=== PATIENT | female | born 1965 | race Caucasian/White ===

== ENCOUNTER 2022-09-07 15:33 | Outpatient (CLI) | payer OTHER, SELFPAY ==
--- NOTE | ~2022-09-07 | US_ITS ---
EXAMINATION: US venous doppler [facility] DATE: 09/07/2022 16:25 INDICATION: Lower limb swelling TECHNIQUE: Grayscale ultrasound images without and with compression and Doppler ultrasound images of the bilateral lower extremity veins were obtained. COMPARISON: None. FINDINGS: The visualized portions of right common femoral vein, profunda (deep) femoral vein, femoral vein, pop liteal vein, posterior tibial veins, peroneal veins, gastrocnemius vein and greater saphenous vein ou tflow are patent. The visualized portions of left common femoral vein, profunda femoral vein, femoral vein, popliteal v ein, posterior tibial veins, peroneal veins, gastrocnemius vein and greater saphenous vein outflow ar e patent. IMPRESSION: 1. No deep venous thrombosis in either lower limb. Reviewed, dictated and finalized at location A.
== END 2022-09-07 15:34 | disposition home or self-care (01) ==
PROVIDERS: PCP Family Medicine; Visit Provider Family Medicine
DX: M79.89 Other specified soft tissue disorders (principal)
CPT/HCPCS: 93970

== ENCOUNTER 2024-01-01 10:20 | Inpatient (IN) | payer OTHER, SELFPAY ==
[2024-01-01] VITALS (30 sets, daily range): BP systolic 119–158; BP diastolic 64–139; PULSE 89–111; RESP 12–29; TEMP 36.7–36.8; O2SAT 88–100; BMI 19.3
--- NOTE | ~2024-01-01 | MR_ITS ---
EXAMINATION: MR hip RT wo con DATE: 01/02/2024 12:15 INDICATION: Right greater trochanter fracture. TECHNIQUE: Magnetic resonance imaging (MRI) of the right hip was performed without intravenous contra st. COMPARISON: Pelvis and right hip radiographs 01/01/2024 FINDINGS: There is an old healed fracture of proximal left femur with internal fixation with plate an d screws. There is an avulsion fracture of greater trochanter of proximal right femur with 17 mm dist raction and edema-like marrow signal intensity. There are nondisplaced trabecular fractures in the in tertrochanteric region of proximal right femur. There is adjacent hematoma. There is edema in the rig ht gluteus medius muscle belly. There is subcutaneous edema in right pelvis. The hip joints demonstra te partial-thickness cartilage loss and osteophytes. There are bilateral hip joint effusions, right w orse than left. There is mild tendinopathy of the hamstring origins bilaterally. Right iliopsoas tend on is normal. IMPRESSION: 1. Intertrochanteric fracture of proximal right femur with displacement of the greater trochanter fra cture fragment. 2. Mild osteoarthritis of the hips. Reviewed, dictated and finalized at location A. IMPRESSION: 1. Intertrochanteric fracture of proximal right femur with displacement of the greater trochanter fracture fragment. 2. Mild osteoarthritis of the hips.
--- NOTE | ~2024-01-01 | US_ITS ---
EXAMINATION: US carotid duplex BI DATE: 01/01/2024 15:13 INDICATION: Syncope. TECHNIQUE: Grayscale, color Doppler, and pulsed Doppler images of the cervical carotid arteries were obtained. The degree of vessel stenosis is placed in one of the following categories: normal, <50%, 5 0-69%, >=70% but less than near-occlusion, near-occlusion, or total occlusion. Note that percent sten osis relative to normal distal artery lumen diameter is indirectly measured from velocity measurement s as described by Les, et al. Radiology 2003; 229:340-346. COMPARISON: None. FINDINGS: RIGHT: The right common carotid artery (CCA) peak systolic velocity (PSV) is 71 cm/s. The right internal car otid artery (ICA) PSV is 94 cm/s. The right ICA end-diastolic velocity (EDV) is 48 cm/s. The right IC A/CCA PSV ratio is 1.7. Grayscale and color Doppler images yield an estimate of <50% diameter reducti on from plaque in the ICA. There is antegrade flow in the right vertebral artery. LEFT: The left CCA PSV is 74 cm/s. The left ICA PSV is 78 cm/s. The left ICA EDV is 36 cm/s. The left ICA/C CA PSV ratio is 1.2. Grayscale and color Doppler images yield an estimate of <50% diameter reduction from plaque in the ICA. There is antegrade flow in the left vertebral artery. IMPRESSION: 1. <50% stenosis in the right internal carotid artery. 2. <50% stenosis in the left internal carotid artery. Reviewed, dictated and finalized at location A.
--- NOTE | ~2024-01-01 | XR_ITS ---
EXAMINATION: XR hip RT 2V w AP pelvis DATE: 01/01/2024 11:37 INDICATION: Fall. TECHNIQUE: An anteroposterior view of the pelvis and 2 views of right hip were obtained. COMPARISON: None. FINDINGS: There is an avulsion fracture of greater trochanter of proximal right femur with 1.9 cm dis traction. There is an old healed fracture of proximal left femur with internal fixation. There is mil d osteoarthritis of the hips. IMPRESSION: 1. Avulsion fracture of greater trochanter of proximal right femur. 2. Mild osteoarthritis of the hips. Reviewed, dictated and finalized at location A.
--- NOTE | ~2024-01-01 | XR_ITS ---
EXAMINATION: XR toe 5th RT min 2V DATE: 01/02/2024 09:00 INDICATION: Right fifth toe wound after being stepped on 7 months prior TECHNIQUE: Dorsal plantar, lateral and oblique views of the right fifth toe were obtained. COMPARISON: None FINDINGS: Alignment is normal. Suggestion of an old healed fracture deformity at the head of the fifth proximal phalanx. Periarticular soft tissue swelling about the fifth metatarsophalangeal joint with normal xin int space. Mild osteoarthritis at the visualized interphalangeal joints in the fourth and fifth toes. IMPRESSION: 1. Possible old healed fracture deformity at the head of the fifth proximal phalanx. No acute osseous abnormality. 2. Mild polyarticular osteoarthritis in the interphalangeal joints of the fourth and fifth toes. Reviewed, dictated and finalized at location B. IMPRESSION: 1. Possible old healed fracture deformity at the head of the fifth proximal pha lanx. No acute osseous abnormality. 2. Mild polyarticular osteoarthritis in the interphalangeal joints of the fourt h and fifth toes.
--- NOTE | ~2024-01-01 | MR_ITS ---
EXAMINATION: MR foot RT wo/w con DATE: 01/03/2024 09:00 INDICATION: Chronic ulcer at the metatarsophalangeal joints at the right foot. TECHNIQUE: Magnetic resonance imaging (MRI) of the affected fore/mid foot was performed without intra venous contrast. Sequences included sagittal T1-weighted FSE, sagittal fluid sensitive FSE STIR, linda nal PD-weighted FS FSE, coronal T1-weighted FSE, axial PD-weighted FS FSE, and axial PD-weighted FSE. COMPARISON: None FINDINGS: There is increased fluid and decreased fat signal in the subcutaneous tissues surrounding likely ulce ration at the lateral plantar aspect of the fifth metatarsophalangeal joint and at the medial plantar aspect of the first interphalangeal joint. The underlying bone marrow signal appears normal with no evident reactive edema or loss of T1 fat signal to suggest osteomyelitis. No abscess. There is mild marrow edema and enhancement associated with small linear low signal intensity nondispl aced fracture line underlying the distal articular surface of the medial cuneiform. There is linear l ow signal at the juxtaposed base of the first metatarsal but without surrounding edema or enhancement which could represent additional nondisplaced fracture either more chronic or in more advanced stage of healing. There is mild polyarticular osteoarthritis involving multiple joints in the mid and forefoot. Small f ocus of subarticular edema-like signal change at the central head of the first metatarsal. Additional subarticular cystlike and edema-like signal change at the mid cuneiform along its articulation with the lateral cuneiform. The visualized portions of the flexor and extensor tendons as well as intrinsi c musculature of the foot are unremarkable. The Lisfranc ligament complex as well as the collateral l igament complexes at the metatarsophalangeal and interphalangeal joints are unremarkable. No other ab normally enhancing lesions identified. IMPRESSION: 1. Plantar skin ulcerations at the fifth metatarsophalangeal and first interphalangeal joints without evident associated osteomyelitis or abscess. 2. Nondisplaced fractures at the base of the first metatarsal and juxtaposed medial cuneiform, the la tter without associated marrow edema or enhancement or more chronic or and more advanced stage of hea ling. 3. Mild polyarticular osteoarthritis in the mid and forefoot. Reviewed, dictated and finalized at location B. IMPRESSION: 1. Plantar skin ulcerations at the fifth metatarsophalangeal and first interpha langeal joints without evident associated osteomyelitis or abscess. 2. Nondisplaced fractures at the base of the first metatarsal and juxtaposed me dial cuneiform, the latter without associated marrow edema or enhancement or mo re chronic or and more advanced stage of healing. 3. Mild polyarticular osteoarthritis in the mid and forefoot.
--- NOTE | 2024-01-01 10:46 | ED.LOWEXIN ---
HPI - Extremity Injury (Lower) General Chief Complaint: Extremity Injury, Lower <Fran Jean PA-C - Last Filed: 01/01/24 17:58> Stated Complaint: R hip fx <Fran Jean PA-C - Last Filed: 01/01/24 17:58> Time Seen by Provider: 01/01/24 10:43 <Fran Jean PA-C - Last Filed: 01/01/24 17:58> Source: patient <RAJAN Nolan Last Filed: 01/01/24 17:58> Mode of arrival: ambulatory <Fran Jean PA-C - Last Filed: 01/01/24 17:58> Limitations: no limitations <Fran Jean PA-C - Last Filed: 01/01/24 17:58> History of Present Illness HPI Narrative: This is a 58-year-old female with history of HTN, HLD, cigarette smoking who presents to the ED for chief complaint of right hip injury occurring 12/23/2023. Reports that she was seen by primary doctor yesterday and had outpatient x-rays that showed right hip fracture. I did receive a call from primary care office who reports a right greater trochanter fracture. Patient reports that she was walking [place] have an episode where she became dizzy and had a syncopal episode and fell onto the right hip. Patient states that she has had left hip fracture in the past with left hip replacement as well as fractures to the right leg. States that it became increasingly difficult to bear weight at home even with the use of walker so she to her doctor. Pain is located throughout the right hip and right femur. Denies numbness, weakness or any further site of injury. Her son tells that she may have osteoporosis but she has not a official bone scan done just his comments from previous doctors about her x-rays. <RAJAN Nolan Last Filed: 01/01/24 17:58> Related Data Home Medications: Home Medications Medication Instructions Recorded Confirmed buspirone PO 05/09/19 fenofibrate PO 05/09/19 furosemide PO 05/09/19 lovastatin PO 05/09/19 simvastatin PO 05/09/19 tramadol 50 mg tablet 50 mg PO Q8H PRN pain 05/09/19 <Fran Jean PA-C - Last Filed: 01/01/24 17:58> Allergies/Adverse Reactions: Allergies Allergy/AdvReac Type Severity Reaction Status Date / Time Penicillins Allergy Unknown Hives Verified 01/01/24 11:12 Sulfa (Sulfonamide Allergy Hives Verified 01/01/24 11:12 Antibiotics) <Fran Jean PA-C - Last Filed: 01/01/24 17:58> Review of Systems Review of Systems: All systems as dictated in HPI <Fran Jean PA-C - Last Filed: 01/01/24 17:58> [facility] Past Medical History Medical History: Medical History (Updated 01/01/24 @ 14:22 by Sonia Baltazar PA-C) Anxiety Depression Dyslipidemia Hypertension Post-menopause Tobacco dependence <Fran Jean PA-C - Last Filed: 01/01/24 17:58> Surgical History Surgical History: Surgical History (Updated 01/01/24 @ 14:16 by Sonia Baltazar PA-C) History of hysterectomy History of open reduction and internal fixation (ORIF) procedure Repair left hip fracture. <Fran Jean PA-C - Last Filed: 01/01/24 17:58> Family History Family History: Family History Father Hypertension Cerebrovascular accident Family history of coronary artery disease Mother Hypertension Other Arthritis Heart disease <Fran Jean PA-C - Last Filed: 01/01/24 17:58> Social History Social History: Social History (Updated 01/01/24 @ 14:16 by Sonia Baltazar PA-C) Social History: Surrogate medical decision maker: Code status: Full code. Smoking packs per day: 0.5 Smoking cigarettes per day: 10.0 Years smoked: 20 Smoking pack-years: 10.00 Smoking status: Current every day smoker Alcohol intake: current Drinks per week: 2 Alcohol use details: Occasional Substance use: never Do You Feel Safe in your Home?: Yes Lack of Transportation: No Lack of Food: Never True Current Housing: I Have Housing Concerned About Future Housing
--- NOTE | 2024-01-01 10:58 | ECG_ITS ---
Test Date: 2024-01-01 11:09:04 Measurements Intervals [place] Rate: 97 P: 61 W[place]: 169 QRS: 23 QRSD: 86 T: 42 QT: 322 QTc: 410 Interpretive Statements SINUS RHYTHM BASELINE ARTIFACT- I, II, III, AVR, AVL, AVF NORMAL ECG No previous ECG available for comparison Electronically Signed On 01-01-2024 11:10:58 CDT by Donovan Thakkar D.O.
[2024-01-01 11:19] LABS: Basophils Absolute Auto 0.1 K/mm3 (0.0-0.1); Basophils Percent Auto 0.6 % (0.2-1.2); Eosinophils Absolute Auto 0.1 K/mm3 (0-0.3); Eosinophils Percent Auto 0.9 % (0-4.4); Hematocrit 25.8 % (37.0-47.0); Hemoglobin 9.1 g/dL (12.0-15.0); Immature Granulocyte Absolute 0.09 K/mm3 (0.00-0.031); Immature Granulocyte Percent A 0.9 % (0-0.5); Lymphocytes Absolute Auto 1.64 K/mm3 (0.9-3.2); Lymphocytes Percent Auto 15.8 % (18.3-44.2); Mean Corpuscular HGB Conc 35.3 g/dl (32-36); Mean Corpuscular Hemoglobin 37.8 pg (26-34); Mean Corpuscular Volume 107.1 fl (80-100); Mean Platelet Volume 8.3 fl (7.4-10.4); Monocytes Absolute Auto 0.8 K/mm3 (0.1-0.6); Monocytes Percent Auto 7.7 % (2.6-8.5); Neutrophils Absolute Auto 7.7 K/mm3 (1.3-6.7); Neutrophils Percent Auto 74.1 % (45.5-73.1); Platelet Count Result 535 k/mm3 (150-375); Red Blood Count 2.41 M/mm3 (4.2-5.4); White Blood Count 10.4 K/mm3 (4.5-10.0)
[2024-01-01 11:29] LABS: Prothrombin Time 13.6 Seconds (11.1-14.7)
[2024-01-01 11:30] LABS: Blood Urea Nitrogen 18 mg/dL (7-17); Calcium 10.6 mg/dL (8.4-10.2); Chloride 106 mmol/L (98-107); Estimated CRCL calculation 61 ml/min; Estimated Glomerular Filt Rate > 60; Glucose 104 mg/dL (65-110); Potassium 3.8 mmol/L (3.4-5.0)
[2024-01-01 11:39] LABS: Anisocytosis 2+; Platelet Estimate Increased (Adequate)
[2024-01-01 11:40] LABS: Target Cells 1+
[2024-01-01 11:41] LABS: Macrocytosis 2+ (NORMAL); Schistocytes None Seen
[2024-01-01 11:49] LABS: Anion Gap 12 mmol/L (4-12); Carbon Dioxide 17 mmol/L (22-30); Sodium 135 mmol/L (137-145)
[2024-01-01] MEDS: MORPHINE SULFATE (*CRX) 4 MG/ML INJ IV PUSH (11:56)
[2024-01-01] MEDS: ONDANSETRON INJ 4 MG/2 ML VIAL IV PUSH (11:57)
[2024-01-01 12:11] LABS: Alanine Aminotransferase 19 U/L (6-35); Albumin Level 3.9 g/dL (3.5-5.1); Alkaline Phosphatase 154 U/L (38-126); Aspartate Amino Transferase 54 U/L (14-36); Bilirubin,Total 0.7 mg/dL (0.2-1.3)
--- NOTE | 2024-01-01 12:35 | PM.IMHP ---
H&P: HPI History of Present Illness Date/Time: 01/01/24 13:35 Chief Complaint: Right hip fracture. Narrative: This is a very pleasant 58-year-old female smoker with hypertension, dyslipidemia, anemia, and anxiety presented to the emergency department after an outpatient x-ray reportedly showed a right hip fracture. The patient provides the following history. While at work on 12/23/2023 she began feeling weak, lightheaded, dizzy, and sweaty. She felt as though she was going to pass out and tried to sit down however did not make it to a chair in time. She ended up falling on the concrete floor, landing on her right side with immediate pain and swelling in her right hip. Coworkers called 911 and EMS encouraged her to go to the hospital as her blood pressures were in the 70s systolic however she declined. She has had increasing pain in that right hip since that time and in fact has been using a walker as she cannot really bear weight without severe pain. Her doctor ordered an outpatient x-ray today and was told to come to the ER as it showed a right greater trochanteric fracture. Regarding the syncopal episode, she reports that the day before she spent a lot of time working in her garden the day before and wonders if she was possibly dehydrated. She takes furosemide daily for lower extremity edema and she thinks that may have caused a drop in blood pressure. She has felt okay since that time aside from the hip pain. She denies chest pain, pleuritic pain, palpitations, sensations of racing heart, shortness of breath, and calf pain. Of note she is currently on doxycycline for a right 5th toe wound. In the ED: She was afebrile on arrival with stable blood pressures. Labs are significant for WBC count of 10.4, hemoglobin 9.1, hematocrit 25.8%, MCV 107.1, platelet 535, sodium 135, BUN 18, creatinine 0.90, calcium 10.6, AST 54, alkaline phosphatase 154. X-ray showed an avulsion fracture of the greater trochanter of the proximal right femur and mild osteoarthritis of the hips. She is being admitted in this setting for further workup. Review of Systems Review of Systems: 12 systems were reviewed and are negative except for as per HPI. [facility] Past Medical History Medical History Anxiety Depression Dyslipidemia Hypertension Post-menopause Tobacco dependence Surgical History Surgical History History of hysterectomy History of open reduction and internal fixation (ORIF) procedure Repair left hip fracture. Family History Family History Father Hypertension Cerebrovascular accident Family history of coronary artery disease Mother Hypertension Other Arthritis Heart disease Social History Social History (Updated 01/01/24 @ 20:25 by Sonia Baltazar PA-C) Social History: Surrogate medical decision maker: Cyril Nguyen, son. Code status: Full code. Smoking packs per day: 0.5 Smoking cigarettes per day: 10.0 Years smoked: 20 Smoking pack-years: 10.00 Smoking status: Current every day smoker Additional smoking assessment comments: Patient smokes 3 to 6 cigarettes a day. Alcohol intake: current Drinks per week: 2 Alcohol use details: Occasional Substance use: never Do You Feel Safe in your Home?: Yes Lack of Transportation: No Lack of Food: Never True Current Housing: I Have Housing Concerned About Future Housing: No Difficulty Paying Gas/Electric Bills: No Difficulty Paying for Meds: No Currently Unemployed: No Education: High School Diploma/GED Difficulty w/ Childcare or Family Care: No Spiritual care concerns: No Meds Home Medications and Allergies Home Medications Medication Instructions Recorded Confirmed Type naproxen 500 mg tablet,delayed 500 mg PO BID PRN pain #14 tabs 05/05/19 01/01/24 Rx release ([facility]
--- NOTE | 2024-01-01 14:21 | ECHO_ITS ---
Patient Info Name: Vero Nguyen Age: 58 years : 1965 Gender: Female Ht: 68 in Wt: 150 lbs BSA: 1.81 m2 HR: 98 bpm BP: 130 / 91 mmHg Heart Rhythm: Tachycardia, Sinus Rhythm Technical Quality: Poor Exam Date: 01/01/2024 4:07 PM Exam Location: Echo Lab Patient Status: Outpatient Admit Date: 01/01/2024 Staff Ordering Physician: Sonia Baltazar PA-C Delivery Of Shopping News: Bea Quintero RDCS Attending Provider: Erick Max MD Referring Physician: Giovanny ALAN; Exam Type: CA echo doppler color flow Study Info Indications - syncope, hypertension Complete two-dimensional, color flow and Doppler transthoracic echocardiogram is performed. Reason for Poor Study: poor patient cooperation Summary 1. Left ventricular chamber dimension is normal. 2. Left ventricular systolic function is normal, estimated at 65-70%. 3. The left ventricular diastolic function is grade I diastolic dysfunction. 4. Right ventricular systolic function is normal. 5. There is mild tricuspid valve regurgitation. Left Ventricle Left ventricular chamber dimension is normal. Left ventricular systolic function is normal, estimated at 65-70%. There is no increased left ventricular wall thickness. The left ventricular diastolic function is grade I diastolic dysfunction. Right Ventricle Right ventricular chamber dimension is normal. Right ventricular systolic function is normal. Left Atria Left atrial chamber dimension is normal. Right Atria Right atrial chamber dimension is normal. Atrial Septum Intact interatrial septum visualized by color flow imaging. Aortic Valve The aortic valve is probable trileaflet. There is no aortic valve stenosis. There is no aortic valve regurgitation. Pulmonic Valve The pulmonic valve is not well visualized. Mitral Valve There is trace mitral valve regurgitation. Tricuspid Valve There is mild tricuspid valve regurgitation. Pericardium/Pleural There is no pericardial effusion. Inferior Vena Cava Normal inferior vena cava with >50% collapse upon inspiration consistent with normal right atrial pressure, 3 mmHg. Aorta The aortic root size at the sinus of Valsalva is normal. Left Ventricular Outflow Tract Name Value Normal LVOT 2D LVOT Diameter 1.9 cm LVOT Doppler LVOT Peak Gradient 4 mmHg LVOT Mean Gradient 2 mmHg LVOT VTI 21 cm LVOT VTI/AV VTI Ratio 0.8 LVOT Stroke Volume 59 ml LVOT CO 5.6 l/min LVOT CI 3.1 l/min/m2 Pulmonic Valve Name Value Normal PV Doppler PV Peak Gradient 4 mmHg Mitral Valve Name Value Normal
[2024-01-01] MEDS: HYDROmorphone HCL INJ (*CRX) 1 MG/ML SYR 0.5 MG IV PUSH (15:13)
--- NOTE | 2024-01-01 16:57 | ADMGEN ---
This patient, Vero Nguyen, was admitted to [facility] Surg Room 322-01. Patient/family oriented to hospital policies and general routines including ID bracelet, bed and alarms, visiting hours, pain management, procedures, bathroom and other care routines, personal items, smoking policy, room service/diet, and visiting hours. Information on how to activate the Rapid Response Team has been discussed. Patient/Family are encouraged to report perceived risks to care and to ask questions if they do not understand what they are told or what they should do.
[2024-01-01 18:09] LABS: Iron 104 ug/dL (37-170)
[2024-01-01 18:10] LABS: Magnesium 1.5 mg/dL (1.6-2.3)
[2024-01-01 18:18] LABS: Percent Iron Saturation 35 % (20-50)
[2024-01-01 19:15] LABS: Folic Acid 3.9 ng/mL (2.76->20)
[2024-01-01] MEDS: HYDROcodone/acetaminophen (*CRX) 5-325 MG TABLET 1 TAB PO (21:11)
[2024-01-01] MEDS: MAGNESIUM SULF 2 GM/WATER 50ML 2 GM/50 ML BAG IVPB (21:11)
[2024-01-02] VITALS (9 sets, daily range): BP systolic 110–114; BP diastolic 70–82; PULSE 87–107; RESP 16–18; TEMP 36.7–36.9; O2SAT 100
[2024-01-02] MEDS: HYDROcodone/acetaminophen (*CRX) 5-325 MG TABLET 1 TAB PO ×3 (06:39→18:50)
--- NOTE | 2024-01-02 07:44 | PM.IMPN ---
Progress Note: A&P Assessment and Plan (1) Closed fracture of greater trochanter of right femur: Code(s): S72.111A - Displaced fracture of greater trochanter of right femur, initial encounter for closed fracture Status: Acute Assessment and Plan: Patient presented to the emergency room after a fall on 12/22. she had persistent right-sided hip pain and her primary care provider ordered an outpatient x-ray which reportedly showed avulsion fracture of the greater trochanter of the proximal right femur. patient was instructed to come to the emergency room. Orthopedics consulted MRI right hip ordered pain control with [place] versus Dilaudid for breakthrough bowel regimen with MiraLax and senna SCDs for DVT prophylaxis (2) Macrocytic anemia: Code(s): D53.9 - Nutritional anemia, unspecified Status: Acute Assessment and Plan: history of iron deficiency anemia. iron, B12, folate pending monitor H&H (3) Syncope: Code(s): R55 - Syncope and collapse Status: Acute Assessment and Plan: initial fall on 12/22 was from a syncopal episode. the patient reports she had been working outside in her garden and she feels she became dehydrated. She is also on diuretics. Echocardiogram ordered carotid Dopplers were negative telemetry ordered EKG showed normal sinus rhythm with a rate of 97 blood pressures were stable on arrival in fact hypertensive 130s over 90s check orthostatic vitals TSH normal at 1.2 (4) Toe pain, right: Code(s): M79.674 - Pain in right toe(s) Status: Acute Assessment and Plan: chronic right 5th toe wound. recently finished antibiotics. MRI pending (5) Hypertension: Code(s): I10 - Essential (primary) hypertension Status: Acute Assessment and Plan: history of hypertension for which she takes Lasix 20 mg daily, losartan 50 mg daily blood pressures on arrival were 130s over 90s antihypertensives resumed Plan DVT prophylaxis: SCDs Glycemic control: not applicable Code Status: full code Disposition: 58-year-old female who presents with right hip pain found have a avulsion fracture of the greater trochanter of the proximal right femur after a syncopal fall on 12/22. orthopedics has been consulted and are requesting MRI imaging which is pending. Syncopal workup has been ordered. she also has a chronic toe wound on her right foot which is being imaged. Medication reconciliation obtained via the following: Nurse completed on admission The file time of this note does not necessarily represent the time the patient was seen. Subjective Date/time seen: 01/02/24 07:44 Interval history: This is a very pleasant 58-year-old female smoker with hypertension, dyslipidemia, anemia, and anxiety presented to the emergency department after an outpatient x-ray reportedly showed a right hip fracture. 01/01: Patient reports pain to her right hip and right 5th toe. She reports swelling to her right hip. She is awaiting MRI. Review of Systems Review of Systems: All systems reviewed & are unremarkable except as noted in HPI and below Exam Narrative: General: well appearing, appears stated age. HEENT: normocephalic, atraumatic. Mucous membranes moist. EOMI, PERRLA, bilateral sclera anicteric, no conjunctival injection. Neck supple without JVD, lymphadenopathy, or bruit. Respiratory: clear to auscultation bilaterally. No rales/rhonic/wheezes. Cardiovascular: Regular rate and rhythm, normal S1-S2 upon auscultation. No murmurs, rubs, or clicks. PMI is nondisplaced, capillary refill less than 3 second. Abdomen: Soft, round, no pulsatile masses, nondistended and nontender. No rebound, no guarding. No CVA tenderness, no hepatosplenomegaly. Bowel sounds present to all four quadrants. No high pitch or ti
[2024-01-02 07:54] LABS: Hematocrit 22.7 % (37.0-47.0); Hemoglobin 7.9 g/dL (12.0-15.0); Mean Corpuscular HGB Conc 34.8 g/dl (32-36); Mean Corpuscular Hemoglobin 37.3 pg (26-34); Mean Corpuscular Volume 107.1 fl (80-100); Mean Platelet Volume 8.3 fl (7.4-10.4); Platelet Count Result 502 k/mm3 (150-375); Red Blood Count 2.12 M/mm3 (4.2-5.4); Red Cell Distribution Width 16.7 % (11.5-14.5); White Blood Count 7.9 K/mm3 (4.5-10.0)
[2024-01-02 08:04] LABS: Anion Gap 6 mmol/L (4-12); Blood Urea Nitrogen 12 mg/dL (7-17); Calcium 8.9 mg/dL (8.4-10.2); Carbon Dioxide 22 mmol/L (22-30); Chloride 102 mmol/L (98-107); Estimated CRCL calculation 79 ml/min; Estimated Glomerular Filt Rate > 60; Glucose 96 mg/dL (65-110); Sodium 130 mmol/L (137-145)
[2024-01-02] MEDS: CYCLOBENZAPRINE HCL 10 MG TABLET BY MOUTH ×2 (08:25→17:07)
[2024-01-02] MEDS: busPIRone HCL 10 MG TABLET 30 MG BY MOUTH ×2 (08:25→17:07)
[2024-01-02] MEDS: FENOFIBRATE 160 MG TABLET PO (08:26)
[2024-01-02] MEDS: FUROSEMIDE 20 MG TABLET PO (08:26)
[2024-01-02] MEDS: FAMOTIDINE 20 MG TABLET BY MOUTH ×2 (08:26→20:42)
[2024-01-02] MEDS: LOSARTAN POTASSIUM 50 MG TABLET PO (08:27)
[2024-01-02] MEDS: SIMVASTATIN 20 MG TABLET 40 MG PO (08:27)
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
[2024-01-02] MEDS: SENNA/DOCUSATE SODIUM TABLET 1 TAB PO (20:42)
[2024-01-03] VITALS: PULSE 79
[2024-01-03] MEDS: HYDROcodone/acetaminophen (*CRX) 5-325 MG TABLET 1 TAB PO ×4 (01:07→20:37)
[2024-01-03] MEDS: ACETAMINOPHEN 325 MG TABLET 650 MG PO (03:19)
[2024-01-03 04:00] VITALS: PULSE 77
[2024-01-03 05:34] VITALS: BP 120/89; PULSE 91; RESP 18; TEMP 36.7; O2SAT 100
[2024-01-03 08:00] VITALS: PULSE 80
[2024-01-03] MEDS: busPIRone HCL 10 MG TABLET 30 MG BY MOUTH ×2 (09:31→16:37)
[2024-01-03] MEDS: SIMVASTATIN 20 MG TABLET 40 MG PO (09:31)
[2024-01-03] MEDS: FUROSEMIDE 20 MG TABLET PO (09:31)
[2024-01-03] MEDS: LOSARTAN POTASSIUM 50 MG TABLET PO (09:31)
[2024-01-03] MEDS: CYCLOBENZAPRINE HCL 10 MG TABLET BY MOUTH ×2 (09:32→16:37)
[2024-01-03] MEDS: buPROPion HCL XL (24 HR) 150 MG TABCR PO (09:32)
[2024-01-03] MEDS: FAMOTIDINE 20 MG TABLET BY MOUTH ×2 (09:32→20:42)
[2024-01-03] MEDS: FENOFIBRATE 160 MG TABLET PO (09:32)
--- NOTE | 2024-01-03 10:03 | PCPTNOTE ---
Pt noted to have new fracture in foot not yet addressed by ortho. Waiting for ortho recommendations for foot prior to PT evaluation. RN aware.
[2024-01-03 14:00] VITALS: BP 101/38; PULSE 86; RESP 18; TEMP 36.1; O2SAT 100
--- NOTE | 2024-01-03 14:38 | PM.IMPN ---
Progress Note: A&P Assessment and Plan (1) Closed fracture of greater trochanter of right femur: Qualifiers: Encounter type: initial encounter Fracture alignment: displaced Qualified Code(s): S72.111A - Displaced fracture of greater trochanter of right femur, initial encounter for closed fracture Code(s): S72.111A - Displaced fracture of greater trochanter of right femur, initial encounter for closed fracture Status: Acute Assessment and Plan: Patient presented to the emergency room after a fall on 12/22. she had persistent right-sided hip pain and her primary care provider ordered an outpatient x-ray which reportedly showed avulsion fracture of the greater trochanter of the proximal right femur. patient was instructed to come to the emergency room. Orthopedics consulted MRI right hip ordered pain control with [place] versus Dilaudid for breakthrough bowel regimen with MiraLax and senna SCDs for DVT prophylaxis (2) Macrocytic anemia: Code(s): D53.9 - Nutritional anemia, unspecified Status: Acute Assessment and Plan: history of iron deficiency anemia. iron, B12, folate pending monitor H&H (3) Syncope: Code(s): R55 - Syncope and collapse Status: Acute Assessment and Plan: initial fall on 12/22 was from a syncopal episode. the patient reports she had been working outside in her garden and she feels she became dehydrated. She is also on diuretics. Echocardiogram ordered carotid Dopplers were negative telemetry ordered EKG showed normal sinus rhythm with a rate of 97 blood pressures were stable on arrival in fact hypertensive 130s over 90s check orthostatic vitals TSH normal at 1.2 (4) Toe pain, right: Code(s): M79.674 - Pain in right toe(s) Status: Acute Assessment and Plan: chronic right 5th toe wound. recently finished antibiotics. MRI pending (5) Hypertension: Code(s): I10 - Essential (primary) hypertension Status: Acute Assessment and Plan: history of hypertension for which she takes Lasix 20 mg daily, losartan 50 mg daily blood pressures on arrival were 130s over 90s antihypertensives resumed Plan DVT prophylaxis: SCDs Glycemic control: not applicable Code Status: full code Disposition: 58-year-old female who presents with right hip pain found have a avulsion fracture of the greater trochanter of the proximal right femur after a syncopal fall on 12/22. orthopedics has been consulted and are requesting MRI imaging which is pending. Syncopal workup has been ordered. she also has a chronic toe wound on her right foot which is being imaged. Medication reconciliation obtained via the following: Nurse completed on admission The file time of this note does not necessarily represent the time the patient was seen. Subjective Date/time seen: 01/03/24 14:38 Interval history: This is a very pleasant 58-year-old female smoker with hypertension, dyslipidemia, anemia, and anxiety presented to the emergency department after an outpatient x-ray reportedly showed a right hip fracture. 01/01: Patient reports pain to her right hip and right 5th toe. She reports swelling to her right hip. She is awaiting MRI. 01/02: No acute events overnight. She was able to get her MRI of her right foot today. She does have a non-displaced fracture at the base of the first metatarsal and juxtaposed medial cuneiform but it is Review of Systems Review of Systems: All systems reviewed & are unremarkable except as noted in HPI and below Objective Data Vital Signs Vital Signs: Vital Signs - 24 hr 01/02/24 16:00 01/02/24 21:00 01/02/24 20:00 Temperature 98.2 F Pulse Rate 106 H 98 Respiratory Rate 18 Blood Pressure 111/81 Pulse Oximetry 100 Oxygen Delivery Room Air
--- NOTE | 2024-01-03 15:10 | PM.IMPN ---
Progress Note: A&P Assessment and Plan (1) Closed fracture of greater trochanter of right femur: Qualifiers: Encounter type: initial encounter Fracture alignment: displaced Qualified Code(s): S72.111A - Displaced fracture of greater trochanter of right femur, initial encounter for closed fracture Code(s): S72.111A - Displaced fracture of greater trochanter of right femur, initial encounter for closed fracture Status: Acute Assessment and Plan: Patient presented to the emergency room after a fall on 12/22. she had persistent right-sided hip pain and her primary care provider ordered an outpatient x-ray which reportedly showed avulsion fracture of the greater trochanter of the proximal right femur. patient was instructed to come to the emergency room. Orthopedics consulted MRI right hip ordered and shows intertrochanteric fracture of proximal right femur with displacement of the greater trochanter fracture fragment. Per orthopedics this will be managed without surgery. She will be toe touch weight bearing for 6 weeks and follow up in clinic in 2 weeks. pain control with [place] versus Dilaudid for breakthrough Awaiting therapy recommendations for placement versus home health bowel regimen with MiraLAX and senna SCDs for DVT prophylaxis (2) Macrocytic anemia: Code(s): D53.9 - Nutritional anemia, unspecified Status: Acute Assessment and Plan: history of iron deficiency anemia. iron, B12, folate pending monitor H&H (3) Syncope: Code(s): R55 - Syncope and collapse Status: Acute Assessment and Plan: initial fall on 12/22 was from a syncopal episode. the patient reports she had been working outside in her garden and she feels she became dehydrated. She is also on diuretics. Echocardiogram ordered and shows grade 1 diastolic dysfunction carotid Doplers were negative telemetry ordered EKG showed normal sinus rhythm with a rate of 97 blood pressures were stable on arrival in fact hypertensive 130s over 90s check orthostatic vitals TSH normal at 1.2 (4) Toe pain, right: Code(s): M79.674 - Pain in right toe(s) Status: Acute Assessment and Plan: chronic right 5th toe wound. recently finished antibiotics. MRI does not show osteomyelitis (5) Hypertension: Code(s): I10 - Essential (primary) hypertension Status: Acute Assessment and Plan: history of hypertension for which she takes Lasix 20 mg daily, losartan 50 mg daily blood pressures on arrival were 130s over 90s antihypertensives resumed blood pressure normal Plan DVT prophylaxis: SCD's Glycemic control: not applicable Code Status: full code DVT prophylaxis: SCDs Glycemic control: not applicable Code Status: full code Disposition: 58-year-old female who presents with right hip pain found have a avulsion fracture of the greater trochanter of the proximal right femur after a syncopal fall on 12/22. Orthopedics is recommending non-surgical management with toe touch weight bearing for 6 weeks. She will need to follow up in clinic in 2 weeks. Awaiting therapy recommendations for placement versus home health. Medication reconciliation obtained via the following: Nurse completed on admission The file time of this note does not necessarily represent the time the patient was seen. Subjective Date/time seen: 01/03/24 15:10 Interval history: This is a very pleasant 58-year-old female smoker with hypertension, dyslipidemia, anemia, and anxiety presented to the emergency department after an outpatient x-ray reportedly showed a right hip fracture. 01/01: Patient reports pain to her right hip and right 5th toe. She reports swelling to her right hip. She is awaiting MRI. 01/02: No acute events overnight. Therapy has not yet worked with
--- NOTE | 2024-01-03 15:53 | PM.PNORT ---
Progress Note: A&P Assessment and Plan (1) Closed fracture of greater trochanter of right femur: Qualifiers: Encounter type: initial encounter Fracture alignment: displaced Qualified Code(s): S72.111A - Displaced fracture of greater trochanter of right femur, initial encounter for closed fracture Code(s): S72.111A - Displaced fracture of greater trochanter of right femur, initial encounter for closed fracture Status: Acute Assessment and Plan: MRI scan yesterday demonstrated comminuted fracture of primarily the proximal tip of the posterior aspect of the greater trochanter. There is no neoplasm noted. There is some streaks of edema going across the cancellous bone along the inner but no evidence of fracture extending through the medial cortex her anterior cortex so this is a greater trochanteric fracture. There is also fracture fragment involving insertion of boiler operator helper externus facet which is minimally displaced. I have discussed with her that standard treatment for these greater trochanteric fractures is nonsurgical. With her osteoporosis surgically is likely to lead to nonunion particularly with her smoking history. Recommend that she stop smoking completely at this time. I have explained that we will keep her toe-touch weight-bearing as there is risk that the fracture could complete to an intertrochanteric fracture with displacement which if that occurred she would require open reduction internal fixation peritoneal device somewhat similar to what she has had done on the left femur. If she maintains toe-touch weight-bearing for 6 weeks I of fracture in the proximal femur will of healed. The displacement of the greater trochanteric fragments will persist. The MRI scan shows that the gluteus minimus tendon is intact and attached anterior aspect of greater trochanter and gluteus medius attachments to that portion still attached so I think she will have satisfactory function of the hip but may have some slight decrease in strength chronically. I did order physical therapy for put on hold pending the MRI of her foot. Have her have physical therapy today and tomorrow morning and if she she can be discharged. She has had a little bit higher risk of her smoking history and I am going to start her on Lovenox implant use that for about a month until she is more active and her acute blood-loss anemia has corrected. (2) Foot ulcer, right: Qualifiers: Non-pressure ulcer stage: limited to breakdown of skin Qualified Code(s): L97.511 - Non-pressure chronic ulcer of other part of right foot limited to breakdown of skin Code(s): L97.519 - Non-pressure chronic ulcer of other part of right foot with unspecified severity Status: Acute Assessment and Plan: MRI scan of the right foot is reviewed that shows evidence of prior fracture of medial cuneiform /base of 1st metatarsal which would be chronic and healed. She had no tenderness in these areas clinically. The recurring ulceration in the skin over the plantar and lateral aspects of the right foot 5th MTP joint is not associated with bone or joint changes underneath. I would recommend the patient consider differential toe box and hopefully reduce callus over this area and keratosis problem. 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 Subjective Subjective Date/Time Seen: 01/03/24 15:53 Objective Data Vital Signs Vital Signs: Vital Signs - 24 hr 01/02/24 16:00 01/02/24 21:00 01/02/24 20:00 Temperature 36.8 C Pulse Rate 106 H 98 Respiratory Rate 18 Blood Pressure 111/81 Pulse Oximetry 100 Oxygen Delivery Room Air 01/02/24 20:00 01/03/24 00:00 01/03/24 05:34 Temperature 36.7 C Pulse Rate 94 79 91 Respiratory Rate 18 Blood Pressure 120/89 Pulse Oximetry 100 Oxygen Delivery 01/03/24 04:00 01/03/24 08:00 01/03/24 08:00 Temperature Pulse Rate 77 80 Respiratory Rate
[2024-01-03] MEDS: ENOXAPARIN 40 MG/0.4 ML SYRINGE SUB-Q (16:37)
[2024-01-03 20:15] VITALS: BP 118/88; PULSE 93; RESP 20; TEMP 36.7; O2SAT 100
[2024-01-03] MEDS: HYDROcodone/acetaminophen (*CRX) 10-325 MG TABLET 1 TAB PO (23:37)
[2024-01-04 04:55] VITALS: BP 112/77; PULSE 85; RESP 16; TEMP 36.6; O2SAT 97
[2024-01-04] MEDS: HYDROcodone/acetaminophen (*CRX) 5-325 MG TABLET 1 TAB PO (05:30)
[2024-01-04] MEDS: diphenhydrAMINE HCl INJ 50 MG/ML VIAL IV PUSH (05:30)
[2024-01-04 06:35] LABS: Mean Corpuscular HGB Conc 34.8 g/dl (32-36); Mean Corpuscular Hemoglobin 38.1 pg (26-34); Mean Corpuscular Volume 109.5 fl (80-100); Mean Platelet Volume 8.2 fl (7.4-10.4); Platelet Count Result 559 k/mm3 (150-375); Red Cell Distribution Width 16.7 % (11.5-14.5); White Blood Count 7.6 K/mm3 (4.5-10.0)
[2024-01-04 06:47] LABS: Alanine Aminotransferase 15 U/L (6-35); Albumin Level 3.1 g/dL (3.5-5.1); Alkaline Phosphatase 150 U/L (38-126); Anion Gap 4 mmol/L (4-12); Aspartate Amino Transferase 45 U/L (14-36); Bilirubin,Total 0.3 mg/dL (0.2-1.3); Blood Urea Nitrogen 8 mg/dL (7-17); Calcium 9.1 mg/dL (8.4-10.2); Carbon Dioxide 27 mmol/L (22-30); Chloride 99 mmol/L (98-107); Estimated CRCL calculation 68 ml/min; Estimated Glomerular Filt Rate > 60; Glucose 92 mg/dL (65-110); Potassium 3.7 mmol/L (3.4-5.0); Sodium 130 mmol/L (137-145)
--- NOTE | 2024-01-04 07:36 | PM.PNORT ---
Progress Note: A&P Assessment and Plan (1) Closed fracture of greater trochanter of right femur: Qualifiers: Encounter type: initial encounter Fracture alignment: displaced Qualified Code(s): S72.111A - Displaced fracture of greater trochanter of right femur, initial encounter for closed fracture Code(s): S72.111A - Displaced fracture of greater trochanter of right femur, initial encounter for closed fracture Status: Acute Assessment and Plan: Physical therapy has not worked with her yet but she did get herself out of bed to use the bedside commode last night without much difficulty. She is in good spirits her pain is well controlled she would like to go home today. Will ask therapy again to see her today and hopefully she will do well and if so she can be discharged today. Hemoglobin is stable at 8.0. Platelets 305181 which is likely hematopoietic response to the acute blood loss anemia. Plan Lovenox for 4 weeks. Subjective Subjective Date/Time Seen: 01/04/24 07:36 Objective Data Vital Signs Vital Signs: Vital Signs - 24 hr 01/03/24 08:00 01/03/24 08:00 01/03/24 14:00 Temperature 36.1 C L Pulse Rate 80 86 Respiratory Rate 18 Blood Pressure 101/38 L Pulse Oximetry 100 Oxygen Delivery Room Air 01/03/24 20:15 01/03/24 20:00 01/04/24 04:55 Temperature 36.7 C 36.6 C Pulse Rate 93 85 Respiratory Rate 20 16 Blood Pressure 118/88 112/77 Pulse Oximetry 100 97 Oxygen Delivery Room Air Intake/Output Intake/Output: Intake & Output 01/01/24 01/02/24 01/03/24 01/04/24 23:59 23:59 23:59 23:59 Intake Total 1080 1300 1630 876 Output Total 0 200 Balance 1080 1300 1630 676 Meds/Results Medications: Active Medications Generic Name Dose Route Start Last Admin Trade Name Freq PRN Reason Stop Dose Admin Acetaminophen 650 mg 01/01/24 14:24 01/03/24 03:19 Acetaminophen 325 Mg Tablet PO 650 mg Q6H PRN Administration Mild Pain (1-3) or Fever Hydrocodone Bitart/Acetaminophen 1 tab 01/01/24 14:24 01/04/24 05:30 Hydrocodone/Acetaminophen (*Crx) 5-325 Mg Tablet PO 1 tab Q6H PRN Administration Pain Rated 4-6 Hydrocodone Bitart/Acetaminophen 1 tab 01/02/24 14:26 01/03/24 23:37 Hydrocodone/Acetaminophen (*Crx) 10-325 Mg Tablet PO 1 tab Q6H PRN Administration Pain Rated 7-10 Bupropion HCl 150 mg 01/03/24 09:00 01/03/24 09:32 Bupropion Hcl Xl (24 Hr) 150 Mg Tabcr PO 150 mg DAILY NATHEN Administration Buspirone HCl 30 mg 01/02/24 09:00 01/03/24 16:37 Buspirone Hcl 10 Mg Tablet BY MOUTH 30 mg BID NATHEN Administration Cyclobenzaprine HCl 10 mg 01/02/24 09:00 01/03/24 16:37 Cyclobenzaprine Hcl 10 Mg Tablet BY MOUTH 10 mg BID NATHEN Administration Enoxaparin Sodium 40 mg 01/04/24 09:00 Enoxaparin 40 Mg/0.4 Ml Syringe SUB-Q DAILY NATHEN Famotidine 20 mg 01/02/24 09:00 01/03/24 20:42 Famotidine 20 Mg Tablet BY MOUTH 20 mg Q12HR NATHEN Administration Fenofibrate 160 mg 01/02/24 09:00 01/03/24 09:32 Fenofibrate 160 Mg Tablet PO 160 mg DAILY NATHEN Administration Ferrous Sulfate 325 mg 01/02/24 09:00 01/03/24 16:36 Ferrous Sulfate [address] BY MOUTH Not Given BID NATHEN Furosemide 20 mg 01/02/24 09:00 01/03/24 09:31 Furosemide 20 Mg Tablet PO 20 mg QAM NATHEN Administration Hydromorphone HCl 0.5 mg 01/01/24 12:15 01/01/24 15:13 Hydromorphone Hcl Inj (*Crx) 1 Mg/Ml Syr IV PUSH 0.5 mg Q4H PRN Administration Pain Rated 7-10 Losartan Potassium 50 mg 01/02/24 09:00 01/03/24 09:31 Losartan Potassium 50 Mg Tablet PO 50 mg DAILY NATHEN Administration Ondansetron HCl 4 mg 01/01/24 12:15 Ondansetron Inj 4 Mg/2 Ml Vial IV PUSH Q4H PRN Nausea Perflutren Lipid Microsphere 0 ml 01/01/24 14:21 Perflutren Lipid Microspheres 1.5 Ml Vial Diluted To 10 Ml Total Volume IV PUSH 01/04/24 14:21 ONCE PRN adequate v
[2024-01-04] MEDS: busPIRone HCL 10 MG TABLET 30 MG BY MOUTH (08:43)
[2024-01-04] MEDS: FAMOTIDINE 20 MG TABLET BY MOUTH (08:43)
[2024-01-04] MEDS: SIMVASTATIN 20 MG TABLET 40 MG PO (08:43)
[2024-01-04] MEDS: FERROUS SULFATE 325 MG TABLET DR BY MOUTH (08:43)
[2024-01-04] MEDS: LOSARTAN POTASSIUM 50 MG TABLET PO (08:43)
[2024-01-04] MEDS: CYCLOBENZAPRINE HCL 10 MG TABLET BY MOUTH (08:43)
[2024-01-04] MEDS: buPROPion HCL XL (24 HR) 150 MG TABCR PO (08:43)
[2024-01-04] MEDS: FENOFIBRATE 160 MG TABLET PO (08:43)
[2024-01-04] MEDS: ENOXAPARIN 40 MG/0.4 ML SYRINGE SUB-Q (08:47)
--- NOTE | 2024-01-04 11:22 | PM.DS ---
DS: Admitting Diagnosis Discharge Date 01/03 Admitting Diagnosis Right hip pain DS: Discharge Diagnosis Discharge Diagnosis (1) Closed fracture of greater trochanter of right femur: Qualifiers: Encounter type: initial encounter Fracture alignment: displaced Qualified Code(s): S72.111A - Displaced fracture of greater trochanter of right femur, initial encounter for closed fracture Code(s): S72.111A - Displaced fracture of greater trochanter of right femur, initial encounter for closed fracture Status: Acute Assessment and Plan: Patient presented to the emergency room after a fall on 12/22. she had persistent right-sided hip pain and her primary care provider ordered an outpatient x-ray which reportedly showed avulsion fracture of the greater trochanter of the proximal right femur. patient was instructed to come to the emergency room. Orthopedics consulted MRI right hip ordered and shows intertrochanteric fracture of proximal right femur with displacement of the greater trochanter fracture fragment. Per orthopedics this will be managed without surgery. She will be toe touch weight bearing for 6 weeks and follow up in clinic in 2 weeks. pain control with [place] versus Dilaudid for breakthrough Awaiting therapy recommendations for placement versus home health bowel regimen with MiraLAX and senna SCDs for DVT prophylaxis (2) Macrocytic anemia: Code(s): D53.9 - Nutritional anemia, unspecified Status: Acute Assessment and Plan: history of iron deficiency anemia. iron, B12, folate pending monitor H&H (3) Syncope: Code(s): R55 - Syncope and collapse Status: Acute Assessment and Plan: initial fall on 12/22 was from a syncopal episode. the patient reports she had been working outside in her garden and she feels she became dehydrated. She is also on diuretics. Echocardiogram ordered and shows grade 1 diastolic dysfunction carotid Doplers were negative telemetry ordered EKG showed normal sinus rhythm with a rate of 97 blood pressures were stable on arrival in fact hypertensive 130s over 90s check orthostatic vitals TSH normal at 1.2 (4) Toe pain, right: Code(s): M79.674 - Pain in right toe(s) Status: Acute Assessment and Plan: chronic right 5th toe wound. recently finished antibiotics. MRI does not show osteomyelitis (5) Hypertension: Code(s): I10 - Essential (primary) hypertension Status: Acute Assessment and Plan: history of hypertension for which she takes Lasix 20 mg daily, losartan 50 mg daily blood pressures on arrival were 130s over 90s antihypertensives resumed blood pressure normal Plan DVT prophylaxis: SCD's Glycemic control: not applicable Code Status: full code DVT prophylaxis: SCDs Glycemic control: not applicable Code Status: full code Disposition: 58-year-old female who presents with right hip pain found have a avulsion fracture of the greater trochanter of the proximal right femur after a syncopal fall on 12/22. Orthopedics is recommending non-surgical management with toe touch weight bearing for 6 weeks. She will need to follow up in clinic in 2 weeks. Awaiting therapy recommendations for placement versus home health. Medication reconciliation obtained via the following: Nurse completed on admission The file time of this note does not necessarily represent the time the patient was seen. DS: Summary Hospital Course Reason for hospitalization: Right hip fracture Hospital Course: This is a 58-year-old female who presented to the emergency room after having outpatient imaging done for right hip pain. Her primary care provider contacted her and told her to come to the emergency room as there is concern for right hip fracture. Orthopedics was consulted an
[2024-01-04 14:00] VITALS: BP 124/95; PULSE 97; RESP 18; TEMP 36.9; O2SAT 100
== END 2024-01-04 14:40 | disposition home or self-care (01) | DRG 340 ==
LOC: ANHED 12:19 → ANH3MEDSUR 14:17
PROVIDERS: Physician Assistant; Admitting Provider Internal Medicine; Emergency Provider Physician Assistant; PCP Family Medicine; Visit Provider Nurse Practitioner Acute Care
DX: S72.111A Displaced fracture of greater trochanter of right femur, initial encounter for closed fracture (principal); I10 Essential (primary) hypertension; D53.9 Nutritional anemia, unspecified; D50.9 Iron deficiency anemia, unspecified; E78.5 Hyperlipidemia, unspecified; L97.519 Non-pressure chronic ulcer of other part of right foot with unspecified severity; R55 Syncope and collapse; F41.9 Anxiety disorder, unspecified; F32.A Depression, unspecified; F17.210 Nicotine dependence, cigarettes, uncomplicated; W19.XXXA Unspecified fall, initial encounter; Z96.642 Presence of left artificial hip joint; S92.314D Nondisplaced fracture of first metatarsal bone, right foot, subsequent encounter for fracture with routine healing
CPT/HCPCS: 36415; 73502; 73660; 73720; 73721; 80048; 80053; 80076; 82607; 82728; 82746; 83540; 83550; 83735; 84443; 85025; 85027; 85610; 93005; 93306; 93880; 96374; 96375; 97116; 97161; 99285; A9270; A9577; G0378; J1170; J1200; J1650; J2270; J2405; J3475

== ENCOUNTER 2024-01-08 10:29 | Observation (INO) | payer OTHER, SELFPAY ==
--- NOTE | ~2024-01-08 | US_ITS ---
EXAMINATION: US venous doppler [facility] DATE: 01/08/2024 22:25 INDICATION: Bilateral lower limb swelling TECHNIQUE: Grayscale ultrasound images without and with compression and Doppler ultrasound images of the bilateral lower extremity veins were obtained. COMPARISON: None. FINDINGS: The visualized portions of right common femoral vein, profunda (deep) femoral vein, femoral vein, pop liteal vein, posterior tibial veins, peroneal veins and greater saphenous vein outflow are patent. The visualized portions of left common femoral vein, profunda femoral vein, femoral vein, popliteal v ein, posterior tibial veins, peroneal veins and greater saphenous vein outflow are patent. IMPRESSION: 1. No deep venous thrombosis in either lower limb. Reviewed, dictated and finalized at location A.
--- NOTE | ~2024-01-08 | CT_ITS ---
EXAMINATION: CT pelvis wo con DATE: 01/08/2024 14:34 INDICATION: Right hip fracture and pain. TECHNIQUE: Computed tomography (CT) of the pelvis was performed without intravenous contrast. Automat ed exposure control and iterative reconstruction technique were employed. The dose-length product was 196.42 mGy-cm. COMPARISON: Right hip MRI 01/02/2024, radiographs 01/01/2024 FINDINGS: There is an old healed fracture of proximal left femur with internal fixation. There is a c omminuted intertrochanteric fracture of proximal right femur with displaced fracture fragments from t he greater trochanter with 2.3 cm proximal posterior displacement of the main greater tuberosity frac ture fragment. The medial cortex of the proximal femur is intact. There is mild osteoarthritis of the hips. There is hematoma in right buttock in the area of the fracture. IMPRESSION: 1. Comminuted intertrochanteric fracture of proximal right femur with displaced fracture fragments fr om the greater tuberosity. 2. Mild osteoarthritis of the hips. Reviewed, dictated and finalized at location A. IMPRESSION: 1. Comminuted intertrochanteric fracture of proximal right femur with displaced fracture fragments from the greater tuberosity. 2. Mild osteoarthritis of the hips.
[2024-01-08 10:33] VITALS: BP 108/77; PULSE 91; RESP 16; TEMP 36.6; O2SAT 100
[2024-01-08 12:44] VITALS: BP 113/92; PULSE 88; RESP 16; O2SAT 100
[2024-01-08] MEDS: MORPHINE SULFATE (*CRX) 4 MG/ML INJ IV PUSH (13:54)
[2024-01-08 14:17] LABS: Basophils Absolute Auto 0.1 K/mm3 (0.0-0.1); Basophils Percent Auto 0.5 % (0.2-1.2); Eosinophils Absolute Auto 0.2 K/mm3 (0-0.3); Eosinophils Percent Auto 1.3 % (0-4.4); Hematocrit 23.3 % (37.0-47.0); Hemoglobin 8.1 g/dL (12.0-15.0); Immature Granulocyte Percent A 0.7 % (0-0.5); Lymphocytes Absolute Auto 1.65 K/mm3 (0.9-3.2); Lymphocytes Percent Auto 11.7 % (18.3-44.2); Mean Corpuscular HGB Conc 34.8 g/dl (32-36); Mean Corpuscular Hemoglobin 37.7 pg (26-34); Mean Corpuscular Volume 108.4 fl (80-100); Mean Platelet Volume 8.1 fl (7.4-10.4); Monocytes Absolute Auto 1.1 K/mm3 (0.1-0.6); Monocytes Percent Auto 7.4 % (2.6-8.5); Neutrophils Absolute Auto 11.1 K/mm3 (1.3-6.7); Neutrophils Percent Auto 78.4 % (45.5-73.1); Platelet Count Result 480 k/mm3 (150-375); Red Blood Count 2.15 M/mm3 (4.2-5.4); Red Cell Distribution Width 16.3 % (11.5-14.5); White Blood Count 14.1 K/mm3 (4.5-10.0)
[2024-01-08 14:27] LABS: Anion Gap 6 mmol/L (4-12); Blood Urea Nitrogen 13 mg/dL (7-17); Calcium 9.6 mg/dL (8.4-10.2); Carbon Dioxide 28 mmol/L (22-30); Chloride 92 mmol/L (98-107); Estimated Glomerular Filt Rate > 60; Glucose 93 mg/dL (65-110); Potassium 3.4 mmol/L (3.4-5.0); Sodium 126 mmol/L (137-145)
[2024-01-08 14:28] LABS: Prothrombin Time 13.7 Seconds (11.1-14.7)
[2024-01-08 14:29] LABS: Partial Thromboplastin Time 27.6 Seconds (22.3-36.8)
[2024-01-08 14:36] LABS: Macrocytosis 1+ (NORMAL); Platelet Estimate Increased (Adequate); Schistocytes None Seen; Target Cells 1+
--- NOTE | 2024-01-08 15:04 | ED.LOWEXIN ---
HPI - Extremity Injury (Lower) General Chief Complaint: Extremity Injury, Lower Stated Complaint: right hip pain Time Seen by Provider: 01/08/24 12:48 History of Present Illness HPI Narrative: 58-year-old female with recently diagnosed right-sided intertrochanteric fracture who presents to the emergency depart with worsening right hip pain. She was admitted to the hospital and discharged 4 days prior with outpatient orthopedic surgery follow-up. Recommendations for toe-touch weight-bearing with non operative management of her initially nondisplaced intratrochanteric fracture. Patient states that the pain got unbearable this morning and she called the orthopedics office was not available but referred her to the ER for evaluation. No falls or recent injuries and she has been essentially bedbound with very limited mobility. Denies any headache, vision changes, chest pain, shortness a breath, abdominal pain, fever, chills. He has been taking her Lovenox injections twice daily without any complications. She states that the pain shoots somewhat into her right knee and radiates from her right hip. Worse with certain movements. Related Data Home Medications Medication Instructions Recorded Confirmed fenofibrate 160 mg PO DAILY 05/09/19 01/01/24 furosemide 20 mg PO DAILY 05/09/19 01/01/24 simvastatin 40 mg PO DAILY 05/09/19 01/01/24 buspirone 30 mg tablet 30 mg BID 01/01/24 01/01/24 cyclobenzaprine 10 mg tablet 10 mg BID 01/01/24 01/01/24 diclofenac sodium 75 mg 75 mg PO DAILY 01/01/24 01/01/24 tablet,delayed release famotidine 20 mg tablet 20 mg BID 01/01/24 01/01/24 ferrous sulfate 325 mg (65 mg 325 mg PO BID 01/01/24 01/01/24 iron) tablet losartan 50 mg tablet 50 mg PO DAILY 01/01/24 01/01/24 bupropion HCl 150 mg 24 hr tablet, 150 mg PO DAILY 01/02/24 01/02/24 extended release Allergies Allergy/AdvReac Type Severity Reaction Status Date / Time Penicillins Allergy Unknown Hives Verified 01/01/24 11:12 Sulfa (Sulfonamide Allergy Hives Verified 01/01/24 11:12 Antibiotics) Review of Systems Review of Systems: As reviewed above in HPI [facility] Past Medical History Medical History Anxiety Depression Dyslipidemia Hypertension Post-menopause Tobacco dependence Surgical History Surgical History History of hysterectomy History of open reduction and internal fixation (ORIF) procedure Repair left hip fracture. Family History Family History Father Hypertension Cerebrovascular accident Family history of coronary artery disease Mother Hypertension Other Arthritis Heart disease Social History Social History Social History: Surrogate medical decision maker: Cyril Nguyen, son. Code status: Full code. Smoking packs per day: 0.5 Smoking cigarettes per day: 10.0 Years smoked: 20 Smoking pack-years: 10.00 Smoking status: Current every day smoker Additional smoking assessment comments: Patient smokes 3 to 6 cigarettes a day. Alcohol intake: current Drinks per week: 2 Alcohol use details: Occasional Substance use: never Do You Feel Safe in your Home?: Yes Lack of Transportation: No Lack of Food: Never True Current Housing: I Have Housing Concerned About Future Housing: No Difficulty Paying Gas/Electric Bills: No Difficulty Paying for Meds: No Currently Unemployed: No Education: High School Diploma/GED Difficulty w/ Childcare or Family Care: No Spiritual care concerns: No Exam Narrative: GENERAL: [Well-appearing, well-nourished, and in no acute distress.] HEAD: [Normocephalic, atraumatic.] EYES: [PERRLA and EOMI.] ENT: Nares clear, no rhinorrhea or epistaxis. Mucous membranes moist. NECK: Supple. CHEST: [Cl
[2024-01-08 15:27] VITALS: BP 111/82; PULSE 82; RESP 18; O2SAT 100
--- NOTE | 2024-01-08 16:00 | PM.IMHP ---
H&P: HPI History of Present Illness Date/Time: 01/08/24 17:25 Chief Complaint: Right hip pain. Narrative: This is a very pleasant 58-year-old female smoker with hypertension, dyslipidemia, anemia, and anxiety presented to the emergency department via private vehicle for evaluation of right hip pain. The patient provides the following history. She is known to myself and hospitalist service as she was admitted to the hospital a little over a week ago with a closed fracture of the greater trochanter of the right femur sustained in a fall due to a syncopal episode felt to be due to orthostatic hypotension. She was seen by Dr. Oconnell who recommended conservative, nonsurgical management. She has been nonweightbearing since returning home. Sometime yesterday afternoon her was helping her up from the wheelchair to transfer when ?my hip started to hurt more and protrude out.? She denies paresthesias, skin color, temperature changes distal to the fracture. She has not been putting any weight on that leg and she denies recent falls. She also denies fever, chills, sweats, cold and flu symptoms, nausea, vomiting, chest pain, shortness of breath, diarrhea, and dysuria. In the ED: She was afebrile on arrival with stable vital signs. Labs are significant for a WBC count of 14.1, hemoglobin 8 point, MCV 108.4, platelet 480, sodium 126, chloride 92. Pelvis CT showed a comminuted intratrochanteric fracture of the proximal right femur with displaced fracture fragments from the greater tuberosity. She was given morphine and is being admitted in this setting for probable surgery tomorrow. Review of Systems Review of Systems: 12 systems were reviewed and are negative except for as per HPI. [facility] Past Medical History Medical History Anxiety Depression Dyslipidemia Hypertension Post-menopause Tobacco dependence Surgical History Surgical History History of hysterectomy History of open reduction and internal fixation (ORIF) procedure Repair left hip fracture. Family History Family History Father Hypertension Cerebrovascular accident Family history of coronary artery disease Mother Hypertension Other Arthritis Heart disease Social History Social History Social History: Surrogate medical decision maker: Cyril Nguyen, son. Code status: Full code. Smoking packs per day: 0.25 Smoking cigarettes per day: 5.0 Years smoked: 20 Smoking pack-years: 5.00 Smoking status: Current every day smoker Tobacco type: cigarettes Second hand tobacco smoke exposure: No Additional smoking assessment comments: Patient smokes 3 to 6 cigarettes a day. Alcohol intake: current Drinks per week: 1 Alcohol use details: Occasional Substance use: never Substance use type: does not use Do You Feel Safe in your Home?: Yes Lack of Transportation: No Lack of Food: Never True Current Housing: I Have Housing Concerned About Future Housing: No Difficulty Paying Gas/Electric Bills: No Difficulty Paying for Meds: No Currently Unemployed: No Education: Associate Degree Difficulty w/ Childcare or Family Care: No Spiritual care concerns: No Meds Home Medications and Allergies Home Medications Medication Instructions Recorded Confirmed Type naproxen 500 mg tablet,delayed 500 mg PO BID PRN pain #14 tabs 05/05/19 01/08/24 Rx release (EC-Naproxen) fenofibrate 160 mg PO DAILY 05/09/19 01/08/24 History furosemide 20 mg PO DAILY 05/09/19 01/08/24 History simvastatin 40 mg PO DAILY 05/09/19 01/08/24 History buspirone 30 mg tablet 30 mg BID 01/01/24 01/08/24 History cyclobenzaprine 10 mg tablet 10 mg BID 01/01/24 01/08/24 History diclofenac sodium 75 mg 75 mg PO DAILY 01/01/24 01/08/24
[2024-01-08 19:51] LABS: Thyroid Stimulating Hormone Reflex 0.874 uIU/mL (0.465-4.68)
[2024-01-08] MEDS: CYCLOBENZAPRINE HCL 10 MG TABLET BY MOUTH (20:17)
[2024-01-08] MEDS: HYDROcodone/acetaminophen (*CRX) 5-325 MG TABLET 1 TAB PO (20:18)
[2024-01-08] MEDS: MORPHINE SULFATE (*CRX) 2 MG/ML INJ IV PUSH (20:18)
[2024-01-08] MEDS: FAMOTIDINE 20 MG TABLET BY MOUTH (20:18)
[2024-01-08] MEDS: busPIRone HCL 10 MG TABLET 30 MG BY MOUTH (20:19)
[2024-01-08 21:26] LABS: Hematocrit 21.4 % (37.0-47.0); Hemoglobin 7.3 g/dL (12.0-15.0)
[2024-01-08 22:00] VITALS: BP 110/67; PULSE 92; RESP 20; TEMP 36.1; O2SAT 100
[2024-01-09] VITALS (7 sets, daily range): BP systolic 93–106; BP diastolic 54–68; PULSE 78–89; RESP 14–20; TEMP 36.1–36.8; O2SAT 92–100
[2024-01-09] MEDS: MORPHINE SULFATE (*CRX) 2 MG/ML INJ IV PUSH ×2 (00:32→05:30)
[2024-01-09 01:12] LABS: Add Urine Microscopic? NO; Appearance Urine Clear (Clear); Bilirubin Urine Negative (Negative); Blood Urine Negative (Negative); Color Urine Yellow (Yellow); Glucose Urine UA Negative (Negative); Ketones Urine Negative (Negative); Leukocyte Esterase Ur Negative LEU/UL (Negative); Nitrate Urine Negative (Negative); Protein Urine Negative (Negative); Specific Grav Ur 1.012 (1.001-1.035); Urobilinogen Urine 0.2 mg/dL (<2.0)
[2024-01-09 01:14] LABS: Sodium 129 mmol/L (137-145)
[2024-01-09 01:22] LABS: Creatinine Urine 69.9 mg/dL; Urea Random Urine 428 MG/DL
[2024-01-09 01:23] LABS: Sodium Urine Random 17 meq/L
[2024-01-09 05:36] LABS: Mean Corpuscular HGB Conc 33.7 g/dl (32-36); Mean Corpuscular Hemoglobin 36.7 pg (26-34); Mean Platelet Volume 8.3 fl (7.4-10.4); Platelet Count Result 418 k/mm3 (150-375); Red Blood Count 1.88 M/mm3 (4.2-5.4); Red Cell Distribution Width 16.7 % (11.5-14.5); White Blood Count 8.7 K/mm3 (4.5-10.0)
[2024-01-09 05:40] LABS: Hematocrit 20.5 % (37.0-47.0); Hemoglobin 6.9 g/dL (12.0-15.0)
[2024-01-09 05:47] LABS: Anion Gap 6 mmol/L (4-12); Blood Urea Nitrogen 12 mg/dL (7-17); Calcium 9.3 mg/dL (8.4-10.2); Carbon Dioxide 27 mmol/L (22-30); Chloride 98 mmol/L (98-107); Estimated Glomerular Filt Rate > 60; Glucose 101 mg/dL (65-110); Magnesium 1.5 mg/dL (1.6-2.3); Sodium 131 mmol/L (137-145)
--- NOTE | 2024-01-09 08:30 | PM.CNOR ---
Assessment and Plan Assessment and plan (1) Closed fracture of greater trochanter of right femur: Qualifiers: Encounter type: initial encounter Fracture alignment: displaced Qualified Code(s): S72.111A - Displaced fracture of greater trochanter of right femur, initial encounter for closed fracture Code(s): S72.111A - Displaced fracture of greater trochanter of right femur, initial encounter for closed fracture Status: Acute Plan Greater trochanter fracture with comminution into the posterior aspect. I reviewed the imaging studies. There is significant comminution without definite change compared to prior films. I discussed the case with Dr. Norwood, who will resume care tomorrow. I agree with non operative management. Continue toe-touch weight-bearing for now with a walker. May start physical and occupational therapy. Consider inpatient rehabilitation options. History of Present Illness HPI Consult date: 01/09/24 Chief complaint: Intertrochanteric Femur Fracture Narrative: Patient admitted through the emergency department with increasing pain at the right hip. Recent fall with greater trochanteric fracture. No numbness, tingling, or other associated symptoms. Great difficulty with transfers and ADLs. [facility] Past Medical History Medical History Anxiety Depression Dyslipidemia Hypertension Post-menopause Tobacco dependence Surgical History Surgical History History of hysterectomy History of open reduction and internal fixation (ORIF) procedure Repair left hip fracture. Family History Family History Father Hypertension Cerebrovascular accident Family history of coronary artery disease Mother Hypertension Other Arthritis Heart disease Social History Social History Social History: Surrogate medical decision maker: Cyril Nguyen, sukhi. Code status: Full code. Smoking packs per day: 0.25 Smoking cigarettes per day: 5.0 Years smoked: 20 Smoking pack-years: 5.00 Smoking status: Current every day smoker Tobacco type: cigarettes Second hand tobacco smoke exposure: No Additional smoking assessment comments: Patient smokes 3 to 6 cigarettes a day. Alcohol intake: current Drinks per week: 1 Alcohol use details: Occasional Substance use: never Substance use type: does not use Do You Feel Safe in your Home?: Yes Lack of Transportation: No Lack of Food: Never True Current Housing: I Have Housing Concerned About Future Housing: No Difficulty Paying Gas/Electric Bills: No Difficulty Paying for Meds: No Currently Unemployed: No Education: Associate Degree Difficulty w/ Childcare or Family Care: No Spiritual care concerns: No Meds Home Medications and Allergies Home Medications Medication Instructions Recorded Confirmed Type naproxen 500 mg tablet,delayed 500 mg PO BID PRN pain #14 tabs 05/05/19 01/08/24 Rx release (EC-Naproxen) fenofibrate 160 mg PO DAILY 05/09/19 01/08/24 History furosemide 20 mg PO DAILY 05/09/19 01/08/24 History simvastatin 40 mg PO DAILY 05/09/19 01/08/24 History buspirone 30 mg tablet 30 mg BID 01/01/24 01/08/24 History cyclobenzaprine 10 mg tablet 10 mg BID 01/01/24 01/08/24 History diclofenac sodium 75 mg 75 mg PO DAILY 01/01/24 01/08/24 History tablet,delayed release famotidine 20 mg tablet 20 mg BID 01/01/24 01/08/24 History ferrous sulfate 325 mg (65 mg 325 mg PO BID 01/01/24 01/08/24 History iron) tablet losartan 50 mg tablet 50 mg PO DAILY 01/01/24 01/08/24 History bupropion HCl 150 mg 24 hr tablet, 150 mg PO DAILY 01/02/24 01/08/24 History extended release enoxaparin 40 mg/0.4 mL 40 mg (0.4 mL) subcut Q24H #12 mL 01/03/24 01/08/24 Rx subcutaneous syringe ([employer])
[2024-01-09] MEDS: busPIRone HCL 10 MG TABLET 30 MG BY MOUTH ×2 (08:37→16:24)
[2024-01-09] MEDS: CYCLOBENZAPRINE HCL 10 MG TABLET BY MOUTH ×2 (08:37→16:24)
[2024-01-09] MEDS: FERROUS SULFATE 325 MG TABLET DR PO ×2 (08:39→16:24)
[2024-01-09] MEDS: FAMOTIDINE 20 MG TABLET BY MOUTH ×2 (08:39→16:24)
[2024-01-09] MEDS: SIMVASTATIN 20 MG TABLET 40 MG PO (08:39)
[2024-01-09] MEDS: LOSARTAN POTASSIUM 50 MG TABLET PO (08:39)
[2024-01-09] MEDS: buPROPion HCL XL (24 HR) 150 MG TABCR PO (08:40)
[2024-01-09] MEDS: MAGNESIUM SULF 2 GM/WATER 50ML 2 GM/50 ML BAG IVPB (10:04)
[2024-01-09] MEDS: FENOFIBRATE 160 MG TABLET PO (11:19)
[2024-01-09] MEDS: SODIUM CHLORIDE 0.9% IV 250 ML 30 ML IV CONT (11:20)
[2024-01-09] MEDS: HYDROcodone/acetaminophen (*CRX) 5-325 MG TABLET 1 TAB PO ×2 (15:17→21:14)
--- NOTE | 2024-01-09 15:40 | PCPTNOTE ---
Attempted PT evaluation at 1151, pt was getting blood. Pt checked on again at 1540 and pt refused. Pt wondering if there is a surgical option for hip fracture.
[2024-01-09] MEDS: ENOXAPARIN 40 MG/0.4 ML SYRINGE SUB-Q (16:24)
--- NOTE | 2024-01-09 18:10 | PM.IMPN ---
Progress Note: A&P Assessment and Plan (1) Closed intertrochanteric fracture of right femur: Code(s): S72.141A - Displaced intertrochanteric fracture of right femur, initial encounter for closed fracture Status: Acute (2) Hyponatremia: Code(s): E87.1 - Hypo-osmolality and hyponatremia Status: Acute (3) Swelling of lower extremity: Code(s): M79.89 - Other specified soft tissue disorders Status: Acute (4) Macrocytic anemia: Code(s): D53.9 - Nutritional anemia, unspecified Status: Acute (5) Hypertension: Code(s): I10 - Essential (primary) hypertension Status: Acute (6) Dyslipidemia: Code(s): E78.5 - Hyperlipidemia, unspecified Status: Acute (7) Anxiety: Code(s): F41.9 - Anxiety disorder, unspecified Status: Acute Plan The patient presented to the emergency department for evaluation of increasing right hip pain and swelling as detailed in HPI. CT scan shows a comminuted intertrochanteric fracture of the proximal right femur with displaced fracture fragments from the greater tuberosity. She will be NPO after midnight for probable surgical repair tomorrow per Dr. Simmons. Analgesics available as needed. Sodium is lower than what she typically runs, possible SIADH from pain and narcotics. Check urine and serum osmolalities, urine sodium, and TSH. Her chronic anemia is stable and recent iron studies, B12, and folate levels are noted. Continue to monitor and transfuse if indicated. Consider hematology referral on outpatient basis. Blood pressures were reviewed and they are stable. Lower extremity venous Doppler ultrasounds ordered to rule out DVT given mild swelling. Her medications will be reviewed and resumed as appropriate. Findings and treatment plan were discussed with the patient. Questions were solicited and answered to satisfaction. The patient's medical management will be taken over by the hospitalist team in a.m. Patient states she continue to have pain and has difficulty with ambulation she would like to have surgery for more improvement in her pain and mobility, patient will be seen by her orthopedic surgeon and further recommendation to follow, patient has history iron deficiency anemia complains lower extremity cramping will do the iron profile and further recommendation to follow. Subjective Date/time seen: 01/09/24 18:10 Interval history: Right hip pain. Narrative: This is a very pleasant 58-year-old female smoker with hypertension, dyslipidemia, anemia, and anxiety presented to the emergency department via private vehicle for evaluation of right hip pain. The patient provides the following history. She is known to myself and hospitalist service as she was admitted to the hospital a little over a week ago with a closed fracture of the greater trochanter of the right femur sustained in a fall due to a syncopal episode felt to be due to orthostatic hypotension. She was seen by Dr. Oconnell who recommended conservative, nonsurgical management. She has been nonweightbearing since returning home. Sometime yesterday afternoon her was helping her up from the wheelchair to transfer when ?my hip started to hurt more and protrude out.? She denies paresthesias, skin color, temperature changes distal to the fracture. She has not been putting any weight on that leg and she denies recent falls. She also denies fever, chills, sweats, cold and flu symptoms, nausea, vomiting, chest pain, shortness of breath, diarrhea, and dysuria. In the ED: She was afebrile on arrival with stable vital signs. Labs are significant for a WBC count of 14.1, hemoglobin 8 point, MCV 108.4, platelet 480, sodium 126, chloride 92. Pelvis CT showed a comminuted intratrochanteric fracture of the proximal right femur with displaced fracture fragments from the greater tuberosity. She was given morphine and is being admitted in this setting for probable surgery tomorrow. Patient
[2024-01-09] MEDS: SENNA/DOCUSATE SODIUM TABLET 1 TAB PO (21:15)
[2024-01-10 06:00] VITALS: BP 105/77; PULSE 86; RESP 20; TEMP 36.1; O2SAT 100
[2024-01-10] MEDS: HYDROcodone/acetaminophen (*CRX) 5-325 MG TABLET 1 TAB PO ×2 (06:07→12:21)
[2024-01-10 06:24] LABS: Hemoglobin 8.7 g/dL (12.0-15.0); Mean Corpuscular HGB Conc 34.8 g/dl (32-36); Mean Corpuscular Hemoglobin 35.7 pg (26-34); Mean Corpuscular Volume 102.5 fl (80-100); Platelet Count Result 398 k/mm3 (150-375); Red Blood Count 2.44 M/mm3 (4.2-5.4); Red Cell Distribution Width 20.2 % (11.5-14.5); White Blood Count 8.3 K/mm3 (4.5-10.0)
[2024-01-10 06:41] LABS: Anion Gap 3 mmol/L (4-12); Blood Urea Nitrogen 14 mg/dL (7-17); Calcium 8.9 mg/dL (8.4-10.2); Carbon Dioxide 25 mmol/L (22-30); Chloride 99 mmol/L (98-107); Estimated Glomerular Filt Rate 39; Glucose 95 mg/dL (65-110); Magnesium 1.8 mg/dL (1.6-2.3); Potassium 4.3 mmol/L (3.4-5.0); Sodium 127 mmol/L (137-145)
[2024-01-10 08:29] LABS: Iron 43 ug/dL (37-170)
--- NOTE | 2024-01-10 08:34 | PCPTNOTE ---
attempted Pt eval, pt states she wants to speak to Dr. Yi before attempting physical therapy, will follow
[2024-01-10 08:38] LABS: Percent Iron Saturation 15 % (20-50)
[2024-01-10] MEDS: ENOXAPARIN 40 MG/0.4 ML SYRINGE SUB-Q (09:11)
[2024-01-10] MEDS: CYCLOBENZAPRINE HCL 10 MG TABLET BY MOUTH (09:11)
[2024-01-10] MEDS: SIMVASTATIN 20 MG TABLET 40 MG PO (09:11)
[2024-01-10] MEDS: buPROPion HCL XL (24 HR) 150 MG TABCR PO (09:11)
[2024-01-10] MEDS: LOSARTAN POTASSIUM 50 MG TABLET PO (09:11)
[2024-01-10] MEDS: FAMOTIDINE 20 MG TABLET BY MOUTH (09:12)
[2024-01-10] MEDS: FENOFIBRATE 160 MG TABLET PO (09:12)
[2024-01-10] MEDS: busPIRone HCL 10 MG TABLET 30 MG BY MOUTH (09:12)
[2024-01-10] MEDS: FERROUS SULFATE 325 MG TABLET DR PO (09:12)
--- NOTE | 2024-01-10 09:41 | PCOTNOTE ---
Pt currently wanting to speak with ortho about sx before getting up with therapy. Will hold for now until pt ready to work with therapy.
[2024-01-10 13:34] LABS: Osmolality, Urine 274 mOsm/kg (50-1200)
[2024-01-10 14:52] VITALS: BP 117/87; PULSE 81; RESP 20; TEMP 36.3; O2SAT 96
--- NOTE | 2024-01-10 15:33 | PM.DS ---
DS: Admitting Diagnosis Discharge Date 01/10/24 Admitting Diagnosis Right hip pain. DS: Discharge Diagnosis Discharge Diagnosis (1) Closed intertrochanteric fracture of right femur: Code(s): S72.141A - Displaced intertrochanteric fracture of right femur, initial encounter for closed fracture Status: Acute (2) Hyponatremia: Code(s): E87.1 - Hypo-osmolality and hyponatremia Status: Acute (3) Swelling of lower extremity: Code(s): M79.89 - Other specified soft tissue disorders Status: Acute (4) Macrocytic anemia: Code(s): D53.9 - Nutritional anemia, unspecified Status: Acute (5) Hypertension: Code(s): I10 - Essential (primary) hypertension Status: Acute (6) Dyslipidemia: Code(s): E78.5 - Hyperlipidemia, unspecified Status: Acute (7) Anxiety: Code(s): F41.9 - Anxiety disorder, unspecified Status: Acute DS: Summary Hospital Course Hospital Course: The patient presented to the emergency department for evaluation of increasing right hip pain and swelling as detailed in HPI. CT scan shows a comminuted intertrochanteric fracture of the proximal right femur with displaced fracture fragments from the greater tuberosity. She will be NPO after midnight for probable surgical repair tomorrow per Dr. Simmons. Analgesics available as needed. Sodium is lower than what she typically runs, possible SIADH from pain and narcotics. Check urine and serum osmolalities, urine sodium, and TSH. Her chronic anemia is stable and recent iron studies, B12, and folate levels are noted. Continue to monitor and transfuse if indicated. Consider hematology referral on outpatient basis. Blood pressures were reviewed and they are stable. Lower extremity venous Doppler ultrasounds ordered to rule out DVT given mild swelling. Her medications will be reviewed and resumed as appropriate. Findings and treatment plan were discussed with the patient. Questions were solicited and answered to satisfaction. The patient's medical management will be taken over by the hospitalist team in a.m. Patient states she continue to have pain and has difficulty with ambulation she would like to have surgery for more improvement in her pain and mobility, patient will be seen by her orthopedic surgeon and further recommendation to follow, patient has history iron deficiency anemia complains lower extremity cramping will do the iron profile and further recommendation to follow. patient was seen by her surgeon and recommended conservative management, with PT, avoid, smoking, and NSAIDS, patient with anemia to follow up with information security systems instructor, patient will follow up with her surgeon in 2 weeks and further recommendation to follow. patient is clinically stable will discharge patient today. Time Spent with Patient Time attestation: Total time spent providing and/or coordinating discharge services: Exam Narrative: Patient is comfortable, NAD HEENT: eyes are clear and none icteric LUNGS:CTA HEART: RR S1S2 ABD: BS+, Soft and nontender Lower extremities: no edema SKIN: nonjaundiced Neuro: grossly intact. DS: Data Data Completed and Pending Labs on day of discharge: Labs from last 24 hours 01/10/24 01/10/24 01/09/24 06:14 06:13 00:36 WBC 8.3 RBC 2.44 L Hgb 8.7 L Hct 25.0 L MCV 102.5 H D MCH 35.7 H MCHC 34.8 RDW 20.2 H Plt Count 398 H MPV 8.0 Sodium 127 L Potassium 4.3 Chloride 99 Carbon Dioxide 25 Anion Gap 3 L BUN 14 Creatinine 1.40 H Estim Creat Clear Calc Not Reportable Estimated GFR 39 L Glucose 95 Serum Osmolality Calcium 8.9 Magnesium 1.8 Iron 43 TIBC 285 % Saturation 15 L Ferritin 230.00 Urine Osmolality 274 01/08/24 14:07 WBC RBC Hgb Hct MCV MCH MCHC RDW Plt Count MPV Sodium Potassium Chloride Carbon Dioxide Anion Gap BUN Creatinine Estim
--- NOTE | 2024-01-10 15:48 | PM.PNORT ---
Progress Note: A&P Assessment and Plan (1) Closed fracture of greater trochanter of right femur: Qualifiers: Encounter type: initial encounter Fracture alignment: displaced Qualified Code(s): S72.111A - Displaced fracture of greater trochanter of right femur, initial encounter for closed fracture Code(s): S72.111A - Displaced fracture of greater trochanter of right femur, initial encounter for closed fracture Status: Acute Assessment and Plan: Patient came into the hospital the before yesterday complaining of intractable pain. She did well for several days in her house and prior to coming in for the 24 hours prior she was more active and ?hopping around a lot?. She admitted that she was not putting her toes down but literally holding her foot off the ground 4 in and hopping around. I have explained to her that using her muscles that spanned the hip in such a way as to hold the right foot off the ground prevent it from touching the ground as she is hopping around actually causes quite a bit of stress at the fracture and may exacerbate displacement. We taught her how to be toe-touch weight-bearing and want her to be touch weight-bearing and I explained her that this is the best way of having neutral forces across the hip joint itself. Physical therapy did see her today and patient states that they told her she did well mass during the touch weight-bearing which they showed her last week. She asked about whether her fracture site be fixed. I have discussed with her that in general these fractures are treated nonsurgically as they tend to redisplace to despite suture fixation and with her osteoporosis that may be a problem and her healing potential is diminished because of her smoking and and I would recommend nonsurgical treatment as the safest approach however I have discussed with her that she will have some diminished function because of this fracture. And her hip will not be as strong as it used to be. I have discussed her that if she would like to have a 2nd opinion about treatment we could help make arrangements to have her seen by 1 of the [facility] as soon as possible for another opinion. If she decides to do this she will call our office and I have left our office number on the discharge instructions for. Her. I would recommend if she does this to do it quickly. Her fracture occurred originally on the so she is about 19 days out from her injury. I note that her creatinine is up to 1.4 we do not have an explanation for that. It might be related to her severe anemia with her hemoglobin in the 6 range yesterday and she did receive 1 unit of packed red blood cells. It is not clear to me what the cause of her severe anemia he is. It is assumed to be due to malnutrition and iron deficiency. I have recommended that she be evaluated by Dr. Cleary the goodwill ambassador. I have put in a consult but she has made a decision that she wants to go home today and does not underweight for the consult and will follow up on it with him on a as needed basis. I have recommended to her that she have another BMP to check her creatinine Sunday as well as another CBC to check her hemoglobin Sunday and follow up further her primary care physician on these issues. I also noted that she had diclofenac 75 mg twice daily under discharge medications. This may exacerbate her renal dysfunction particularly given her anemia and presumed associated hypovolemia. This may be causing GI bleeding. Also this medication can inhibit bone growth and I would recommend that she stop completely and avoid any nonsteroidal anti-inflammatory medications and I added that to the discharge instructions. I also reiterated that she needs to avoid smoking. I will see her back in 2 weeks to assess her progress. I would like to see her in the office in 2 weeks to assess her progress. Subjective Subjective Date/Time Seen: 01/10/24 15:48 Objectiv
--- NOTE | 2024-01-10 15:59 | PC.NURSE ---
I spoke with Dr. Mcdaniel. He reviewed patients labs and he states she can follow up in his office in 1 week and does not need in hospital intervention for her anemia at this time.
== END 2024-01-10 16:15 | disposition home health service (06) ==
LOC: ANHED 15:33 → ANH3MED 16:33
PROVIDERS: Physician Assistant; Admitting Provider Family Medicine; Emergency Provider Student in an Organized Health Care Education/Training Program; PCP Family Medicine; Visit Provider Family Medicine
DX: S72.111A Displaced fracture of greater trochanter of right femur, initial encounter for closed fracture (principal); Z91.81 History of falling; M81.0 Age-related osteoporosis without current pathological fracture; E87.1 Hypo-osmolality and hyponatremia; M79.89 Other specified soft tissue disorders; D53.9 Nutritional anemia, unspecified; I10 Essential (primary) hypertension; E78.5 Hyperlipidemia, unspecified; F41.9 Anxiety disorder, unspecified; F17.210 Nicotine dependence, cigarettes, uncomplicated; Z79.899 Other long term (current) drug therapy
CPT/HCPCS: 36415; 36430; 72192; 80048; 81003; 82570; 82728; 83540; 83550; 83735; 83930; 83935; 84295; 84300; 84443; 84540; 85014; 85018; 85025; 85027; 85610; 85730; 86850; 86900; 86901; 86923; 93970; 96361; 96365; 96372; 96374; 96375; 96376; 97161; 97165; 99285; A9270; G0378; G0379; J1650; J2270; J3475; J7050; P9016

== ENCOUNTER 2024-01-16 12:56 | Outpatient (CLI) | payer OTHER, SELFPAY ==
[2024-01-16 13:24] LABS: Hematocrit 28.3 % (37.0-47.0); Hemoglobin 9.8 g/dL (12.0-15.0); Mean Corpuscular HGB Conc 34.6 g/dl (32-36); Mean Corpuscular Hemoglobin 36.4 pg (26-34); Mean Corpuscular Volume 105.2 fl (80-100); Mean Platelet Volume 7.9 fl (7.4-10.4); Platelet Count Result 515 k/mm3 (150-375); Red Blood Count 2.69 M/mm3 (4.2-5.4); Red Cell Distribution Width 17.6 % (11.5-14.5); White Blood Count 6.5 K/mm3 (4.5-10.0)
[2024-01-16 13:36] LABS: Anion Gap 7 mmol/L (4-12); Blood Urea Nitrogen 11 mg/dL (7-17); Calcium 9.2 mg/dL (8.4-10.2); Carbon Dioxide 21 mmol/L (22-30); Chloride 102 mmol/L (98-107); Estimated Glomerular Filt Rate > 60; Glucose 91 mg/dL (65-110); Potassium 3.6 mmol/L (3.4-5.0); Sodium 130 mmol/L (137-145)
== END 2024-01-16 12:57 | disposition home or self-care (01) ==
LOC: ANHLAB 12:58
PROVIDERS: PCP Family Medicine; Visit Provider Orthopaedic Surgery
DX: D64.9 Anemia, unspecified (principal); E87.1 Hypo-osmolality and hyponatremia
CPT/HCPCS: 36415; 80048; 85027

== ENCOUNTER 2024-04-14 09:31 | Outpatient (CLI) | payer OTHER, SELFPAY ==
--- NOTE | ~2024-04-14 | XR_ITS ---
EXAMINATION: XR knee RT 3V DATE: 04/14/2024 10:03 INDICATION: Right knee pain. TECHNIQUE: 3 views of right knee including weight-bearing views were obtained. COMPARISON: Right knee radiographs 06/19/2019 FINDINGS: Alignment is normal. No fracture. There is moderate osteoarthritis of lateral compartment a nd mild osteoarthritis of medial compartment. There is chondrocalcinosis of the menisci. No knee join t effusion. IMPRESSION: 1. Moderate right knee osteoarthritis. Reviewed, dictated and finalized at location A. TY DIRECTOR
== END 2024-04-14 09:32 | disposition home or self-care (01) ==
PROVIDERS: PCP Family Medicine; Visit Provider Physician Assistant Surgical
DX: M17.11 Unilateral primary osteoarthritis, right knee (principal)
CPT/HCPCS: 73562

== ENCOUNTER 2024-07-22 08:54 | Outpatient (CLI) | payer OTHER, SELFPAY ==
--- NOTE | ~2024-07-22 | MR_ITS ---
EXAMINATION: MR knee RT wo con DATE: 07/22/2024 09:49 INDICATION: Primary osteoarthritis of the right knee with chronic right knee instability TECHNIQUE: Magnetic resonance imaging (MRI) of the right knee was performed without intravenous contr ast. Sequences included coronal PD-weighted FSE, coronal PD-weighted FS FSE, sagittal T2-weighted FS E, sagittal PD-weighted FS FSE and axial PD weighted fat saturated FSE. COMPARISON: Radiograph dated 04/14/2024 FINDINGS: Medial compartment: Mild medial extrusion of the body the otherwise normal-appearing medial meniscus with no meniscal tea r. Mild partial-thickness cartilage loss with smooth chondral surface along the anterior weightbearin g medial femoral condyle and medial tibial plateau. Lateral compartment: There is increased signal in the body of the lateral meniscus which appears to contact the inferior a rticular surface near the free edge consistent with a longitudinal horizontal tear. Specificities how ever increased by the presence of prominent chondrocalcinosis in this region on prior radiographs whi ch could also account for increased signal and artifactual appearance of tear. There is small region of full-thickness chondral ulceration with underlying subarticular edema-like signal change along the lateral margin of the junction of the anterior to central weightbearing lateral femoral condyle. Add itional partial-thickness chondral ulceration with deeper fissuring and subarticular edema-like signa l change along the posterior weightbearing lateral femoral condyle. Partial-thickness cartilage loss along the lateral tibial plateau with more severe deep ulceration and small focus of subarticular kiara ma-like signal change at the central aspect of the lateral tibial plateau. Patellofemoral compartment: Partial-thickness chondral fissuring without degenerative subchondral changes at the inferior aspect of the lateral patellar facet and apical ridge. Trochlear cartilage is relatively preserved. Ligaments and tendons: Anterior and posterior cruciate ligaments are normal. The medial collateral ligament and fibular usama ateral ligament complex are normal. The extensor mechanism is normal. The visualized medial and later al hamstring tendons as well as the iliotibial band are normal. Fluid: Small right knee joint effusion. No loose osteochondral bodies identified. Osseous/other: Bone alignment is normal. No fracture or pathologic marrow replacing process. IMPRESSION: 1. Possible longitudinal horizontal tear at the body the lateral meniscus although specificity is dec reased by the prominent chondrocalcinosis seen at this location on earlier right knee radiographs whi ch could also account for the increased signal. 2. Tricompartmental osteoarthritis, moderate severity with high-grade chondromalacia in the lateral c ompartment and mild with moderate grade chondromalacia in the medial and patellofemoral compartments. Reviewed, dictated and finalized at location A. IMPRESSION: 1. Possible longitudinal horizontal tear at the body the lateral meniscus [facility] specificity is decreased by the prominent chondrocalcinosis seen at this lo cation on earlier right knee radiographs which could also account for the incre ased signal. 2. Tricompartmental osteoarthritis, moderate severity with high-grade chondroma lacia in the lateral compartment and mild with moderate grade chondromalacia in the medial and patellofemoral compartments.
--- OUTSIDE RECORDS SUMMARY | 2024-07-22 09:27 | XMS_ITS | Clinical Summary ---
Author Organization [facility] Facility Address [address] [address] Care Team Providers Care Transcript Clerk Name Role Phone Sarkis Hernandez MD Primary Care Provider [phone] Medications losartan (COZAAR) 50 MG tablet Take 1 tablet (50 mg total) by mouth every night 90 tablet 1 02/14/2022 Active Social History Tobacco Use Types Packs/Day Years Used Date Smoking Tobacco: Never Assessed Comments Unknown Sex and Gender Information Value Date Recorded Sex Assigned at Not on file Legal Sex Female 10:14 AM EDT Gender Identity Not on file Sexual Orientation Not on file Last Filed Vital Signs Vital Sign Reading Time Taken Comments Blood Pressure 120/68 02/14/2022 1:30 PM CDT Pulse 91 02/14/2022 1:30 PM CDT Temperature 36.1 C (97 F) 02/14/2022 1:30 PM CDT Respiratory Rate 18 02/14/2022 1:30 PM CDT Oxygen Saturation 98% 02/14/2022 1:30 PM CDT Inhaled Oxygen Concentration - - Weight 62.6 kg (138 lb) 02/14/2022 1:30 PM CDT Height 172.7 cm (5' 8 ) 02/14/2022 1:30 PM CDT Body Mass Index 20.98 02/14/2022 1:30 PM CDT Plan of Treatment Health Maintenance Due Date Last Done Comments Breast Cancer Screening 1966 Pneumococcal Vaccine: Pediat rics (0 to 5 Years) and At-Risk Patients (6 to 64 Years) (1 of 2 - PCV) 1972 Hepatitis B Vaccine (1 of 3 - 19+ 3-dose series) 06/12 Colorectal Cancer Screening: Annual FOBT 2015 Colorectal Cancer Screening: Colonoscopy 2015 Colorectal Cancer Screening: Sigmoidoscopy 2015 Influenza Vaccine (Season Ended) 2024 Insurance [facility] Care Teams Transcript Clerk Relationship Specialty Start Date End Date Sarkis Hernandez MD PCP - General Family Medicine 12/13/21
--- OUTSIDE RECORDS SUMMARY | 2024-07-22 09:27 | XMS_ITS | CONTINUITY OF CARE DOCUMENT ---
Author Name chapis roshninicki Address Unknown Organization [facility] Address [address] [address] [place] [address] Phone [phone] Care Team Providers Care Freight Delivery Driver Name Role Phone Bhupendra WHITING, Leann Agarwal Unavailable ROSA NAGY MD Unavailable [phone] PROBLEMS Condition Status Date Provider Notes Swelling of bilateral legs active Leann Huizar MD Syncope and collapse active Leann burk MD AAA active Leann Huizar MD Hyponatremia active Leann Huizar MD Cardiovascular Condition Screening active S mark Huizar MD CAD active Leann Huizar MD Tobacco abuse active Leann Huizar MD Hypertension active Leann Huizar MD Hyperlipidemia active Leann Huizar MD ENCOUNTERS Date Type Provider Location Encounter Diag nosis 4 - 9 In-person encounter Office Visit Leann Huizar MD [place] [facility] Swelling of bilateral legs 9 - 9 In-person encounter Office Visit Leann Huizar MD [place] 0 - 0 In-person encounter Office Visit Leann Huizar MD [facility] HyperlipidemiaHypertensionTobacco abuseCADCardiovascular Condition ScreeningHyponatremiaAAASyncope and collapse VITAL SIGNS Date Observation Value Provider blood pressure, diastolic 74 mm[Hg] Wanda j[facility]Log blood pressure, systolic 97 mm[Hg] Jackie og blood pressure, diastolic 74 mm[Hg] Wanda jamesLog blood pressure, systolic 97 mm[Hg] Jackie [facility] blood pressure, cuff size regular [facility] blood pressure, diastolic 74 mm[Hg] [facility] blood pressure, systolic 97 mm[Hg] [facility] oxygen saturation, oximetry 100 % [facility] respiratory rate E&M 16 /min [facility] pulse rate 114 /min [facility] height E&M 68 [in_i] [facility] blood pressure, diastolic 72 mm[Hg] [facility] blood pressure, systolic 98 mm[Hg] [facility] blood pressure, cuff size small [facility] blood pressure, diastolic 72 mm[Hg] [facility], systolic 98 mm[Hg] Vignesh gonzalez pulse rate 124 /min [facility] oxygen saturation, oximetry 99 % [facility] respiratory rate E&M 12 /min [facility] height E&M 68 [in_i] [facility]oman da y weight E&M 148 [lb_av] Noreen Lopez height E&M 68 [in_i] [facility] blood pressure, diastolic 98 mm[Hg] [facility] blood pressure, systolic 136 mm[Hg] Eugene Gr[facility] oxygen saturation, oximetry 96 % Jo Ann Griggs pulse rate 98 /min Jo Ann Grig[facility] respiratory rate E&M 16 /min Jo Ann [facility] sandra ALLERGIES Allergy Name Onset Date Reaction Criticality Status PENICILLIN High Criticality active RESULTS Date Observation Value Provider Reference Range Interpretation Location alanine aminotransferase (SGPT), serum 21 1/L [facility] 6-29 Normal aspartate aminotransferase (SGOT), serum 46 1/L [facility] 10-35 High alkaline phosphatase, serum 60 1/L [facility] 37-153 Normal bilirubin, serum, total 0.6 mg/dL [facility] 0.2-1.2 Normal albumin/globulin ratio, serum 1.6 (calc) [facility] 1.0-2.5 Normal globulins, serum, total 2.7 G/DL (CALC) [facility] 1.9-3.7 Normal albumin, serum 4.3 g/dL [facility] 3.6-5.1 Normal protein, total, serum 7.0 g/dL [facility] 6.1-8.1 Normal 5 calcium, serum 10.2 mg/dL [facility] 8.6-10.4 Normal carbon dioxide, venous blood 25 mmol/L [facility] 20-32 Normal 5 chloride, serum 96 mmol/L [facility] 98-110 Low 5 potassium, serum 3.9 mmol/L [facility] 3.5-5.3 Normal 5 sodium, serum 130 mmol/L [facility] 135-146 Low 5 urea nitrogen/creatinine ratio, serum 18 (calc) [facility] 6-22 Normal 5 creatinine, serum 2.29 mg/dL [facility] 0.50-1.03 High 5 urea nitrogen, blood 42 mg/dL [facility] 7-25 High 5 blood glucose, random 82 mg/dL [facility] 65-99 Normal 5 cholesterol, non-HDL, total 61 MG/DL (CALC) [facility] <130 Normal cholesterol/HDL ratio, serum, percent 1.8 (calc) [facility] <5.0 Normal 5 LDL cholesterol, serum 48 MG/DL (CALC) [facility] Normal 5 triglyceride, serum, fasting 58 mg/dL [facility] <150 Normal 5 HDL cholesterol, serum 76 mg/dL [facility] > OR = 50 Normal 5 cholesterol, serum 137 mg/dL [facility] <200 Normal HISTORY OF MEDICATION USE Medication Status Instructions Dates Provider Indications Com ments Nicoderm CQ 7 mg/24 hr patch 24 hour active Apply 1 patch patch once a day 6 Leann Huizar MD fenofibrate 160 mg tablet active Jo Ann Griggs furosemide 20 mg tablet active Jo Ann Griggs bupropion HCl 150 mg tablet extended release 24 hr active Jo Ann Griggs diclofenac sodium 75 mg tablet,delayed release (DR/EC) active Jo Ann Griggs ferrous sulfate 325 mg (65 mg iron) tablet active Jo Ann Griggs cyclobenzaprine 10 mg tablet active Jo Ann Griggs losartan-hydrochloro thiazide 50-12.5 mg tablet active Jo Ann Griggs buspirone 30 mg tablet active Jo Ann Griggs famotidine 20 mg tablet active Jo Ann Griggs simvastatin 40 mg tablet active Jo Annmirian Griggs SOCIAL HISTORY Date Observation Value Provider smoking/tobacco cess ation, patient education and counseling yes Jailene Owens smoking history, tot al pack/day 5cigs ray Owens cigarette use yes Jailene Owens smoking status Current every day smoker F iqra Owens smoking/tobacco cess ation, patient education and counseling yes Leann Huizar MD smoking history, tot al pack/day 5cigs ray Huizar MD cigarette use yes Leann crooks MD smoking status Current every day smoker S mark Huizar MD social history E&M Father - Fami ly history of stroke - Hypertensive disorder - Heart disease M other - Arthritis - Hypertensive disorder - Osteoporosis P atient currently smokes every day. S moking History: P atient currently smokes every day. P atient has been counseled to quit. Leann Huizar MD social history reviewed E&M revi ewed - no changes required Leann Huizar MD number of grandchildren Leann Huizar MD smoking/tobacco cess ation, patient education and counseling yes Leann Huizar MD social history E&M Father - Fami ly history of stroke - Hypertensive disorder - Heart disease M other - Arthritis - Hypertensive disorder - Osteoporosis P atient currently smokes every day. & #13;Smoking History: P atient currently smokes every day. P atient has been counseled to quit. Leann Huizar MD smoking history, tot al pack/day 5cigs ray Griggs cigarette use yes Jo Ann Griggs smoking status Current every day smoker S kurt Griggs FUNCTIONAL STATUS Date Observation Value Provider HRA, CV Assess/Plan, Angina (inactive) Management Plan continue current therapy Leann Huizar MD HRA, CV Assess/Plan, Angina (inactive) Management Plan continue current therapy Leann Huizar MD HRA, CV Assess/Plan, Angina (inactive) Management Plan continue current therapy Leann Huizar MD INSURANCE PROVIDERS Payer name Policy type / Coverage type [facility] ID [place] (2) Medicaid [id number] ADVANCE DIRECTIVES Name Date DISCUSSED - NO DECISION MADE TREATMENT PLAN Date Name Performer [id number],C,N oted to be 4.[address] scan on 09/05/22. repeat in 6 months to see any significant change Leann Huizar MD [id number],C,T ests: (1) LIPID PANEL, STANDARD (7600) CHOLESTEROL, TOTAL 137 mg/dL <200 *1 Tests: (2) HDL CHOLESTEROL (608) HDL CHOLESTEROL 76 mg/dL > OR = 50 *2 & #13;Tests: (3) TRIGLYCERIDES (896) TRIGLYCERIDES 58 mg/dL <150 *3 Tests: (4) LDL-CHOLESTEROL (%8841SXSL) LDL-CHOLESTEROL 48 mg/dL (calc) Leann Huizar MD [id number],C,C ONCLUSIONS: 1 . There is septal hypertrophy without outflow tract obstruction (sigmoid septum). Normal left ventricular systolic function. N ormal left ventricular size. Normal left ventricular wall thickness. There is E to A wave reversal consistent with impaired LV r elaxation. E/E': 7.0 Left ventricular ejection fraction is measured at 60 %. 2 . Normal right ventricular size. Normal right ventricular systolic function. 3 . There is non-specific thickening of the mitral valve leaflets. There is trace physiologic mitral valve regurgitation. 4 . The tricuspid valve is normal in appearance and function. There is trace physiologic tricuspid valve regurgitation. IVC is n ormal in size with normal respiratory response. The RA pressure is estimated at 5.0 mmHg Estimated peak pulmonary artery s ystolic pressure is 23.0 mmHg. Leann Huizar MD [id number],C,C onclusions: Although there is airway obstruction and a diffusion defect suggesting emphysema, the absence of overinflation is inconsistent w ith that diagnosis. P ulmonary Function Diagnosis: M inimal Obstructive Airways Disease M inimal Diffusion Defect T he Patient was reencouraged to stop smoking. A bnormal LDCT. Will need to get repeat LDCT done for PCP. Leann Huizar MD [id number],C, C arotids: CONCLUSIONS: 1 . Mild plaque with less than 50% stenosis of the internal carotid arteries bilaterally. 2 . Vertebral flow is antegrade bilaterally E lectronically signed by Leann Huizar MD on 12/26/2022 at 5:14 PM Leann Huizar MD [id number],C,C ouple episodes of LOC. Most likely VASOVAGAL. C kyriek ECHO. Check telemonitor. T SH was normal. Leann Huizar MD [id number],C,T he Patient was reencouraged to stop smoking. A bnormal LDCT. Will need to get repeat LDCT done for PCP. Leann Huizar MD [id number],C,S he is hyponeutremic. We need to libralize sodium in diet. Expect there to be rise in BP. H er updated medication list for this problem includes: Furosemide 20 Mg Tablet (Furosemide) Losartan-hydrochlorothiazide 50-12.5 Mg Tablet (Losartan-hydrochlorothiazide) BP today: 136/98 Leann Huizar MD [id number],S,S odium down to w121. Will need to liberalize sodium in diet. 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 C heck exercisde stress test. Evaluate with ECHO. She has family history of heart disease. Active smoker Leann Huizar MD Cardiology:Leg edema present. Encouraged a reduced salt diet. Leann Huizar MD Cardiology: T ests: (1) LIPID PANEL, STANDARD (7600) CHOLESTEROL, TOTAL 137 mg/dL <200 *1 Tests: (2) HDL CHOLESTEROL (608) HDL CHOLESTEROL 76 mg/dL > OR = 50 *2 Tests: (3) TRIGLYCERIDES (896) TRIGLYCERIDES 58 mg/dL <150 *3 Tests: (4) LDL-CHOLESTEROL (%8841SXSL) LDL-CHOLESTEROL 48 mg/dL (calc) Her updated medication list for this problem includes: Fenofibrate 160 Mg Tablet (Fenofibrate) Simvastatin 40 Mg Tablet (Simvastatin) Leann Huizar MD Cardiology: N oted to be 4.[address] scan on 09/05/22. repeat in 6 months to see any significant change Leann Huizar MD Cardiology: A bnormal LCAT with findings of emphysema and calcifications on coronary arteries. C heck exercisde stress test. Evaluate with ECHO. She has family history of heart disease. Active smoker March 29, 2023 R jose calcium score. Was 51 LAD was the only vessel noted demonstrating calcium. Leann Huizar MD Cardiology: B P today: 97/74 P rior BP: 98/72 (01/12/2023) Labs Reviewed: C reat: 2.29 (11/07/2022) C hol: 137 (11/07/2022) HDL: 76 (11/07/2022) LDL: 48 MG/DL (CALC) (11/07/2022) T (11/07/2022) Her updated medication list for this problem includes: Furosemide 20 Mg Tablet (Furosemide) Losartan-hydrochlorothiazide 50-12.5 Mg Tablet (Losartan-hydrochlorothiazide) Leann Huizar MD Cardiology:Noted to be 4.[address] scan on 09/05/22. repeat in 6 months to see any significant change Leann Huizar MD Cardiology:Tests: (1 ) LIPID PANEL, STANDARD (7600) CHOLESTEROL, TOTAL 137 mg/dL <200 *1 Tests: (2) HDL CHOLESTEROL (608) HDL CHOLESTEROL 76 mg/dL > OR = 50 *2 Tests: (3) TRIGLYCERIDES (896) TRIGLYCERIDES 58 mg/dL <150 *3 Tests: (4) LDL-CHOLESTEROL (%8841SXSL) LDL-CHOLESTEROL 48 mg/dL (calc) Leann Huizar MD Cardiology:CONCLUSIO NS: 1 . There is septal hypertrophy without outflow tract obstruction (sigmoid septum). Normal left ventricular systolic function. N ormal left ventricular size. Normal left ventricular wall thickness. There is E to A wave reversal consistent with impaired LV r elaxation. E/E': 7.0 Left ventricular ejection fraction is measured at 60 %. 2 . Normal right ventricular size. Normal right ventricular systolic function. 3 . There is non-specific thickening of the mitral valve leaflets. There is trace physiologic mitral valve regurgitation. 4 . The tricuspid valve is normal in appearance and function. There is trace physiologic tricuspid valve regurgitation. IVC is n ormal in size with normal respiratory response. The RA pressure is estimated at 5.0 mmHg Estimated peak pulmonary artery s ystolic pressure is 23.0 mmHg. eLann Huizar MD Cardiology:Conclusio ns: Although there is airway obstruction and a diffusion defect suggesting emphysema, the absence of overinflation is inconsistent w ith that diagnosis. P ulmonary Function Diagnosis: M inimal Obstructive Airways Disease M inimal Diffusion Defect T he Patient was reencouraged to stop smoking. A bnormal LDCT. Will need to get repeat LDCT done for PCP. Leann Huizar MD Cardiology: Noam morales: CONCLUSIONS: 1 . Mild plaque with less than 50% stenosis of the internal carotid arteries bilaterally. 2 . Vertebral flow is antegrade bilaterally E lectronically signed by Leann Huizar MD on 12/26/2022 at 5:14 PM Leann Huizar MD Cardiology:Couple ep isodes of LOC. Most likely VASOVAGAL. C ralph ECHO. Check telemonitor. T SH was normal. Leann Huizar MD Cardiology:The Patie nt was reencouraged to stop smoking. A bnormal LDCT. Will need to get repeat LDCT done for PCP. Leann Huizar MD Cardiology:She is hy poneutremic. We need to libralize sodium in diet. Expect there to be rise in BP. H er updated medication list for this problem includes: Furosemide 20 Mg Tablet (Furosemide) Losartan-hydrochlorothiazide 50-12.5 Mg Tablet (Losartan-hydrochlorothiazide) BP today: 136/98 Leann Huizar MD Cardiology:Sodium do wn to w121. Will need to liberalize sodium in diet. 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 Noam rosas exercisde stress test. Evaluate with ECHO. She has family history of heart disease. Active smoker Leann Huizar MD Date Name EKG Low Dose Lung CT CT, Coronary Calcium Score Stress Regadenoson LIPID PANEL COMPREHENSIVE METABO LIC PANEL, W/EGFR Carotid Duplex Bilat eral Holter Monitor 48 hr Stress Routine Complete Echo DLCO - 57352 FRC - 18939 FVC - 12638 HISTORY OF PROCEDURES Procedure Date Procedure Name Provider Procedure Notes S tatus CT- Coronary CA score Leann Huizar MD completed Counseling LDCT Leann Huizar MD do at [facility] completed EKG Leann Huizar MD compl eted Spirometry Leann Huizar MD compl eted FVC / MVV with bronchodilator - 36450 Leann Huizar MD completed BLOOD COUNT HEMOGLOBIN Leann Huizar MD completed FRC - 46556 Leann Huizar MD comp leted SpO2 w/o 6min walk/titration Leann Huizar MD completed SVC - 17979 Leann Huizar MD comp leted DLCO - 24545 Leann Huizar MD com pleted
--- OUTSIDE RECORDS SUMMARY | 2024-07-22 09:27 | XMS_ITS | Data Portability ---
Author Organization [facility] [email or web address], Main Office Address [address] [place] [address] Care Team Providers Care Associate Product Manager Name Role Phone SARKIS HERNANDEZ Primary Care Provider SARKIS HERNANDEZ Referring Provider SARKIS HERNANDEZ Primary Care Provider Assessment Encounter Date Assessment Date Assessment LastModified by Organization Details LastModified Time 01/14/2024 01/14/2024 D/w pt and her son about her findings and further plan of care. Recent hospital records reviewed. I have reconciled the patient's medications post their discharge from inpatient facility. Advised pt to f/u with Ortho for any pain med & blood thinner refill. RICE and Rafael hose stocking use explained in detail. Educated about alarming symptoms to monitor at home. F/u with PT and Ortho as per schedule. F/u as directed. [email or web address] Not available 01/14/2024 15:22:28 01/22/2024 01/22/2024 The patient gave verbal consent using TelePhonic services and the consent is documented in the medical record prior to using the service. The patient has been informed of what a TeleMedicine visit is. Patient is located at home. Provider is located at office. Names and roles of persons in addition to the patient and provider participating in telemedicine services include staff. The patient had a 11 minute TeleMedicine consultation via phone call to discuss the following: [email or web address] Not available 01/22/2024 14:02:08 02/05/2024 02/05/2024 58 yo F with - WELL ADULT VISIT - S/P RT FEMUR FRACTURE (01/07) - B/L FEET PAIN, chronic - ANEMIA - THROMBOCYTOSIS - CKD III, persistent - HYPERCALCEMIA, chronic - GERD - CHRONIC NECK PAIN - DDD C-SPINE - HTN - HLD - HTG - PERIPHERAL EDEMA - ANXIETY DISORDER - HYPOMAGNESEMIA, resolved - VIT D DEFICIENCY - OSTEOPENIA - LT THIGH PAIN, Chronic - PERIPHERAL NEUROPATHY - SMOKER - H/O LT FEMUR/HIP SURGERY (2006) - H/O HYPONATREMIA - H/O HYPOKALEMIA LDCT chest: 02/09/23. Myocardial perfusion scan: 12/25/22. US LE venous doppler: 09/07/22. LDCT chest: 09/05/22. Annual labs: 08/21/22. Annual labs: 06/28/20. CXR: 06/25/20. X-ray C-spine: 01/28/20. CXR: 03/20/19. Annual labs: 03/17/19. Annual labs: 06/07/17. X-ray Lt hip & thigh: 05/16/17. EK05/08/17. US B/L LE ARTERIAL: 05/10/17. US Lt LE VENOUS: 05/03/17. CXR: 11/15/15. D/w pt about her findings, recent labs & imagines and further plan of care. Will do routine labs. LDCT chest. Advised pt to contact her Media [employer] for this too. Advised pt to f/u with her Gyne/SALES SUPERINTENDENT soon. Advised pt to f/u with her Nephro for her low Na & K. All meds verified with pt. Meds as directed. Cont OTC shoe inserts as directed. Advised pt to talk with her close friend/family member on a regular basis. Diet and exercise explained in detail. BP diary education given and advised to call us if any concerns. Currently smoking about 3-4 cigs per day. Encouraged pt to quit smoking. Discussed in detail about different options to quit smoking including Zyban, Nicotine patch, Nicotine gum/lozenges etc. Pt will let us know when she is ready for it. Cont f/u with Cardio at [facility] as per schedule. Cont f/u with Endo as per schedule. Cont f/u with Nephro as per schedule. Cont f/u with Media [employer] as per schedule. Cont f/u with ENT as per schedule. Cont f/u with Dr. Dyer (Gyne) as per schedule. Pt was referred to GI in the past, but pt declined to go. Advised to refer to Counsellor/Psych; but pt declined. Advised to refer to Hemat; but pt declined. Educated pt about alarming symptoms to monitor at home and call us back or get checked in ED. Pt verbalized understanding it. HM: WWE - 11/30, normal as per pt. Cont f/u with Gyne/SALES SUPERINTENDENT as per schedule. Mammo - 09/05/22, normal. Ordered. DEXA - 11/09/21, osteopenia ++. Pt wants to do next year. Colonoscopy - Never. Pt declined for colonoscopy. Risks explained. Cologuard 08/02/20, neg. Ordered. Flu - 02/05/24. Tdap, Pneumo, Shingrix - F/u at HD/pharmacy. F/u in 2-3 weeks. Annual labs, LDCT chest in 02/07. [email or web address] Not available 02/05/2024 09:57:29 02/12/2024 02/12/2024 58 yo F with - HYPOMAGNESEMIA - ANEMIA, chronic - THROMBOCYTOSIS, chronic - LT LUNG NODULE (3 mm) - EMPHYSEMA, mild - S/P RT FEMUR FRACTURE (01/07) - B/L FEET PAIN, chronic - CKD III, persistent - HYPERCALCEMIA, chronic - GERD - CHRONIC NECK PAIN - DDD C-SPINE - HTN - HLD - HTG - PERIPHERAL EDEMA - ANXIETY DISORDER - VIT D DEFICIENCY - OSTEOPENIA - LT THIGH PAIN, Chronic - PERIPHERAL NEUROPATHY - SMOKER - H/O LT FEMUR/HIP SURGERY (2006) - H/O HYPONATREMIA - H/O HYPOKALEMIA LDCT chest: 02/06/24. Annual labs: 02/05/24. LDCT chest: 02/09/23. Myocardial perfusion scan: 12/25/22. US LE venous doppler: 09/07/22. LDCT chest: 09/05/22. Annual labs: 08/21/22. Annual labs: 06/28/20. CXR: 06/25/20. X-ray C-spine: 01/28/20. CXR: 03/20/19. Annual labs: 03/17/19. Annual labs: 06/07/17. X-ray Lt hip & thigh: 05/16/17. EK05/08/17. US B/L LE ARTERIAL: 05/10/17. US Lt LE VENOUS: 05/03/17. CXR: 11/15/15. D/w pt about her findings, recent labs & imagines and further plan of care. Advised pt to f/u with her Gyne/SALES SUPERINTENDENT soon. Advised pt to f/u with her Nephro for her low Na & K. All meds verified with pt. Meds as directed. Cont OTC shoe inserts as directed. Advised pt to talk with her close friend/family member on a regular basis. Diet and exercise explained in detail. BP diary education given and advised to call us if any concerns. Currently smoking about 3-4 cigs per day. Encouraged pt to quit smoking. Discussed in detail about different options to quit smoking including Zyban, Nicotine patch, Nicotine gum/lozenges etc. Pt will let us know when she is ready for it. Cont f/u with Cardio at [facility] as per schedule. Cont f/u with Endo as per schedule. Cont f/u with Nephro as per schedule. Cont f/u with [employer] as per schedule. Cont f/u with ENT as per schedule. Cont f/u with Dr. Dyer (Gyne) as per schedule. Pt was referred to GI in the past, but pt declined to go. Advised to refer to Counsellor/Psych; but pt declined. Advised to refer to Hemat; but pt declined. Offered to do PFT/refer to Pulmo; but pt declined. Educated pt about alarming symptoms to monitor at home and call us back or get checked in ED. Pt verbalized understanding it. HM: WWE - 11/30, normal as per pt. Cont f/u with Gyne/SALES SUPERINTENDENT as per schedule. Mammo - 09/05/22, normal. Ordered. DEXA - 11/09/21, osteopenia ++. Ordered. Colonoscopy - Never. Pt declined for colonoscopy. Risks explained. Cologuard 08/02/20, neg. Ordered. Flu - 02/05/24. Tdap, Pneumo, Shingrix - F/u at HD/pharmacy. F/u in 3 months. CBC, Mg in 05/10. Annual labs, LDCT chest in 02/07. [email or web address] Not available 02/12/2024 10:02:04 06/02/2024 06/02/2024 The patient gave verbal consent using TeleHealth services and the consent is documented in the medical record prior to using the service. The patient has been informed of what a TeleMedicine visit is. Patient is located at home. Provider is located at office. Names and roles of persons in addition to the patient and provider participating in telemedicine services include staff. The patient had a 6 minute TeleMedicine consultation via [facility] [employer] to discuss the following: [email or web address] Not available 06/02/2024 11:30:37 Plan of Treatment Reminders Order Date Submit Date Provider Last Modified By Organization Details Last Modified Time Details Appointments None recorded. Lab magnesium, serum or plasma 2023 025 [email or web address] 4 [facility] (Lab), [address] [place], [address], 5 13:54:14 CBC w/ auto diff 2023 025 [email or web address] 4 [facility] (Lab), [address] [place], [address], 5 13:54:13 HbA1c (hemoglobin A1c), blood 2023 024 [email or web address] [facility] (Lab), [address] [place], [address], 4 11:23:44 magnesium, serum or plasma 2023 024 [facility] (Lab), [address] [place], [address], 4 15:00:38 CBC w/ auto diff 2023 024 [facility] (Lab), [address] [place], [address], 4 15:03:30 CMP, serum or plasma 2023 024 [facility] (Lab), [address] [place], [address], 15:00:30 lipid panel, serum 2023 [facility] (Lab), [address] [place], [address], 15:00:36 TSH, serum, reflex free T4 2023 [facility] (Lab), [address] [place], [address], 11:22:38 urinalysis complete, reflex culture 2023 [email or web address] 4 [facility] (Lab), [address] [place], [address], 5 14:03:14 iron + total iron-bindin g capacity (TIBC), serum 2023 [facility] (Lab), [address] [place], [address], 14:56:10 ferritin, serum or plasma 2023 [facility] (Lab), [address] [place], [address], 16:00:31 vitamin B12 + folate, serum or blood [address] (Lab), [address] [place], [address], 4 11:23:30 vitamin D, 25-hydroxy, total, serum [address] (Lab), [address] [place], [address], 11:23:17 noninvasive colorectal cancer DNA + occult blood screening, QL, stool 2023 [facility] (Cologuard Orders Only), [address], [place], [address], 4 11:50:54 Referral None recorded. Procedures None recorded. Surgeries None recorded. Imaging DEXA - Please call pt to schedule [address] [facility] [address] [facility] [address] [facility] [address], [address], 5 09:23:59 MAMMO, screening, bilateral - Please call pt to schedule 2023 [facility] (One Call Scheduling), [address] [place], [address], 5 08:19:51 LDCT, chest, for lung cancer screening - Annual f/u Please call pt to schedule 2023 [email or web address] Not available 4 11:32:42 Medication Orders doxycycline hyclate 100 mg capsule 2024 025 [facility] [address] [place] [address] [facility], [place], [address], 5 11:23:18 fenofibrate 160 mg tablet 2023 024 [facility] [address] [place] [address] [facility], [place], [address], 4 09:52:11 losartan 50 mg tablet 2023 [facility] [address] [place], [address], 4 09:52:11 magnesium oxide 400 mg (241.3 mg magnesium) tablet 2023 024 [facility] [address] [place] [address] [place], [address], 4 09:52:11 ferrous sulfate 325 mg (65 mg iron) tablet 2023 [facility] [address] [facility], [address] [place], [address], 4 09:52:13 bupropion HCl XL 150 mg 24 hr tablet, extended release 2023 [facility] [address] [facility], [address] [place], [address], 4 09:52:10 buspirone 30 mg tablet 2023 [facility] [address] [facility], [address] [place], [address], 4 09:52:12 simvastatin 40 mg tablet 2023 [facility] [address] [facility], [address] [place], [address], 4 09:52:11 ergocalcife rol (vitamin D2) 1,250 mcg (50,000 unit) capsule 2023 [facility] [address] [facility], [address] [place], [address], 4 09:52:12 famotidine 20 mg tablet 2023 [facility] [address] [facility], [address] [place], [address], 4 09:52:10 prednisone 10 mg tablet 2023 [email or web address] [address] [facility], [address] [place], [address], 4 09:28:13 hydroxyzine HCl 25 mg tablet 2023 024 [facility] [address] [facility], [address] [place], [address], 4 14:07:56 losartan 50 mg tablet 2023 024 [facility] [address] [facility], [address] [facility], [place], [address], 4 16:04:39 famotidine 20 mg tablet 2023 024 [facility] [address] [facility], [address] [place], [address], 4 16:04:40 simvastatin 40 mg tablet 2023 024 [facility] [address] [facility], [address] [place], [address], 4 16:04:41 bupropion HCl XL 150 mg 24 hr tablet, extended release 2023 024 [facility] [address] [facility], [address] [facility], [place], [address], 4 16:04:40 buspirone 30 mg tablet 2023 024 [facility] [address] [facility], [address] [facility], [place], [address], 4 16:04:39 Patient TargetsNo targets recorded. Patient Instructions Encounter Date Encounter Id Patient Instructions Last Modified By Organization Details Last Modified Time 01/14/2024 [id number] Thank you for yo ur visit to our office today. We would like to request that you reach out to your referring or previous provider and request that they send us a Summary of Care in electronic form, so that we may have it on file in your medical record. At your visit, we had the medical records we needed to provide you with the best possible care; however, for insurance purposes, an electronic Summary of Care is beneficial. Thank you for your assistance in obtaining this information and we look forward to providing continued care to you. Please review your medication list from the Summary of Care for this visit. If there are any differences from what you are currently taking at home, please call us to discuss. [email or web address] Not available 01/14/2024 14:54:17 01/22/2024 [id number] Due to the COVID-19 (Novel Coronavirus) pandemic, it is within this context (and with the understanding that this method of patient encounter is in the patient s best interest as well as the health and safety of other patients and the public) that t elehealth is being provided for this patient encounter rather than a mfrx-iw-gvqa visit. This patient encounter is appropriate at this time. This patient has been advised of the potential risks and limitations of this mode of treatment (including, but not limited to, the absence of in-person examination) and has agreed to be treated in a remote fashion despite these risks. Any and all of the patient s /patient s family s questions on this issue have been answered, and I have made no promises or guarantees to the patient. The patient has also been advised to contact this office for worsening conditions or problems, and seek emergency medical treatment and/or call 911 if the patient deems either necessary. HPI and/or vitals, if listed, were provided by the patient. Not available 01/22/2024 14:01:35 06/02/2024 [id number] Due to the COVID-19 (Novel Coronavirus) pandemic, it is within this context (and with the understanding that this method of patient encounter is in the patient s best interest as well as the health and safety of other patients and the public) that t elehealth is being provided for this patient encounter rather than a cixa-je-eexa visit. This patient encounter is appropriate at this time. This patient has been advised of the potential risks and limitations of this mode of treatment (including, but not limited to, the absence of in-person examination) and has agreed to be treated in a remote fashion despite these risks. Any and all of the patient s /patient s family s questions on this issue have been answered, and I have made no promises or guarantees to the patient. The patient has also been advised to contact this office for worsening conditions or problems, and seek emergency medical treatment and/or call 911 if the patient deems either necessary. HPI and/or vitals, if listed, were provided by the patient. [email or web address] Not available 06/02/2024 11:18:50 Reason for Referral None Reported. Results Created Date Observation Date Name Description Value Unit Range Abnormal Flag Note LastModifiedBy Organization Detail LastModifiedTime 02/05/2002/05/2024 IRON/ TIBC PANEL total iron binding capacity 247 mcg/d L 265-47 5 low Not Available [facility] (Lab) [address] [place], [address], 02/05/2024 15:06:11 02/05/2002/05/2024 IRON/ TIBC PANEL % transferrin saturation 32 % 20-55 Not Available [facility] (Lab) [address] [place], [address], 02/05/2024 15:06:11 02/05/2002/05/2024 IRON/ TIBC PANEL unsaturated iron bind capacity 167 mcg/d L 126-38 2 Not Available [facility] (Lab) [address] [place], [address], 02/05/2024 15:06:11 02/05/2002/05/2024 IRON/ TIBC PANEL iron 80 mcg/d L 42-175 Not Available [facility] (Lab) [address] [place], [address], 02/05/2024 15:06:11 02/05/20 24 02/05/2024 COMPR EHENS CORDELL METAB OLIC PANEL sodium 135 mmol/ L 137-14 5 low Not Available [facility] (Lab) [address] [place], [address], 02/05/2024 15:00:30 02/05/20 24 02/05/2024 COMPR EHENS CORDELL METAB OLIC PANEL potassium 3.8 mmol/ L 3.5-5. 1 Not Available [facility] (Lab) [address] [place], [address], 02/05/2024 15:00:30 02/05/20 24 02/05/2024 COMPR EHENS CORDELL METAB OLIC PANEL chloride 108 mmol/ L 98-107 high Not Available [facility] (Lab) [address] [place], [address], 02/05/2024 15:00:30 02/05/20 24 02/05/2024 COMPR EHENS CORDELL METAB OLIC PANEL carbon dioxide 20 mmol/ L 22-30 low Not Available [facility] (Lab) [address] [place], [address], 02/05/2024 15:00:30 02/05/20 24 02/05/2024 COMPR EHENS CORDELL METAB OLIC PANEL anion gap 10.8 mmol/ L 14-22 low Not Available [facility] (Lab) [address] [place], [address], 02/05/2024 15:00:30 02/05/20 24 02/05/2024 COMPR EHENS CORDELL METAB OLIC PANEL glucose 94 mg/dL 70-99 Not Available [facility] (Lab) [address] [place], [address], 02/05/2024 15:00:30 02/05/20 24 02/05/2024 COMPR EHENS CORDELL METAB OLIC PANEL BUN 7 mg/dL 8-19 low Not Available [facility] (Lab) [address] [place], [address], 02/05/2024 15:00:30 02/05/20 24 02/05/2024 COMPR EHENS CORDLEL METAB OLIC PANEL creatinine 0.68 mg/dL 0.66-1 .25 Not Available [facility] (Lab) [address] [place], [address], 02/05/2024 15:00:30 02/05/20 24 02/05/2024 COMPR EHENS CORDELL METAB OLIC PANEL GFR >60 Refer ence Range : [place] ge GFR Healt hy Adult : >60 mL/mi n/1.7 3 m2 Chron ic Kidne y Disea se: 15-60 mL/mi n/1.7 3 m2 Kidne y Failu re: <15/m L/min /1.73 m2 www.n iddk. nih.g ov The MDRD study equat ion has not been valid ated in child ayaka <18 years of age; pregn ant women ; the elder ly >85 years of age; or in some racia l or ethni c subgr oups, such as Hispa nics. Outsi de the valid ated yuriy eters , estim ated GFR is less accur ate, requi ring clini debbie judgm ent on a case- by-ca se basis . Clini debbie inter preta tion for other races and ages must be made by the clini freda. The MDRD study equat ion has not been valid ated for the evalu ation of serum creat inine relat ed to nutri elvin l statu s or medic ation usage . For perso ns <18 years of age, a pedia tric GFR calcu lator is avail able on the [facility] websi te: https :[email or web address] christina.berna mcqueen/anup ivy s/edmondo qi/gf r_cal culat or Not Available [facility] (Lab) [address] [place], [address], 02/05/2024 15:00:30 02/05/20 24 02/05/2024 COMPR EHENS CORDELL METAB OLIC PANEL alkaline phosphatase 121 U/L 38-[address] [facility] (Lab) [address] [place], [address], 02/05/2024 15:00:30 02/05/20 24 02/05/2024 COMPR EHENS CORDELL METAB OLIC PANEL alanine aminotransfe rase 13 U/L 0-35 Not Available [facility] (Lab) [address] [place], [address], 02/05/2024 15:00:30 02/05/20 24 02/05/2024 COMPR EHENS CORDELL METAB OLIC PANEL aspartate aminotransfe rase 33 U/L 15-37 Not Available [facility] (Lab) [address] [place], [address], 02/05/2024 15:00:30 02/05/20 24 02/05/2024 COMPR EHENS CORDELL METAB OLIC PANEL bilirubin, total 0.50 mg/dL 0.20-1 .30 Not Available [facility] (Lab) [address] [place], [address], 02/05/2024 15:00:30 02/05/20 24 02/05/2024 COMPR EHENS CORDELL METAB OLIC PANEL calcium 10.4 mg/dL 8.4-10 .2 high Not Available [facility] (Lab) [address] [place], [address], 02/05/2024 15:00:30 02/05/20 24 02/05/2024 COMPR EHENS CORDELL METAB OLIC PANEL total protein 6.3 g/dL 6.3-8. 2 Not Available [facility] (Lab) [address] [place], [address], 02/05/2024 15:00:30 02/05/20 24 02/05/2024 COMPR EHENS CORDELL METAB OLIC PANEL albumin 3.6 g/dL 3.4-5. 0 Not Available [facility] (Lab) [address] [place], [address], 02/05/2024 15:00:30 02/05/20 24 02/05/2024 COMPR EHENS CORDELL METAB OLIC PANEL globulin 2.7 g/dL 2.6-4. 2 Not Available [facility] (Lab) [address] [place], [address], 02/05/2024 15:00:30 10/22/20 24 02/05/2024 COMPR EHENS CORDELL METAB OLIC PANEL A/G ratio 1.3 ratio 1.0-2. 0 Not Available [facility] (Lab) [address] [place], [address], 02/05/2024 15:00:30 02/05/20 24 02/05/2024 LIPID PANEL cholesterol 163 mg/dL 140-19 9 [facility] MARTINEZ NSUS RECOM MENDA TION FOR BONIFACIO STERO L: ADULT CHILD LOW RISK: <200 <170 BORDE RLINE : <200- 239 ----- HIGH RISK: >240 >200 Not Available [facility] (Lab) [address] [place], [address], 02/05/2024 15:00:35 02/05/20 24 02/05/2024 LIPID PANEL triglyceride s 99 mg/dL 0-150 NIH MARTINEZ NSUS REPOR T RECOM MENDA TION FOR TRIGL YCERI BARBARA: ADULT CHILD LOW RISK: <150 ----- BODER LINE: 150-1 99 ----- HIGH RISK: >200 ----- Not Available [facility] (Lab) [address] [place], [address], 02/05/2024 15:00:35 02/05/20 24 02/05/2024 LIPID PANEL HDL cholesterol 66 mg/dL 40- Not Available [facility] (Lab) [address] [place], [address], 02/05/2024 15:00:35 02/05/20 24 02/05/2024 LIPID PANEL LDL cholesterol, calculated 77 mg/dL 0-130 [facility] MARTINEZ NSUS REPOR T RECOM MENDA TIONS FOR LDL: ADULT CHILD LOW RISK <130 <110 (OPTI MAL LDL) <100 ----- BORDE RLINE : 130-1 59 ----- HIGH RISK: >160 >130 A TRIGL YCERI DE RESUL T >400 INVAL IDATE S THE CALCU LATIO N FOR LDL FRACT IONAT ION - THE LDL RESUL T WILL NOT BE REPOR RAFAEL. Not Available [facility] (Lab) [address] [place], [address], 02/05/2024 15:00:35 02/05/2002/05/2024 MAGNE SIUM magnesium 1.2 mg/dL 1.6-2. 3 low Not Available [facility] (Lab) [address] [place], [address], 02/05/2024 15:00:38 02/05/2002/05/2024 CBC/C OMPLE TE BLD COUNT W/DIF F white blood cells 6.2 x10'3 /uL 4.2-10 .8 Not Available [facility] (Lab) [address] [place], [address], 02/05/2024 15:54:55 02/05/2002/05/2024 CBC/C OMPLE TE BLD COUNT W/DIF F red blood cells 2.84 x10'6 /uL 3.80-5 .20 low Not Available [facility] (Lab) [address] [place], [address], 02/05/2024 15:54:55 02/05/2002/05/2024 CBC/C OMPLE TE BLD COUNT W/DIF F hemoglobin 10.2 g/dL 12.0-1 5.6 low Not Available [facility] (Lab) [address] [place], [address], 02/05/2024 15:54:55 02/05/20 24 02/05/2024 CBC/C OMPLE TE BLD COUNT W/DIF F hematocrit 31.2 % 35.7-4 5.7 low Not Available [facility] (Lab) [address] [place], [address], 02/05/2024 15:54:55 02/05/20 24 02/05/2024 CBC/C OMPLE TE BLD COUNT W/DIF F mean red cell volume 109.9 fL 82.0-9 9.0 high Not Available [facility] (Lab) [address] [place], [address], 02/05/2024 15:54:55 02/05/2002/05/2024 CBC/C OMPLE TE BLD COUNT W/DIF F mean red cell hemoglobin 35.9 pg 27.0-3 3.0 high Not Available [facility] (Lab) [address] [place], [address], 02/05/2024 15:54:55 02/05/2002/05/2024 CBC/C OMPLE TE BLD COUNT W/DIF F mean RBC HGB concentratio n 32.7 g/dL 31.0-3 6.0 Not Available [facility] (Lab) [address] [place], [address], 02/05/2024 15:54:55 02/05/2002/05/2024 CBC/C OMPLE TE BLD COUNT W/DIF F red cell distribution width 15.6 % 11.8-1 5.5 high Not Available [facility] (Lab) [address] [place], [address], 02/05/2024 15:54:55 02/05/2002/05/2024 CBC/C OMPLE TE BLD COUNT W/DIF F platelets 498 x10'3 /uL 150-40 0 high Not Available [facility] (Lab) [address] [place], [address], 02/05/2024 15:54:55 02/05/2002/05/2024 CBC/C OMPLE TE BLD COUNT W/DIF F mean platelet volume 8.8 fL 9.0-12 .4 low Not Available [facility] (Lab) [address] [place], [address], 02/05/2024 15:54:55 02/05/2002/05/2024 CBC/C OMPLE TE BLD COUNT W/DIF F neutrophils 62.4 % 39.0-7 2.0 Not Available [facility] (Lab) [address] [place], [address], 02/05/2024 15:54:55 02/05/2002/05/2024 CBC/C OMPLE TE BLD COUNT W/DIF F lymphocytes 22.2 % 16.0-4 7.0 Not Available [facility] (Lab) [address] [place], [address], 02/05/2024 15:54:55 02/05/2002/05/2024 CBC/C OMPLE TE BLD COUNT W/DIF F monocytes 9.3 % 5.0-12 .0 Not Available [facility] (Lab) [address] [place], [address], 02/05/2024 15:54:55 02/05/2002/05/2024 CBC/C OMPLE TE BLD COUNT W/DIF F eosinophils 4.8 % 1.0-7. 0 Not Available [facility] (Lab) [address] [place], [address], 02/05/2024 15:54:55 02/05/2002/05/2024 CBC/C OMPLE TE BLD COUNT W/DIF F basophils 0.8 % 0.0-2. 0 Not Available [facility] (Lab) [address] [place], [address], 02/05/2024 15:54:55 02/05/2002/05/2024 CBC/C OMPLE TE BLD COUNT W/DIF F immature granulocytes 0.5 % 0.00-0 .50 Not Available [facility] (Lab) [address] [place], [address], 02/05/2024 15:54:55 02/05/2002/05/2024 CBC/C OMPLE TE BLD COUNT W/DIF F neutrophils, absolute count 3.87 x10'3 /uL 1.5-8. 0 Not Available [facility] (Lab) [address] [place], [address], 02/05/2024 15:54:55 02/05/2002/05/2024 CBC/C OMPLE TE BLD COUNT W/DIF F lymphocytes, absolute count 1.38 x10'3 /uL 1.07-3 .43 Not Available [facility] (Lab) [address] [place], [address], 02/05/2024 15:54:55 02/05/2002/05/2024 CBC/C OMPLE TE BLD COUNT W/DIF F monocytes, absolute count 0.58 x10'3 /uL 0.29-0 .99 Not Available [facility] (Lab) [address] [place], [address], 02/05/2024 15:54:55 02/05/2002/05/2024 CBC/C OMPLE TE BLD COUNT W/DIF F eosinophils, absolute count 0.30 x10'3 /uL 0.02-0 .53 Not Available [facility] (Lab) [address] [place], [address], 02/05/2024 15:54:55 02/05/2002/05/2024 CBC/C OMPLE TE BLD COUNT W/DIF F basophils, absolute count 0.05 x10'3 /uL 0.01-0 .08 Not Available [facility] (Lab) [address] [place], [address], 02/05/2024 15:54:55 02/05/2002/05/2024 CBC/C OMPLE TE BLD COUNT W/DIF F immature granulocytes ,absolute 0.03 x10'3 /uL 0.00-0 .05 Not Available [facility] (Lab) [address] [place], [address], 02/05/2024 15:54:55 02/05/2002/05/2024 CBC/C OMPLE TE BLD COUNT W/DIF F nucleated red blood cells 0.0 % -0 Not Available [facility] (Lab) [address] [place], [address], 02/05/2024 15:54:55 02/05/2002/05/2024 CBC/C OMPLE TE BLD COUNT W/DIF F NRBC# 0.00 x10'3 /uL Not Available [facility] (Lab) [address] [place], [address], 02/05/2024 15:54:55 02/05/20 24 02/05/2024 CBC/C OMPLE TE BLD COUNT W/DIF F anisocytosis OCCASI ONAL Not Available [facility] (Lab) [address] [place], [address], 02/05/2024 15:54:55 02/05/2002/05/2024 CBC/C OMPLE TE BLD COUNT W/DIF F macro 1+ Not Available [facility] (Lab) [address] [place], [address], 02/05/2024 15:54:55 02/05/2002/05/2024 VITAM IN D 25-HY DROXY vd25oh 28.8 NG/mL 30-100 low Vitam in D Statu s: Defic ient: <20 ng/mL Insuf ficie nt: 20-29 ng/mL Suffi cient : 30-10 0 ng/mL Not Available [facility] (Lab) [address] [place], [address], 02/05/2024 15:19:25 02/05/20 24 02/05/2024 TSH W/REF RADHA FT4 TSH with reflex free T4 1.140 uIU/m L 0.465- 4.680 Not Available [facility] (Lab) [address] [place], [address], 02/05/2024 15:59:13 02/05/20 24 02/05/2024 BOSTON TIN ferritin 145 NG/mL 11.1-2 64 Not Available [facility] (Lab) [address] [place], [address], 02/05/2024 16:00:31 02/05/20 24 02/05/2024 VITAM IN B12 (REGLA PEARL ) vb12 603 pg/mL 239-93 1 Not Available [facility] (Lab) [address] [place], [address], 02/05/2024 16:05:28 02/05/20 24 02/05/2024 FOLAT E, SERUM /PLAS MA folate 3.64 NG/mL 2.76-2 0.0 Not Available [facility] (Lab) [address] [place], [address], 02/05/2024 16:05:33 02/05/20 24 02/05/2024 HEMOG LOBIN A1C HA1C 4.3 % 4.0-6. 0 Diabe harpreet Scree louisa Crite soumya: <5.7% Consi stent with absen ce of diabe harpreet 5.7-6 .4% Consi stent with incre ased risk for diabe harpreet (pred iabet es) >OR=6 .5% Consi stent with diabe harpreet REFER ENCE: Diabe harpreet Care 2016, 39(Tilley ppl.1 ):s13 -s22 Not Available [facility] (Lab) [address] [place], [address], 02/05/2024 20:45:49 02/18/20 24 02/18/2024 COLOG UARD cologuard result reportable NEGATI VE negati ve normal NEGAT CORDELL TEST RESUL T. A negat cordell Colog uard resul t indic ates a low likel ihood that a color ectal cance r (CRC) or advan héctor adeno ma (handy omato us polyp s with more advan héctor pre-m align ant featu res) is prese nt. [facility] that a perso n with a negat cordell Colog uard test has a color ectal cance r is less than 1 in 1500 (nega tive predi ctive value >99.9 %) or has an advan héctor adeno ma is less than 5.3% (nega tive predi ctive value 94.7% ). These data are based on a prosp ectiv e cross -sect ional study of 10,00 0 indiv idual s at [place] ge risk for color ectal cance r who were scree yeimi with both Colog uard and colon oscop y. (Walter Langston et al, N Engl J Med 2014; 370(1 4):12 86-12 97) The avis l value (refe rence range ) for this assay is negat cordell. COLOG UARD RE-SC REEAUBREY NG RECOM MENDA TION: Perio dic color ectal cance r scree louisa is an impor tant part of preve ntive healt hcare for asymp tomat ic indiv idual s at [place] ge risk for color ectal cance r. Follo wing a negat cordell Colog uard resul t, the Ameri can Cance r Socie ty and U.S. Multi -Soci ety Task Force scree louisa guide lines recom mend a Colog uard re-sc reeaubrey ng inter olga of 3 years . Refer ences : Ameri can Cance r Socie ty Guide line for Color ectal Cance r Scree louisa: https ://ww w.can cer.o rg/ca ncer/ colon -rect al-ca ncer/ detec tion- diagn osis- stagi ng/ac s-rec ommen datio ns.ht ml.; Piotr CHEEMA, Pro BORJAS, Luh MORSE, Color ectal Cance r Scree louisa: Recom menda tions for Physi cians and Patie nts from the U.S. Multi -Soci ety Task Force on Color ectal Cance r Scree louisa , Am J Sidney looneynte rolog y 2017; 112:1 016-1 030. TEST DESCR IPTIO N: Wenden site algor ithmi c miguel sis of stool DNA-b pastora ramos with hemog lobin immun oassa y. Quant itati ve value s of indiv idual bioma rkers are not repor table and are not assoc iated with indiv idual bioma rker resul t refer ence range s. Colog uard is inten ded for color ectal cance r scree louisa of adult s of eithe r sex, 45 years or older , who are at [facility] for color ectal cance r (CRC) . Colog uard has been appro sonal for use by the U.S. FDA. The perfo rmanc e of Colog uard was estab lishe d in a cross secti onal study of [facility] adult s aged 50-84 . Colog uard perfo rmanc e in patie nts ages 45 to 49 years was estim ated by sub-g roup miguel sis of near- age group s. Colon oscop ies perfo rmed for a posit cordell resul t may find as the most clini miladis signi viry pate lesio n: color ectal cance r [4.0% ], advan héctor adeno ma (incl uding sessi le jeanette rafael polyp s great er than or equal to 1cm diame ter) [20%] or non- advan héctor adeno ma [31%] ; or no color ectal neopl shira [45%] . These estim ates are deriv ed from a prosp ectiv e cross -sect ional scree louisa study of 10,00 0 indiv idual s at [facility] risk for color ectal cance r who were scree yeimi with both Colog uard and colon oscop y. (Walter Joe al, N Engl J Med 2014; 370(1 4):12 86-12 97.) Colog uard may produ ce a false negat cordell or false posit cordell resul t (no color ectal cance r or preca ncero us polyp prese nt at colon oscop y follo w up). A negat cordell Colog uard test resul t does not guara ntee the absen ce of CRC or advan héctor adeno ma (pre- cance r). The curre nt Colog uard scree louisa inter olga is every 3 years . (Amer ican Cance r Socie ty and U.S. Multi -Soci ety Task Force ). Colog uard perfo rmanc e data in a 10,00 0 patie nt pivot al study using colon oscop y as the refer ence metho d can be acces sed at the follo wing locat ion: www.e xactl abs.c om/re sults . Addit ional descr iptio n of the Colog uard test proce ss, warni ngs and preca ution s can be found at www.c ologu diane.c om. Not Available [employer] (Cologuard Orders Only) [address] [facility] [address], [place], [address], 02/23/2024 11:50:54 01/01/20 24 XR, hip, unila teral , 2 or 3 view [facility] [address] [place] [address] Patien t Name: PHANI LONG [facility] ion #: [id number] Sex: F : 1965 5 Dictat ed By: Brent Timmons Attend ing Physic stef: JORGE HERNANDEZ Orderi Physic stef: JORGE HERNANDEZ Exam Date: 2023 08:37 AM Exam Name: XR HIP/PE LVIS RT 2-3V Admitt ing Diagno sis(es ): CLINIC AL INDICA TION: pain TECHNI QUE: XR HIP/PE LVIS RT 2-3V Compar olga: None FINDIN GS/IMP RESSIO N: Right greate r trocha nter fractu re which appear s displa héctor. Furthe r evalua tion with CT recomm ended. Intram edulla ry kathrin in the left femur transf ixing proxim al left femora l shaft fractu re. Electr onical ly Signed by: Brent Timmons at 2023 08:55: 33 AM Page [address] (Imaging) [address] [place], [address], 01/14/2024 15:00:32 01/01/20 24 femur 2 vws, right [facility] [address] [place] [address] [phone] Patien t Name: PHANI LONG Access ion #: [id number] Sex: F : 1965 5 Dictat ed By: Brent Timmons Attend ing Physic stef: JORGE HERNANDEZ Orderi ng Physic stef: JORGE HERNANDEZ Exam Date: 2023 08:32 AM Exam Name: XR FEMUR/ THIGH RT 2V Admitt ing Diagno sis(es ): CLINIC AL INDICA TION: pain TECHNI QUE: XR FEMUR/ THIGH RT 2V Compar olga: None FINDIN GS/IMP RESSIO N: Displa héctor right greate r trocha nteric fractu re. CT recomm ended for furthe r evalua tion. Electr onical ly Signed by: Brent Timmons at 2023 08:55: 50 AM Page [address] (Imaging) [address] [place], [address], 01/14/2024 15:00:31 01/01/20 24 01/01/2024 XR, abdom en + pelvi s No observ ation record ed. [address] [place], [address], 01/14/2024 15:00:32 01/01/20 24 01/01/2024 XR, hip + pelvi s, unila teral , 2 or 3 view No observ ation record ed. [address], [address], 01/14/2024 15:00:32 01/01/20 24 01/01/2024 US, carot id arter y No observ ation record ed. [address] [facility], [place], [address], 01/14/2024 15:00:32 01/02/20 24 01/02/2024 XR, toe(s ) No observ ation record ed. [address] [facility], [place], [address], 01/14/2024 15:00:31 01/02/20 24 01/01/2024 US, doppl er echoc ardio gram No observ ation record ed. [address] [address], [place], [address], 01/14/2024 15:00:32 01/02/20 24 01/02/2024 MRI, hip, w/o contr ast No observ ation record ed. [address] [facility], [place], [address], 01/14/2024 15:00:31 01/03/20 24 01/03/2024 MRI, foot, w/wo contr ast No observ ation record ed. [address] [facility], [place], [address], 01/14/2024 15:00:31 01/08/20 24 01/08/2024 CT, pelvi s, w/o contr ast No observ ation record ed. [address] [facility], [place], [address], 01/14/2024 15:00:31 01/09/20 24 01/08/2024 US, juliannele x, venou s, lower extre mity, compl ete No observ ation record ed. [address] [address], [place], [address], 01/14/2024 15:00:31 10/23/20 24 LDCT, chest , for lung cance r scree louisa [facility] [address] [place] [address] Patien t Name: PHANI LONG LE Access ion #: [id number] Sex: F : 1965 4 Dictat ed By: Brent Timmons Attend ing Physic stef: JORGE HERNANDEZ Orderi ng Physic stef: JORGE HERNANDEZ Exam Date: 2023 09:38 AM Exam Name: CT LOW DOSE CANCER SCREEN ING Admitt ing Diagno sis(es ): Proced ure: CT LOW DOSE CANCER SCREEN ING Reason for study/ Clinic al Histor y: screen ing Compar olga Study: None availa ble at time of dictat ion. Exam Date: 2023 09:38 AM TECHNI QUE: Using a 64 scanne r volume tric data acquis ition of chest from lung apices throug h the diaphr agm was obtain ed withou t intrav enous contra st admini strati on. Images were recons tructe d at 1 and 3 mm slice thickn ess. In additi on alonzo l and sagitt al reform atted images were provid ed and images were review ed on PACS. FINDIN GS: CTDI volume is 25 mGy. Dose-l ength produc t is 250 mGy*cm There is a stable 3.5 mm triang ular pleura l based noncal cified pulmon mark nodule ofthe left lower lobe along the obliqu e fissur e . The lungs are diffus kevin hypere xpande d and hyperl ucent. 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 No consol idativ e infilt rates, pneumo thorax , pleura l effusi ons, or pulmon mark edema. There is a calcif ied granul johana in the right lower lobe. There are calcif ied lymph nodes in the right hilum and subcar inal region . No suspic ious medias tinal or axilla ry adenop athy. The heart is not enlarg ed. There are alonzo ry artery calcif icatio ns. The ascend ing thorac ic aorta is ectati c up to 4.1 cmdiam eter. There is mild to modera te thorac ic degene rative disc diseas e. IMPRES TARA: 3 mm triang ular pleura l based noncal cified pulmon mark nodule in the left lower Page 1 [facility] [address] [place] [address] Patien t Name: PHANI LONG LE Access ion #: [id number] Sex: F : 1965 4 Dictat ed By: Brent Timmons Attend ing Physic stef: LILO MENJIVAR Physic stef: JORGE HERNANDEZ Exam Date: 2023 09:38 AM Exam Name: CT LOW DOSE CANCER SCREEN ING Admitt ing Diagno sis(es ): lobe. Pulmon mark hypere xpansi on sugges tive of panlob ular emphys moises. Old granul omatou s diseas e of the chest. Alonzo ry artery diseas e. Lung-R ADS 2. Benign appear ance. Contin ue annual screen ing with LDCT in 12mont hs. IMPRES TARA: No intrat horaci c neopla stic or infect ious proces s. Radiat ion optimi zation : All CT scans at this facili ty use at least one of these dose optimi zation techni ques: automa rafael exposu re contro l mA and/or kV adjust ment per patien t size (inclu barbara target ed exams where dose is matche d to clinic al indica tion) or iterat cordell recons tructi on. Electr onical ly Signed by: Brent Timmnos at 2023 10:30: 56 AM Page 2 [email or web address] [facility] (Imaging) [address] [place], [address], 02/12/2024 09:39:30 02/14/20 24 DEXA, axial skele ton [facility] [address] [place] [address] Patien t Name: PHANI LONG LE Access ion #: [id number] Sex: F : 1965 0 Dictat ed By: Chinmay Joaquin ms Attend ing Physic stef: JORGE HERNANDEZ Physic stef: JORGE HERNANDEZ Exam Date: 2023 08:32 AM Exam Name: XR DEXA AXIAL/ HIP/PE LVIS/S PINE Admitt ing Diagno sis(es ): PROCED URE: DEXA SCAN INDICA TION: 58 years old, Female ; screen ing. TECHNI QUE: Bone densit ometry of the lumbar spine and left forear m was perfor med on a [employer] unit using dual energy x-ray absorp tiomet ry (DEXA) . COMPAR OLGA: XR DEXA AXIAL/ HIP/PE LVIS/S PINE on DOS: 2 BONE DENSIT Y REPORT : The nuclear medicine pet ct technologist images are limite d for evalua tion of fine bony detail . BONE DENSIT Y REPORT : Bone minera l densit y (BMD) AP SPINE (L1-L4 ) BMD: 1.252 (Grams /cm2). T Score: 0.5 Z score: 1.4 LEFT FOREAR M BMD: 0.855 (Grams /cm2). T Score: -0.2 Z score: 0.5 There has been a 2.3% decrea se in bone minera l densit y in the lumbar spine since the prior study. 10 YEAR FRACTU RE RISK* Major osteop orotic fractu re not provid ed (less than 20% is consid ered low risk). IMPRES TARA: Page 1 [facility] [address] [place] [address] [phone] Patien t Name: PHANI LONG LE Access ion #: [id number] Sex: F : 1965 0 Dictat ed By: Chinmay Joaquin ms Attend ing Physic stef: LILO MENJIVAR Physic stef: JORGE HERNANDEZ Exam Date: 2023 08:32 AM Exam Name: XR DEXA AXIAL/ HIP/PE LVIS/S PINE Admitt ing Diagno sis(es ): 1. Using the World Health Organi zation (WHO) classi ficati on, bone minera l densit y is: Normal . ------ ------ ------ ------ ------ ------ ------ ------ ----- *FRAX versio n 3.08. Fractu re probab ility calcul ated for an untrea rafael patien t. Fractu re probab ility may be lower if the patien t has receiv ed treatm ent. T-scor e: compar olga by ismael boateng deviat ion (SD) to a young adult popula tion, matche d for sex and ethnic ity (used for postme nopaus al women and men >50 years) and classi fied by WHO criter ia. -1.0: normal <-1.0 to >-2.5: osteop enia -2.5: osteop orosis -2.5 plus fragil ity fractu re: severe osteop orosis Z-scor e: compar ed by SD to an age, sex, and ethnic ity popula tion (used for premen opausa l women, men <50 years, and childr en instea d of T-scor e WHO criter ia 4) <-2.0: below expect ed range/ low bone densit y for age, and a cause should be sought . All treatm ent decisi ons requir e clinic al judgme nt and consid eratio n of indivi dual patien t factor s, includ ing patien t prefer ences, comorb iditie s, previo us drug use and risk factor s not captur ed in the FRAX model (for exampl e vitami n D defici ency, falls, frailt y, increa sed bone turnov er, interv al signif icant declin e in BMD). Electr onical ly Signed by: Chinmay Joaquin ms at 2023 08:44: 54 AM Page 3 [email or web address] [facility] (Imaging) [address] [facility], [place], [address], 06/02/2024 11:19:32 02/14/20 24 02/14/2024 DEXA No observ ation record ed. [email or web address] [facility] [address] [facility], [place], [address], 06/02/2024 11:19:32 02/18/20 24 02/18/2024 MAMMO , scree louisa, bilat eral [facility] [address] [facility] [place] [address] [phone] Patien t Name: PHANI LONG Access ion #: [id number] Sex: F : 1965 7 Dictat ed By: Olamide Man Attend ing Physic stef: JORGE HERNANDEZ Orderi ng Physic stef: JORGE HERNANDEZ Exam Date: 2023 13:14 PM Exam Name: MG SCRN BREAST NGUYỄN BILAT Admitt ing Diagno sis(es ): PROCED URE: SCREEN ING MAMMOG PHILLIP WITH TOMOSY NTHESI S REASON FOR EXAM: screen ing mammog phillip COMPAR OLGA: MG DIGITA L JOSSELYN BILAT SCREEN 2D on DOS: 3 TECHNI QUE: Bilate ral CC and MLO views obtain ed. Images were obtain ed using a Digita l [employer] nthesi s Unit. Standa rd 2D and 3D Tomosy nthesi s images were review ed. FINDIN GS: BREAST COMPOS ITION: C - The breast s are hetero geneou sly dense, which may obscur e small masses . In the right breast , no asymme trical parenc hymal patter n, celestino ectura l distor tion, pleomo rphic microc alcifi cation s or masses . In the left breast , no asymme trical parenc hymal patter n, celestino ectura l distor tion, pleomo rphic microc alcifi cation s or masses . IMPRES TARA: No findin gs of malign rudi. RECOMM ENDATI ON: Recomm end annual mammog phillip. ASSESS MENT: BIRADS : 2 - Benign Electr onical ly Signed by: Olamide Man at 2023 14:01: 31 PM Page 1 [facility] [address] [place] [address] Patien t Name: PHANI LONG Access ion #: [id number] Sex: F : 1965 7 Dictat ed By: Olamide Man Attend ing Physic stef: LILO MENJIVAR Orderi Physic stef: JORGE HERNANDEZ Exam Date: 2023 13:14 PM Exam Name: SCRAny BREAST NGUYỄN BILAT Admitt ing Diagno sis(es ): Page [address] ([employer]) [address] [place], [address], 06/02/2024 11:19:32 04/14/20 24 04/14/2024 XR, knee No observ ation record ed. [address] [facility] [address], [place], [address], 06/02/2024 11:19:32 Result Notes None recorded. Problems Name Problem SNOMED Code Status Onset Date Resolution Date Notes Provider Name and Address Organization Details Recorded Time Chronic hypokalem ia 09641838 Active 2017 Not Available [employer] 4 15:12:45 Impacted cerumen of bilateral ears 91886381511 46226 Active 2018 Not Available [employer] 4 15:12:45 Chronic neck pain 97833989132 07 Active 2019 Not Available [employer] 4 15:12:45 Open wound of foot 415268361 Active 2021 Not Available [employer] 4 15:12:45 Celluliti s of foot 722051809 Active 2021 Not Available [employer] 4 15:12:45 Chronic pharyngit is 159408 Active 2020 Not Available [employer] 4 15:12:45 Hypomagne semia 989695649 Active 2017 Not Available [facility] 4 15:12:45 Idiopathi c hypercalc emia 236776418 Active 2020 Not Available [facility] 4 15:12:45 Abdominal pain 06302415 Completed Not Available [facility] 3 18:07:22 Idiopathi c periphera l neuropath y 10447948 Active 2017 Not Available [employer] 4 15:12:45 Screening mammograp hy Active 2021 Not Available [facility] 4 15:12:45 Uterine prolapse 27932880 Active Not Available [employer] 4 15:12:45 Gastroeso phageal reflux disease without esophagit is 340597267 Active 2019 Not Available [facility] 4 15:12:45 Anemia 808096087 Active 2020 Not Available [facility] 4 15:12:45 Periphera l edema 670222990 Active 2017 Not Available [facility] 4 15:12:45 Swelling of ankle joint 764704544 Active 2018 Not Available [facility] 4 15:12:45 Hypertrig lyceridem ia 275666044 Active 2017 Not Available [facility] 4 15:12:45 Pain in right foot 52516792969 9107 Active 2021 Not Available [facility] 4 15:12:45 Bronchiti s 29020675 Active 2021 Not Available [facility] 4 15:12:45 Vitamin D deficienc y 87909289 Active 2017 Not Available [facility] 4 15:12:45 Hypertens cordell disorder 67030624 Active 2021 Not Available [facility] 4 15:12:45 Onychomyc osis of toenails 399778991 Active 2021 Not Available [facility] 4 15:12:45 Chronic kidney disease stage 3 214175764 Active 2021 Not Available [facility] 4 15:12:45 Anxiety 42050201 Active 2017 Not Available [facility] 4 15:12:45 Cough 09133215 Active 2021 Not Available [facility] 4 15:12:46 Hyperlipi demia 71293371 Active 2017 Not Available [facility] 4 15:12:46 Tinea pedis 7759388 Active 2021 Not Available [facility] 4 15:12:46 Hypercalc emia 40488719 Active 2021 Not Available [facility] 4 15:12:46 Fatigue 93251362 Active 2021 Not Available [facility] 4 15:12:46 Ulcer of foot 70671014 Active 2021 Not Available [facility] 4 15:12:46 Impetigo 34445987 Active 2022 Not Available [facility] 4 15:12:45 Urticaria 208721594 Active 2022 Not Available [facility] 4 15:12:45 Swelling of bilateral lower limbs 472706060 Active 2022 Not Available [facility] 4 15:12:46 Coronary atheroscl erosis 525646952 Active 2022 Not Available [facility] 4 15:12:45 Hyponatre festus 40543580 Active 2022 Not Available [facility] 4 15:12:46 Hypokalem ia 82314781 Active 2022 Not Available [facility] 4 15:12:45 Thrombocy tosis 2370282 Active 2022 Not Available [facility] 4 15:12:46 Pain in right heel 61959759821 35044 Active 2022 Not Available [facility] 4 15:12:45 Pain of left heel 59785047485 59619 Active 2022 Not Available [facility] 4 15:12:45 Herpes labialis 2979280 Active 2023 Sarkis Hernandez MD [address], [place], [address] , [facility] [employer] [facility] [employer] 4 17:33:43 Ulcer of big toe 253759533 Active 2023 David Elmore DPM [address], [address], [place], [address] , [employer] [facility] [employer] 4 15:19:10 Ulcer of big toe 997541126 Active 2023 David Elmore DPM [address], [place], [address] , [facility] [employer] [facility] [employer] 4 15:19:39 Foot callus 954943485 Active 2023 David Elmore DPM [address], [address], [place], [address] , Student Designed [facility] [employer] [facility] 4 14:11:15 Ulcer of right foot 396382746 Active 2023 David Elmore DPM [address], [address], [place], [address] , Student Designed [facility] [employer] 4 15:21:52 Celluliti s of right foot [id number] 380576 Active 2023 David Elmore DPM [address], [address], [place], [address] , Student Designed [facility] [employer] 4 15:39:45 Open wound of right great toe [id number] 580971 Active 2023 David Elmore DPM [address], [place], [address] , [facility] [employer] [facility] [employer] 4 15:42:18 Noncompli ance with treatment 4258497 Active 2023 David Elmore DPM [address], [address], [place], [address] , [place] [facility] 4 10:50:31 Pain in right hip joint 75455982026 9102 Active 2023 Sarkis Hernandez MD [address], [address], [place], [address] , [place] [facility] 4 14:09:50 Pain of right thigh 22726255399 9107 Active 2023 Sarkis Hernandez MD [address], [place], [address] , [place] [facility] 4 14:10:47 Intertroc hanteric fracture 677607549 Active 2023 Sarkis Hernandez MD [address], [place], [address] , [place] [facility] 4 14:24:11 Itching of skin 068291252 Active 2023 Sarkis Hernandez MD [address], [place], [address] , [place] [facility] 4 14:03:40 Environme ntal allergy 707265704 Active 2023 Sarkis Hernandez MD [address], [place], [address] , [place] [facility] 4 14:07:30 Cigarette smoker 50578523 Active 2023 Sarkis Hernandez MD [address], [place], [address] , [place] [facility] 4 09:29:55 Pulmonary emphysema 51919791 Active 2023 Sarkis Hernandez MD [address], [place], [address] , [place] [facility] 4 09:52:18 Pain of right knee joint 10373854007 4100 Active 2024 Sarkis Hernandez MD [address], [place], [address] , [employer] 5 10:13:09 Celluliti s of external nose 23617652 Active 2024 Sarkis Hernandez MD [address], [place], [address] , [employer] 5 11:21:43 Acute folliculi tis 041191951 Active 2024 Sarkis Hernandez MD [address], [place], [address] , [employer] 5 11:30:52 Problem Notes None recorded. Procedures Surgical History Date Name Laterality Status Provider Name and Address Organization Details Recorded Time 4 Smoking Cessation completed Sarkis Hernandez MD [address], [address], [place], [address], [employer] 02/05/2024 09:28:50 4 Transitional_C are_Management completed Rasheed Box [employer] 01/14/2024 14:54:18 4 Wound Care-Podiatry completed David Elmore DPM [address], [place], [address], [employer] 11/14/2023 10:49:52 4 Wound Care-Podiatry completed David Elmore DPM [address], [place], [address], [employer] 10/31/2023 15:34:14 4 Wound Care-Podiatry completed Agapito Wallace RN Student Designed [facility] [email or web address] 10/24/2023 15:24:42 4 Callus Debridement, One completed David Elmore DPM [address], [place], [address], Student Designed [employer] 09/27/2023 16:07:58 3 Smoking Cessation completed Sarkis Hernandez MD [address] [facility] [address], [place], [address], [place] [employer] [facility] [employer] 03/14/2023 09:26:23 3 Smoking Cessation completed Sarkis Hernandez MD [address], [facility] [address], [place], [address], [place] [facility] [employer] [facility] 08/01/2022 11:02:35 Unlisted px femur/knee completed Not Available [facility] 06/14/2022 18:05:05 Hysterectomy, Partial completed Not Available [facility] 06/14/2022 18:05:05 Imaging Results Imaging Date Name Status LastModified by Organization Details LastModified Time 01/01/2024 XR, hip, unilateral, 2 or 3 view completed [facility] (Imaging) [address] [place], [address], 01/14/2024 15:00:32 01/01/2024 femur 2 vws, right completed [email or web address] [facility] (Imaging) [address] [place], [address], 01/14/2024 15:00:31 01/01/2024 XR, abdomen + pelvis completed [email or web address] [facility] [address] [place], [address], 01/14/2024 15:00:32 01/01/2024 XR, hip + pelvis, unilateral, 2 or 3 view completed [email or web address] [address], [address], 01/14/2024 15:00:32 01/01/2024 US, carotid artery completed [email or web address] [address], [address], 01/14/2024 15:00:32 01/02/2024 XR, toe(s) completed [address], [address], 01/14/2024 15:00:31 01/01/2024 US, doppler echocardiogram completed [address] [address], [place], [address], 01/14/2024 15:00:32 01/02/2024 MRI, hip, w/o contrast completed [address] [address], [place], [address], 01/14/2024 15:00:31 01/03/2024 MRI, foot, w/wo contrast completed [address] [address], [place], [address], 01/14/2024 15:00:31 01/08/2024 CT, pelvis, w/o contrast completed [address] [address], [place], [address], 01/14/2024 15:00:31 01/08/2024 US, duplex, venous, lower extremity, complete completed [address] [address], [place], [address], 01/14/2024 15:00:31 02/06/2024 LDCT, chest, for lung cancer screening completed [address] (Imaging) [address] [place], [address], 02/12/2024 09:39:30 02/14/2024 DEXA, axial skeleton completed [address] (Imaging) [address] [place], [address], 06/02/2024 11:19:32 02/14/2024 DEXA completed [address] [place], [address], 06/02/2024 11:19:32 02/18/2024 MAMMO, screening, bilateral completed [address] ([employer]) [address] [place], [address], 06/02/2024 11:19:32 04/14/2024 XR, knee completed [facility] [address], [place], [address], 06/02/2024 11:19:32 Procedure Notes None recorded. Medical Equipment None Reported. Allergies Allergen ID Allergen Name Allergen Category Reaction Reaction Severity Criticality Documentation Date Start Date Code Code System Note Provider Name and Address Organization Details Recorded Time 02262 Product containin g penicilli n (product) medicatio n hives Not available Not available 06/14/2022 88423 8001 SNOMED Not Available [facility] 3 18:10:50 16513 Substance with sulfonami de structure and antibacte rial mechanism of action (substanc e) medicatio n hives Not available Not available 08/03/2022 01218 8003 SNOMED Nika Sevilla RN [facility], [employer] 3 08:34:23 08281 clindamyc in Not available Not available Not available Not available 10/24/2023 2582 RxNorm David Elmore DPM [address] [facility], [facility] [address], [place], [address] , [employer] 4 16:34:11 Medications Name Sig Start Date Stop Date Status Note LastModified by Organization Details LastModified Time losartan 50 mg tablet TAKE 1 TABLET BY MOUTH EVERY DAY IN THE MORNING active Not Available Not Available No t Available cyclobenz aprine 10 mg tablet TAKE 1 TABLET BY MOUTH EVERY 12 HOURS NEEDED FOR CHRONIC NECK PAIN active Not Available Not Available No t Available furosemid e 40 mg tablet TK 1 T PO ONCE QAM. 02/12 completed Not Available Not Available Not Available prednison e 10 mg tablet PLEASE SEE ATTACHED FOR DETAILED DIRECTIO NS 02/04 completed Not Available Not Available Not Available doxycycli ne hyclate 100 mg capsule TAKE 1 CAPSULE BY MOUTH TWICE A DAY FOR 10 DAYS active Not Available Not Available No t Available clindamyc in HCl 300 mg capsule TAKE 1 CAPSULE BY MOUTH THREE TIMES A DAY DIRECTED FOR 10 DAYS 09/26 completed Not Available Not Available Not Available azithromy jud 250 mg tablet TAKE 2 TABLETS BY MOUTH TODAY, THEN TAKE 1 TABLET DAILY FOR 4 DAYS DIRECTED 10/23 completed Not Available Not Available Not Available benzonata te 200 mg capsule TAKE 1 CAPSULE BY MOUTH THREE TIMES A DAY NEEDED FOR 7 DAYS 03/14 completed Not Available Not Available Not Available valacyclo vir 1 gram tablet TAKE 1 TABLET BY MOUTH EVERY 12 HOURS DIRECTED FOR 5 DAYS 09/26 completed Not Available Not Available Not Available hydrocodo ne 5 mg-acetam inophen 325 mg tablet TAKE 1 TABLET BY MOUTH EVERY 4 HOURS NEEDED FOR PAIN active Not Available Not Available No t Available meloxicam 15 mg tablet TAKE 1 TABLET BY MOUTH EVERY DAY WITH FOOD active Not Available Not Available No t Available sertralin e 100 mg tablet TAKE 1 TABLET BY MOUTH EVERY DAY IN THE MORNING FOR 30 DAYS 08/30 completed Not Available Not Available Not Available quetiapin e 200 mg tablet 05/14 completed Not Available Not Available Not Available Debrox 6.5 % ear drops INSTILL 3-4 DROPS INTO AFFECTED EAR(S) BY OTIC ROUTE 2 TIMES PER DAY 07/07 completed Not Available Not Available Not Available meclizine 12.5 mg tablet Take 1 tablet every 6-8 hours by oral route as needed for 5 days. 12/30 completed Not Available Not Available Not Available potassium chloride ER 10 mEq tablet,ex tended release Take 1 tablet every day by oral route for 90 days. 08/05 completed Not Available Not Available Not Available ciproflox acin 500 mg tablet TAKE 1 TABLET BY MOUTH EVERY 12 HOURS FOR 5 DAYS 08/01 completed Not Available Not Available Not Available sulfameth oxazole 800 mg-trimet hoprim 160 mg tablet TAKE 1 TABLET BY MOUTH EVERY 12 HOURS DIRECTED FOR 7 DAYS 08/21 completed Not Available Not Available Not Available doxycycli ne monohydra te 100 mg tablet TAKE 1 TABLET ORALLY TWICE A DAY FOR 14 DAYS. 01/21 completed Not Available Not Available Not Available tramadol 50 mg tablet TAKE 1 TABLET BY MOUTH EVERY 8-12 HOURS active Not Available Not Available No t Available simvastat in 40 mg tablet TAKE 1 TABLET BY MOUTH EVERYDAY AT BEDTIME active Not Available Not Available No t Available meloxicam 7.5 mg tablet TK 1 T PO D 05/14 completed Not Available Not Available Not Available oxycodone -acetamin ophen 5 mg-325 mg tablet active Not Available Not Available Not Available alprazola m 0.5 mg tablet 06/07 completed Not Available Not Available Not Available famotidin e 20 mg tablet TAKE 1 TABLET BY MOUTH EVERY 12 HOURS DIRECTED FOR 30 DAYS active Not Available Not Available No t Available amitripty line 25 mg tablet TAKE 1 TABLET BY MOUTH DAILY BEFORE SLEEPING active Not Available Not Available No t Available magnesium oxide 400 mg (241.3 mg magnesium ) tablet TAKE 1 TABLET BY MOUTH EVERY DAY DIRECTED active Not Available Not Available No t Available doxycycli ne monohydra te 100 mg capsule 07/16 completed Not Available Not Available Not Available hydrocodo ne 7.5 mg-acetam inophen 325 mg tablet TK 1 T PO Q 6 H PRN P 05/14 completed Not Available Not Available Not Available trazodone 150 mg tablet 05/14 completed Not Available Not Available Not Available buspirone 30 mg tablet TAKE 1 TABLET BY MOUTH EVERY 12 HOURS NEEDED active Not Available Not Available No t Available ferrous sulfate 325 mg (65 mg iron) tablet TAKE 1 TABLET BY MOUTH TWICE A DAY WITH FOOD active Not Available Not Available No t Available clotrimaz ole-betam ethasone 1 %-0.05 % topical cream PLEASE SEE ATTACHED FOR DETAILED DIRECTIO NS 10/31 completed Not Available Not Available Not Available naproxen 500 mg tablet,de layed release 01/26 completed Not Available Not Available Not Available gabapenti n 300 mg capsule Take 1 capsule twice a day by oral route as directed for 30 days. 08/05 completed Not Available Not Available Not Available omeprazol e 20 mg capsule,d elayed release TAKE 1 CAPSULE BY MOUTH EVERY DAY IN THE MORNING 09/22 completed Not Available Not Available Not Available gentamici n 0.1 % topical cream APPLY A SMALL AMOUNT TO THE AFFECTED WOUND AREA BY TOPICAL ROUTE 3 TIMES PER DAY 08/01 completed Not Available Not Available Not Available diclofena c sodium 75 mg tablet,de layed release TAKE 1 TABLET BY MOUTH TWICE A DAY NEEDED WITH FOOD active Not Available Not Available No t Available hydroxyzi ne HCl 25 mg tablet TAKE 1 TABLET BY MOUTH EVERY 6 HOURS NEEDED FOR 7 DAYS active Not Available Not Available No t Available mupirocin 2 % topical ointment APPLY TO AFFECTED AREAS Three times daily with dressing s to the great toe ulcer 2023 active Not Available Not Available Not Avai lable furosemid e 20 mg tablet TAKE 1 TABLET BY MOUTH EVERY DAY IN THE MORNING NEEDED active Not Available Not Available No t Available Levaquin 500 mg tablet Take 1 tablet every 24 hours by oral route. 12/30 completed Not Available Not Available Not Available gabapenti n 100 mg capsule Take 2 capsules every 8 hours by oral route as directed for 30 days. active For first time: Take 1 tab bid for 3-4 days; Noah 2 tabs bid for another 3-4 days; Than 2 tabs tid thereaft er. Not Available Not Available Not Available ergocalci ferol (vitamin D2) 1,250 mcg (50,000 unit) capsule TAKE 1 CAPSULE BY MOUTH EVERY WEEK DIRECTED active Not Available Not Available No t Available Cheratuss in AC 10 mg-100 mg/5 mL oral liquid active Not Available Not Available Not Available ibuprofen 600 mg tablet TAKE 1 TABLET BY MOUTH EVERY 6 HOURS NEEDED FOR PAIN 09/26 completed Not Available Not Available Not Available methylpre dnisolone 4 mg tablets in a dose pack Take 1 dose pk every day by oral route as directed for 6 days. 08/21 completed Not Available Not Available Not Available losartan 50 mg-hydroc hlorothia zide 12.5 mg tablet TAKE 1 TABLET BY MOUTH EVERY MORNING 10/19 completed Not Available Not Available Not Available fluoxetin e 20 mg capsule active Not Available Not Available Not Available sertralin e 50 mg tablet Take 1 tablet every day by oral route in the morning for 30 days. 01/26 completed pt stated that she doesn't take this medicati on anymore Not Available Not Available Not Available doxycycli ne hyclate 100 mg tablet TAKE 1 TABLET BY MOUTH TWICE A DAY FOR 10 DAYS active Not Available Not Available No t Available naproxen 500 mg tablet active Not Available Not Available Not Available amoxicill in 875 mg-potass ium clavulana te 125 mg tablet active Not Available Not Available Not Available nicotine 7 mg/24 hr daily transderm al patch active Not Available Not Available Not Available buspirone 15 mg tablet TK 2 TS PO BID 05/14 completed Not Available Not Available Not Available enoxapari n 40 mg/0.4 mL subcutane ous syringe INJECT 1 SYRINGE SUBCUTAN EOUSLY EVERY 24 HOURS active Not Available Not Available No t Available ciproflox acin 0.3 %-dexamet hasone 0.1 % ear drops,johana pension INSTILL 4 DROPS INTO AFFECTED EAR(S) BY OTIC ROUTE 2 TIMES PER DAY FOR 7 DAYS 05/24 completed Not Available Not Available Not Available bupropion HCl XL 150 mg 24 hr tablet, extended release TAKE 1 TABLET BY MOUTH EVERY DAY IN THE MORNING. STOP SERTRALI NE. CONTACT OFFICE FOR APPTOINT MENT. 2024 active Not Available Not Available Not Avai lable fenofibra te 160 mg tablet TAKE 1 TABLET BY MOUTH ONCE DAILY EVERY MORNING (DO NOT TAKE WITH SIMVASTA TIN) active Not Available Not Available No t Available Lyrica 50 mg capsule Take 1 capsule twice a day by oral route as directed for 30 days. 06/07 completed Not Available Not Available Not Available losartan 100 mg-hydroc hlorothia zide 12.5 mg tablet 06/07 completed Not Available Not Available Not Available sertralin e 2015 active Not Available Not Available Not Avai lable simvastat in 2015 active Not Available Not Available Not Avai lable losartan 2015 active Not Available Not Available Not Avai lable trazodone 2015 active Not Available Not Available Not Avai lable buspirone 2015 active Not Available Not Available Not Avai lable fenofibra te 2015 active Not Available Not Available Not Avai lable hydrochlo rothiazid e 12.5 mg tablet TAKE 1 TABLET BY MOUTH EVERY MORNING 07/07 completed Not Available Not Available Not Available Senexon-S 8.6 mg-50 mg tablet TAKE 1 TAB ORALLY AT BEDTIME active Not Available Not Available No t Available Fluzone Quad (PF) 60 mcg (15 mcg x 4)/0.5 mL IM syringe active Not Available Not Available Not Available Vitals Date Recorded Body height Body temperature Respiratory rate Oxygen saturation Oxygen saturation in Arterial blood by Pulse oximetry Systolic blood pressure Diastolic blood pressure Provider Name and Address Organization Details Last Updated DateTime 4 172.72 cm 98.2 [degF] 16 /min 99 % 99 % 106 mm[Hg] 72 mm[Hg] Rasheed Box [facility] 4 14:57:16 Date Recorded Body mass index (BMI) Body weight Heart rate Provider Name and Address Organization Details Last Updated DateTime 01/14/2024 22.8 kg/m2 53406.21 g 90 /min Sarkis Hernandez MD [address], [facility] [address], [place], [address], [facility] 01/14/2024 15:03:39 Date Recorded Body height Body temperature Heart rate Respiratory rate Oxygen saturation Oxygen saturation in Arterial blood by Pulse oximetry Systolic blood pressure Diastolic blood pressure Provider Name and Address Organization Details Last Updated DateTime 172.72 cm 98.6 [degF] 78 /min 16 /min 99 % 99 % 104 mm[Hg] 70 mm[Hg] Rasheed [facility] 4 09:14:52 Date Recorded Body height Body mass index (BMI) Body weight Body temperature Heart rate Oxygen saturation Oxygen saturation in Arterial blood by Pulse oximetry Systolic blood pressure Diastolic blood pressure Provider Name and Address Organization Details Last Updated DateTime 172.72 cm 22.8 kg/m2 23412.8 6 g 98.2 [degF] 79 /min 97 % 97 % 130 mm[Hg] 84 mm[Hg] Tiear Avila RN [facility] [employer] [facility] 09:34:42 Social History Question Answer Notes LastModified by Organizat ion Details LastModified Time Tobacco Smoking Status Current Every Day Smoker Ángela verdugo, [facility] 03/14/2023 09:13:54 Do You Have An Advance Directive? No [id number] Information not available 06/14/2022 What Is Your Level Of Alcohol Consumption? Moderate [id number] Information not available 06/14/2022 Do You Wear A Helmet When Biking? Yes Information not available 03/14/2023 What Is Your Level Of Caffeine Consumption? Heavy [id number] Information not available 06/14/2022 In The 14 Days Before Symptom Onset, Have You Had Close Contact With A Laboratory-cynthia vickied COVID-19 While That Case Was Ill? No [email or web address] Information not available 03/14/2023 In The 14 Days Before Symptom Onset, Have You Had Close Contact With A Person Who Is Under Investigation For COVID-19 While That Person Was Ill? No Information not available 03/14/2023 What Type Of Diet Are You Following? REGULAR [id number] Information not available 06/14/2022 Have There Been Any Changes To Your Family Or Social Situation? No [email or web address] Information not available 03/14/2023 Are There Any Guns Present In Your Home? No [email or web address] Information not available 03/14/2023 Do You Use Insect Repellent Routinely? Yes [email or web address] Information not available 03/14/2023 Where Do You Live? SingleLevelHouse [email or web address] Information not available 03/14/2023 Do You Have A Medical Power Of Computer Assembler? No [email or web address] Information not available 03/14/2023 What Was The Date Of Your Most Recent Tobacco Screening? 09/19/2021 Information not available 03/14/2023 Have You Ever Been Counseled For Unhealthy Alcohol Use? No [email or web address] Information not available 03/14/2023 Do You Have Any Pets? No [email or web address] Information not available 03/14/2023 What Is Your Relationship Status? [id number] Information not available 06/14/2022 Do You Use Your Seat Belt Or Car Seat Routinely? Yes [email or web address] Information not available 03/14/2023 Do You Have Smoke And Carbon Monoxide Detectors In Your Home? Yes Information not available 03/14/2023 Are You Passively Exposed To Smoke? No [email or web address] Information not available 03/14/2023 Are There Any Smokers In Your House? No [email or web address] Information not available 03/14/2023 How Much Tobacco Do You Smoke? 0.5 PPD [id number] Information not available 06/14/2022 Do You Participate In Social Media? No [email or web address] Information not available 03/14/2023 Do You Feel Stressed (tense, Restless, Nervous, Or Anxious, Or Unable To Sleep At Night)? [id number] [email or web address] Information not available 03/14/2023 Do You Use Any Illicit Or Recreational Drugs? No [email or web address] Information not available 03/14/2023 Do You Use Sunscreen Routinely? Yes [email or web address] Information not available 03/14/2023 Has Tobacco Cessation Counseling Been Provided? No [email or web address] Information not available 03/14/2023 Have You Recently Traveled Abroad? No [email or web address] Information not available 03/14/2023 Are You Currently In School? No [email or web address] Information not available 03/14/2023 Do You Have Any Dietary Restrictions? No [email or web address] Information not available 03/14/2023 Do You Or Have You Ever Used Any Other Forms Of Tobacco Or Nicotine? No [email or web address] Information not available 03/14/2023 Sex: Female Functional Status Question Answer Note LastModified by Organizat ion Details LastModified Time What is your exercise level? Moderate [id number] Information not available 06/14/2022 Mental Status None recorded. Family History Relationship Description Onset Age of this Age Resolved Age Notes LastModified by Organization Details LastModified Time Father Family history of stroke [email or web address] Not available 03/14 09:13:51 Father Hypertensive disorder [id number] Not available 06/14/2022 18:05:06 Father Heart disease [id number] Not available 06/14/2022 18:05:06 Mother Arthritis [email or web address] Not availa ble 03/14/2023 09:13:51 Mother Osteoporosis [email or web address] Not ricarda ilable 03/14/2023 09:13:51 Mother Hypertensive disorder [id number] Not available 06/14/2022 18:05:06 Medical History Condition Response SLEEP APNEA N MRSA N ALLERGIES/HAYFEVER Y OTHER # 1 N LUNG DISEASE/DISORDER N INSOMNIA N RADIATION / CHEMOTHERAPY N COPD N HIGH CHOLESTEROL / HYPERLIPIDEMIA N HYPERTHYROIDISM N Other # 2 N NEUROLOGICAL PROBLEMS N BLOOD DISEASES N SURGERY N EAR OR HEARING PROBLEMS N HYPOTHYROIDISM N DEPRESSION (INCLUDING POST ) N HAVE YOU BEEN HOSPITALIZED OR SEEN IN [facility] IN THE PAST YEAR ? N STROKE/TIA N ULCERS N OBESITY N GERD/NAUSEA Y ANEURYSM N HISTORY WITH COMPLICATIONS WITH ANESTHES IA ? N USE OF BLOOD THINNERS N NO SIGNIFICANT PAST MEDICAL HISTORY N DIABETES, TYPE N PARATHYROID DISEASE N ENT N SEASONAL ALLERGIES N HEARTBURN / REFLUX Y HEPATITIS / LIVER DISEASE N SLEEP DISORDER N HEADACHES/MIGRAINES N SEIZURES/EPILEPSY N CHF N PACEMAKER N DIZZINESS N AIDS/HIV N FRACTURES N HYPERTENSION Y CANCER: SPECIFY N BLOOD TRANSFUSION N ANESTHESIA COMPLICATIONS N ANEMIA/BLOOD DISORDER Y CHRONIC EAR INFECTIONS N TUBERCULOSIS N Gynecological HistoryNo gynecological history recorded. Obstetrics History GPAL:G 0 P 0 0 0 0 Immunizations Vaccine Type Date Status Note Provider Nam e and Address Organization Details Recorded Time COVID-19, mRNA, LNP-S, PF, 100 mcg/0.5mL dose or 50 mcg/0.25mL dose 1 completed Not Available [facility] 05/09/2023 15:12:46 COVID-19, mRNA, LNP-S, PF, 100 mcg/0.5mL dose or 50 mcg/0.25mL dose 1 completed Not Available [facility] 05/09/2023 15:12:46 Pneumococcal conjugate PCV20, polysaccharide [id number] conjugate, adjuvant, PF 3 completed Not Available [facility] 05/09/2023 15:12:46 Influenza, MDCK, quadrivalent, PF 3 completed Not Available [facility] 05/09/2023 15:12:46 zoster recombinant 3 completed Not Available [facility] 05/09/2023 15:12:46 Influenza, split virus, trivalent, PF 4 completed ALEX Ortiz [facility] 02/05/2024 16:20:39 Past Encounters Encounter ID Performer Location Encounter Start Date Encounter Closed Date Diagnosis/Indication Diagnosis SNOMED-CT Code Diagnosis ICD10 Code Diagnosis Note [id number] [address] [address] 06/21/2020 00:00:00 06/21/2020 15:39:06 [id number] [address] [address] [address] 06/28/2020 00:00:00 06/28/2020 11:32:[id number] [address] 07/01/2020 00:00:00 07/01/2020 17:51:47 [id number] [facility] [place] [address] [place] [address] 07/07/2020 00:00:00 07/07/2020 10:40:26 [id number] [facility] [place] [address] [place] [address] 01/04/2021 00:00:00 01/04/2021 10:05:02 [id number] [facility] [place] [address] [place] [address] 01/14/2021 00:00:00 01/14/2021 11:55:18 [id number] [facility] [place] [address] [place] [address] 03/08/2021 00:00:00 03/08/2021 09:59:29 [id number] [facility] [place] [address] [place] [address] 06/01/2021 00:00:00 06/01/2021 09:43:37 [id number] [facility] [place] [address] [place] [address] 06/30/2021 00:00:00 06/30/2021 12:41:28 [id number] [facility] [place] [address] [place] [address] 1 07/18/2021 00:00:00 07/18/2021 16:42:25 [id number] [facility] [place] [address] [place] [address] 08/30/2021 00:00:00 08/30/2021 15:35:17 [id number] [facility] [place] [address] [place] [address] 1 09/19/2021 00:00:00 09/19/2021 09:19:29 [id number] _ATHENA_M IGRATION_ DEFAULT_1 _1 , 09/19/2021 00:00:00 09/26/2021 21:20:41 [id number] _ATHENA_M IGRATION_ DEFAULT_1 _1 , 09/26/2021 00:00:00 09/26/2021 21:08:12 [id number] _ATHENA_M IGRATION_ DEFAULT_1 _1 , 10/03/2021 00:00:00 10/04/2021 16:29:43 [id number] _ATHENA_M IGRATION_ DEFAULT_1 _1 , 10/10/2021 00:00:00 10/11/2021 09:41:33 [id number] [facility] [place] [address] [place] [address], [place] [address] 10/26/2021 00:00:00 10/26/2021 15:10:47 [id number] _ATHENA_M IGRATION_ DEFAULT_1 _1 , 10/31/2021 00:00:00 10/31/2021 14:42:17 [id number] [facility] [place] [address] [place] [address] 10/31/2021 00:00:00 10/31/2021 10:03:38 [id number] [facility] [place] [address] [place] [address], [place] [address] 11/10/2021 00:00:00 11/10/2021 09:32:32 [id number] _ATHENA_M IGRATION_ DEFAULT_1 _1 , 11/14/2021 00:00:00 11/15/2021 09:57:33 [id number] _ATHENA_M IGRATION_ DEFAULT_1 _1 , 11/28/2021 00:00:00 11/28/2021 14:36:46 [id number] [facility] [place] [address] [place] [address] 11/28/2021 00:00:00 11/28/2021 10:10:10 [id number] _ATHENA_M IGRATION_ DEFAULT_1 _1 , 12/12/2021 00:00:00 12/12/2021 14:45:17 [id number] [facility] [place] [address] [place] [address], [place] [address] 02/07/2022 00:00:00 02/07/2022 15:07:[id number] [address] 05/25/2022 00:00:00 05/25/2022 15:36:35 [id number] Sarkis Hernandez MD [address] [address] 08/01/2022 10:42:03 08/01/2022 11:05:34 Impetigo 33689286 L01.00 Chronic neck pain 804234 0848 107 M54.2 Hypertensive disorder 38 827785 I10 Hyperlipidemia 07409688 E78.5 Peripheral edema 1273256 00 R60.9 Smoker 89951723 F17.200 Anxiety 05433241 F41.9 Chronic ki dney disease stage 3 137773872 N18.30 Hypertriglyceridemia 302 005265 E78.2 [id number] Sarkis Hernandez MD [address] [address] 08/21/2022 11:25:52 08/21/2022 12:44:54 Chronic neck pain 5507408125 107 M54.2 Hypertensive disorder 38 112307 I10 Hyperlipidemia 25707418 E78.5 Peripheral edema 0868814 00 R60.9 Smoker 46296987 F17.200 Anxiety 04056085 F41.9 Chronic ki dney disease stage 3 338521872 N18.30 Adult [facility] th examination 801911706 Z00.00 Fatigue 65173375 R53.83 Vitamin D deficiency 347 97364 E55.9 Swelling o f bilateral lower limbs 995723184 M79.89 Screening mammography 24 485011 Z12.31 [id number] Sarkis Hernandez MD [address] [address] 09/13/2022 11:20:36 09/13/2022 12:12:11 Chronic neck pain 8365359861 107 M54.2 Hypertensive disorder 38 958506 I10 Hyperlipidemia 32915951 E78.5 Peripheral edema 0643282 00 R60.9 Smoker 55891682 F17.200 Anxiety 90662947 F41.9 Chronic ki dney disease stage 3 623692594 N18.30 Vitamin D deficiency 347 60074 E55.9 Improved Swelling o f bilateral lower limbs 207243297 M79.89 Improved Anemia 747500940 D64.9 Coronary atherosclerosis 095797219 I25.10 Hyponatremia 71353863 E8 7.1 Hypokalemia 02430442 E87 .6 Thrombocytosis 0085952 D 75.839 Hypertriglyceridemia 302 664336 E78.2 [id number] Antionette Pedroza NP [address] [address] 09/28/2022 08:31:27 09/28/2022 09:21:31 [id number] Sarkis Hernandez MD [address] [address] 10/19/2022 13:58:09 10/19/2022 14:20:08 Anemia 793189079 D64.9 Thrombocytosis 0219398 D 75.839 Hyponatremia 79743782 E8 7.1 Improved Hypokalemia 62314366 E87 .6 Resolved Chronic neck pain 674113 1268 107 M54.2 Hypertensive disorder 38 852474 I10 Hyperlipidemia 37239797 E78.5 Peripheral edema 5048394 00 R60.9 Smoker 80703846 F17.200 Coronary atherosclerosis 998771030 I25.10 Anxiety 93861740 F41.9 Chronic ki dney disease stage 3 347365515 N18.30 Vitamin D deficiency 347 56122 E55.9 Improved Swelling o f bilateral lower limbs 827663729 M79.89 Improved Hypertriglyceridemia 302 360170 E78.2 [id number] Sarkis Hernandez MD [address] [address] 03/14/2023 09:13:13 03/14/2023 09:53:35 Pain in right heel 7455826275 344290 M79.671 Pain of left heel 153187 9141 868244 M79.672 Smoker 63210072 F17.200 Anxiety 80310985 F41.9 Gastroesop hageal reflux disease without esophagitis 664383903 K21.9 Hypertriglyceridemia 302 262241 E78.2 Hypertensive disorder 38 513523 I10 Hyperlipidemia 09255042 E78.5 [id number] Sarkis Hernandez MD [facility] [address] [address] 06/25/2023 17:20:15 06/25/2023 17:48:48 Pain in right heel 4145911496 399611 M79.671 Pain of left heel 835721 0751 907669 M79.672 Smoker 19282553 F17.200 Anxiety 26925728 F41.9 Gastroesop hageal reflux disease without esophagitis 232061314 K21.9 Hypertriglyceridemia 302 205696 E78.2 Hypertensive disorder 38 055539 I10 Hyperlipidemia 56809381 E78.5 Impetigo 90295444 L01.00 Herpes labialis 2215097 B00.1 [id number] David Elmore DPM [facility] [place] [address] [place] [address] 09/27/2023 13:58:22 10/05/2023 08:05:39 Ulcer of big toe 223909271 L97.509 wound care reviewedx- rays reviewedRx mupirocin3 times a day dressing changes with bulky gauze dressingfo llow-up in wound care Foot callus 551622057 L8 4 debrided without incidentwe ar supportive shoe gearuse a pumice stone daily to keep from recurring [id number] David Elmore DPM [facility] [address] [place] [address] 10/24/2023 14:41:04 10/24/2023 18:05:03 Ulcer of right foot 689831011 L97.519 wound cultures today sub 5th metatarsal woundfull- thicknesso ffloadRx Darco forefoot offloading shoedaily wound carerefill mupirocinf ollow-up 1 week Cellulitis of right foot 1129114948 4412840 L03.115 right 5th metatarsop halangeal joint areax-rays right foot orderedcul tures ordered Open wound of right great toe 4970878297 5558351 S91.101D right great toe plantar full-thick nessmupiro jud wet-to-dry dressings daily new woundskeep area clean and dryRx Darco forefoot offloading shoeFollow -up 1 week [id number] David Elmore DPM [facility] [address] [place] [address] 10/31/2023 12:11:54 11/01/2023 10:33:31 Ulcer of right foot 945904192 L97.519 wound cultures today sub 5th metatarsal woundfull- thicknessl abs reviewed- follow-up with PCP due to chronic kidney disease\ and slight anemiaoffl oad forefoot all timesRx Darco forefoot offloading shoe- not wearing normal sandals todaydaily wound carefollow -up 1 week Cellulitis of right foot 8313113038 7676452 L03.115 resolved Open wound of right great toe 9461079258 7561915 S91.101D right great toe plantar full-thick nessmupiro jud wet-to-dry dressings daily new woundskeep area clean and dryRx Darco forefoot offloading shoe - does notFollow- up 1 week [id number] David Elmore DPM [facility] [address] [place] [address] 11/14/2023 10:17:10 11/14/2023 12:39:58 Ulcer of right foot 150745415 L97.519 healed Open wound of right great toe 0722812657 8884570 S91.101D right great toe plantar partial-th icknessmup irocin wet-to-dry dressings daily new woundskeep area clean and dryRx Darco forefoot offloading shoe - does notFollow- up 1 week Noncomplia nce with treatment 7649731 Z91.199 not utilizing protective shoe gear Swelling o f bilateral lower limbs 714948614 M79.89 follow-up with PCP [id number] Sarkis Hernandez MD [facility] [address] [address] 11/20/2023 09:43:40 11/20/2023 10:58:22 Peripheral edema 882566676 R60.9 Swelling o f bilateral lower limbs 026381648 M79.89 Anxiety 00842301 F41.9 Educated pt about alarming symptoms to monitor at home and call 911/get checked in ED. Chronic ki dney disease stage 3 605942881 N18.30 F/u with Cardio and Nephro soon. Pt will call them today. Hypertensive disorder 38 678817 I10 Hypokalemia 96699126 E87 .6 Resolved Idiopathic peripheral neuropathy 07533442 G60.9 [id number] Sarkis Hernandez MD [address] [address] 12/31/2023 13:57:21 12/31/2023 14:41:10 Fall 9919684 W19.XXXA Pain in ri ght hip joint 4414290414 79421 M25.551 Pain of right thigh 3169 164875 22490 M79.822 [id number] Sarkis Hernandez MD [address] [address] 01/14/2024 14:22:14 01/14/2024 16:05:28 Hospital inpatient stay within past 30 days 3878840934 106 Z76.89 Intertroch anteric fracture 701531957 S72.141A Rt Transition of care 34579 53211 105 Z75.8 Reduced mobility 4583261 Z74.09 Peripheral edema 9241094 00 R60.9 Swelling o f bilateral lower limbs 666484750 M79.89 Ulcer of foot 02331336 L 97.919 Chronic Idiopathic peripheral neuropathy 09939246 G60.9 Anxiety 35886536 F41.9 Educated pt about alarming symptoms to monitor at home and call 911/get checked in ED. Gastroesop hageal reflux disease without esophagitis 139681110 K21.9 Hypertensive disorder 38 030165 I10 Hyperlipidemia 16391657 E78.5 [id number] Sarkis Hernandez MD [address] [address] 01/22/2024 12:27:05 01/22/2024 14:36:36 Itching of skin 819909449 L29.9 Routine skin care explained in detail.Edu cated pt about alarming symptoms to monitor at home. Environmental allergy 42 5097882 T78.49XA [id number] Sarkis Hernandez MD [address] [address] 02/05/2024 09:04:32 02/05/2024 10:00:21 Adult health examination 160382069 Z00.00 Vitamin D deficiency 347 98793 E55.9 Anemia 861272585 D64.9 Fatigue 30541696 R53.83 Hypomagnesemia 311939542 E83.42 Idiopathic peripheral neuropathy 88571518 G60.9 Screening for malignant neoplasm of colon 426663956 Z12.11 Cigarette smoker 1078483 7 F17.210 Administra tion of influenza vaccine 12515327 Z23 Screening mammography 24 091169 Z12.31 [id number] Sarkis Hernandez MD [address] [address] 02/12/2024 09:26:44 02/12/2024 10:07:54 Vitamin D deficiency 53973425 E55.9 Anemia 039289621 D64.9 Fatigue 11173361 R53.83 Hypomagnesemia 583019256 E83.42 Idiopathic peripheral neuropathy 82767759 G60.9 Cigarette smoker 2963854 7 F17.210 Anxiety 21632213 F41.9 Hypertriglyceridemia 302 327746 E78.2 Gastroesop hageal reflux disease without esophagitis 721000314 K21.9 Hypertensive disorder 38 183039 I10 Hyperlipidemia 39320110 E78.5 Pulmonary emphysema 8743 3001 J43.9 Mild Screening for osteoporosis 405317060 Z13.627 [id number] Sarkis Hernandez MD [address] [address] 06/02/2024 11:06:36 06/02/2024 11:32:33 Cellulitis of external nose 46479599 J34.0 Acute folliculitis 90316 7007 L73.9 Lt nose Health Concerns Section Related Observation LastModified by Organization Detai ls LastModified Time None Recorded Concern Status LastModified by Organization Details LastModified Time None Recorded Advance Directives Directive N: Payers Encounter Date Sequence Insurance Name Policy Number Policy Lao Covered Member ID Lao Member ID Guarantor Name 01/14/2024 1 [facility] ON OR AFTER 10/14/20 (MEDICAID REPLACEMENT - HMO) Vero Long [id number] Vero Long 01/22/2024 1 [facility] ON OR AFTER 10/14/20 (MEDICAID REPLACEMENT - HMO) Vero Long [id number] Vero Long 02/05/2024 1 [facility] ON OR AFTER 10/14/20 (MEDICAID REPLACEMENT - HMO) Vero Long [id number] Vero Long 02/12/2024 1 [facility] ON OR AFTER 10/14/20 (MEDICAID REPLACEMENT - HMO) Vero Long [id number] Vero Long 06/02/2024 1 [facility] ON OR AFTER 10/14/20 (MEDICAID REPLACEMENT - HMO) Vero Long [id number] Vero Long Notes Date Note Type Note Provider Name and Address Organization Details Recorded Time 01/14/2024 text/html Hospital fuv:Her e with her son. Pt was sent to ED on 01/01/24 due to Rt hip fracture and was admitted at [facility] for 3 days and then d/c to home. Pt went back to ED on 01/08/24 due to increasing pain over her Rt hip fracture and was admitted for couple days again. Pt has been f/u with Dr. Oconnell (Ortho) for this and she is on Gautier for pain control and Lovenox for anticoagulation by him. Pt still has about 12 pills of Gautier left at home. Pt is about to be out of Tramadol and is asking for its refill. No other med refills needed. Pt will be starting PT in few days as per her Ortho. So far, pt is under conservative Mx and no surgery done yet. Pt will be seeing her Ortho in 2 days on next Sun. Sarkis Hernandez MD [address] [place] [address], [place] [address], [place], [address], [facility] [email or web address] 01/14/2024 16:04:48 01/22/2024 text/html Telephone visit. ACV. C/o itching all over her body for last 3 days. Pt denies any rash/insect bite/blisters. Denies any use of new medication/soap/lotio n/detergent. No other concern. Pt is f/u with Ortho for her Rt hip fracture and will be seeing them next week Ria. Sarkis Hernandez MD [address], [place], [address], [employer] [facility] [email or web address] 01/22/2024 14:10:35 02/05/2024 text/html Pt is here for h er partner annual exam. Doing overall much better now. Denies any problem with any meds. Denies any new concern. Pt is f/u with Ortho for her Rt femur fracture and she is on conservative management for it. Pt was sent to ED on 01/01/24 due to Rt hip fracture and was admitted at [facility] for 3 days and then d/c to home. Pt went back to ED on 01/08/24 due to increasing pain over her Rt hip fracture and was admitted for couple days again. Pt has been f/u with Dr. Oconnell (Ortho) for this and she is on Gautier for pain control and Lovenox for anticoagulation by him. Pt still has about 12 pills of Gautier left at home. Pt is about to be out of Tramadol and is asking for its refill. No other med refills needed. Pt will be starting PT in few days as per her Ortho. So far, pt is under conservative Mx and no surgery done yet. Doing better with her mood and anxiety. Denies any problem with meds. Denies any mood swings/SI/HI. Pt is f/u with [employer] for her chronic Rt foot ulcer.Pt is f/u with Endo for her hypercalcemia. Pt is f/u with Cardio and everything is good as per pt. Sarkis Hernandez MD [address], [place], [address], [employer] 02/05/2024 09:59:27 02/12/2024 text/html Pt is here for f /u on her annual labs and CT. Doing overall better now compared to last visit. Denies any problem with any meds. Denies any new concern. Pt is f/u with Ortho for her Rt femur fracture and she is on conservative management for it. Pt is getting home PT too. Pt was sent to ED on 01/01/24 due to Rt hip fracture and was admitted at [facility] for 3 days and then d/c to home. Pt went back to ED on 01/08/24 due to increasing pain over her Rt hip fracture and was admitted for couple days again. Pt has been f/u with Dr. Oconnell (Ortho) for this and she is on Gautier for pain control and Lovenox for anticoagulation by him. Pt still has about 12 pills of Gautier left at home. Pt is about to be out of Tramadol and is asking for its refill. No other med refills needed. Pt will be starting PT in few days as per her Ortho. So far, pt is under conservative Mx and no surgery done yet. Doing better with her mood and anxiety. Denies any problem with meds. Denies any mood swings/SI/HI. Pt is f/u with [employer] for her chronic Rt foot ulcer.Pt is f/u with Endo for her hypercalcemia. Pt is f/u with Cardio and everything is good as per pt. Sarkis Hernandez MD [address], [employer], [place], [address], [employer] 02/12/2024 10:02:54 06/02/2024 text/html Televisit:ACV. C/o small pimple inside of her Lt nostril for last week. Pt has tried otc DEVON, but still not getting better. She is going out of town today afternoon and is requesting PO course for this. No other area rash, no other concern for today. Sarkis Hernandez MD [address], [place], [address], [employer] 06/02/2024 11:32:03 OBGyn Episode No OBEpisode recorded.
--- OUTSIDE RECORDS SUMMARY | 2024-07-22 09:27 | XMS_ITS | Clinical Summary ---
Author Organization [facility] Address [address] [place] [address] Care Team Providers Care Supervisor Personnel Clerks Name Role Phone Unavailable Primary Care Provider Unavailabl e Social History Tobacco Use Types Packs/Day Years Used Date Smoking Tobacco: Never Assessed Comments Unknown Sex and Gender Information Value Date Recorded Sex Assigned at Not on file Legal Sex Female 8:38 PM CDT Gender Identity Not on file Sexual Orientation Not on file Plan of Treatment Health Maintenance Due Date Last Done Comments Cervical Cancer Screening Pa p Smear (Age 30 to 64) Every 3 Years 1966 Colorectal Cancer Screening Colonoscopy (10 Years) 1966 Annual Physical 1969 Hepatitis C 1984 DTaP, Tdap and Td Vaccines ( 1 - Tdap) 1985 Hepatitis B Vaccines (1 of 3 - 19+ 3-dose series) 1985 Cervical Cancer Screening Pa p with HPV Testing (Age 30 to 64) Every 5 Years 1996 Cervical Cancer Screening with HPV 1996 Mammogram Screening 2006 Zoster Vaccines (1 of 2) 2016 COVID-19 Vaccine (2023-2 5 season) 2023 Meningococcal B Vaccine Aged Out No l onger eligible based on patient's age to complete this topic Meningococcal Vaccine Aged Out No marielena trey eligible based on patient's age to complete this topic Pneumococcal Vaccine: Pediat rics (0 to 5 Years) and At-Risk Patients (6 to 64 Years) Aged Out No longer eligible b ased on patient's age to complete this topic RSV Immunizations Under 20 Months Aged Out No longer eligible based on patient's age to complete this topic
--- OUTSIDE RECORDS SUMMARY | 2024-07-22 09:28 | XMS_ITS | Clinical Summary ---
Author Organization [facility] Address [address] [place] [address] Care Team Providers Care Sandwich Maker Name Role Phone Unknown, Provider Primary Care Provider Unavaila ble Source Comments [facility],non-owned Affiliates and Associated Physician Practices is amultiple site organization consisting of ambulatory clinics and hospital sitesin [place], [place], [place] and [place]. This disclosure is being madepursuant to the Care Everywhere program and may not contain all information available regarding this patient. Last updated 18.[facility] [employer] Allergies Active Allergy Reactions Criticality Noted Date Comments Penicillin G Anaphylaxis High 11/02/2022 Sulfacetamide Urticaria Medium 01/25/2024 Medications * Be aware that medications may not be up to date on this document. Alwaysverify current medications with the patient. Medication Sig Dispensed Refills Start Date End Date Status amitriptyline (Elavil) 25 MG tablet TAKE 1 TABLET BY MOUTH DAILY BEFORE SLEEPING Active amoxicillin-clavul anate (Augmentin) 875-125 MG tablet Active azithromycin (Zithromax) 250 MG tablet TAKE 2 TABLETS BY MOUTH TODAY, THEN TAKE 1 TABLET DAILY FOR 4 DAYS DIRECTED 04/30/2023 Active buPROPion XL 24hr (Wellbutrin-XL) 150 MG tablet TAKE 1 TABLET BY MOUTH EVERY DAY IN THE MORNING (D/C SERTRALINE) 01/14/2024 Active busPIRone (Buspar) 30 MG tablet Take 1 tablet twice a day by oral route. Active cyclobenzaprine (Flexeril) 10 MG tablet TAKE 1 TABLET BY MOUTH EVERY 12 HOURS NEEDED FOR CHRONIC NECK PAIN Active diclofenac sodium EC (Voltaren) 75 MG tablet Take 1 (one) tablet by mouth 2 times daily as needed Active furosemide (Lasix) 40 MG tablet Take 1 tablet every day by oral route. Active ferrous sulfate 325 (65 FE) MG tablet 01/23/2024 Active enoxaparin (Lovenox) 40 MG/0.4ML injection INJECT 1 SYRINGE SUBCUTANEOUSLY EVERY 24 HOURS 01/04/2024 Active losartan (Cozaar) 50 MG tablet Take 1 (one) tablet by mouth every morning 01/14/2024 Active losartan-hydroCHLO ROthiazide (Hyzaar) 100-12.5 MG tablet Take 1 tablet every day by oral route. Active simvastatin (Zocor) 40 MG tablet Take 1 tablet every day by oral route. 01/14/2024 Active valACYclovir (Valtrex) 1 GM tablet TAKE 1 TABLET BY MOUTH EVERY 12 HOURS DIRECTED FOR 5 DAYS 06/25/2023 Active Social History Tobacco Use Types Packs/Day Years Used Date Smoking Tobacco: Every Day Cigarettes Smokeless Tobacco: Never Tobacco Cessation:Ready to Q uit: No; Counseling Given: No Sex and Gender Information Value Date Recorded Sex Assigned at Not on file Gender Identity Not on file Sexual Orientation Not on file Last Filed Vital Signs Vital Sign Reading Time Taken Comments Blood Pressure - - Pulse - - Temperature - - Respiratory Rate - - Oxygen Saturation - - Inhaled Oxygen Concentration - - Weight 68 kg (150 lb) 01/25/2024 10:10 AM CDT Height 172.7 cm (5' 8 ) 01/25/2024 10:10 AM CDT Body Mass Index 22.81 01/25/2024 10:10 AM CDT Plan of Treatment Health Maintenance Due Date Last Done Comments COLON MONITORING 1966 COLONOSCOPY - COLON CA SCREENING 1966 CT COLONOGRAPHY - COLON CA SCREENING 1966 FIT - COLON CA SCREENING 1966 FLEX SIG - COLON CA SCREENING 1966 MAMMOGRAM 1966 PAP SMEAR 1966 HIV SCREENING 1981 HEPATITIS C SCREENING 06/07/1984 DTAP/TDAP/TD VACCINES (1 - Tdap) 1985 HEPATITIS B VACCINE (1 of 3 - 19+ 3-dose series) 1985 PNEUMOCOCCAL VACCINE 50+ (1 of 2 - PCV) 1985 ZOSTER VACCINE (1 of 2) 2016 COLOGUARD (AGES 45-75) - COL ON CA SCREENING 08/03/2023 08/02/2020 Colorectal Cancer Screening 08/03/2023 COVID-19 VACCINE (3 - 2023-2 5 season) 2023 08/02/2020, 07/12/2020 DEPRESSION SCREENING 04/16/2024 INFLUENZA VACCINE (Season Ended) 2024 01/11/2023 HIB VACCINE Aged Out No longer eligi ble based on patient's age to complete this topic HPV VACCINE Aged Out No longer eligi ble based on patient's age to complete this topic MENINGOCOCCAL (Group B) VACCINE SHARED DECISION-MAKING Aged Out No longer eligible based on patient's age to complete this topic MENINGOCOCCAL GROUPS A/C/Y/W VACCINE Aged Out No longer eligible b ased on patient's age to complete this topic Care Teams Sandwich Maker Relationship Specialty Start Date End Date Unknown, Provider PCP - General 01/25/24
--- OUTSIDE RECORDS SUMMARY | 2024-07-22 09:28 | XMS_ITS | Data Portability ---
Author Organization [facility] [place] Address [address] [place] [address] Assessment No assessment recorded. Plan of Treatment Reminders Order Date Submit Date Provider Last Modified By Organization Details Last Modified Time Details Appointments None recorded. Lab urinalysis , dipstick 2016 017 [email or web address] In-Office Order, Internal Use Only DO Not Attach Compendium DO Not Attach Compendium, Do Not Delete/merge, [id number] 7 15:27:33 Referral None recorded. Procedures None recorded. Surgeries None recorded. Imaging None recorded. Medication Orders None recorded. Patient TargetsNo targets recorded. Patient InstructionsNo instructions recorded. Reason for Referral None Reported. Results Created Date Observation Date Name Description Value Unit Range Abnormal Flag Note LastModifiedBy Organization Detail LastModifiedTime 11/23/1911/22/2016 urina lysis , dipst ick Leukocytes Negati ve Not Available In-Office Order Internal Use Only DO Not Attach Compendium DO Not Attach Compendium, Do Not Delete/merge, [id number] 11/22/2016 15:16:24 11/23/1911/22/2016 urina lysis , dipst ick Nitrite negati ve Not Available In-Office Order Internal Use Only DO Not Attach Compendium DO Not Attach Compendium, Do Not Delete/merge, [id number] 11/22/2016 15:16:24 11/23/1911/22/2016 urina lysis , dipst ick Urobilinogen .2 Not Available In-Of fice Order Internal Use Only DO Not Attach Compendium DO Not Attach Compendium, Do Not Delete/merge, [id number] 11/22/2016 15:16:24 11/23/19 17 11/22/2016 urina lysis , dipst ick Protein Negati ve Not Available In-Office Order Internal Use Only DO Not Attach Compendium DO Not Attach Compendium, Do Not Delete/merge, 11/22/2016 15:16:24 11/23/19 17 11/22/2016 urina lysis , dipst ick pH 5.5 Not Available In-Office Order Internal Use Only DO Not Attach Compendium DO Not Attach Compendium, Do Not Delete/merge, 11/22/2016 15:16:24 11/23/19 17 11/22/2016 urina lysis , dipst ick Blood Negati ve Not Available In-Office Order Internal Use Only DO Not Attach Compendium DO Not Attach Compendium, Do Not Delete/merge, 11/22/2016 15:16:24 11/23/19 17 11/22/2016 urina lysis , dipst ick Specific [place] 1.020 Not Available In-Off ice Order Internal Use Only DO Not Attach Compendium DO Not Attach Compendium, Do Not Delete/merge, 11/22/2016 15:16:24 11/23/19 17 11/22/2016 urina lysis , dipst ick Ketone Negati ve Not Available In-Office Order Internal Use Only DO Not Attach Compendium DO Not Attach Compendium, Do Not Delete/merge, 11/22/2016 15:16:24 11/23/19 17 11/22/2016 urina lysis , dipst ick Bilirubin Negati ve Not Available In-Office Order Internal Use Only DO Not Attach Compendium DO Not Attach Compendium, Do Not Delete/merge, 11/22/2016 15:16:24 11/23/19 17 11/22/2016 urina lysis , dipst ick Glucose Negati ve Not Available In-Office Order Internal Use Only DO Not Attach Compendium DO Not Attach Compendium, Do Not Delete/merge, 11/22/2016 15:16:24 11/23/19 17 11/22/2016 urina lysis , dipst ick Appearance Clear Not Available In-Offi ce Order Internal Use Only DO Not Attach Compendium DO Not Attach Compendium, Do Not Delete/merge, 2017 15:16:24 11/23/19 17 11/22/2016 urina lysis , dipst ick Color Yellow Not Available In-Office Order Internal Use Only DO Not Attach Compendium DO Not Attach Compendium, Do Not Delete/merge, [id number] 11/22/2016 15:16:24 Result Notes None recorded. Medical Equipment None Reported. Medications Name Sig Start Date Stop Date Status Note LastModified by Organization Details LastModified Time furosemide 40 mg tablet Take 1 tablet every day by oral route. active Not Available Not Available No t Available simvastatin 40 mg tablet Take 1 tablet every day by oral route. active Not Available Not Available No t Available buspirone 30 mg tablet Take 1 tablet twice a day by oral route. active Not Available Not Available No t Available buspirone 15 mg tablet Take 2 tablets twice a day by oral route. active Not Available Not Available No t Available fenofibrate 160 mg tablet Take 1 tablet every day by oral route. active Not Available Not Available No t Available losartan 100 mg-hydrochlor othiazide 12.5 mg tablet Take 1 tablet every day by oral route. active Not Available Not Available No t Available Vitals Date Recorded Body height Provider Name an d Address Organization Details Last Updated DateTime 11/22/2016 172.72 cm Vero Gonsalez MA [facility] 2016 14:34:40 Social History Question Answer Notes LastModified by Organizat ion Details LastModified Time Tobacco Smoking Status Current Every Day Smoker Vero Gonsalez MA [facility], [facility] 11/22/2016 14:38:11 What Was The Date Of Your Most Recent Tobacco Screening? 11/22/2016 Information n ot available 11/07/2018 How Much Tobacco Do You Smoke? 0.25 PPD Information not available 11/22/2016 How Many Years Have You Smoked Tobacco? 25 Information not available 11/22/2016 Sex: Unknown Functional Status None recorded. Mental Status None recorded. Family History Relationship Description Onset Age of this Age Resolved Age Notes LastModified by Organization Details LastModified Time Father Heart disease [email or web address] Not available 2016 14:36:38 Father Hypertensive disorder mtitusma Not available 2016 14:36:57 Father Cerebrovascu lar accident [email or web address] Not available 12/2016 14:37:19 Father Hypercholest erolemia mtitusma Not available 2016 14:37:57 Mother Heart disease [email or web address] Not available 2016 14:36:38 Mother Hypertensive disorder mtitusma Not available 2016 14:36:57 Medical History Condition Response High Blood Pressure Y High Cholesterol Y Gynecological History Statement/Question Response STIs/STDs N Date of Last Pap Smear Sexual Problems? N Age at First Child 22 Sexually Active? Y Obstetrics History GPAL:G 1 P 1 0 0 1 Type Value Full Term 1 Living 1 Total 1 Past Encounters Encounter ID Performer Location Encounter Start Date Encounter Closed Date Diagnosis/Indication Diagnosis SNOMED-CT Code Diagnosis ICD10 Code Diagnosis Note [id number] Aime Arrieta MD [facility] ([place] [address]) [address] [place] [id number] 11/22/2016 14:03:23 11/23/2016 09:31:55 Pain in pelvis 12602428 R10.2 - Pelvic exam performed- WNL- Suggest pelvic sonogram- Will inform patient of cost and will possibly schedule imaging based on cost Health Concerns Section Related Observation LastModified by Organization Detai ls LastModified Time None Recorded Concern Status LastModified by Organization Details LastModified Time None Recorded Advance Directives Directive None Recorded Payers None recorded. Notes Date Note Type Note Provider Name and Address Organization Details Recorded Time 11/22/2016 text/html Patient presents today because she feels pelvic pressure. She is s/p TLH secondary to uterine prolapse in Dec 2016. She states recently since she has been sitting at work she feels pressure and pain that hurts so bad that she has to stand to finish the work day. She states stading and lying make the pain better and sitting worsens the pain. The patient states the pressure feels the same way it did prior to the hysterectomy. Aime Arrieta MD Attn: [address]ing,[address] [place], [address], [facility] 11/22/2016 15:28:06 OBGyn Episode No OBEpisode recorded.
== END 2024-07-22 08:55 | disposition home or self-care (01) ==
PROVIDERS: PCP Family Medicine; Visit Provider Physician Assistant
DX: M11.261 Other chondrocalcinosis, right knee (principal); M17.11 Unilateral primary osteoarthritis, right knee; M22.41 Chondromalacia patellae, right knee; M23.51 Chronic instability of knee, right knee
CPT/HCPCS: 73721

== ENCOUNTER 2024-08-26 11:17 | Outpatient (CLI) | payer OTHER, SELFPAY ==
--- NOTE | ~2024-08-26 | XR_ITS ---
XR cervical spine 4-5V Ordering provider: Sarkis Hernandez, History: . Cervicalgia, NO INJURY . Comparison: None. FINDINGS: VERTEBRAL BODIES: Normal height and alignment. No visible fracture or subluxation. The dens is intact . DISK SPACES: Severe narrowing of the disc C4-C5, C5-C6 and C6-C7. Multilevel facet joint disease. Mul tilevel uncovertebral joint osteoarthritic changes. PARASPINOUS SOFT TISSUES: No prevertebral soft tissue swelling. IMPRESSION: No acute osseous abnormality cervical spine. Multilevel degenerative disc disease. Multilevel facet joint disease. Multilevel uncovertebral joint osteoarthritic changes. Reviewed, dictated and finalized at location A. IMPRESSION: No acute osseous abnormality cervical spine. Multilevel degenerative disc disease. Multilevel facet joint disease. Multileve l uncovertebral joint osteoarthritic changes.
--- OUTSIDE RECORDS SUMMARY | 2024-08-26 11:40 | XMS_ITS | CONTINUITY OF CARE DOCUMENT ---
Author Name chapis roshninicki Address Unknown Organization [facility] Address [address] [place] [address] Phone [phone] Care Team Providers Care Pest Control Service Sales Agent Name Role Phone Bhupendra WHITING, Leann Agarwal Unavailable ROSA NAGY MD Unavailable PROBLEMS Condition Status Date Provider Notes Hyperlipidemia active Leann Huizar MD Hypertension active Leann Huizar MD Tobacco abuse active Leann Huizar MD CAD active Leann Huizar MD Cardiovascular Condition Screening active S mark Huizar MD Hyponatremia active Leann Huizar MD AAA active Leann Huizar MD Syncope and collapse active Leann burk MD Swelling of bilateral legs active Leann Huizar MD ENCOUNTERS Date Type Provider Location Encounter Diag nosis 4 - 9 In-person encounter Office Visit Leann Huizar MD [facility] Swelling of bilateral legs 9 - 9 In-person encounter Office Visit Leann Huizar MD [facility] 0 - 0 In-person encounter Office Visit Leann Huizar MD [facility] HyperlipidemiaHypertensionTobacco abuseCADCardiovascular Condition ScreeningHyponatremiaAAASyncope and collapse VITAL SIGNS Date Observation Value Provider blood pressure, diastolic 74 mm[Hg] Wanda jamesLog blood pressure, systolic 97 mm[Hg] Jackie og blood pressure, diastolic 74 mm[Hg] Wanda jamesLog blood pressure, systolic 97 mm[Hg] Jackie [facility] blood pressure, cuff size regular [facility] blood pressure, diastolic 74 mm[Hg] [facility] blood pressure, systolic 97 mm[Hg] [facility] oxygen saturation, oximetry 100 % [facility] respiratory rate E&M 16 /min [facility] pulse rate 114 /min [facility] height E&M 68 [in_i] [facility] blood pressure, diastolic 72 mm[Hg] [facility] blood pressure, systolic 98 mm[Hg] [facility] blood pressure, cuff size small [facility] blood pressure, diastolic 72 mm[Hg] [facility], systolic 98 mm[Hg] Vignesh [...] 325 mg (65 mg iron) tablet active J oAnn Griggs cyclobenzaprine 10 mg tablet active Jo [...] Payer name Policy type / Coverage type [facility] ID [place] MEDICAID (2) Medicaid [id number] ADVANCE DIRECTIVES Name Date DISCUSSED - NO DECISION MADE TREATMENT PLAN Date Name Performer [id number],C,N oted to be 4.[address] scan on 09/05/22. repeat in 6 months to see any significant change Leann Huizar MD [id number],C,T ests: (1) LIPID PANEL, STANDARD (7600) CHOLESTEROL, TOTAL 137 mg/dL <200 *1 Tests: (2) HDL CHOLESTEROL (608) HDL CHOLESTEROL 76 mg/dL > OR = 50 *2 & #13;Tests: (3) TRIGLYCERIDES (896) TRIGLYCERIDES 58 mg/dL <150 *3 Tests: (4) LDL-CHOLESTEROL (%[id number]) LDL-CHOLESTEROL 48 mg/dL (calc) Leann Huizar MD [id number],C,C ONCLUSIONS: 1 . There is septal hypertrophy [...] pressure is 23.0 mmHg. Leann Huizar MD [id number],C,C onclusions: Although there is airway obstruction and a diffusion defect suggesting emphysema, the absence of overinflation is inconsistent w ith that diagnosis. P ulmonary Function Diagnosis: M inimal Obstructive Airways Disease M inimal Diffusion Defect T he Patient was reencouraged to stop smoking. A bnormal LDCT. Will need to get repeat LDCT done for PCP. Leann Huizar MD [id number],C, C arotids: CONCLUSIONS: 1 . Mild plaque with less than 50% stenosis of the internal carotid arteries bilaterally. 2 . Vertebral flow is antegrade bilaterally E lectronically signed by Leann Huizar MD on 12/26/2022 at 5:14 PM Leann Huizar MD [id number],C,C ouple episodes of LOC. Most likely VASOVAGAL. C kyriek ECHO. Check telemonitor. T SH was normal. Leann Huizar MD [id number],C,T he Patient was reencouraged to stop smoking. A bnormal LDCT. Will need to get repeat LDCT done for PCP. Leann Huizar MD [id number],C,S he is hyponeutremic. We need to libralize sodium in diet. Expect there to be rise in BP. H er updated medication list for this problem includes: Furosemide 20 Mg Tablet (Furosemide) Losartan-hydrochlorothiazide 50-12.5 Mg Tablet (Losartan-hydrochlorothiazide) BP today: 136/98 Leann Huizar MD [id number],S,S odium down to w121. Will need to liberalize sodium in diet. 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 Leann Huizar MD Cardiology:Conclusio ns: Although there is [...] Cardiology:TSH WITH REFLEX FREE T4: 0.689 B TOOL DESIGNER APPRENTICE: 56 H A1C: 5.4 Leann Huizar MD [...] hr Stress Routine Complete Echo DLCO - 09830 FRC - 37726 FVC - 11753 HISTORY OF PROCEDURES Procedure Date Procedure Name Provider Procedure Notes S tatus CT- Coronary CA score Leann Huizar MD completed Counseling LDCT Leann Huizar MD do [facility] completed EKG Leann Huizar MD compl eted Spirometry Leann Huizar MD compl eted FVC / MVV with bronchodilator - 11904 Leann Huizar MD completed BLOOD COUNT HEMOGLOBIN Leann Huizar MD completed FRC - 73782 Leann Huizra MD comp leted SpO2 w/o 6min walk/titration Leann Huizar MD completed SVC - 82230 Leann Huizar MD comp leted DLCO - 54907 Leann Huizar MD com pleted
--- OUTSIDE RECORDS SUMMARY | 2024-08-26 11:40 | XMS_ITS | Clinical Summary ---
Author Organization [facility] Address [address] [place] [address] Care Team Providers Care Ferris Wheel Attendant Name Role Phone Unavailable Primary Care Provider [...] Screening with HPV 1996 Mammogram Screening 2006 Pneumococcal Vaccine: 50+ Ye ars (1 of 1 - PCV) 2016 Zoster Vaccines (1 of 2) 2016 COVID-19 [...]
--- OUTSIDE RECORDS SUMMARY | 2024-08-26 11:40 | XMS_ITS | Clinical Summary ---
Author Organization [facility] Address [address] [address] Care Team Providers Care Sand Cutting Machine Operator Name Role Phone Sarkis Hernandez MD Primary Care Provider [phone] Medications losartan (COZAAR) 50 MG tablet Take [...] Last Done Comments Breast Cancer Screening 1965 Hepatitis B Vaccine (1 of 3 - 19+ 3-dose series) 06/12 Pneumococcal Vaccine: 50+ Years (1 of 2 - PCV) 986 Colorectal Cancer Screening: Annual FOBT 2015 Colorectal Cancer Screening: Colonoscopy 2015 Colorectal Cancer Screening: Sigmoidoscopy 2015 Influenza Vaccine (Season Ended) 2024 Insurance [facility] Teams Sand Cutting Machine Operator Relationship Specialty Start Date End Date Sarkis Hernandez MD PCP - General Family Medicine 12/13/21
--- OUTSIDE RECORDS SUMMARY | 2024-08-26 11:41 | XMS_ITS | Data Portability ---
Author Organization [place] - [facility] [employer], Main Office Address [address] [place] [address] Care Team Providers Care Mold Clamper Name Role Phone ROSA NAGY Primary Care Provider [phone] ROSA NAGY Referring Provider ROSA NAGY Primary Care Provider Assessment Encounter Date Assessment Date Assessment LastModified by Organization Details LastModified Time 01/22/2024 01/22/2024 The patient gave verbal consent [...] via phone call to discuss the following: [email or web address] Not available 01/22/2024 14:02:08 02/05/2024 02/05/2024 58 [...] LDCT chest. Advised pt to contact her Battery Inspector for this too. Advised pt to f/u with her Gyne/MACHINE SILVER STRIPPER soon. Advised pt to f/u with her [...] for it. Cont f/u with Cardio at [facility] as per schedule. Cont f/u with Endo as per schedule. Cont f/u with Nephro as per schedule. Cont f/u with Battery Inspector as per schedule. Cont f/u with ENT [...] normal as per pt. Cont f/u with Gyne/MACHINE SILVER STRIPPER as per schedule. Mammo - 09/05/22, normal. Ordered. DEXA - 11/09/21, osteopenia ++. Pt wants to do next year. Colonoscopy - Never. Pt declined for colonoscopy. Risks explained. Cologuard 08/02/20, neg. Ordered. Flu - 02/05/24. Tdap, Pneumo, Shingrix - F/u at HD/pharmacy. F/u in 2-3 weeks. Annual labs, LDCT chest in 02/07. [email or web address] Not available 02/05/2024 09:57:29 02/12/2024 02/12/2024 58 [...] care. Advised pt to f/u with her Gyne/MACHINE SILVER STRIPPER soon. Advised pt to f/u with her [...] for it. Cont f/u with Cardio at [facility] as per schedule. Cont f/u with Endo as per schedule. Cont f/u with Nephro as per schedule. Cont f/u with Battery Inspector as per schedule. Cont f/u with ENT [...] normal as per pt. Cont f/u with Gyne/MACHINE SILVER STRIPPER as per schedule. Mammo - 09/05/22, normal. Ordered. DEXA - 11/09/21, osteopenia ++. Ordered. Colonoscopy - Never. Pt declined for colonoscopy. Risks explained. Cologuard 08/02/20, neg. Ordered. Flu - 02/05/24. Tdap, Pneumo, Shingrix - F/u at HD/pharmacy. F/u in 3 months. CBC, Mg in 05/10. Annual labs, LDCT chest in 02/07. [email or web address] Not available 02/12/2024 10:02:04 06/02/2024 06/02/2024 The [...] had a 6 minute TeleMedicine consultation via [employer]. to discuss the following: [email or web address] Not available 06/02/2024 11:30:37 08/21/2024 08/21/2024 59 yo F with - ACUTE ON CHRONIC NECK PAIN - B/L HIP PAIN, chronic - S/P RT FEMUR FRACTURE (01/07) - HYPOMAGNESEMIA - ANEMIA, chronic - THROMBOCYTOSIS, chronic - LT LUNG NODULE (3 mm) - EMPHYSEMA, mild - B/L FEET PAIN, chronic - CKD [...] and further plan of care. Will do x-ray. Advised pt to f/u with her Ortho for her hips/knees concern. Advised pt to f/u with her Gyne/MACHINE SILVER STRIPPER soon. All meds verified with pt. Meds as [...] is ready for it. Cont f/u with Ortho as per schedule. Cont f/u with Cardio at [facility] as per schedule. Cont f/u with Endo as per schedule. Cont f/u with Nephro as per schedule. Cont f/u with Battery Inspector as per schedule. Cont f/u with ENT [...] checked in ED. Pt verbalized understanding it. Pt got s/e from Gabapentin. HM: WWE - 11/30, normal as per pt. Cont f/u with Gyne/MACHINE SILVER STRIPPER as per schedule. Mammo - 02/18/24, normal. DEXA - 02/14/24, normal. Colonoscopy - Never. Pt declined for colonoscopy. Risks explained. Cologuard 02/18/24, neg. Flu - 02/05/24. Tdap, Pneumo, Shingrix - F/u at HD/pharmacy. F/u in 2-3 weeks. CBC, Mg, x-ray before next visit. Annual labs, LDCT chest in 02/07. [email or web address] Not available 08/21/2024 10:26:55 Plan of Treatment Reminders Order Date Submit Date Provider Last Modified By Organization Details Last Modified Time Details Appointments None recorded. Lab magnesium, serum or plasma [address] (Lab), [address] [place], [address], 5 11:35:49 CBC w/ auto diff [address] (Lab), [address] [place], [address], 5 11:35:20 magnesium, serum or plasma [address] (Lab), [address] [place], [address], 5 13:54:14 CBC w/ auto diff 2023 025 [email or web address] [facility] (Lab), [address] [place], [address], 5 17:18:12 HbA1c (hemoglobin A1c), blood [address] (Lab), [address] [place], [address], 4 11:23:44 magnesium, serum or plasma 2023 024 [facility] (Lab), [address] [place], [address], 4 15:00:38 CBC w/ auto diff 2023 024 [facility] (Lab), [address] [place], [address], 4 15:03:30 CMP, serum or plasma 2023 024 [facility] (Lab), [address] [place], [address], 4 15:00:30 lipid panel, serum 2023 024 [facility] (Lab), [address] [place], [address], 15:00:36 TSH, serum, reflex free T4 [address] (Lab), [address] [place], [address], 4 11:22:38 urinalysis complete, reflex culture 2023 024 [email or web address] [facility] (Lab), [address] [place], [address], 5 14:03:14 iron + total iron-bindin g capacity (TIBC), serum 2023 [facility] (Lab), [address] [place], [address], 4 14:56:10 ferritin, serum or plasma 2023 [facility] (Lab), [address] [place], [address], 4 16:00:31 vitamin B12 + folate, serum or blood 2023 [facility] (Lab), [address] [place], [address], 4 11:23:30 vitamin D, 25-hydroxy, total, serum [email or web address] [place] [address] (Lab), [address] [place], [address], 4 11:23:17 noninvasive colorectal cancer DNA + occult blood screening, QL, stool 2023 [place] [employer] (Cologuard Orders Only), [address], [address], [place], [address], 4 11:50:54 Referral None recorded. Procedures None recorded. Surgeries None recorded. Imaging XR, cervical spine, 4 or 5 view 2024 [email or web address] [facility] (Imaging), [address] [facility] [address], [address], 5 10:26:38 DEXA - Please call pt to schedule [email or web address] [place] [address] (Imaging), [address], [place], [address], 5 09:23:59 MAMMO, screening, bilateral - Please call pt to schedule 2023 024 [facility] (One [facility] Scheduling), [address], [place], [address], 5 08:19:51 LDCT, chest, for lung cancer screening - Annual f/u Please call pt to schedule 2023 [email or web address] Not available 4 11:32:42 Medication Orders duloxetine 20 mg capsule,del ayed release 2024 025 [facility] [address] [facility], [address] [facility], [place], [address], 5 10:02:20 fenofibrate 160 mg tablet 2024 025 [facility] [address] [facility], [address] [facility], [place], [address], 5 10:02:16 lidocaine 5 % topical patch 2024 025 [facility] [address] [facility], [address] [facility], [place], [address], 5 10:02:13 losartan 50 mg tablet 2024 025 [facility] [address] [facility], [address] , [place], [address], 5 10:02:21 magnesium oxide 400 mg (241.3 mg magnesium) tablet 2024 025 [facility] [address] [facility], [address], [place], [address], 5 10:02:12 ferrous sulfate 325 mg (65 mg iron) tablet 2024 025 [facility] [address], [address], 5 10:02:19 bupropion HCl XL 150 mg 24 hr tablet, extended release 2024 025 [facility] [address], [address], 5 10:02:15 buspirone 30 mg tablet 2024 025 [facility] [address], [address], 5 10:02:15 simvastatin 40 mg tablet 2024 025 [facility] [address], [address], 5 10:02:16 ergocalcife rol (vitamin D2) 1,250 mcg (50,000 unit) capsule 2024 025 [facility] [address], [address], 5 10:02:20 famotidine 20 mg tablet 2024 025 [facility] [address], [address], 5 10:02:19 doxycycline hyclate 100 mg capsule 2024 025 [email or web address] [facility] [address], [address], 5 09:58:29 fenofibrate 160 mg tablet 2023 024 [facility] [address] In [place], [address] [place], [address], 4 09:52:11 losartan 50 mg tablet 2023 [facility] [address] In [facility], [address] [place] [address], [address], 4 09:52:11 magnesium oxide 400 mg (241.3 mg magnesium) tablet 2023 [facility] [address] In [facility], [address] [place] [address], [address], 4 09:52:11 ferrous sulfate 325 mg (65 mg iron) tablet 2023 [facility] [address] In [facility], [address] [place] [address], [address], 09:52:13 bupropion HCl XL 150 mg 24 hr tablet, extended release 2023 [facility] [address] In [facility], [address] [place] [address], [address], 4 09:52:10 buspirone 30 mg tablet 2023 [facility] [address], [address], 4 09:52:12 simvastatin 40 mg tablet 2023 [facility] [address] In [facility], [address] [place] [address], [address], 4 09:52:11 ergocalcife rol (vitamin D2) 1,250 mcg (50,000 unit) capsule 2023 [facility] [address], [address], 09:52:12 famotidine 20 mg tablet 2023 [facility] [address] In [facility], [facility] [facility], [place], [address], 4 09:52:10 prednisone 10 mg tablet 2023 [email or web address] [facility] [address] In [facility], [address] [facility], [place], [address], 4 09:28:13 hydroxyzine HCl 25 mg tablet 2023 [facility] [address] In [facility], [address] [facility], [place], [address], 14:07:56 Patient TargetsNo targets recorded. Patient Instructions Encounter Date Encounter Id Patient Instructions Last Modified By Organization Details Last Modified Time 01/22/2024 [id number] Due to the COVID-19 (Novel Coronavirus) pandemic, it is within this context (and with the understanding that this method of patient encounter is in the patient s best interest as well as the health and safety of other patients and the public) that telehealth is being provided for this patient encounter rather than a bhmd-pv-nfgi visit. This patient encounter is appropriate at this time. This patient has been advised of the potential risks and limitations of this mode of treatment (including, but not limited to, the absence of in-person examination) and has agreed to be treated in a remote fashion despite these risks. Any and all of the patient s/patient s family s questions on this issue have been answered, and I have made no promises or guarantees to the patient. The patient has also been advised to contact this office for worsening conditions or problems, and seek emergency medical treatment and/or call 911 if the patient deems either necessary. HPI and/or vitals, if listed, were provided by the patient. [email or web address] Not available 01/22/2024 14:01:35 06/02/2024 [id number] Due to the COVID-19 (Novel Coronavirus) pandemic, it is within this context (and with the understanding that this method of patient encounter is in the patient s best interest as well as the health and safety of other patients and the public) that telehealth is being provided for this patient encounter rather than a [id number]-[id number] visit. This patient encounter is appropriate at this time. This patient has been advised of the potential risks and limitations of this mode of treatment (including, but not limited to, the absence of in-person examination) and has agreed to be treated in a remote fashion despite these risks. Any and all of the patient s/patient s family s questions on this issue have been answered, and I have made no promises or guarantees to the patient. The patient has also been advised to contact this office for worsening conditions or problems, and seek emergency medical treatment and/or call 911 if the patient deems either necessary. HPI and/or vitals, if listed, were provided by the patient. [email or web address] Not available 06/02/2024 11:18:50 Reason for Referral None Reported. Results Created Date Observation Date Name Description Value Unit Range Abnormal Flag Note LastModifiedBy Organization Detail LastModifiedTime 02/05/2002/05/2024 IRON/ TIBC PANEL total iron binding capacity 247 mcg/d L 265-47 5 low Not Available [facility] (Lab) [address] [place], [address], 02/05/2024 15:06:11 02/05/2002/05/2024 IRON/ TIBC PANEL % transferrin saturation 32 % 20-55 Not Available [facility] (Lab) [address] [place], [address], 02/05/2024 15:06:11 02/05/2002/05/2024 IRON/ TIBC PANEL unsaturated iron bind capacity 167 mcg/d L 126-38 2 Not Available [facility] (Lab) [address] [place], [address], 02/05/2024 15:06:11 02/05/2002/05/2024 IRON/ TIBC PANEL iron 80 mcg/d L 42-175 Not Available [facility] (Lab) [address] [place], [address], 02/05/2024 15:06:11 02/05/20 24 02/05/2024 COMPR EHENS CORDELL METAB OLIC PANEL sodium 135 mmol/ L 137-14 5 low Not Available [facility] (Lab) [address] [place], [address], 02/05/2024 15:00:30 02/05/20 24 02/05/2024 COMPR EHENS CORDELL METAB OLIC PANEL potassium 3.8 mmol/ L 3.5-5. 1 Not Available [facility] (Lab) [address] [place], [address], 02/05/2024 15:00:30 02/05/20 24 02/05/2024 COMPR EHENS CORDELL METAB OLIC PANEL chloride 108 mmol/ L 98-107 high Not Available [facility] (Lab) [address] [place], [address], 02/05/2024 15:00:30 02/05/20 24 02/05/2024 COMPR EHENS CORDELL METAB OLIC PANEL carbon dioxide 20 mmol/ L 22-30 low Not Available [facility] (Lab) [address] [place], [address], 02/05/2024 15:00:30 02/05/20 24 02/05/2024 COMPR EHENS CORDELL METAB OLIC PANEL anion gap 10.8 mmol/ L 14-22 low Not Available [facility] (Lab) [address] [place], [address], 02/05/2024 15:00:30 02/05/20 24 02/05/2024 COMPR EHENS CORDELL METAB OLIC PANEL glucose 94 mg/dL 70-99 Not Available [facility] (Lab) [address] [place], [address], 02/05/2024 15:00:30 02/05/20 24 02/05/2024 COMPR EHENS CORDELL METAB OLIC PANEL BUN 7 mg/dL 8-19 low Not Available [facility] (Lab) [address] [place], [address], 02/05/2024 15:00:30 02/05/20 24 02/05/2024 COMPR EHENS CORDELL METAB OLIC PANEL creatinine 0.68 mg/dL 0.66-1 .25 Not Available [facility] (Lab) [address] [place], [address], 02/05/2024 15:00:30 02/05/20 24 02/05/2024 COMPR EHENS CORDELL METAB OLIC PANEL GFR >60 Refer ence Range : [place] ge GFR Healt hy Adult : [...] or ethni c subgr oups, such as [facility] nics. Outsi de the valid ated yuriy [...] calcu lator is avail able on the NKF websi te: [email or web address] :[email or web address] [email or web address] christina.o rg/pr ofess ional s/kdo qi/gf r_cal culat or Not Available [facility] (Lab) [address] [place], [address], 02/05/2024 15:00:30 02/05/20 24 02/05/2024 COMPR EHENS CORDELL METAB OLIC PANEL alkaline phosphatase 121 U/L 38-126 Not Available [facility] (Lab) [address] [place], [address], 02/05/2024 15:00:30 02/05/20 24 02/05/2024 COMPR EHENS CORDELL METAB OLIC PANEL alanine aminotransfe rase 13 U/L 0-35 Not Available [facility] (Lab) [address] [place], [address], 02/05/2024 15:00:30 02/05/20 24 02/05/2024 COMPR EHENS CORDELL METAB OLIC PANEL aspartate aminotransfe rase 33 U/L 15-37 Not Available [facility] (Lab) [address] [place], [address], 02/05/2024 15:00:30 02/05/20 24 02/05/2024 COMPR EHENS CORDELL METAB OLIC PANEL bilirubin, total 0.50 mg/dL 0.20-1 .30 Not Available [facility] (Lab) [address] [place], [address], 02/05/2024 15:00:30 02/05/20 24 02/05/2024 COMPR EHENS CORDELL METAB OLIC PANEL calcium 10.4 mg/dL 8.4-10 .2 high Not Available [facility] (Lab) [address] [place], [address], 02/05/2024 15:00:30 02/05/20 24 02/05/2024 COMPR EHENS CORDELL METAB OLIC PANEL total protein 6.3 g/dL 6.3-8. 2 Not Available [facility] (Lab) [address] [place], [address], 02/05/2024 15:00:30 02/05/20 24 02/05/2024 COMPR EHENS CORDELL METAB OLIC PANEL albumin 3.6 g/dL 3.4-5. 0 Not Available [facility] (Lab) [address] [place], [address], 02/05/2024 15:00:30 02/05/20 24 02/05/2024 COMPR EHENS CORDELL METAB OLIC PANEL globulin 2.7 g/dL 2.6-4. 2 Not Available [facility] (Lab) [address] [place], [address], 02/05/2024 15:00:30 02/05/20 24 02/05/2024 COMPR EHENS CORDELL METAB OLIC PANEL A/G ratio 1.3 ratio 1.0-2. 0 Not Available [facility] (Lab) [address] [place], [address], 02/05/2024 15:00:30 02/05/20 24 02/05/2024 LIPID PANEL cholesterol 163 mg/dL 140-19 9 NIH MARTINEZ NSUS RECOM MENDA TION FOR BONIFACIO STERO L: ADULT CHILD LOW RISK: <200 <170 BORDE RLINE : <200- 239 ----- HIGH RISK: >240 >200 Not Available [facility] (Lab) [address] [place], [address], 02/05/2024 15:00:35 02/05/20 24 02/05/2024 LIPID PANEL triglyceride s 99 mg/dL 0-150 NIH MARTINEZ NSUS REPOR T RECOM MENDA TION FOR TRIGL YCERI ANSHU: ADULT CHILD LOW RISK: <150 ----- BODER LINE: 150-1 99 ----- HIGH RISK: >200 ----- Not Available [facility] (Lab) [address] [place], [address], 02/05/2024 15:00:35 02/05/20 24 02/05/2024 LIPID PANEL HDL cholesterol 66 mg/dL 40- Not Available [facility] (Lab) [address] [place], [address], 02/05/2024 15:00:35 02/05/20 24 02/05/2024 LIPID PANEL [...] LDL RESUL T WILL NOT BE REPOR VICENTE. Not Available [facility] (Lab) [address] [place], [address], 02/05/2024 15:00:35 02/05/20 24 02/05/2024 MAGNE SIUM magnesium 1.2 mg/dL 1.6-2. 3 low Not Available [facility] (Lab) [address] [place], [address], 02/05/2024 15:00:38 02/05/20 24 02/05/2024 CBC/C OMPLE TE BLD COUNT W/DIF F white blood cells 6.2 x10'3 /uL 4.2-10 .8 Not Available [facility] (Lab) [address] [place], [address], 02/05/2024 15:54:55 02/05/20 24 02/05/2024 CBC/C OMPLE TE BLD COUNT W/DIF F red blood cells 2.84 x10'6 /uL 3.80-5 .20 low Not Available [facility] (Lab) [address] [place], [address], 02/05/2024 15:54:55 02/05/20 24 02/05/2024 CBC/C OMPLE TE BLD COUNT W/DIF F hemoglobin 10.2 g/dL 12.0-1 5.6 low Not Available [facility] (Lab) [address] [place], [address], 02/05/2024 15:54:55 02/05/2002/05/2024 CBC/C OMPLE TE BLD COUNT W/DIF F hematocrit 31.2 % 35.7-4 5.7 low Not Available [facility] (Lab) [address] [place], [address], 02/05/2024 15:54:55 02/05/2002/05/2024 CBC/C OMPLE TE BLD COUNT W/DIF F mean red cell volume 109.9 fL 82.0-9 9.0 high Not Available [facility] (Lab) [address] [place], [address], 02/05/2024 15:54:55 02/05/2002/05/2024 CBC/C OMPLE TE BLD COUNT W/DIF F mean red cell hemoglobin 35.9 pg 27.0-3 3.0 high Not Available [facility] (Lab) [address] [place], [address], 02/05/2024 15:54:55 02/05/2002/05/2024 CBC/C OMPLE TE BLD COUNT W/DIF F mean RBC HGB concentratio n 32.7 g/dL 31.0-3 6.0 Not Available [facility] (Lab) [address] [place], [address], 02/05/2024 15:54:55 02/05/2002/05/2024 CBC/C OMPLE TE BLD COUNT W/DIF F red cell distribution width 15.6 % 11.8-1 5.5 high Not Available [facility] (Lab) [address] [place], [address], 02/05/2024 15:54:55 02/05/2002/05/2024 CBC/C OMPLE TE BLD COUNT W/DIF F platelets 498 x10'3 /uL 150-40 0 high Not Available [facility] (Lab) [address] [place], [address], 02/05/2024 15:54:55 02/05/2002/05/2024 CBC/C OMPLE TE BLD COUNT W/DIF F mean platelet volume 8.8 fL 9.0-12 .4 low Not Available [facility] (Lab) [address] [place], [address], 02/05/2024 15:54:55 02/05/2002/05/2024 CBC/C OMPLE TE BLD COUNT W/DIF F neutrophils 62.4 % 39.0-7 2.0 Not Available [facility] (Lab) [address] [place], [address], 02/05/2024 15:54:55 02/05/2002/05/2024 CBC/C OMPLE TE BLD COUNT W/DIF F lymphocytes 22.2 % 16.0-4 7.0 Not Available [facility] (Lab) [address] [place], [address], 02/05/2024 15:54:55 02/05/2002/05/2024 CBC/C OMPLE TE BLD COUNT W/DIF F monocytes 9.3 % 5.0-12 .0 Not Available [facility] (Lab) [address] [place], [address], 02/05/2024 15:54:55 02/05/2002/05/2024 CBC/C OMPLE TE BLD COUNT W/DIF F eosinophils 4.8 % 1.0-7. 0 Not Available [facility] (Lab) [address] [place], [address], 02/05/2024 15:54:55 02/05/2002/05/2024 CBC/C OMPLE TE BLD COUNT W/DIF F basophils 0.8 % 0.0-2. 0 Not Available [facility] (Lab) [address] [place], [address], 02/05/2024 15:54:55 02/05/2002/05/2024 CBC/C OMPLE TE BLD COUNT W/DIF F immature granulocytes 0.5 % 0.00-0 .50 Not Available [facility] (Lab) [address] [place], [address], 02/05/2024 15:54:55 02/05/2002/05/2024 CBC/C OMPLE TE BLD COUNT W/DIF F neutrophils, absolute count 3.87 x10'3 /uL 1.5-8. 0 Not Available [facility] (Lab) [address] [place], [address], 02/05/2024 15:54:55 02/05/2002/05/2024 CBC/C OMPLE TE BLD COUNT W/DIF F lymphocytes, absolute count 1.38 x10'3 /uL 1.07-3 .43 Not Available [facility] [id number]|2024-08-26 11:41:00|2024-08-26 11:40:00|XMS_ITS|BKG DAEMON|External Medical Summaries|[id number]|" Clinical Summary Created on: August 26, 2024 Vero Nguyen : 1965 Sex: Female Author Organization [facility] Client Outlook Address [address] [place] [address] Care Team Providers Care Mold Clamper Name Role Phone Unknown, Provider Primary Care Provider Unavaila ble Source Comments [facility],non-owned Affiliates and Associated Physician Practices is amultiple site organization consisting of ambulatory clinics and hospital sitesin [place], [place], [place] and [place]. This disclosure is being madepursuant to the Care Everywhere program and may not contain all information available regarding this patient. Last updated [facility] Allergies Active Allergy Reactions Criticality Noted Date Comments Penicillin G Anaphylaxis High 11/02/2022 Sulfacetamide Urticaria Medium 01/25/2024 Medications * Be aware that medications may not be up to date on this document. Alwaysverify current medications with the patient. amitriptyline (Elavil) 25 MG tablet TAKE 1 TABLET BY MOUTH DAILY BEFORE SLEEPING Active amoxicillin-cl avulanate (Augmentin) 875-125 MG tablet Active azithromycin (Zithromax) 250 MG tablet TAKE 2 TABLETS BY MOUTH TODAY, THEN TAKE 1 TABLET DAILY FOR 4 DAYS DIRECTED 4 Active buPROPion XL 24hr (Wellbutrin-XL ) 150 MG tablet TAKE 1 TABLET BY MOUTH EVERY DAY IN THE MORNING (D/C SERTRALINE) 4 Active busPIRone (Buspar) 30 MG tablet Take 1 tablet twice a day by oral route. Active cyclobenzaprin e (Flexeril) 10 MG tablet TAKE 1 TABLET BY MOUTH EVERY 12 HOURS NEEDED FOR CHRONIC NECK PAIN Active diclofenac sodium EC (Voltaren) 75 MG tablet Take 1 (one) tablet by mouth 2 times daily as needed Active furosemide (Lasix) 40 MG tablet Take 1 tablet every day by oral route. Active ferrous sulfate 325 (65 FE) MG tablet 4 Active enoxaparin (Lovenox) 40 MG/0.4ML injection INJECT 1 SYRINGE SUBCUTANEOUSLY EVERY 24 HOURS 4 Active losartan (Cozaar) 50 MG tablet Take 1 (one) tablet by mouth every morning 4 Active losartan-hydro CHLOROthiazide (Hyzaar) 100-12.5 MG tablet Take 1 tablet every day by oral route. Active simvastatin (Zocor) 40 MG tablet Take 1 tablet every day by oral route. 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
--- OUTSIDE RECORDS SUMMARY | 2024-08-26 11:41 | XMS_ITS | Data Portability ---
Author Organization [facility] [place] Address [address] [place] [address] Assessment No assessment recorded. Plan of Treatment Reminders Order Date Submit Date Provider Last Modified By Organization Details Last Modified Time Details Appointments None recorded. Lab urinalysis , dipstick 2016 017 [email or web address] In-Office Order, Internal Use Only DO Not Attach Compendium DO Not Attach Compendium, Do Not Delete/merge, [id number] 15:27:33 Referral None recorded. Procedures None [...] DO Not Attach Compendium, Do Not Delete/merge, [id number] 11/22/2016 15:16:24 11/23/1911/22/2016 urina lysis , dipst ick Nitrite negati ve Not Available In-Office Order Internal Use Only DO Not Attach Compendium DO Not Attach Compendium, Do Not Delete/merge, [id number] 11/22/2016 15:16:24 11/23/1911/22/2016 urina lysis , dipst ick Urobilinogen .2 Not Available In-Of fice Order Internal Use Only DO Not Attach Compendium DO Not Attach Compendium, Do Not Delete/merge, [id number] 11/22/2016 15:16:24 11/23/19 17 11/22/2016 urina lysis [...] 11/22/2016 urina lysis , dipst ick Specific [place] 1.020 Not Available In-Off ice Order Internal [...] DO Not Attach Compendium, Do Not Delete/merge, [id number] 11/22/2016 15:16:24 Result Notes None recorded. Medical [...] DateTime 11/22/2016 172.72 cm Vero Gonsalez MA [facility] 2016 14:34:40 Social History Question Answer Notes LastModified by Organizat ion Details LastModified Time Tobacco Smoking Status Current Every Day Smoker Vero Gonsalez MA [facility] [place], [facility] 11/22/2016 14:38:11 What Was The Date Of [...] SNOMED-CT Code Diagnosis ICD10 Code Diagnosis Note [id number] Aime Arrieta MD [facility] ([place] [address]) [address] [place] [id number] 11/22/2016 14:03:23 11/23/2016 09:31:55 Pain in pelvis [id number] R10.2 - Pelvic exam performed- WNL- Suggest [...] the hysterectomy. Aime Arrieta MD Attn: Accounting,[address] [place], [address], [facility] 11/22/2016 15:28:06 OBGyn Episode No OBEpisode recorded.
== END 2024-08-26 11:18 | disposition home or self-care (01) ==
PROVIDERS: PCP Family Medicine; Visit Provider Family Medicine
DX: M50.31 Other cervical disc degeneration, high cervical region (principal); M50.322 Other cervical disc degeneration at C5-C6 level; M50.323 Other cervical disc degeneration at C6-C7 level; M47.892 Other spondylosis, cervical region; M47.812 Spondylosis without myelopathy or radiculopathy, cervical region
CPT/HCPCS: 72050

== ENCOUNTER 2024-10-11 12:10 | Emergency (ER) | payer OTHER, SELFPAY ==
--- NOTE | ~2024-10-11 | CT_ITS ---
EXAMINATION: CT soft tissue neck w con DATE: 10/11/2024 16:48 INDICATION: Submandibular swelling/pain. TECHNIQUE: Computed tomography (CT) of the neck was performed with 75 mL Omnipaque-350 intravenous co ntrast. The dose-length product was 296.57 mGy-cm. COMPARISON: None FINDINGS: The thyroid gland is unremarkable. The submandibular and parotid glands are symmetric. There is n o cervical lymphadenopathy. Subcutaneous stranding over the parasymphyseal mandible. There are no mas ses identified. The superior mediastinum is unremarkable. The airway is unremarkable. Paraphar yngeal and pre-glottic fat planes are preserved. Unremarkable enhancing neck vessels. The orbits are unremarkable. Visualized sinuses and mastoid air cells are well aerated. Upper lungs are clear. Lower denture in place. Somewhat conical/tubular lucency in the right anterior mandible at the junct ion of the parasymphyseal region and body, with adjacent lucent extensions and cortical breakthrough. IMPRESSION: Subcutaneous stranding over the mandible/chin, without evident abscess. Lucency in the right anterior mandible, possibly associated with a persistent right incisor/canine ro ot cavity (and/or empty or dry socket). Early abscess/osteomyelitis not excluded. Correlate for clini debbie findings of odontogenic infection. Reviewed, dictated and finalized at location K. IMPRESSION: Subcutaneous stranding over the mandible/chin, without evident abscess. Lucency in the right anterior mandible, possibly associated with a persistent r ight incisor/canine root cavity (and/or empty or dry socket). Early abscess/ost eomyelitis not excluded. Correlate for clinical findings of odontogenic infecti on.
[2024-10-11 12:13] VITALS: BP 118/56; PULSE 120; RESP 16; TEMP 36.6; O2SAT 99
[2024-10-11] MEDS: SODIUM CHLORIDE 0.9% IV 1,000 ML 999 ML IV CONT (16:02)
[2024-10-11 16:07] LABS: Basophils Absolute Auto 0.1 K/mm3 (0.0-0.1); Basophils Percent Auto 0.3 % (0.2-1.2); Eosinophils Absolute Auto 0.1 K/mm3 (0-0.3); Eosinophils Percent Auto 0.4 % (0-4.4); Hematocrit 32.2 % (37.0-47.0); Hemoglobin 11.1 g/dL (12.0-15.0); Immature Granulocyte Percent A 0.6 % (0-0.5); Lymphocytes Absolute Auto 1.82 K/mm3 (0.9-3.2); Lymphocytes Percent Auto 11.5 % (18.3-44.2); Mean Corpuscular HGB Conc 34.5 g/dl (32-36); Mean Corpuscular Hemoglobin 35.2 pg (26-34); Mean Corpuscular Volume 102.2 fl (80-100); Mean Platelet Volume 8.2 fl (7.4-10.4); Monocytes Absolute Auto 1.4 K/mm3 (0.1-0.6); Monocytes Percent Auto 8.9 % (2.6-8.5); Neutrophils Absolute Auto 12.4 K/mm3 (1.3-6.7); Neutrophils Percent Auto 78.3 % (45.5-73.1); Platelet Count Result 547 k/mm3 (150-375); Red Blood Count 3.15 M/mm3 (4.2-5.4); Red Cell Distribution Width 15.2 % (11.5-14.5); White Blood Count 15.9 K/mm3 (4.5-10.0)
[2024-10-11 16:18] LABS: Alanine Aminotransferase 21 U/L (6-35); Alkaline Phosphatase 126 U/L (38-126); Anion Gap 10 mmol/L (4-12); Aspartate Amino Transferase 72 U/L (14-36); Bilirubin,Total 0.8 mg/dL (0.2-1.3); Blood Urea Nitrogen 19 mg/dL (7-17); Calcium 10.8 mg/dL (8.4-10.2); Carbon Dioxide 23 mmol/L (22-30); Chloride 92 mmol/L (98-107); Estimated CRCL calculation 62 ml/min; Estimated Glomerular Filt Rate > 60; Glucose 103 mg/dL (65-110); Potassium 4.7 mmol/L (3.4-5.0); Sodium 125 mmol/L (137-145); Total Protein 8.3 g/dL (6.3-8.2)
--- NOTE | 2024-10-11 18:43 | ED.GENADULT ---
HPI - General Adult General Chief complaint: Skin/Abscess/Foreign Body Stated complaint: Chin swelling w/ Cellulitis Time Seen by Provider: 10/11/24 15:14 History of Present Illness HPI narrative: Patient is a 51-year-old female who presents ER with swelling to her chin. Ongoing over last 2 weeks. Originally fitted for a dental plate in. Started having swelling. PCP placed on doxycycline. Symptoms continued and she followed up with her dentist we also placed on doxycycline which should not fill it. She has pain. No difficulty breathing or swelling but has pain with chewing due to some mild trismus and the swelling, Related Data Home Medications ?Medication ?Instructions ?Recorded ?Confirmed ?Last Taken ?Type fenofibrate 160 mg PO DAILY 05/09/19 04/14/24 1 Day Ago History ~12/31/23 furosemide 20 mg PO DAILY 05/09/19 04/14/24 1 Day Ago History ~12/31/23 simvastatin 40 mg PO DAILY 05/09/19 04/14/24 1 Day Ago History ~12/31/23 buspirone 30 mg tablet 30 mg BID 01/01/24 04/14/24 01/01/24 History cyclobenzaprine 10 mg tablet 10 mg BID 01/01/24 04/14/24 1 Day Ago History ~12/31/23 famotidine 20 mg tablet 20 mg BID 01/01/24 04/14/24 1 Day Ago History ~12/31/23 ferrous sulfate 325 mg (65 mg 325 mg PO BID 01/01/24 04/14/24 1 Day Ago History iron) tablet ~12/31/23 losartan 50 mg tablet 50 mg PO DAILY 01/01/24 02/20/24 1 Day Ago History ~12/31/23 bupropion HCl 150 mg 24 hr tablet, 150 mg PO DAILY 01/02/24 04/14/24 Unknown History extended release Allergies Allergy/AdvReac Type Severity Reaction Status Date / Time Penicillins Allergy Unknown Hives Verified 10/11/24 15:45 clindamycin Allergy Hives Verified 10/11/24 15:45 Sulfa (Sulfonamide Allergy Hives Verified 10/11/24 15:45 Antibiotics) Review of Systems Constitutional: Constitutional: Reports no additional constitutional complaints ENT: Reports system reviewed and no additional complaints, except as documented Cardiovascular: Cardiovascular: Reports no additional cardiovascular complaints Respiratory: Respiratory: Reports no additional respiratory complaints PMFSH Past Medical History Medical History Tobacco dependence Dyslipidemia Post-menopause Depression Anxiety Hypertension Surgical History Surgical History History of open reduction and internal fixation (ORIF) procedure Repair left hip fracture. History of hysterectomy Family History Family History Father Hypertension Cerebrovascular accident Family history of coronary artery disease Mother Hypertension Other Arthritis Heart disease Social History Social History (Updated 04/14/24 @ 09:08 by Tiera Gill [facility]) Social History: Surrogate medical decision maker: Cyril Nguyen, sukhi. Code status: Full code. Smoking packs per day: 0.25 Smoking cigarettes per day: 5.0 Years smoked: 20 Smoking pack-years: 5.00 Smoking status: Current every day smoker Tobacco type: cigarettes Second hand tobacco smoke exposure: No Additional smoking assessment comments: Patient smokes 3 to 6 cigarettes a day. Alcohol intake: current Drinks per week: 1 Alcohol use details: Occasional Substance use: never Substance use type: does not use Do You Feel Safe in your Home?: Yes Lack of Transportation: No Lack of Food: Never True Current Housing: Decline to Answer Concerned About Future Housing: No Difficulty Paying Gas/Electric Bills: Decline to Answer Difficulty Paying for Meds: No Currently Unemployed: No Education: Associate Degree Difficulty w/ Childcare or Family Care: No Spiritual care concerns: No Exam Narrative: GENERAL: Well-appearing, well-nourished, and in no acute distress. HEAD: Normocephalic, atraumatic. ENT: Mucous membranes moist. Lower denture removed. Mild soft area where tooth number 26 reviewed located, no purulent drainage. The chin is swollen wears tenderness and induration in the soft tissue space posterior to the mental area of the jaw. NECK: Supple. CHEST: Clear to auscultation. No respiratory distress. HEART: Tachycardic and regular. Normal peripheral pulses. EXTREMITIES: Normal range of motion. No edema. SKIN: Warm, dry, no rash. NEURO: Alert and oriented x3. PSYCH: Normal mood and affect. Course Course Emergency Course: Discussed with radiology, they are unaware patient recent instrumentation. More likely superficial infection. Patient educated on this. Will provide pain control as well as cephalexin metronidazole. Needs follow-up with her dentist. Vital Signs Vital signs: Vital Signs Temperature 97.8 F 10/11/24 12:13 Pulse Rate 120 H 10/11/24 12:13 Respiratory Rate 16 10/11/24 12:13 Blood Pressure 118/56 L 10/11/24 12:13 Pulse Oximetry 99 10/11/24 12:13 Oxygen Delivery Room Air 10/11/24 12:13 Temperature 97.8 F 10/11/24 12:13 Pulse Rate 120 H 10/11/24 12:13 Respiratory Rate 16 10/11/24 12:13 Blood Pressure 118/56 L 10/11/24 12:13 Pulse Oximetry 99 10/11/24 12:13 Oxygen Delivery Room Air 10/11/24 12:13 Medical Decision Making Vital Signs Vital Signs: Vital Signs Temperature 97.8 F 10/11/24 12:13 Pulse Rate 120 H 10/11/24 12:13 Respiratory Rate 16 10/11/24 12:13 Blood Pressure 118/56 L 10/11/24 12:13 Pulse Oximetry 99 10/11/24 12:13 Oxygen Delivery Room Air 10/11/24 12:13 Temperature 97.8 F 10/11/24 12:13 Pulse Rate 120 H 10/11/24 12:13 Respiratory Rate 16 10/11/24 12:13 Blood Pressure 118/56 L 10/11/24 12:13 Pulse Oximetry 99 10/11/24 12:13 Oxygen Delivery Room Air 10/11/24 12:13 Lab Data 10/11/24 16:01 10/11/24 16:01 Labs: Lab Results 10/11/24 Range/Units 16:01 WBC 15.9 H (4.5-10.0) K/mm3 RBC 3.15 L (4.2-5.4) M/mm3 Hgb 11.1 L (12.0-15.0) g/dL Hct 32.2 L (37.0-47.0) % MCV 102.2 H (80-100) fl MCH 35.2 H (26-34) pg MCHC 34.5 (32-36) g/dl RDW 15.2 H (11.5-14.5) % Plt Count 547 H (150-375) k/mm3 MPV 8.2 (7.4-10.4) fl Immature Gran % (Auto) 0.6 H (0-0.5) % Neut % (Auto) 78.3 H (45.5-73.1) % Lymph % (Auto) 11.5 L (18.3-44.2) % Orange % (Auto) 8.9 H (2.6-8.5) % Eos % (Auto) 0.4 (0-4.4) % Baso % (Auto) 0.3 (0.2-1.2) % Lymph # (Auto) 1.82 (0.9-3.2) K/mm3 Orange # (Auto) 1.4 H (0.1-0.6) K/mm3 Eos # (Auto) 0.1 (0-0.3) K/mm3 Baso # (Auto) 0.1 (0.0-0.1) K/mm3 Abs Immat Gran (auto) 0.10 H (0.00-0.031) K/mm3 Absolute Neuts (auto) 12.4 H (1.3-6.7) K/mm3 Absolute Nucleated RBC 0.000 (0.0-0.012) K/mm3 Nucleated RBC % 0.0 (0.0-0.2) % Sodium 125 L (137-145) mmol/L Potassium 4.7 (3.4-5.0) mmol/L Chloride 92 L (98-107) mmol/L Carbon Dioxide 23 (22-30) mmol/L Anion Gap 10 (4-12) mmol/L BUN 19 H (7-17) mg/dL Creatinine 0.87 (0.7-1.0) mg/dL Estim Creat Clear Calc 62 ml/min Estimated GFR > 60 (59 - ) Glucose 103 (65-110) mg/dL Calcium 10.8 H (8.4-10.2) mg/dL Total Bilirubin 0.8 (0.2-1.3) mg/dL AST 72 H (14-36) U/L ALT 21 (6-35) U/L Alkaline Phosphatase 126 (38-126) U/L Total Protein 8.3 H (6.3-8.2) g/dL Albumin 4.0 (3.5-5.1) g/dL Imaging Data Radiologist's impression: ITS Impressions Soft Tissue Neck CT 10/11/24 17:26 IMPRESSION: Subcutaneous stranding over the mandible/chin, without evident abscess. Lucency in the right anterior mandible, possibly associated with a persistent right incisor/canine root cavity (and/or empty or dry socket). Early abscess/osteomyelitis not excluded. Correlate for clinical findings of odontogenic infection. ADDENDUM: 10/11/241816 Ascending thoracic aorta is dilated to 4.4 cm. This addendum was discussed with Dr. Haas at 6:14 PM on 10/03/2024. Discharge Plan Discharge Clinical Impression: Dental infection Patient Disposition: Home Condition: Stable Instructions: Antibiotic Form Additional Instructions: You have a dental infection likely related to instrumentation recently. Follow-up with your dentist. Use chlorhexidine mouthwash. Take the antibiotics as prescribed. Patient Language: Wolof Prescriptions: New cephalexin 500 mg capsule 500 mg PO Q8H Qty: 21 0RF metronidazole 500 mg tablet 500 mg PO Q8H Qty: 21 0RF hydrocodone-acetaminophen 5-325 mg tablet 1 tablet PO Q6H PRN (Reason: pain) Qty: 20 0RF chlorhexidine gluconate 0.12 % mouthwash 15 ml buccal BID Qty: 300 0RF No Action simvastatin 40 mg PO DAILY fenofibrate 160 mg PO DAILY furosemide 20 mg PO DAILY naproxen [EC-Naproxen] 500 mg tablet,delayed release (DR/EC) 500 mg PO BID PRN (Reason: pain) Qty: 14 0RF losartan 50 mg tablet 50 mg PO DAILY cyclobenzaprine 10 mg tablet 10 mg BID famotidine 20 mg tablet 20 mg BID buspirone 30 mg tablet 30 mg BID ferrous sulfate 325 mg (65 mg iron) tablet 325 mg PO BID bupropion HCl 150 mg tablet extended release 24 hr 150 mg PO DAILY sennosides-docusate sodium [Senokot-S] 8.6-50 mg Tablet 1 tab PO HS Qty: 30 0RF enoxaparin [Lovenox] 40 mg/0.4 mL syringe 40 mg subcut Q24H Qty: 12 0RF Rx Instructions: 30 doses. Follow-up/Referrals: Dental Referral Line [Outside] - 1 Week David,MD Sarkis [Primary Care Provider] - 1 Week
[2024-10-11 19:02] VITALS: BP 122/79; PULSE 66; RESP 19; O2SAT 100
== END 2024-10-11 19:02 | disposition home or self-care (01) ==
PROVIDERS: Emergency Provider Emergency Medicine; PCP Family Medicine
DX: K04.7 Periapical abscess without sinus (principal); I10 Essential (primary) hypertension; E78.49 Other hyperlipidemia; F41.8 Other specified anxiety disorders; F17.210 Nicotine dependence, cigarettes, uncomplicated
CPT/HCPCS: 36415; 70491; 80053; 85025; 96360; 99284; J7030; Q9967

== ENCOUNTER 2025-01-22 10:45 | Inpatient (IN) | payer OTHER, SELFPAY ==
[2025-01-22] VITALS (14 sets, daily range): BP systolic 92–150; BP diastolic 74–103; PULSE 90–123; RESP 14–35; TEMP 36.4–36.6; O2SAT 95–100
--- NOTE | ~2025-01-22 | XR_ITS ---
EXAMINATION: XR UGI w cira water soluble DATE: 01/26/2025 10:00 INDICATION: Status post repair of a perforated gastric ulcer TECHNIQUE: [employer] AP views of the abdomen and pelvis were obtained. Fluoroscopic images were obtained during administration of water-soluble contrast through the patient's existing nasogastric tube. Additional AP and crosstable lateral radiographs were obtained following contrast administration. A total of 26 fluoroscopic images and 5 overhead radiographs were obtained. Fluoroscopy exposure time was 0.9 minutes. Total DAP was 15.5 Gycm^2. COMPARISON: None. FINDINGS: [employer] image demonstrates nasogastric tube with tip in proximal side port in the body the stomach. Midline skin james. There is also a left lower quadrant surgical drain with distal tip extending to the right upper quadrant. Contrast extends through the stomach into the normal-appearing proximal small bowel with no obstruction. No evident extraluminal leakage of contrast. There is suggestion of focal gastric wall thickening with smooth mucosal margins projecting into the lumen of the distal stomach which is likely related to the reported perforated gastric ulcer repair. This results in a focal narrowing of the lumen of the distal gastric body but without evident obstruction of contrast which promptly passes from the proximal stomach into the jejunum. IMPRESSION: 1. No evident extraluminal leakage of contrast or obstruction post repair of a perforated gastric ulcer. Reviewed, dictated and finalized at location A.
--- NOTE | ~2025-01-22 | CT_ITS ---
EXAMINATION: CT brain wo con DATE: 01/31/2025 11:27 INDICATION: Confusion. TECHNIQUE: Computed tomography (CT) of the head was performed without intravenous contrast. The mA was adjusted according to patient size. Iterative reconstruction technique was employed. The dose-length product was 1437.67 mGy-cm. COMPARISON: None FINDINGS: There is no intracranial hemorrhage, acute infarction, or abnormal intracranial mass lesion. The ventricles are normal in size. The orbits are normal. There is mild mucosal thickening in the paranasal sinuses. The mastoid air cells are normal. IMPRESSION: 1. Normal brain. Reviewed, dictated and finalized at location E. IMPRESSION: 1. Normal brain.
--- NOTE | ~2025-01-22 | CT_ITS ---
EXAMINATION: CT abdomen pelvis w con DATE: 01/26/2025 14:29 INDICATION: Leukocytosis. TECHNIQUE: Computed tomography (CT) of the abdomen and pelvis was performed with 100 mL Omnipaque 350 intravenous contrast. Automated exposure control and iterative reconstruction technique were employed. The dose-length product was 734.30 mGy-cm. COMPARISON: CT abdomen and pelvis 01/22/2025 FINDINGS: The visualized portions of lung bases demonstrate mild atelectasis. There are small pleural effusions. The heart size is normal. No pericardial effusion. There are coronary artery calcifications. The nasogastric tube tip is in the stomach. The liver is normal. There is contrast in the gallbladder, which is normal in size. The spleen is normal. There are calcifications in the pancreas, consistent with chronic pancreatitis. The adrenal glands are normal. There is cortical thinning of the kidneys. There is a 1.2 cm cyst in left kidney. There is diverticulosis of the colon without evidence of diverticulitis. There is oral contrast in the stomach and small and large bowel. There is no extraluminal contrast. There is wall thickening of the gastric antrum. There is a moderate volume of ascites with peritoneal thickening and enhancement. There is free intraperitoneal gas, consistent with recent surgery. Anterior skin james are noted. There is a surgical drain in the upper abdomen. Body wall edema is noted. There is an old healed fracture of proximal left femur with internal fixation. There is a comminuted fracture of greater trochanter of proximal right femur with nonunion. There is moderate thoracic spondylosis and mild lumbar spondylosis. IMPRESSION: 1. Wall thickening of the gastric antrum, consistent with peptic ulcer disease. 2. Moderate volume of ascites with peritoneal thickening and enhancement, likely an exudate. 3. Small pleural effusions. Reviewed, dictated and finalized at location E. IMPRESSION: 1. Wall thickening of the gastric antrum, consistent with peptic ulcer disease. 2. Moderate volume of ascites with peritoneal thickening and enhancement, likel y an exudate. 3. Small pleural effusions.
--- NOTE | ~2025-01-22 | CT_ITS ---
CT abdomen pelvis w con Clinical History: diffuse abd pain, worse epigastric . Comparison: None Technique: Axial images lung bases to symphysis pubis IV contrast information not listed in PACS Coronal, sagittal reformats CT images acquired with automatic exposure control for dose reduction DLP: 440 mGy-cm Findings: Lung bases: Atelectasis. Visualized heart and pericardium: Upper limit of normal in size. Liver: Enlarged. Steatosis. Gallbladder: Unremarkable. Spleen: Unremarkable. Pancreas: Unremarkable. Adrenal glands: Unremarkable. Kidneys: Right kidney- No hydronephrosis. No renal stones. Left kidney- No hydronephrosis. No renal stones. Distal esophagus/stomach: Gastric wall thickening. Probable perforated ulcer. Small bowel loops: Diffuse wall thickening. Colon: Diverticula. Scattered wall thickening. Normal RLQ appendix. Nodes: No enlarged nodes. Peritoneum: Scattered ascites. Scattered free air. Urinary bladder: Unremarkable. Uterus: Removed. Adnexa: No masses. Bones: No acute bony abnormality. Soft tissues: Unremarkable. Aorta: No aneurysm or dissection. Atherosclerotic disease IVC: Unremarkable. Main portal vein/SMV/splenic vein: Patent. IMPRESSION: 1. Hollow viscus perforation with free air. Urgent surgical consultation required. 2. Site of perforation appears to be gastric ulcer. 3. Diffuse enterocolitis most likely Crohn's disease. Reviewed, dictated and finalized at location R. IMPRESSION: 1. Hollow viscus perforation with free air. Urgent surgical consultation requi red. 2. Site of perforation appears to be gastric ulcer. 3. Diffuse enterocolitis most likely Crohn's disease.
--- NOTE | ~2025-01-22 | US_ITS ---
BILATERAL LOWER EXTREMITY VENOUS DUPLEX Clinical History: Edema . Comparison: 01/08/2024. Technique: Grayscale, color, duplex/spectral Doppler sonography bilateral lower extremities. Findings: Bilateral common femoral, femoral, popliteal, and calf veins compressible and color Doppler patent. Normal augmentation with distal compression. No internal echoes. IMPRESSION: 1. No DVT either leg. Reviewed, dictated and finalized at location R. IMPRESSION: 1. No DVT either leg.
--- NOTE | ~2025-01-22 | XR_ITS ---
EXAMINATION: XR chest 2V 01/22/2025 11:15 INDICATION: Chest pain. Nausea TECHNIQUE:Frontal and lateral images of the chest were obtained. COMPARISON: None available FINDINGS: Heart is not enlarged. No pneumothorax. No pleural effusion. No free air in the diaphragm. 6 mm calcified granuloma in the right lower lobe. IMPRESSION: 1: No acute pulmonary process identified. Reviewed, dictated and finalized at location Q.
--- NOTE | 2025-01-22 10:57 | ECG_ITS ---
Test Date: 2025-01-22 10:59:04 Measurements Intervals [place] Rate: 116 P: 64 DC: 155 QRS: 24 QRSD: 85 T: 77 QT: 340 QTc: 473 Interpretive Statements SINUS TACHYCARDIA CONSIDER ANTERIOR INFARCT, AGE INDETERMINATE BASELINE ARTIFACT- I, II, III, AVR, AVL, AVF, V1-V6 ABNORMAL ECG Compared to ECG 01/01/2024 11:09:04 HEART RATE HAS INCREASED Electronically Signed On 01-22-2025 11:46:53 CDT by Donovan Thakkar D.O.
[2025-01-22 11:32] LABS: Hematocrit 30.0 % (37.0-47.0); Hemoglobin 10.1 g/dL (12.0-15.0); Immature Granulocyte Percent A 0.5 % (0-0.5); Lymphocytes Absolute Auto 0.40 K/mm3 (0.9-3.2); Mean Corpuscular HGB Conc 33.7 g/dl (32-36); Mean Corpuscular Hemoglobin 36.1 pg (26-34); Mean Corpuscular Volume 107.1 fl (80-100); Nucleated Red Blood Cells Absolute Auto 0.000 K/mm3 (0.0-0.012); Nucleated Red Blood Cells Perc 0.0 % (0.0-0.2); Platelet Count Result 692 k/mm3 (150-375); Red Blood Count 2.80 M/mm3 (4.2-5.4); White Blood Count 15.0 K/mm3 (4.5-10.0)
[2025-01-22 11:46] LABS: Alanine Aminotransferase 20 U/L (6-35); Albumin Level 3.6 g/dL (3.5-5.1); Alkaline Phosphatase 84 U/L (38-126); Anion Gap 8 mmol/L (4-12); Aspartate Amino Transferase 45 U/L (14-36); Bilirubin,Total 0.6 mg/dL (0.2-1.3); Blood Urea Nitrogen 11 mg/dL (7-17); Calcium 9.4 mg/dL (8.4-10.2); Carbon Dioxide 31 mmol/L (22-30); Chloride 89 mmol/L (98-107); Estimated CRCL calculation 70 ml/min; Estimated Glomerular Filt Rate > 60; Glucose 116 mg/dL (65-110); Lipase 80 U/L (23-300); Potassium 2.8 mmol/L (3.4-5.0); Sodium 128 mmol/L (137-145); Total Protein 6.7 g/dL (6.3-8.2)
[2025-01-22 11:47] LABS: INR 1.0; Partial Thromboplastin Time 28.2 Seconds (22.3-36.8); Prothrombin Time 12.9 Seconds (11.1-14.7)
[2025-01-22 11:52] LABS: Hypochromasia Occasional; Macrocytosis Occasional (NORMAL); Schistocytes None Seen
[2025-01-22 12:02] LABS: Troponin I < 0.012 ng/mL (0.000-0.034)
--- NOTE | 2025-01-22 12:19 | ED.CHESTPAIN ---
HPI - Chest Pain General Chief Complaint: Chest Pain Stated Complaint: Chest Pain Time Seen by Provider: 01/22/25 12:04 History of Present Illness HPI narrative: This is a 59-year-old female with history of hypertension, anxiety, hyperlipidemia who presents to the ED for chest pain, abdominal pain, nausea, vomiting. Patient states for the past 3 weeks, she has been the symptoms. She has been vomiting up to 6 times a day for this entire time. She has had difficulty keeping down liquids. Denies fevers, chills. No known sick contacts. Last normal bowel movement was today. No changes in urination. She also reports chest pain described as a sternal and burning sensation. She states that her feels like her prior episodes of GERD. No hematemesis, hematochezia, melena. Related Data Home Medications ?Medication ?Instructions ?Recorded ?Confirmed ?Last Taken ?Type fenofibrate 160 mg PO DAILY 05/09/19 01/22/25 01/20/25 History furosemide 20 mg PO DAILY 05/09/19 01/22/25 01/20/25 History simvastatin 40 mg PO DAILY 05/09/19 01/22/25 01/20/25 History buspirone 30 mg tablet 30 mg PO .q12hr 01/01/24 01/22/25 01/20/25 History cyclobenzaprine 10 mg tablet 10 mg PO .q12hr 01/01/24 01/22/25 01/20/25 History famotidine 20 mg tablet 20 mg PO .q12hr 01/01/24 01/22/25 01/20/25 History ferrous sulfate 325 mg (65 mg 650 mg PO DAILY 01/01/24 01/22/25 01/20/25 History iron) tablet losartan 50 mg tablet 50 mg PO DAILY 01/01/24 01/22/25 01/20/25 History bupropion HCl 150 mg 24 hr tablet, 150 mg PO DAILY 01/02/24 01/22/25 01/20/25 History extended release Allergies Allergy/AdvReac Type Severity Reaction Status Date / Time Penicillins Allergy Unknown Hives Verified 01/22/25 15:17 clindamycin Allergy Hives Verified 01/22/25 15:17 Sulfa (Sulfonamide Allergy Hives Verified 01/22/25 15:17 Antibiotics) Review of Systems Review of Systems: Gen.: Denies fevers or chills Eyes: Denies eye pain or visual change ENT: Denies congestion Respiratory: Denies shortness of breath or cough CV: As per HPI GI: As per HPI denies burning, urgency, frequency or hematuria Musculoskeletal: Denies back pain or muscle pain Neuro: Denies numbness, tingling, weakness or focal weakness Skin: Denies rash Except as documented, all other systems reviewed and negative PMFSH Past Medical History Medical History Tobacco dependence Dyslipidemia Post-menopause Depression Anxiety Hypertension Surgical History Surgical History History of open reduction and internal fixation (ORIF) procedure Repair left hip fracture. History of hysterectomy Family History Family History Father Hypertension Cerebrovascular accident Family history of coronary artery disease Mother Hypertension Other Arthritis Heart disease Social History Social History Social History: Surrogate medical decision maker: Cyril Nguyen, son. Code status: Full code. Smoking packs per day: 0.25 Smoking cigarettes per day: 5.0 Years smoked: 20 Smoking pack-years: 5.00 Smoking status: Current every day smoker Tobacco type: cigarettes Second hand tobacco smoke exposure: No Additional smoking assessment comments: 1-2 a day Alcohol intake: current Drinks per week: 4 Alcohol use details: Occasional Substance use: never Substance use type: does not use Do You Feel Safe in your Home?: Yes Lack of Transportation: No Lack of Food: Never True Current Housing: I Have Housing Concerned About Future Housing: No Difficulty Paying Gas/Electric Bills: No Difficulty Paying for Meds: No Currently Unemployed: No Education: High School Diploma/GED Difficulty w/ Childcare or Family Care: No Spiritual care concerns: No Exam Narrative: APPEARANCE: Moderate distress, nontoxic, resting in bed EYES: EOMI HEENT: Normocephalic, atraumatic, OMM RESPIRATORY: No respiratory distress Clear to auscultation bilaterally with no rhonchi wheezing or rales. CARDIOVASCULAR: Tachycardic with regular rhythm without murmurs rubs or gallops. ABDOMINAL: Soft, nontender, nondistended, no rebound or guarding MUSCULOSKELETAl: Moves all extremities. No clubbing, cyanosis or edema. NEURO: Awake and alert. Following commands, speech normal, no focal deficits SKIN:: Warm, dry. No rashes lesions or abrasions PSYCHIATRIC: Normal affect/mood, Course Vital Signs Vital signs: Vital Signs Temperature 97.9 F 01/22/25 11:23 Pulse Rate 123 H 01/22/25 11:23 Respiratory Rate 35 H 01/22/25 11:23 Blood Pressure 92/74 L 01/22/25 11:23 Pulse Oximetry 99 01/22/25 11:23 Oxygen Delivery Room Air 01/22/25 11:23 Temperature 97.6 F 01/22/25 19:56 Pulse Rate 114 H 01/22/25 19:56 Respiratory Rate 16 01/22/25 19:56 Blood Pressure 116/85 01/22/25 19:56 Pulse Oximetry 100 01/22/25 19:56 Oxygen Delivery Nasal Cannula 01/22/25 17:30 Oxygen Flow Rate 2 01/22/25 17:30 MDM - Chest Pain MDM Narrative Medical decision making narrative: 59-year-old female who presented to the ED for abdominal pain, nausea, vomiting, chest pain. On initial evaluation, patient was in [id number] distress, afebrile, hemodynamically stable. She was tachycardic to the 120s on initial presentation this improved to the low 100s. She did have diffuse abdominal tenderness to palpation with guarding. Patient had leukocytosis at 13.6. Anemia to 9.9. Mildly hyponatremic at 130. Lactic acid elevated at 2.6. COVID/flu/RSV negative. EKG without concerning findings. CT abdomen/pelvis did show free air and possible perforated gastric ulcer. Spoke with Dr. Ellison, general surgery, will evaluate the patient. Dr. Ellison plans for OR intervention. Patient was given Rocephin and Flagyl. Case was discussed with hospitalist who will admit the patient after OR intervention. Differential Diagnosis Differential diagnosis: Likely other (ACS, GERD, electrolyte abnormality, gastroenteritis, enteritis, PUD, pancreatitis) Medical Records Data Attestation: I reviewed the patient's medical records. Lab Data Attestation: I reviewed the patient's lab results. 01/22/25 18:06 01/22/25 18:06 Labs: Lab Results 01/22/25 01/22/25 01/22/25 Range/Units 11:04 12:42 13:39 WBC 15.0 H (4.5-10.0) K/mm3 RBC 2.80 L (4.2-5.4) M/mm3 Hgb 10.1 L (12.0-15.0) g/dL Hct 30.0 L (37.0-47.0) % MCV 107.1 H (80-100) fl MCH 36.1 H (26-34) pg MCHC 33.7 (32-36) g/dl RDW 14.0 (11.5-14.5) % Plt Count 692 H (150-375) k/mm3 MPV 8.6 (7.4-10.4) fl Immature Gran % (Auto) 0.5 (0-0.5) % Neut % (Auto) 94.5 H (45.5-73.1) % Lymph % (Auto) 2.7 L (18.3-44.2) % [place] % (Auto) 2.0 L (2.6-8.5) % Eos % (Auto) 0.0 (0-4.4) % Baso % (Auto) 0.3 (0.2-1.2) % Lymph # (Auto) 0.40 L (0.9-3.2) K/mm3 [place] # (Auto) 0.3 (0.1-0.6) K/mm3 Eos # (Auto) 0.0 (0-0.3) K/mm3 Baso # (Auto) 0.0 (0.0-0.1) K/mm3 Abs Immat Gran (auto) 0.08 H (0.00-0.031) K/mm3 Absolute Neuts (auto) 14.2 H (1.3-6.7) K/mm3 Absolute Nucleated RBC 0.000 (0.0-0.012) K/mm3 Band Neutrophils % Not Reportable Nucleated RBC % 0.0 (0.0-0.2) % Platelet Estimate Increased (Adequate) Hypochromasia Occasional Macrocytosis Occasional (NORMAL) Schistocytes None seen PT 12.9 (11.1-14.7) Seconds INR 1.0 APTT 28.2 (22.3-36.8) Seconds Sodium 128 L (137-145) mmol/L Potassium 2.8 L* (3.4-5.0) mmol/L Chloride 89 L (98-107) mmol/L Carbon Dioxide 31 H (22-30) mmol/L Anion Gap 8 (4-12) mmol/L BUN 11 D (7-17) mg/dL Creatinine 0.77 (0.7-1.0) mg/dL Estim Creat Clear Calc 70 ml/min Estimated GFR > 60 (59 - ) Glucose 116 H (65-110) mg/dL Lactic Acid 2.6 H (0.7-2.0) mmol/L Calcium 9.4 (8.4-10.2) mg/dL Total Bilirubin 0.6 (0.2-1.3) mg/dL AST 45 H (14-36) U/L ALT 20 (6-35) U/L Alkaline Phosphatase 84 (38-126) U/L Troponin I < 0.012 < 0.012 (0.000-0.034) ng/mL Total Protein 6.7 (6.3-8.2) g/dL Albumin 3.6 (3.5-5.1) g/dL Lipase 80 (23-300) U/L Influenza A (RT-PCR) Negative (Negative) Influenza B (RT-PCR) Negative (Negative) RSV (RT-PCR) Negative (Negative) SARS-CoV-2 RNA (RT-PCR) Negative (Negative) Imaging Data Attestation: I personally reviewed and interpreted this imaging study as follows: Radiologist's impression: Impressions Chest X-Ray 01/22/25 11:32 IMPRESSION: 1: No acute pulmonary process identified. Abdomen/Pelvis CT 01/22/25 12:56 IMPRESSION: 1. Hollow viscus perforation with free air. Urgent surgical consultation required. 2. Site of perforation appears to be gastric ulcer. 3. Diffuse enterocolitis most likely Crohn's disease. ECG Data EKG #1: Attestation: I personally reviewed and interpreted this ECG as follows: ECG completion date: 01/22/25 ECG completion time: 10:59 Interpretation: Sinus tachycardia rate of 116, normal axis, QTC 473, no acute ST or T-wave changes Discharge Plan Discharge Clinical Impression: Acute hyponatremia, Acidosis, lactic Perforated gastric ulcer Qualifiers: Gastric ulcer chronicity: acute Qualified Code(s): K25.1 - Acute gastric ulcer with perforation Patient Disposition: Still a Patient Condition: Serious
[2025-01-22] MEDS: SODIUM CHLORIDE 0.9% IV 1,000 ML 999 ML IV CONT (12:25)
[2025-01-22] MEDS: MORPHINE SULFATE (*CRX) 4 MG/ML INJ IV PUSH (12:26)
[2025-01-22] MEDS: ONDANSETRON INJ 4 MG/2 ML VIAL IV PUSH (12:26)
[2025-01-22] MEDS: POTASSIUM CHLORIDE 20 MEQ ER TABLET 40 MEQ PO (12:26)
[2025-01-22] MEDS: POTASSIUM CHLORIDE 20 MEQ PACKET (FOR LIQUID) 40 MEQ PO (12:27)
[2025-01-22] MEDS: KCL 20 MEQ/SW 100 ML 100 ML 50 MEQ IVPB (13:01)
[2025-01-22 13:30] LABS: Influenza A QL RT-PCR Negative (Negative); Influenza B QL RT-PCR Negative (Negative); RSV RNA, RT-PCR Negative (Negative); SARS-CoV-2 RNA PCR Negative (Negative)
[2025-01-22] MEDS: HYDROmorphone HCL INJ (*CRX) 1 MG/ML SYR IV PUSH ×4 (13:36→22:19)
--- NOTE | 2025-01-22 13:51 | PM.CNGS ---
Assessment and Plan Assessment and plan (1) Perforated viscus: Code(s): R19.8 - Other specified symptoms and signs involving the digestive system and abdomen Status: Acute Assessment and Plan: patient with peritoneal signs on exam and imaging consistent with perforated viscus, NPO, IV antibiotics, plan for emergent surgery with exploratory laparotomy, possible bowel resection, possible ostomy History of Present Illness Consult details Consult date: 01/22/25 Reason for consult: abdominal pain Requesting physician: Brock Nascimento MD Narrative: The patient is a 59-year-old female presenting to the emergency department complaining of severe abdominal pain. Patient reports the pain has been ongoing for 3 weeks, however, over the last 12 hours has significantly worsened. The patient reports that over this time. She has had very poor p.o. intake, intermittent nausea and vomiting. The patient reports that she has been having bowel movements however they have been loose. Patient denies similar symptoms in the past. The patient denies any intra-abdominal surgeries. Workup in the emergency department, including imaging, is significant for perforated viscus. Review of Systems Review of Systems: All systems reviewed & are unremarkable except as noted in HPI and below PMFSH Past Medical History Medical History Tobacco dependence Dyslipidemia Post-menopause Depression Anxiety Hypertension Surgical History Surgical History History of open reduction and internal fixation (ORIF) procedure Repair left hip fracture. History of hysterectomy Family History Family History Father Hypertension Cerebrovascular accident Family history of coronary artery disease Mother Hypertension Other Arthritis Heart disease Social History Social History Social History: Surrogate medical decision maker: Cyril Nguyen, son. Code status: Full code. Smoking packs per day: 0.25 Smoking cigarettes per day: 5.0 Years smoked: 20 Smoking pack-years: 5.00 Smoking status: Current every day smoker Tobacco type: cigarettes Second hand tobacco smoke exposure: No Additional smoking assessment comments: Patient smokes 3 to 6 cigarettes a day. Alcohol intake: current Drinks per week: 1 Alcohol use details: Occasional Substance use: never Substance use type: does not use Do You Feel Safe in your Home?: Yes Lack of Transportation: No Lack of Food: Never True Current Housing: Decline to Answer Concerned About Future Housing: No Difficulty Paying Gas/Electric Bills: Decline to Answer Difficulty Paying for Meds: No Currently Unemployed: No Education: Associate Degree Difficulty w/ Childcare or Family Care: No Spiritual care concerns: No Meds Home Medications and Allergies Home Medications ?Medication ?Instructions ?Recorded ?Confirmed ?Type naproxen 500 mg tablet,delayed 500 mg PO BID PRN pain #14 tabs 05/05/19 04/14/24 Rx release (EC-Naproxen) fenofibrate 160 mg PO DAILY 05/09/19 04/14/24 History furosemide 20 mg PO DAILY 05/09/19 04/14/24 History simvastatin 40 mg PO DAILY 05/09/19 04/14/24 History buspirone 30 mg tablet 30 mg BID 01/01/24 04/14/24 History cyclobenzaprine 10 mg tablet 10 mg BID 01/01/24 04/14/24 History famotidine 20 mg tablet 20 mg BID 01/01/24 04/14/24 History ferrous sulfate 325 mg (65 mg 325 mg PO BID 01/01/24 04/14/24 History iron) tablet losartan 50 mg tablet 50 mg PO DAILY 01/01/24 02/20/24 History bupropion HCl 150 mg 24 hr tablet, 150 mg PO DAILY 01/02/24 04/14/24 History extended release enoxaparin 40 mg/0.4 mL 40 mg (0.4 mL) subcut Q24H #12 mL 01/03/24 04/14/24 Rx subcutaneous syringe (Lovenox) sennosides 8.6 mg-docusate sodium 1 tab PO HS #30 tabs 01/03/24 04/14/24 Rx 50 mg tablet (Senokot-S) cephalexin 500 mg capsule 500 mg PO Q8H #21 caps 10/11/24 Rx chlorhexidine gluconate 0.12 % 15 ml buccal BID #300 mL 10/11/24 Rx mouthwash hydrocodone 5 mg-acetaminophen 325 1 tablet PO Q6H PRN pain #20 tabs 10/11/24 Rx mg tablet metronidazole 500 mg tablet 500 mg PO Q8H #21 tabs 10/11/24 Rx Allergies Allergy/AdvReac Type Severity Reaction Status Date / Time Penicillins Allergy Unknown Hives Verified 01/22/25 11:28 clindamycin Allergy Hives Verified 01/22/25 11:28 Sulfa (Sulfonamide Allergy Hives Verified 01/22/25 11:28 Antibiotics) Vital Signs Vital Signs - 24 hr 01/22/25 11:23 01/22/25 11:32 01/22/25 11:36 Temperature 36.6 C 36.6 C Pulse Rate 123 H 106 H Respiratory Rate 35 H 29 H Blood Pressure 92/74 L 106/88 Pulse Oximetry 99 100 100 Oxygen Delivery Room Air Room Air Room Air 01/22/25 11:53 01/22/25 11:53 Temperature 36.6 C Pulse Rate 91 91 Respiratory Rate 17 Blood Pressure 117/90 Pulse Oximetry 100 Oxygen Delivery Exam Const: General: acute distress severe, anxious, ill appearing and uncomfortable HENMT: Head: normal to inspection, normocephalic and atraumatic Eyes: General: appearance normal, both eyes and all related structures Neck: Neck: normal visual inspection, full ROM and no lymphadenopathy Resp: Auscultation: clear to auscultation bilaterally Cardio: Rate: tachycardic Rhythm: regular rhythm GI: Inspection: distended GI Palp: Yes abdominal tenderness, Yes Soft to palpation, Yes Guarding due to palpation present (GI) and Yes Rigid due to palpation Skin: General skin exam: normal color and no rashes or lesions noted Neuro: General: patient oriented x3 and CN's II-XI intact bilaterally Extrem: General: normal to inspection and full ROM Results Labs 01/22/25 11:04 01/22/25 11:04 Labs: Abnormal lab results 01/22/25 Range/Units 11:04 WBC 15.0 H (4.5-10.0) K/mm3 RBC 2.80 L (4.2-5.4) M/mm3 Hgb 10.1 L (12.0-15.0) g/dL Hct 30.0 L (37.0-47.0) % MCV 107.1 H (80-100) fl MCH 36.1 H (26-34) pg Plt Count 692 H (150-375) k/mm3 Neut % (Auto) 94.5 H (45.5-73.1) % Lymph % (Auto) 2.7 L (18.3-44.2) % [place] % (Auto) 2.0 L (2.6-8.5) % Lymph # (Auto) 0.40 L (0.9-3.2) K/mm3 Abs Immat Gran (auto) 0.08 H (0.00-0.031) K/mm3 Absolute Neuts (auto) 14.2 H (1.3-6.7) K/mm3 Sodium 128 L (137-145) mmol/L Potassium 2.8 L* (3.4-5.0) mmol/L Chloride 89 L (98-107) mmol/L Carbon Dioxide 31 H (22-30) mmol/L Glucose 116 H (65-110) mg/dL AST 45 H (14-36) U/L Diabetes panel 01/22/25 Range/Units 11:04 Sodium 128 L (137-145) mmol/L Potassium 2.8 L* (3.4-5.0) mmol/L Chloride 89 L (98-107) mmol/L Carbon Dioxide 31 H (22-30) mmol/L BUN 11 D (7-17) mg/dL Creatinine 0.77 (0.7-1.0) mg/dL Glucose 116 H (65-110) mg/dL Calcium 9.4 (8.4-10.2) mg/dL AST 45 H (14-36) U/L ALT 20 (6-35) U/L Alkaline Phosphatase 84 (38-126) U/L Total Protein 6.7 (6.3-8.2) g/dL Albumin 3.6 (3.5-5.1) g/dL Calcium panel 01/22/25 Range/Units 11:04 Calcium 9.4 (8.4-10.2) mg/dL Albumin 3.6 (3.5-5.1) g/dL Pituitary panel 01/22/25 Range/Units 11:04 Sodium 128 L (137-145) mmol/L Potassium 2.8 L* (3.4-5.0) mmol/L Chloride 89 L (98-107) mmol/L Carbon Dioxide 31 H (22-30) mmol/L BUN 11 D (7-17) mg/dL Creatinine 0.77 (0.7-1.0) mg/dL Glucose 116 H (65-110) mg/dL Calcium 9.4 (8.4-10.2) mg/dL Adrenal panel 01/22/25 Range/Units 11:04 Sodium 128 L (137-145) mmol/L Potassium 2.8 L* (3.4-5.0) mmol/L Chloride 89 L (98-107) mmol/L Carbon Dioxide 31 H (22-30) mmol/L BUN 11 D (7-17) mg/dL Creatinine 0.77 (0.7-1.0) mg/dL Glucose 116 H (65-110) mg/dL Calcium 9.4 (8.4-10.2) mg/dL Total Bilirubin 0.6 (0.2-1.3) mg/dL AST 45 H (14-36) U/L ALT 20 (6-35) U/L Alkaline Phosphatase 84 (38-126) U/L Total Protein 6.7 (6.3-8.2) g/dL Albumin 3.6 (3.5-5.1) g/dL All other labs normal. Imaging Abdomen CT scan report/results: report reviewed and image reviewed
--- NOTE | 2025-01-22 13:55 | WPDHPUPDATE1 ---
History and Physical Update Update Date/Time: 01/22/25 13:55 History and Physical has been reviewed, including an updated exam of the patient. There are NO changes in the patient's condition. Risks, benefits, and alternatives have been discussed and questions answered. Patient agrees to proceed with procedure.
--- NOTE | 2025-01-22 14:13 | WPDANESEPPF ---
Anes - Initial Pre Proc Eval Procedure: Operation Date: 01/22/25 14:30 Proposed Procedures p Exploratory Laparotomy, Possible Bowel Resection, Possible Ostomy - Cristiana Ellison MD Date/Time: 01/22/25 14:13 Surgeon: Cristiana Ellison MD Pre Op Diagnosis: Chest Pain Patient Data Age: 59 Gender: F Height: 1.73 m Weight: 65.77 kg Last Vital Signs Temp 36.6 C 01/22/25 11:53 Pulse 91 01/22/25 11:53 Resp 17 01/22/25 11:53 BP 117/90 01/22/25 11:53 Pulse Ox 100 01/22/25 11:53 O2 Del Method Room Air 01/22/25 11:36 Allergies Allergy/AdvReac Type Severity Reaction Status Date / Time Penicillins Allergy Unknown Hives Verified 01/22/25 11:28 clindamycin Allergy Hives Verified 01/22/25 11:28 Sulfa (Sulfonamide Allergy Hives Verified 01/22/25 11:28 Antibiotics) Home Medications ?Medication ?Instructions ?Recorded ?Confirmed ?Type naproxen 500 mg tablet,delayed 500 mg PO BID PRN pain #14 tabs 05/05/19 04/14/24 Rx release (EC-Naproxen) fenofibrate 160 mg PO DAILY 05/09/19 04/14/24 History furosemide 20 mg PO DAILY 05/09/19 04/14/24 History simvastatin 40 mg PO DAILY 05/09/19 04/14/24 History buspirone 30 mg tablet 30 mg BID 01/01/24 04/14/24 History cyclobenzaprine 10 mg tablet 10 mg BID 01/01/24 04/14/24 History famotidine 20 mg tablet 20 mg BID 01/01/24 04/14/24 History ferrous sulfate 325 mg (65 mg 325 mg PO BID 01/01/24 04/14/24 History iron) tablet losartan 50 mg tablet 50 mg PO DAILY 01/01/24 02/20/24 History bupropion HCl 150 mg 24 hr tablet, 150 mg PO DAILY 01/02/24 04/14/24 History extended release enoxaparin 40 mg/0.4 mL 40 mg (0.4 mL) subcut Q24H #12 mL 01/03/24 04/14/24 Rx subcutaneous syringe (Lovenox) sennosides 8.6 mg-docusate sodium 1 tab PO HS #30 tabs 01/03/24 04/14/24 Rx 50 mg tablet (Senokot-S) cephalexin 500 mg capsule 500 mg PO Q8H #21 caps 10/11/24 Rx chlorhexidine gluconate 0.12 % 15 ml buccal BID #300 mL 10/11/24 Rx mouthwash hydrocodone 5 mg-acetaminophen 325 1 tablet PO Q6H PRN pain #20 tabs 10/11/24 Rx mg tablet metronidazole 500 mg tablet 500 mg PO Q8H #21 tabs 10/11/24 Rx Laboratory Tests 01/22/25 01/22/25 01/22/25 11:04 12:42 13:39 WBC 15.0 H K/mm3 (4.5-10.0) RBC 2.80 L M/mm3 (4.2-5.4) Hgb 10.1 L g/dL (12.0-15.0) Hct 30.0 L % (37.0-47.0) MCV 107.1 H fl (80-100) MCH 36.1 H pg (26-34) MCHC 33.7 g/dl (32-36) RDW 14.0 % (11.5-14.5) Plt Count 692 H k/mm3 (150-375) MPV 8.6 fl (7.4-10.4) Immature Gran % (Auto) 0.5 % (0-0.5) Neut % (Auto) 94.5 H % (45.5-73.1) Lymph % (Auto) 2.7 L % (18.3-44.2) [place] % (Auto) 2.0 L % (2.6-8.5) Eos % (Auto) 0.0 % (0-4.4) Baso % (Auto) 0.3 % (0.2-1.2) Lymph # (Auto) 0.40 L K/mm3 (0.9-3.2) [place] # (Auto) 0.3 K/mm3 (0.1-0.6) Eos # (Auto) 0.0 K/mm3 (0-0.3) Baso # (Auto) 0.0 K/mm3 (0.0-0.1) Abs Immat Gran (auto) 0.08 H K/mm3 (0.00-0.031) Absolute Neuts (auto) 14.2 H K/mm3 (1.3-6.7) Absolute Nucleated RBC 0.000 K/mm3 (0.0-0.012) Band Neutrophils % Not Reportable Nucleated RBC % 0.0 % (0.0-0.2) Platelet Estimate Increased (Adequate) Hypochromasia Occasional Macrocytosis Occasional (NORMAL) Schistocytes None seen PT 12.9 Seconds (11.1-14.7) INR 1.0 APTT 28.2 Seconds (22.3-36.8) Sodium 128 L mmol/L (137-145) Potassium 2.8 L* mmol/L (3.4-5.0) Chloride 89 L mmol/L (98-107) Carbon Dioxide 31 H mmol/L (22-30) Anion Gap 8 mmol/L (4-12) BUN 11 D mg/dL (7-17) Creatinine 0.77 mg/dL (0.7-1.0) Estim Creat Clear Calc 70 ml/min Estimated GFR > 60 (59 - ) Glucose 116 H mg/dL (65-110) Lactic Acid 2.6 H mmol/L (0.7-2.0) Calcium 9.4 mg/dL (8.4-10.2) Total Bilirubin 0.6 mg/dL (0.2-1.3) AST 45 H U/L (14-36) ALT 20 U/L (6-35) Alkaline Phosphatase 84 U/L (38-126) Troponin I < 0.012 ng/mL Pending (0.000-0.034) Total Protein 6.7 g/dL (6.3-8.2) Albumin 3.6 g/dL (3.5-5.1) Lipase 80 U/L (23-300) Influenza A (RT-PCR) Negative (Negative) Influenza B (RT-PCR) Negative (Negative) RSV (RT-PCR) Negative (Negative) SARS-CoV-2 RNA (RT-PCR) Negative (Negative) Patient hx anesthesia problems: none Family hx anesthesia problems: none Results Review: All pre-operative results and documents have been reviewed as part of the pre-operative evaluation. [facility] Past Medical History Medical History Tobacco dependence Dyslipidemia Post-menopause Depression Anxiety Hypertension Surgical History Surgical History History of open reduction and internal fixation (ORIF) procedure Repair left hip fracture. History of hysterectomy Family History Family History Father Hypertension Cerebrovascular accident Family history of coronary artery disease Mother Hypertension Other Arthritis Heart disease Social History Social History Social History: Surrogate medical decision maker: Cyril Nguyen, sukhi. Code status: Full code. Smoking packs per day: 0.25 Smoking cigarettes per day: 5.0 Years smoked: 20 Smoking pack-years: 5.00 Smoking status: Current every day smoker Tobacco type: cigarettes Second hand tobacco smoke exposure: No Additional smoking assessment comments: Patient smokes 3 to 6 cigarettes a day. Alcohol intake: current Drinks per week: 1 Alcohol use details: Occasional Substance use: never Substance use type: does not use Do You Feel Safe in your Home?: Yes Lack of Transportation: No Lack of Food: Never True Current Housing: Decline to Answer Concerned About Future Housing: No Difficulty Paying Gas/Electric Bills: Decline to Answer Difficulty Paying for Meds: No Currently Unemployed: No Education: Associate Degree Difficulty w/ Childcare or Family Care: No Spiritual care concerns: No Anes - Eval Final PreProcedure Day of Procedure 01/22/25 14:13 Patient weight: normal Heart: regular rate and rhythm Lungs: clear to auscultation Airway: Mallampati scale class III Neurological: alert and oriented Last oral intake: >/= 8 hours ASA classification: III Emergent: yes Anesthetic plan: proceed Anesthesia type and monitoring: general ETT and standard monitoring Results Review: All pre-operative results and documents have been reviewed as part of the pre-operative evaluation. Informed Consent: The patient's anesthetic plan and its attendant risks and benefits were discussed with the patient/family/POA. Questions were solicited and answers provided to the satisfaction of the patient/family/POA.
[2025-01-22 14:14] LABS: Troponin I < 0.012 ng/mL (0.000-0.034)
[2025-01-22] MEDS: LACTATED RINGERS 1,000 ML 30 ML IV CONT ×2 (14:15→16:31)
[2025-01-22] MEDS: metroNIDAZOLE 500 MG/ISO 100ML 500 MG/100 ML BAG 100 MG IVPB ×2 (14:20→21:32)
[2025-01-22] MEDS: cefTRIAXone 2 GM in SODIUM CHLORIDE 0.9% IV 100 ML 200 ML IVPB (14:45)
[2025-01-22] MEDS: PIPERACILLIN/TAZOBACTAM SOD 4.5 GM in SODIUM CHLORIDE 0.9% IV 100 ML 200 ML IVPB (14:55)
--- NOTE | 2025-01-22 16:30 | W.PM.PROC2 ---
Procedure Note - Detailed Date of Procedure 01/22/25 Pre-op Diagnosis perforated viscus Post-op Diagnosis Other ( perforated gastric ulcer) Procedure Performed exploratory laparotomy, repair of perforated gastric ulcer with Jean patch, extensive intra-abdominal washout Surgeon Cristiana Ellison MD Home Teaching Grades 9 Thru 12 Teacher MAXIMUS Gonzalez Anesthesia General Indications 59-year-old female presenting to the emergency department complaining of severe abdominal pain. Workup, including imaging, significant for perforated viscus. Findings Perforated gastric antral ulcer measuring approximately 2 cm Description of Procedure The patient was taken to the operating room and placed in the supine position. After adequate induction of general anesthesia, the patient was prepped and draped in the normal sterile fashion. A time-out was then done to verify the patient's identity, as well as the procedure being performed. I then made an upper midline incision to gain access into the intra-abdominal cavity. Once into the peritoneal cavity, a large gush of air was noted. There was also a large amount of intra-abdominal succus. This looked most likely to be gastric in nature. We suctioned approximately 750 mL gastric succus. I then began dissection around the upper abdomen. I was able to identify a large gastric perforation in the antrum of the stomach. This measured approximately 2 cm. Further dissection was done and no other pathology was noted. I was then able to isolate the area of the perforated ulcer. I then closed the perforation in 2 layers. Full-thickness closure was done with 3-0 Vicryl suture. I then imbricated the repair with 2-0 silk suture. An NG was placed by Anesthesia and I used this to stent our repair. I then had the NG flushed with normal saline and minimal if any leakage was noted at this point. I then freed up some omentum and performed a Jean patch over our repair with 2-0 silk sutures. I then left a 15 [place] TEJA drain it coming out the left upper abdomen with the drain terminating near the area of our repair. I then copiously washed out the abdominal cavity. No other pathology was noted. I then closed the fascia of our incision with 0 looped PDS suture x2. The skin was then closed with skin james. The patient tolerated the procedure well and was extubated postoperatively. She will be transferred to the recovery room in stable condition. Estimated Blood Loss 25 Drains Yes Packing No Pathology None sent Complications No immediate complications Condition Stable Disposition PACU [facility] Billing Surgery - Charge Forward: Surgery Billing
[2025-01-22] MEDS: fentaNYL CITRATE INJ (*CRX) 100 MCG/2 ML VIAL 25 MCG IV PUSH ×8 (16:40→17:05)
--- NOTE | 2025-01-22 17:01 | P.HP_ITS ---
H&P: HPI History of Present Illness Date/Time: 01/22/25 17:01 Chief Complaint: Acute abdominal pain Narrative: 59-year-old female with past medical history of hypertension, hyperlipidemia and anxiety who presents to the hospital for epigastric, abdominal pain nausea vomiting. She states that this is going on for about 3 weeks. She is now having difficulties keeping liquids down so she presented to hospital. Patient denies frequent use of ibuprofen or history of gastric ulcers. Patient seen after OR Lab work in the ED shows leukocytosis of 15.0 anemia of 10.1, platelets of 692, sodium of 128, potassium 2.8, chloride of 89, carbon dioxide 31, lactic acid of 2.6, AST of 45, CT abdomen pelvis show hollow viscus perforation with free air. Likely gas trach ulcer. Diffuse enterocolitis most likely Crohn's. Patient had signs of acute peritonitis so surgery was consulted with plans of exploratory laparotomy possible bowel resection and ostomy. Review of Systems Review of Systems: 12 systems were reviewed and are negativ e except for as per HPI. [facility] Past Medical History Medical History Tobacco dependence Dyslipidemia Post-menopause Depression Anxiety Hypertension Surgical History Surgical History History of open reduction and internal fixation (ORIF) procedure Repair left hip fracture. History of hysterectomy Family History Family History Father Hypertension Cerebrovascular accident Family history of coronary artery disease Mother Hypertension Other Arthritis Heart disease Social History Social History Social History: Surrogate medical decision maker: Cyril Nguyen, son. Code status: Full code. Smoking packs per day: 0.25 Smoking cigarettes per day: 5.0 Years smoked: 20 Smoking pack-years: 5.00 Smoking status: Current every day smoker Tobacco type: cigarettes Second hand tobacco smoke exposure: No Additional smoking assessment comments: 1-2 a day Alcohol intake: current Drinks per week: 4 Alcohol use details: Occasional Substance use: never Substance use type: does not use Do You Feel Safe in your Home?: Yes Lack of Transportation: No Lack of Food: Never True Current Housing: I Have Housing Concerned About Future Housing: No Difficulty Paying Gas/Electric Bills: No Difficulty Paying for Meds: No Currently Unemployed: No Education: High School Diploma/GED Difficulty w/ Childcare or Family Care: No Spiritual care concerns: No Meds Home Medications and Allergies Home Medications ?Medication ?Instructions ?Recorded ?Confirmed ?Type naproxen 500 mg tablet,delayed 500 mg PO BID PRN pain #14 tabs 05/05/19 01/22/25 Rx release (EC-Naproxen) fenofibrate 160 mg PO DAILY 05/09/1901/08 History furosemide 20 mg PO DAILY 05/09/1901/08 History simvastatin 40 mg PO DAILY 05/09/1901/08 History buspirone 30 mg tablet 30 mg PO .q12hr 01/01/2401/08 History cyclobenzaprine 10 mg tablet 10 mg PO .q12hr 01/01/24 01/22/25 History famotidine 20 mg tablet 20 mg PO .q12hr 01/01/2401/08 History ferrous sulfate 325 mg (65 mg 650 mg PO DAILY 01/01/24 01/22/25 History iron) tablet losartan 50 mg tablet 50 mg PO DAILY 01/01/2401/08 History bupropion HCl 150 mg 24 hr tablet, 150 mg PO DAILY 01/22/25 History extended release sennosides 8.6 mg-docusate sodium 1 tab PO HS #30 tabs 01/03/24 01/22/25 Rx 50 mg tablet (Senokot-S) Allergies Allergy/AdvReac Type Severity Reaction Status Date / Time Penicillins Allergy Unknown Hives Verified 01/22/25 15:17 clindamycin Allergy Hives Verified 01/22/25 15:17 Sulfa (Sulfonamide Allergy Hives Verified 01/22/25 15:17 Antibiotics) Vital Signs Vital Signs - 24 hr 01/22/25 11:23 01/22/25 11:32 01/22/25 11:36 Temperature 97.9 F 97.9 F Pulse Rate 123 H 106 H Respiratory Rate 35 H 29 H Blood Pressure 92/74 L 106/88 Pulse Oximetry 99 100 100 Oxygen Delivery Room Air Room Air Room Air Oxygen Flow Rate 01/22/25 11:53 01/22/25 11:53 01/22/25 15:07 Temperature 97.9 F 98 F Pulse Rate 91 91 101 H Respiratory Rate 17 16 Blood Pressure 117/90 116/90 Pulse Oximetry 100 95 Oxygen Delivery Room Air Oxygen Flow Rate 01/22/25 16:31 01/22/25 16:45 Temperature 97.6 F Pulse Rate 102 H 93 Respiratory Rate 16 14 Blood Pressure 149/97 H 150/103 H Pulse Oximetry 100 100 Oxygen Delivery Simple Face Mask Simple Face Mask Oxygen Flow Rate 8 8 Exam Narrative: General: well appearing, appears stated age. HEENT: normocephalic, atraumatic. Mucous membranes moist. EOMI, PERRLA, bilateral sclera anicteric, no conjunctival injection. Neck supple without JVD, lymphadenopathy, or bruit. NG tube with thick output Respiratory: clear to ascultation bilaterally. No rales/rhonic/wheezes. Cardiovascular: Regular rate and rhythm, normal S1-S2 upon ascultation. No murmurs, rubs, or clicks. PMI is nondisplaced, capillary refill less than 3 second. Abdomen: Soft, round, no pulsatile masses, nondistended No rebound, no guarding. Bowel sounds present to all four quadrants. No high pitch or tinkling sounds, resonant to percussion. Surgical site with dressing clean dry intact, TEJA drain with milky output Extremities: No cyanosis, clubbing, or edema present. Pulses are palpable 2/2. Active ROM to all four extremities. Neuro: Alert and orientated x 4. PERRLA. Cranial nerves 2-12 intact without focal deficit. Skin: Warm, dry, and intact, without rash, erythema, or lesion. Psych: pleasant, cooperative, normal speech, normal affect, no hallucinations, no dysarthia H&P: Results Labs Labs: Short CBC 01/22/25 Range/Units 11:04 WBC 15.0 H (4.5-10.0) K/mm3 Hgb 10.1 L (12.0-15.0) g/dL Hct 30.0 L (37.0-47.0) % Plt Count 692 H (150-375) k/mm3 BMP 01/22/25 11:04 Sodium 128 L Potassium 2.8 L* Chloride 89 L Carbon Dioxide 31 H BUN 11 D Creatinine 0.77 Glucose 116 H Calcium 9.4 Cardiac Enzymes 01/22/25 01/22/25 Range/Units 11:04 13:39 Troponin I < 0.012 < 0.012 (0.000-0.034) ng/mL Liver Function 01/22/25 Range/Units 11:04 Total Bilirubin 0.6 (0.2-1.3) mg/dL AST 45 H (14-36) U/L ALT 20 (6-35) U/L Alkaline Phosphatase 84 (38-126) U/L Albumin 3.6 (3.5-5.1) g/dL Assessment and Plan Assessment and plan (1) Gastric perforation: Code(s): K25.5 - Chronic or unspecified gastric ulcer with perforation Status: Acute Assessment and Plan: Surgery consulted Exploratory laparotomy on 01/22/2025 IV Rocephin, Zosyn and Flagyl IVF IV Protonix b.i.d. TEJA drain care NG tube to suction (2) Hyponatremia: Code(s): E87.1 - Hypo-osmolality and hyponatremia Status: Acute Assessment and Plan: IVF Repeat BMP after or (3) Hypokalemia: Code(s): E87.6 - Hypokalemia Status: Acute Assessment and Plan: Repleted prior to surgery BMP in the morning (4) Anemia: Code(s): D64.9 - Anemia, unspecified Status: Acute Assessment and Plan: Anemia workup pending Repeat BMP and CBC after or (5) Colitis: Code(s): K52.9 - Noninfective gastroenteritis and colitis, unspecified Status: Acute Assessment and Plan: Antibiotics as above Stool sample (6) Anxiety: Code(s): F41.9 - Anxiety disorder, unspecified Status: Acute Assessment and Plan: Currently holding home medications until okay by surgery (7) Hypertension: Code(s): I10 - Essential (primary) hypertension Status: Acute Assessment and Plan: Holding oral medications Hydralazine p.r.n. Quality VTE Prophylaxis VTE prophylaxis: mechanical ordered If No VTE Prophylaxis Answer both mechanical and pharmacologic: Reason no pharmacologic proph: medical contraindication Hospitalist [facility] Advance Care Plan I have confirmed that the patient's Advanced Care Plan is present, code status is documented, or surrogate decision maker is listed in patient medical record.: Yes Medication Reconciliation I have utilized all available resources to obtain, update and review the patients current medications (includes all prescriptions, OTC, herbals, cannabis, and nutritional supplements).: Yes
[2025-01-22] MEDS: SODIUM CHLORIDE 0.9% IV 1,000 ML 100 ML IV CONT (18:05)
[2025-01-22 18:13] LABS: Hematocrit 30.3 % (37.0-47.0); Hemoglobin 9.9 g/dL (12.0-15.0); Immature Granulocyte Percent A 0.1 % (0-0.5); Lymphocytes Absolute Auto 0.46 K/mm3 (0.9-3.2); Mean Corpuscular HGB Conc 32.7 g/dl (32-36); Mean Corpuscular Hemoglobin 35.6 pg (26-34); Mean Corpuscular Volume 109.0 fl (80-100); Nucleated Red Blood Cells Absolute Auto 0.000 K/mm3 (0.0-0.012); Nucleated Red Blood Cells Perc 0.0 % (0.0-0.2); Platelet Count Result 659 k/mm3 (150-375); Red Blood Count 2.78 M/mm3 (4.2-5.4); White Blood Count 13.6 K/mm3 (4.5-10.0)
--- NOTE | 2025-01-22 18:18 | ADMGEN ---
This patient, Vero Nguyen, was admitted to IMU Room 213-01. Patient/family oriented to hospital policies and general routines including ID bracelet, bed and alarms, visiting hours, pain management, procedures, bathroom and other care routines, personal items, smoking policy, room service/diet, and visiting hours. Information on how to activate the Rapid Response Team has been discussed. Patient/Family are encouraged to report perceived risks to care and to ask questions if they do not understand what they are told or what they should do.
[2025-01-22 18:23] LABS: Anion Gap 10 mmol/L (4-12); Blood Urea Nitrogen 12 mg/dL (7-17); Calcium 8.2 mg/dL (8.4-10.2); Carbon Dioxide 25 mmol/L (22-30); Chloride 95 mmol/L (98-107); Estimated CRCL calculation 75 ml/min; Estimated Glomerular Filt Rate > 60; Glucose 108 mg/dL (65-110); Potassium 4.0 mmol/L (3.4-5.0); Sodium 130 mmol/L (137-145)
[2025-01-22 18:34] LABS: Iron 23 ug/dL (37-170)
[2025-01-22 18:35] LABS: Troponin I < 0.012 ng/mL (0.000-0.034)
[2025-01-22 18:38] LABS: Macrocytosis 1+ (NORMAL); Schistocytes None Seen
[2025-01-22 18:43] LABS: Percent Iron Saturation 12 % (20-50)
[2025-01-22 19:15] LABS: Thyroid Stimulating Hormone Reflex 2.850 uIU/mL (0.465-4.68)
[2025-01-22 19:19] LABS: Ferritin 433.00 ng/mL (11.1-264)
[2025-01-22 19:33] LABS: Vitamin B12 > 1000.0 pg/mL (239-931)
[2025-01-22] MEDS: PANTOPRAZOLE SODIUM IV 40 MG VIAL IV PUSH (20:15)
[2025-01-22] MEDS: PIPERACILLIN/TAZOBACTAM SOD 3.375 GM in SODIUM CHLORIDE 0.9% IV 50 ML 100 ML IVPB (20:15)
[2025-01-23] VITALS (17 sets, daily range): BP systolic 105–138; BP diastolic 74–94; PULSE 95–122; RESP 18–20; TEMP 36.4–36.8; O2SAT 91–98; BMI 22.0
[2025-01-23] MEDS: HYDROmorphone HCL INJ (*CRX) 1 MG/ML SYR IV PUSH ×7 (00:16→20:59)
[2025-01-23] MEDS: PIPERACILLIN/TAZOBACTAM SOD 3.375 GM in SODIUM CHLORIDE 0.9% IV 50 ML 100 ML IVPB ×4 (03:15→20:48)
[2025-01-23 04:09] LABS: Hematocrit 26.9 % (37.0-47.0); Hemoglobin 8.7 g/dL (12.0-15.0); Immature Granulocyte Percent A 0.4 % (0-0.5); Lymphocytes Absolute Auto 0.76 K/mm3 (0.9-3.2); Mean Corpuscular HGB Conc 32.3 g/dl (32-36); Mean Corpuscular Hemoglobin 36.6 pg (26-34); Mean Corpuscular Volume 113.0 fl (80-100); Nucleated Red Blood Cells Absolute Auto 0.000 K/mm3 (0.0-0.012); Nucleated Red Blood Cells Perc 0.0 % (0.0-0.2); Platelet Count Result 534 k/mm3 (150-375); Red Blood Count 2.38 M/mm3 (4.2-5.4); White Blood Count 18.0 K/mm3 (4.5-10.0)
[2025-01-23 04:31] LABS: Anion Gap 6 mmol/L (4-12); Blood Urea Nitrogen 16 mg/dL (7-17); Calcium 7.7 mg/dL (8.4-10.2); Carbon Dioxide 25 mmol/L (22-30); Chloride 98 mmol/L (98-107); Estimated CRCL calculation 59 ml/min; Estimated Glomerular Filt Rate > 60; Glucose 103 mg/dL (65-110); Potassium 4.1 mmol/L (3.4-5.0); Sodium 129 mmol/L (137-145)
[2025-01-23 04:39] LABS: Burr Cells 1+; Hypochromasia 1+; Ovalocytes 1+; Schistocytes None Seen; Target Cells Occasional
[2025-01-23] MEDS: metroNIDAZOLE 500 MG/ISO 100ML 500 MG/100 ML BAG 100 MG IVPB (05:21)
[2025-01-23] MEDS: SODIUM CHLORIDE 0.9% IV 1,000 ML 100 ML IV CONT ×2 (06:54→18:00)
[2025-01-23] MEDS: PANTOPRAZOLE SODIUM IV 40 MG VIAL IV PUSH ×2 (08:14→20:49)
[2025-01-23] MEDS: ENOXAPARIN 40 MG/0.4 ML SYRINGE SUB-Q (08:14)
--- NOTE | 2025-01-23 10:35 | P.PNIM_ITS ---
Progress Note: A&P Assessment and Plan (1) Gastric perforation: Code(s): K25.5 - Chronic or unspecified gastric ulcer with perforation Status: Acute Assessment and Plan: Surgery consulted S/P surgery Exploratory laparotomy on 01/22/2025 IV Rocephin, Zosyn and Flagyl IVF IV Protonix b.i.d. TEJA drain care NG tube to suction (2) Hyponatremia: Code(s): E87.1 - Hypo-osmolality and hyponatremia Status: Acute Assessment and Plan: IVF Repeat BMP after or (3) Hypokalemia: Code(s): E87.6 - Hypokalemia Status: Acute Assessment and Plan: Repleted prior to surgery BMP in the morning (4) Anemia: Code(s): D64.9 - Anemia, unspecified Status: Acute Assessment and Plan: Anemia workup pending Repeat BMP and CBC after or (5) Colitis: Code(s): K52.9 - Noninfective gastroenteritis and colitis, unspecified Status: Acute Assessment and Plan: Antibiotics as above Stool sample (6) Anxiety: Code(s): F41.9 - Anxiety disorder, unspecified Status: Acute Assessment and Plan: Currently holding home medications until okay by surgery (7) Hypertension: Code(s): I10 - Essential (primary) hypertension Status: Acute Assessment and Plan: Holding oral medications Hydralazine p.r.n. Subjective Date/time seen: 01/23/25 10:35 Interval history: Patient was seen during the morning rounds today. S/P surgery, pain is controlled. No sob or chest pain Review of Systems Review of Systems: 12 systems were reviewed and are negativ e except for as per HPI. Exam Narrative: General: well appearing, appears stated age. HEENT: normocephalic, atraumatic. Mucous membranes moist. EOMI, PERRLA, bilateral sclera anicteric, no conjunctival injection. Neck supple without JVD, lymphadenopathy, or bruit. NG tube with thick output Respiratory: clear to ascultation bilaterally. No rales/rhonic/wheezes. Cardiovascular: Regular rate and rhythm, normal S1-S2 upon ascultation. No murmurs, rubs, or clicks. PMI is nondisplaced, capillary refill less than 3 second. Abdomen: Soft, round, no pulsatile masses, nondistended No rebound, no guarding. Bowel sounds present to all four quadrants. No high pitch or tinkling sounds, resonant to percussion. Surgical site with dressing clean dry intact, TEJA drain with milky output Extremities: No cyanosis, clubbing, or edema present. Pulses are palpable 2/2. Active ROM to all four extremities. Neuro: Alert and orientated x 4. PERRLA. Cranial nerves 2-12 intact without focal deficit. Skin: Warm, dry, and intact, without rash, erythema, or lesion. Psych: pleasant, cooperative, normal speech, normal affect, no hallucinations, no dysarthia Objective Data Vital Signs Vital Signs: Vital Signs - 24 hr 01/22/25 11:23 01/22/25 11:32 01/22/25 11:36 Temperature 36.6 C 36.6 C Pulse Rate 123 H 106 H Respiratory Rate 35 H 29 H Blood Pressure 92/74 L 106/88 Pulse Oximetry 99 100 100 Oxygen Delivery Room Air Room Air Room Air Oxygen Flow Rate 01/22/25 11:53 01/22/25 11:53 01/22/25 15:07 Temperature 36.6 C 36.6 C Pulse Rate 91 91 101 H Respiratory Rate 17 16 Blood Pressure 117/90 116/90 Pulse Oximetry 100 95 Oxygen Delivery Room Air Oxygen Flow Rate 01/22/25 16:31 01/22/25 16:45 01/22/25 17:00 Temperature 36.4 C 36.4 C Pulse Rate 102 H 93 97 Respiratory Rate 16 14 18 Blood Pressure 149/97 H 150/103 H 147/91 H Pulse Oximetry 100 100 100 Oxygen Delivery Simple Face Mask Simple Face Mask Nasal Cannula Oxygen Flow Rate 8 8 2 01/22/25 17:15 01/22/25 17:30 01/22/25 18:00 Temperature 36.6 C Pulse Rate 94 90 113 H Respiratory Rate 18 18 Blood Pressure 143/97 H 138/78 Pulse Oximetry 100 95 Oxygen Delivery Nasal Cannula Nasal Cannula Oxygen Flow Rate 2 2 01/22/25 19:56 01/22/25 20:00 01/22/25 20:00 Temperature 36.4 C Pulse Rate 114 H 106 H Respiratory Rate 16 Blood Pressure 116/85 Pulse Oximetry 100 Oxygen Delivery Room Air Oxygen Flow Rate 01/22/25 22:00 01/23/25 00:00 01/23/25 00:00 Temperature Pulse Rate 108 H 109 H Respiratory Rate Blood Pressure Pulse Oximetry Oxygen Delivery Room Air Oxygen Flow Rate 01/23/25 00:37 01/23/25 02:00 01/23/25 04:00 Temperature 36.5 C Pulse Rate 112 H 105 H Respiratory Rate 20 Blood Pressure 109/75 Pulse Oximetry 98 Oxygen Delivery Room Air Oxygen Flow Rate 01/23/25 04:00 01/23/25 04:20 01/23/25 06:00 Temperature 36.6 C Pulse Rate 109 H 111 H 101 H Respiratory Rate 20 Blood Pressure 105/75 Pulse Oximetry 92 Oxygen Delivery Oxygen Flow Rate 01/23/25 08:00 01/23/25 08:00 01/23/25 10:00 Temperature 36.4 C Pulse Rate 110 H 107 H 109 H Respiratory Rate 20 Blood Pressure 112/74 Pulse Oximetry 91 Oxygen Delivery Oxygen Flow Rate Intake/Output Intake/Output: Intake & Output 01/20/25 01/21/25 01/22/25 01/23/25 23:59 23:59 23:59 23:59 Intake Total 1545.0 843.4 Output Total 380 295 Balance 1165.0 548.4 Meds/Results Medications: Active Medications Generic Name Dose Route Start Last Admin Trade Name Freq PRN Reason Stop Dose Admin Enoxaparin Sodium 40 mg 01/23/25 09:00 01/23/25 08:14 Enoxaparin 40 Mg/0.4 Ml Syringe SUB-Q 40 mg DAILY NATHEN Administration Hydralazine HCl 10 mg 01/22/25 22:51 Hydralazine Hcl 20 Mg/Ml Vial IV PUSH Q8H PRN Blood Pressure - High Hydromorphone HCl 1 mg 01/22/25 16:24 01/23/25 08:14 Hydromorphone Hcl Inj (*Crx) 1 Mg/Ml Syr IV PUSH 1 mg Q2H PRN Administration Breakthrough Pain Rated 7-10 or NPO Hydromorphone HCl 0.5 mg 01/22/25 16:24 Hydromorphone Hcl Inj (*Crx) 1 Mg/Ml Syr IV PUSH Q2H PRN Breakthrough Pain Rated 4-6 or NPO Piperacillin Sod/Tazobactam 50 mls @ 100 mls/hr 01/22/25 21:00 01/23/25 08:14 Sod 3.375 gm/ Sodium Chloride IVPB 100 mls/hr Q6H NATHEN Administration Sodium Chloride 1,000 mls @ 100 mls/hr 01/22/25 17:25 01/23/25 06:54 Normal Saline Iv IV CONT 100 mls/hr .Q10H NATHEN Administration Naloxone HCl 0.1 mg 01/22/25 16:24 Naloxone Hcl 0.4 Mg/Ml Vial IV PUSH Q2M PRN Opiate Reversal Ondansetron HCl 4 mg 01/22/25 16:24 Ondansetron Inj 4 Mg/2 Ml Vial IV PUSH Q4H PRN Nausea And Vomiting Pantoprazole Sodium 40 mg 01/22/25 21:00 01/23/25 08:14 Pantoprazole Sodium Iv 40 Mg Vial IV PUSH 40 mg Q12HR NATHEN Administration Radiology Results: ITS Impressions Chest X-Ray 01/22/25 11:32 IMPRESSION: 1: No acute pulmonary process identified. Abdomen/Pelvis CT 01/22/25 12:56 IMPRESSION: 1. Hollow viscus perforation with free air. Urgent surgical consultation required. 2. Site of perforation appears to be gastric ulcer. 3. Diffuse enterocolitis most likely Crohn's disease. Labs Labs: Laboratory Results - last 24 hr 01/22/25 01/22/25 01/22/25 11:04 12:42 13:39 WBC 15.0 H RBC 2.80 L Hgb 10.1 L Hct 30.0 L MCV 107.1 H MCH 36.1 H MCHC 33.7 RDW 14.0 Plt Count 692 H MPV 8.6 Immature Gran % (Auto) 0.5 Neut % (Auto) 94.5 H Lymph % (Auto) 2.7 L [place] % (Auto) 2.0 L Eos % (Auto) 0.0 Baso % (Auto) 0.3 Lymph # (Auto) 0.40 L [place] # (Auto) 0.3 Eos # (Auto) 0.0 Baso # (Auto) 0.0 Abs Immat Gran (auto) 0.08 H Absolute Neuts (auto) 14.2 H Absolute Nucleated RBC 0.000 Band Neutrophils % Not Reportable Nucleated RBC % 0.0 Platelet Estimate Increased Hypochromasia Occasional Macrocytosis Occasional Target Cells Ovalocytes Early Cells Schistocytes None seen PT 12.9 INR 1.0 APTT 28.2 Sodium 128 L Potassium 2.8 L* Chloride 89 L Carbon Dioxide 31 H Anion Gap 8 BUN 11 D Creatinine 0.77 Estim Creat Clear Calc 70 Estimated GFR > 60 Glucose 116 H Lactic Acid 2.6 H Calcium 9.4 Iron TIBC % Saturation Ferritin Total Bilirubin 0.6 AST 45 H ALT 20 Alkaline Phosphatase 84 Troponin I < 0.012 < 0.012 Total Protein 6.7 Albumin 3.6 Lipase 80 Vitamin B12 Folate TSH (Reflex) Influenza A (RT-PCR) Negative Influenza B (RT-PCR) Negative RSV (RT-PCR) Negative SARS-CoV-2 RNA (RT-PCR) Negative 01/22/25 01/23/25 18:06 04:03 WBC 13.6 H 18.0 H RBC 2.78 L 2.38 L Hgb 9.9 L 8.7 L Hct 30.3 L 26.9 L MCV 109.0 H 113.0 H MCH 35.6 H 36.6 H MCHC 32.7 32.3 RDW 14.6 H 14.8 H Plt Count 659 H 534 H MPV 8.3 8.5 Immature Gran % (Auto) 0.1 0.4 Neut % (Auto) 94.7 H 90.5 H Lymph % (Auto) 3.4 L 4.2 L [place] % (Auto) 1.5 L 4.4 Eos % (Auto) 0.0 0.3 Baso % (Auto) 0.3 0.2 Lymph # (Auto) 0.46 L 0.76 L [place] # (Auto) 0.2 0.8 H Eos # (Auto) 0.0 0.1 Baso # (Auto) 0.0 0.0 Abs Immat Gran (auto) 0.02 0.08 H Absolute Neuts (auto) 12.9 H 16.3 H Absolute Nucleated RBC 0.000 0.000 Band Neutrophils % Not Reportable Not Reportable Nucleated RBC % 0.0 0.0 Platelet Estimate Increased Increased Hypochromasia 1+ Macrocytosis 1+ Target Cells Occasional Ovalocytes 1+ Early Cells 1+ Schistocytes None seen None seen PT INR APTT Sodium 130 L 129 L Potassium 4.0 4.1 Chloride 95 L 98 Carbon Dioxide 25 25 Anion Gap 10 6 BUN 12 16 Creatinine 0.71 0.92 Estim Creat Clear Calc 75 59 Estimated GFR > 60 > 60 Glucose 108 103 Lactic Acid 3.0 H Calcium 8.2 L 7.7 L Iron 23 L TIBC 194 L % Saturation 12 L Ferritin 433.00 H Total Bilirubin AST ALT Alkaline Phosphatase Troponin I < 0.012 Total Protein Albumin Lipase Vitamin B12 > 1000.0 H Folate 3.7 TSH (Reflex) 2.850 Influenza A (RT-PCR) Influenza B (RT-PCR) RSV (RT-PCR) SARS-CoV-2 RNA (RT-PCR) Quality VTE Prophylaxis VTE prophylaxis: mechanical ordered
--- NOTE | 2025-01-23 14:32 | WPDANESPN ---
Anes - Prog Note Post-Op Date/Time: 01/23/25 14:32 Cardiovascular status: normal Respiratory status: normal Airway patency: baseline Mental status: baseline Vital Signs: Last Vital Signs Temp 36.4 C 01/23/25 12:00 Pulse 101 H 01/23/25 13:54 Resp 20 01/23/25 12:00 BP 125/78 01/23/25 12:00 Pulse Ox 96 01/23/25 12:00 O2 Del Method Room Air 01/23/25 04:00 O2 Flow Rate 2 01/22/25 17:30 Pain Score (VAS): 4 I/O: Intake & Output 01/22/25 01/23/25 01/23/25 23:59 07:59 15:59 Intake Total 445.0 843.4 50 Output Total 380 280 15 Balance 65.0 563.4 35 Laboratory Tests 01/23/25 04:03 01/23/25 04:03 01/22/25 01/23/25 18:06 04:03 WBC 13.6 H 18.0 H RBC 2.78 L 2.38 L Hgb 9.9 L 8.7 L Hct 30.3 L 26.9 L MCV 109.0 H 113.0 H MCH 35.6 H 36.6 H MCHC 32.7 32.3 RDW 14.6 H 14.8 H Plt Count 659 H 534 H MPV 8.3 8.5 Immature Gran % (Auto) 0.1 0.4 Neut % (Auto) 94.7 H 90.5 H Lymph % (Auto) 3.4 L 4.2 L [place] % (Auto) 1.5 L 4.4 Eos % (Auto) 0.0 0.3 Baso % (Auto) 0.3 0.2 Lymph # (Auto) 0.46 L 0.76 L [place] # (Auto) 0.2 0.8 H Eos # (Auto) 0.0 0.1 Baso # (Auto) 0.0 0.0 Abs Immat Gran (auto) 0.02 0.08 H Absolute Neuts (auto) 12.9 H 16.3 H Absolute Nucleated RBC 0.000 0.000 Band Neutrophils % Not Reportable Not Reportable Nucleated RBC % 0.0 0.0 Platelet Estimate Increased Increased Hypochromasia 1+ Macrocytosis 1+ Target Cells Occasional Ovalocytes 1+ [place] Cells 1+ Schistocytes None seen None seen Sodium 130 L 129 L Potassium 4.0 4.1 Chloride 95 L 98 Carbon Dioxide 25 25 Anion Gap 10 6 BUN 12 16 Creatinine 0.71 0.92 Estim Creat Clear Calc 75 59 Estimated GFR > 60 > 60 Glucose 108 103 Lactic Acid 3.0 H Calcium 8.2 L 7.7 L Iron 23 L TIBC 194 L % Saturation 12 L Ferritin 433.00 H Troponin I < 0.012 Vitamin B12 > 1000.0 H Folate 3.7 TSH (Reflex) 2.850 Patient Feedback: Patient satisfied with anesthetic care.
[2025-01-24] VITALS (15 sets, daily range): BP systolic 115–155; BP diastolic 9–98; PULSE 86–107; RESP 15–18; TEMP 36.6–36.8; O2SAT 90–100
[2025-01-24] MEDS: HYDROmorphone HCL INJ (*CRX) 1 MG/ML SYR IV PUSH ×7 (01:24→23:38)
[2025-01-24] MEDS: PIPERACILLIN/TAZOBACTAM SOD 3.375 GM in SODIUM CHLORIDE 0.9% IV 50 ML 100 ML IVPB ×4 (03:02→21:28)
[2025-01-24 04:22] LABS: Hematocrit 22.5 % (37.0-47.0); Hemoglobin 7.4 g/dL (12.0-15.0); Immature Granulocyte Percent A 1.5 % (0-0.5); Lymphocytes Absolute Auto 0.98 K/mm3 (0.9-3.2); Mean Corpuscular HGB Conc 32.9 g/dl (32-36); Mean Corpuscular Hemoglobin 36.3 pg (26-34); Mean Corpuscular Volume 110.3 fl (80-100); Nucleated Red Blood Cells Absolute Auto 0.000 K/mm3 (0.0-0.012); Nucleated Red Blood Cells Perc 0.0 % (0.0-0.2); Platelet Count Result 444 k/mm3 (150-375); Red Blood Count 2.04 M/mm3 (4.2-5.4); White Blood Count 16.2 K/mm3 (4.5-10.0)
[2025-01-24 04:44] LABS: Alanine Aminotransferase 12 U/L (6-35); Albumin Level 2.4 g/dL (3.5-5.1); Alkaline Phosphatase 70 U/L (38-126); Anion Gap 6 mmol/L (4-12); Aspartate Amino Transferase 38 U/L (14-36); Bilirubin,Total 0.3 mg/dL (0.2-1.3); Blood Urea Nitrogen 19 mg/dL (7-17); Calcium 7.5 mg/dL (8.4-10.2); Carbon Dioxide 25 mmol/L (22-30); Chloride 98 mmol/L (98-107); Estimated CRCL calculation 60 ml/min; Estimated Glomerular Filt Rate > 60; Glucose 79 mg/dL (65-110); Potassium 3.2 mmol/L (3.4-5.0); Sodium 129 mmol/L (137-145); Total Protein 5.0 g/dL (6.3-8.2)
[2025-01-24] MEDS: SODIUM CHLORIDE 0.9% IV 1,000 ML 100 ML IV CONT (04:49)
[2025-01-24] MEDS: ENOXAPARIN 40 MG/0.4 ML SYRINGE SUB-Q (09:45)
[2025-01-24] MEDS: PANTOPRAZOLE SODIUM IV 40 MG VIAL IV PUSH ×2 (09:45→21:23)
--- NOTE | 2025-01-24 10:27 | P.PNIM_ITS ---
Progress Note: A&P Assessment and Plan (1) Gastric perforation: Code(s): K25.5 - Chronic or unspecified gastric ulcer with perforation Status: Acute Assessment and Plan: Surgery consulted,S/P Exploratory laparotomy on 01/22/2025 IV Rocephin, Zosyn and Flagyl IVF IV Protonix b.i.d. TEJA drain care NG tube to suction start PPN Upper GI series study with contrast on Sunday, and then she will remain NPO Dressing change after the surgeon evaluation (2) Hyponatremia: Code(s): E87.1 - Hypo-osmolality and hyponatremia Status: Acute Assessment and Plan: Hyponatremia seems chronic Sodium 129 which is stable Follow serum osmolar, urine osmolality and urine random sodium (3) Hypokalemia: Code(s): E87.6 - Hypokalemia Status: Acute Assessment and Plan: Resolved (4) Anemia: Code(s): D64.9 - Anemia, unspecified Status: Acute Assessment and Plan: Iron study shows iron 23, 194 and % transferrin saturation 12- There is a component of iron deficiency anemia and anemia of chronic disease Start IV iron 300 mg a day for 3 days (5) Colitis: Code(s): K52.9 - Noninfective gastroenteritis and colitis, unspecified Status: Acute Assessment and Plan: Antibiotics as above Stool sample (6) Anxiety: Code(s): F41.9 - Anxiety disorder, unspecified Status: Acute Assessment and Plan: Currently holding home medications until okay by surgery (7) Hypertension: Code(s): I10 - Essential (primary) hypertension Status: Acute Assessment and Plan: Holding oral medications Hydralazine p.r.n. Subjective Date/time seen: 01/24/25 10:27 Interval history: She still has abdominal tenderness from the surgical site. She thinks abdomen is swallow. Denies nausea or vomiting. She reports anorexia. Denies fever overnight. Exam Narrative: APPEARANCE: No acute distress, nontoxic, NG tube placed EYES: EOMI HEENT: Normocephalic, atraumatic, OMM RESPIRATORY: No respiratory distress Clear to auscultation bilaterally with no rhonchi wheezing or rales. CARDIOVASCULAR: RRR, S1 and S2 without murmurs rubs or gallops. ABDOMINAL: Abdomen tenderness to palpation, no guarding or peritonitis MSK: Normal range of motion NEURO: Awake and alert. Following commands, speech normal, no focal deficits SKIN:: Warm, dry. No rashes lesions or abrasions PSYCHIATRIC: Normal affect/mood Objective Data Vital Signs Vital Signs: Vital Signs - 24 hr 01/23/25 12:00 01/23/25 12:00 01/23/25 13:54 Temperature 36.4 C Pulse Rate 104 H 102 H 101 H Respiratory Rate 20 Blood Pressure 125/78 Pulse Oximetry 96 Oxygen Delivery 01/23/25 16:00 01/23/25 16:00 01/23/25 18:00 Temperature 36.4 C Pulse Rate 97 122 H 95 Respiratory Rate 20 Blood Pressure 135/92 H Pulse Oximetry 93 Oxygen Delivery 01/23/25 20:00 01/23/25 20:00 01/23/25 20:11 Temperature Pulse Rate 99 Respiratory Rate Blood Pressure Pulse Oximetry 94 Oxygen Delivery Room Air Room Air 01/23/25 20:32 01/23/25 22:00 01/23/25 23:38 Temperature 36.8 C 36.7 C Pulse Rate 98 98 96 Respiratory Rate 18 18 Blood Pressure 138/91 H 126/94 H Pulse Oximetry 94 95 Oxygen Delivery 01/24/25 00:00 01/24/25 00:00 01/24/25 02:00 Temperature Pulse Rate 86 91 Respiratory Rate Blood Pressure Pulse Oximetry Oxygen Delivery Room Air 01/24/25 04:00 01/24/25 04:00 01/24/25 04:35 Temperature 36.6 C Pulse Rate 94 98 Respiratory Rate 15 Blood Pressure 115/78 Pulse Oximetry 95 Oxygen Delivery Room Air 01/24/25 06:00 01/24/25 08:00 01/24/25 08:00 Temperature 36.8 C Pulse Rate 90 93 Respiratory Rate 16 Blood Pressure 126/85 Pulse Oximetry 100 Oxygen Delivery Room Air Intake/Output Intake/Output: Intake & Output 01/21/25 01/22/25 01/23/25 01/24/25 23:59 23:59 23:59 23:59 Intake Total 1545.0 1993.4 1350 Output Total 380 490 645 Balance 1165.0 1503.4 705 Meds/Results Medications: Active Medications Generic Name Dose Route Start Last Admin Trade Name Freq PRN Reason Stop Dose Admin Enoxaparin Sodium 40 mg 01/23/25 09:00 01/24/25 09:45 Enoxaparin 40 Mg/0.4 Ml Syringe SUB-Q 40 mg DAILY NATHEN Administration Hydralazine HCl 10 mg 01/22/25 22:51 Hydralazine Hcl 20 Mg/Ml Vial IV PUSH Q8H PRN Blood Pressure - High Hydromorphone HCl 1 mg 01/22/25 16:24 01/24/25 09:45 Hydromorphone Hcl Inj (*Crx) 1 Mg/Ml Syr IV PUSH 1 mg Q2H PRN Administration Breakthrough Pain Rated 7-10 or NPO Hydromorphone HCl 0.5 mg 01/22/25 16:24 Hydromorphone Hcl Inj (*Crx) 1 Mg/Ml Syr IV PUSH Q2H PRN Breakthrough Pain Rated 4-6 or NPO Piperacillin Sod/Tazobactam 50 mls @ 100 mls/hr 01/22/25 21:00 01/24/25 09:46 Sod 3.375 gm/ Sodium Chloride IVPB 100 mls/hr Q6H NATHEN Administration Sodium Chloride 1,000 mls @ 100 mls/hr 01/22/25 17:25 01/24/25 04:49 Normal Saline Iv IV CONT 100 mls/hr .Q10H NATHEN Administration Naloxone HCl 0.1 mg 01/22/25 16:24 Naloxone Hcl 0.4 Mg/Ml Vial IV PUSH Q2M PRN Opiate Reversal Ondansetron HCl 4 mg 01/22/25 16:24 Ondansetron Inj 4 Mg/2 Ml Vial IV PUSH Q4H PRN Nausea And Vomiting Pantoprazole Sodium 40 mg 01/22/25 21:00 01/24/25 09:45 Pantoprazole Sodium Iv 40 Mg Vial IV PUSH 40 mg Q12HR NATHEN Administration Radiology Results: ITS Impressions Chest X-Ray 01/22/25 11:32 IMPRESSION: 1: No acute pulmonary process identified. Abdomen/Pelvis CT 01/22/25 12:56 IMPRESSION: 1. Hollow viscus perforation with free air. Urgent surgical consultation required. 2. Site of perforation appears to be gastric ulcer. 3. Diffuse enterocolitis most likely Crohn's disease. Labs Labs: Laboratory Results - last 24 hr 01/24/25 03:55 WBC 16.2 H RBC 2.04 L Hgb 7.4 L Hct 22.5 L MCV 110.3 H MCH 36.3 H MCHC 32.9 RDW 13.8 Plt Count 444 H MPV 8.5 Immature Gran % (Auto) 1.5 H Neut % (Auto) 87.4 H Lymph % (Auto) 6.1 L [place] % (Auto) 4.4 Eos % (Auto) 0.4 Baso % (Auto) 0.2 Lymph # (Auto) 0.98 [place] # (Auto) 0.7 H Eos # (Auto) 0.1 Baso # (Auto) 0.0 Abs Immat Gran (auto) 0.24 H Absolute Neuts (auto) 14.2 H Absolute Nucleated RBC 0.000 Nucleated RBC % 0.0 Sodium 129 L Potassium 3.2 L Chloride 98 Carbon Dioxide 25 Anion Gap 6 BUN 19 H Creatinine 0.91 Estim Creat Clear Calc 60 Estimated GFR > 60 Glucose 79 Calcium 7.5 L Total Bilirubin 0.3 AST 38 H ALT 12 Alkaline Phosphatase 70 Total Protein 5.0 L Albumin 2.4 L Quality VTE Prophylaxis VTE prophylaxis: mechanical ordered
[2025-01-24 12:20] LABS: Hematocrit 25.4 % (37.0-47.0); Hemoglobin 8.2 g/dL (12.0-15.0); Immature Granulocyte Percent A 1.3 % (0-0.5); Lymphocytes Absolute Auto 0.80 K/mm3 (0.9-3.2); Mean Corpuscular HGB Conc 32.3 g/dl (32-36); Mean Corpuscular Hemoglobin 35.7 pg (26-34); Mean Corpuscular Volume 110.4 fl (80-100); Nucleated Red Blood Cells Absolute Auto 0.000 K/mm3 (0.0-0.012); Nucleated Red Blood Cells Perc 0.0 % (0.0-0.2); Platelet Count Result 455 k/mm3 (150-375); Red Blood Count 2.30 M/mm3 (4.2-5.4); White Blood Count 18.3 K/mm3 (4.5-10.0)
[2025-01-24 12:45] LABS: Hypochromasia 1+; Macrocytosis 1+ (NORMAL); Schistocytes None Seen
[2025-01-24 12:46] LABS: Partial Thromboplastin Time 63.1 Seconds (22.3-36.8)
[2025-01-24 12:57] LABS: Alanine Aminotransferase 13 U/L (6-35); Albumin Level 2.7 g/dL (3.5-5.1); Alkaline Phosphatase 65 U/L (38-126); Anion Gap 9 mmol/L (4-12); Aspartate Amino Transferase 40 U/L (14-36); Bilirubin,Total 0.6 mg/dL (0.2-1.3); Blood Urea Nitrogen 18 mg/dL (7-17); Calcium 7.8 mg/dL (8.4-10.2); Carbon Dioxide 21 mmol/L (22-30); Chloride 100 mmol/L (98-107); Estimated CRCL calculation 67 ml/min; Estimated Glomerular Filt Rate > 60; Glucose 72 mg/dL (65-110); Magnesium 1.6 mg/dL (1.6-2.3); Potassium 3.3 mmol/L (3.4-5.0); Sodium 130 mmol/L (137-145); Total Protein 5.7 g/dL (6.3-8.2)
--- NOTE | 2025-01-24 13:13 | P.PNGS_ITS ---
Progress Note: A&P Assessment and Plan (1) Perforated gastric ulcer: Qualifiers: Gastric ulcer chronicity: acute Qualified Code(s): K25.1 - Acute gastric ulcer with perforation Code(s): K25.5 - Chronic or unspecified gastric ulcer with perforation Status: Acute Assessment and Plan: * Continue PPI and Zosyn * If WBC remains elevated tomorrow, might need to consider expanding antimicrobial coverage to include anti-fungal * Discussed with Hospitalist, starting PPN today since patient will remain NPO at least another 48 hours. * Will plan for UGI water soluble contrast on Sunday. (2) Tobacco dependence: Code(s): F17.200 - Nicotine dependence, unspecified, uncomplicated Status: Acute Subjective Subjective Date/Time Seen: 01/24/25 13:13 Interval history: Still having pain, but tolerable with current meds. No flatus or BM yet. Denies fevers. Exam GI: Inspection: non-distended, incision (intact) and other (TEJA mostly serous) GI Palp: Yes Soft to palpation and Yes Tenderness to palpation present (GI) (incisional) Auscultation: Hypoactive bowel sounds present Objective Data Vital Signs Vital Signs: Vital Signs - 24 hr 01/23/25 13:54 01/23/25 16:00 01/23/25 16:00 Temperature 97.6 F Pulse Rate 101 H 97 122 H Respiratory Rate 20 Blood Pressure 135/92 H Pulse Oximetry 93 Oxygen Delivery 01/23/25 18:00 01/23/25 20:00 01/23/25 20:00 Temperature Pulse Rate 95 99 Respiratory Rate Blood Pressure Pulse Oximetry Oxygen Delivery Room Air 01/23/25 20:11 01/23/25 20:32 01/23/25 22:00 Temperature 98.2 F Pulse Rate 98 98 Respiratory Rate 18 Blood Pressure 138/91 H Pulse Oximetry 94 94 Oxygen Delivery Room Air 01/23/25 23:38 01/24/25 00:00 01/24/25 00:00 Temperature 98.1 F Pulse Rate 96 86 Respiratory Rate 18 Blood Pressure 126/94 H Pulse Oximetry 95 Oxygen Delivery Room Air 01/24/25 02:00 01/24/25 04:00 01/24/25 04:00 Temperature Pulse Rate 91 94 Respiratory Rate Blood Pressure Pulse Oximetry Oxygen Delivery Room Air 01/24/25 04:35 01/24/25 06:00 01/24/25 08:00 Temperature 97.8 F 98.2 F Pulse Rate 98 90 93 Respiratory Rate 15 16 Blood Pressure 115/78 126/85 Pulse Oximetry 95 100 Oxygen Delivery 01/24/25 08:00 01/24/25 08:00 01/24/25 10:00 Temperature Pulse Rate 100 99 Respiratory Rate Blood Pressure Pulse Oximetry Oxygen Delivery Room Air 01/24/25 12:00 01/24/25 12:00 01/24/25 12:00 Temperature 97.8 F Pulse Rate 94 96 Respiratory Rate 18 Blood Pressure 155/9 H Pulse Oximetry 100 Oxygen Delivery Room Air Intake/Output Intake/Output: Intake & Output 01/21/25 01/22/25 01/23/25 01/24/25 23:59 23:59 23:59 23:59 Intake Total 1545.0 1993.4 1350 Output Total 380 490 645 Balance 1165.0 1503.4 705 Meds/Results Medications: Active Medications Generic Name Dose Route Start Last Admin Trade Name Freq PRN Reason Stop Dose Admin Enoxaparin Sodium 40 mg 01/23/25 09:00 01/24/25 09:45 Enoxaparin 40 Mg/0.4 Ml Syringe SUB-Q 40 mg DAILY NATHEN Administration Hydralazine HCl 10 mg 01/22/25 22:51 Hydralazine Hcl 20 Mg/Ml Vial IV PUSH Q8H PRN Blood Pressure - High Hydromorphone HCl 1 mg 01/22/25 16:24 01/24/25 09:45 Hydromorphone Hcl Inj (*Crx) 1 Mg/Ml Syr IV PUSH 1 mg Q2H PRN Administration Breakthrough Pain Rated 7-10 or NPO Hydromorphone HCl 0.5 mg 01/22/25 16:24 Hydromorphone Hcl Inj (*Crx) 1 Mg/Ml Syr IV PUSH Q2H PRN Breakthrough Pain Rated 4-6 or NPO Piperacillin Sod/Tazobactam 50 mls @ 100 mls/hr 01/22/25 21:00 01/24/25 09:46 Sod 3.375 gm/ Sodium Chloride IVPB 100 mls/hr Q6H NATHEN Administration Sodium Chloride 1,000 mls @ 100 mls/hr 01/22/25 17:25 01/24/25 04:49 Normal Saline Iv IV CONT 100 mls/hr .Q10H NATHEN Administration Dextrose 1,000 mls @ 50 mls/hr 01/24/25 11:58 Dextrose 10% IV CONT .Q20H PRN if PN is interrupted Amino Acids/Electrolytes/Dextrose 1,000 mls @ 80 mls/hr 01/24/25 12:00 Clinimix E 4.25%/5% Solution IV CONT .[id number] [facility] Protocol Iron Sucrose 200 mg/ Iron 265 mls @ 176.667 mls/hr 01/24/25 14:00 Sucrose 100 mg/ Sodium IVPB 01/26/25 15:29 Chloride Q24H NATHEN Fat Emulsion Intravenous 250 mls @ 20.833 mls/hr 01/24/25 14:00 Lipids 20% IVPB Q24H NATHEN Naloxone HCl 0.1 mg 01/22/25 16:24 Naloxone Hcl 0.4 Mg/Ml Vial IV PUSH Q2M PRN Opiate Reversal Ondansetron HCl 4 mg 01/22/25 16:24 Ondansetron Inj 4 Mg/2 Ml Vial IV PUSH Q4H PRN Nausea And Vomiting Pantoprazole Sodium 40 mg 01/22/25 21:00 01/24/25 09:45 Pantoprazole Sodium Iv 40 Mg Vial IV PUSH 40 mg Q12HR NATHEN Administration Radiology Results: ITS Impressions Chest X-Ray 01/22/25 11:32 IMPRESSION: 1: No acute pulmonary process identified. Abdomen/Pelvis CT 01/22/25 12:56 IMPRESSION: 1. Hollow viscus perforation with free air. Urgent surgical consultation required. 2. Site of perforation appears to be gastric ulcer. 3. Diffuse enterocolitis most likely Crohn's disease. Labs Labs: Laboratory Results - last 24 hr 01/24/25 01/24/25 03:55 12:13 WBC 16.2 H 18.3 H RBC 2.04 L 2.30 L Hgb 7.4 L 8.2 L Hct 22.5 L 25.4 L MCV 110.3 H 110.4 H MCH 36.3 H 35.7 H MCHC 32.9 32.3 RDW 13.8 13.6 Plt Count 444 H 455 H MPV 8.5 8.3 Immature Gran % (Auto) 1.5 H 1.3 H Neut % (Auto) 87.4 H 89.3 H Lymph % (Auto) 6.1 L 4.4 L [place] % (Auto) 4.4 4.4 Eos % (Auto) 0.4 0.4 Baso % (Auto) 0.2 0.2 Lymph # (Auto) 0.98 0.80 L [place] # (Auto) 0.7 H 0.8 H Eos # (Auto) 0.1 0.1 Baso # (Auto) 0.0 0.0 Abs Immat Gran (auto) 0.24 H 0.23 H Absolute Neuts (auto) 14.2 H 16.4 H Absolute Nucleated RBC 0.000 0.000 Band Neutrophils % Not Reportable Nucleated RBC % 0.0 0.0 Platelet Estimate Increased Hypochromasia 1+ Macrocytosis 1+ Schistocytes None seen APTT 63.1 H Sodium 129 L 130 L Potassium 3.2 L 3.3 L Chloride 98 100 Carbon Dioxide 25 21 L Anion Gap 6 9 BUN 19 H 18 H Creatinine 0.91 0.80 Estim Creat Clear Calc 60 67 Estimated GFR > 60 > 60 Glucose 79 72 Calcium 7.5 L 7.8 L Magnesium 1.6 Total Bilirubin 0.3 0.6 AST 38 H 40 H ALT 12 13 Alkaline Phosphatase 70 65 Total Protein 5.0 L 5.7 L Albumin 2.4 L 2.7 L
[2025-01-24] MEDS: AMINO ACIDS 4.25%/D5W/LYTES/CA 1,000 ML 80 ML IV CONT (13:42)
[2025-01-24] MEDS: IRON SUCROSE COMPLEX 200 MG, IRON SUCROSE COMPLEX 100 MG in SODIUM CHLORIDE 0.9% IV 250 ML 176.67 MG IVPB (14:12)
[2025-01-24] MEDS: FAT EMULSIONS IV 20% 250 ML 20.83 ML IVPB (14:13)
[2025-01-24 14:24] LABS: Transferrin 122 mg/dL (206-381)
[2025-01-25] VITALS (17 sets, daily range): BP systolic 137–155; BP diastolic 91–110; PULSE 96–120; RESP 16–20; TEMP 36.7–37.1; O2SAT 97–100
[2025-01-25] MEDS: PIPERACILLIN/TAZOBACTAM SOD 3.375 GM in SODIUM CHLORIDE 0.9% IV 50 ML 100 ML IVPB ×4 (03:16→22:53)
[2025-01-25] MEDS: AMINO ACIDS 4.25%/D5W/LYTES/CA 1,000 ML 80 ML IV CONT ×2 (04:36→15:50)
[2025-01-25] MEDS: HYDROmorphone HCL INJ (*CRX) 1 MG/ML SYR IV PUSH ×5 (04:41→20:43)
--- NOTE | 2025-01-25 09:05 | P.PNIM_ITS ---
Progress Note: A&P Assessment and Plan (1) Gastric perforation: Code(s): K25.5 - Chronic or unspecified gastric ulcer with perforation Status: Acute Assessment and Plan: on admission, CT A/P shows gastric perforation Surgery consulted,S/P Exploratory laparotomy on 01/22/2025 IV antibiotics de-escalated to only Zosyn IVF, IV Protonix b.i.d.,TEJA drain care NG tube to suction Continue PPN Upper GI series study with contrast on Sunday Dressing change after the surgeon evaluation (2) Hyponatremia: Code(s): E87.1 - Hypo-osmolality and hyponatremia Status: Acute Assessment and Plan: Hyponatremia seems chronic Sodium 129 which is stable Follow serum osmolar, urine osmolality and urine random sodium (3) Hypokalemia: Code(s): E87.6 - Hypokalemia Status: Acute Assessment and Plan: Resolved (4) Anemia: Code(s): D64.9 - Anemia, unspecified Status: Acute Assessment and Plan: Iron study shows iron 23, 194 and % transferrin saturation 12- There is a component of iron deficiency anemia and anemia of chronic disease Continue IV iron 300 mg a day for 3 days (5) Colitis: Code(s): K52.9 - Noninfective gastroenteritis and colitis, unspecified Status: Acute Assessment and Plan: Antibiotics as above Stool sample (6) Anxiety: Code(s): F41.9 - Anxiety disorder, unspecified Status: Acute Assessment and Plan: Currently holding home medications until okay by surgery (7) Hypertension: Code(s): I10 - Essential (primary) hypertension Status: Acute Assessment and Plan: Holding oral medications Hydralazine p.r.n. Plan Up trending leukocytosis Add Flagyl and antifungal : Blood culture, check lactic acid Continue monitoring fever and vital signs Time Spent With Patient Time: 40 minutes Subjective Date/time seen: 01/25/25 09:05 Interval history: Complains abdominal pain /10 sharp, throbbing constant pain without associated nausea and vomiting. She denies fever. No bowel movement. Upper GI series study for tomorrow. A leukocytosis up training. Collect blood culture. Check lactic acid. Broaden antibiotics by adding Flagyl and antifungals. Review of Systems Review of Systems: All systems reviewed & are unremarkable except as noted in HPI and below Exam Narrative: APPEARANCE: No acute distress, nontoxic, NG tube placed EYES: EOMI HEENT: Normocephalic, atraumatic, OMM RESPIRATORY: No respiratory distress Clear to auscultation bilaterally with no rhonchi wheezing or rales. CARDIOVASCULAR: RRR, S1 and S2 without murmurs rubs or gallops. ABDOMINAL: Abdomen tenderness to palpation, no guarding or peritonitis MSK: Normal range of motion NEURO: Awake and alert. Following commands, speech normal, no focal deficits SKIN:: Warm, dry. No rashes lesions or abrasions PSYCHIATRIC: Normal affect/mood Objective Data Vital Signs Vital Signs: Vital Signs - 24 hr 01/24/25 10:00 01/24/25 12:00 01/24/25 12:00 Temperature 36.6 C Pulse Rate 99 94 Respiratory Rate 18 Blood Pressure 155/9 H Pulse Oximetry 100 Oxygen Delivery Room Air 01/24/25 12:00 01/24/25 14:00 01/24/25 15:38 Temperature Pulse Rate 96 107 H Respiratory Rate Blood Pressure Pulse Oximetry Oxygen Delivery Room Air 01/24/25 15:56 01/24/25 16:00 01/24/25 18:00 Temperature 36.7 C Pulse Rate 94 107 H 96 Respiratory Rate 16 Blood Pressure 141/96 H Pulse Oximetry 100 Oxygen Delivery 01/24/25 20:00 01/24/25 20:00 01/24/25 20:00 Temperature 36.8 C Pulse Rate 95 101 H Respiratory Rate 16 Blood Pressure 142/98 H Pulse Oximetry 90 Oxygen Delivery Room Air 01/24/25 21:26 01/24/25 22:00 01/25/25 00:00 Temperature 36.9 C Pulse Rate 105 H 107 H Respiratory Rate 18 Blood Pressure 149/94 H Pulse Oximetry 92 99 Oxygen Delivery Room Air 01/25/25 00:00 01/25/25 00:00 01/25/25 02:00 Temperature Pulse Rate 113 H 112 H Respiratory Rate Blood Pressure Pulse Oximetry Oxygen Delivery Room Air 01/25/25 04:00 01/25/25 04:00 01/25/25 04:00 Temperature 36.9 C Pulse Rate 100 106 H Respiratory Rate 16 Blood Pressure 146/91 H Pulse Oximetry 98 Oxygen Delivery Room Air 01/25/25 06:00 01/25/25 07:58 Temperature 36.7 C Pulse Rate 97 106 H Respiratory Rate 20 Blood Pressure 137/99 H Pulse Oximetry 97 Oxygen Delivery Intake/Output Intake/Output: Intake & Output 01/22/25 01/23/25 01/24/25 01/25/25 23:59 23:59 23:59 23:59 Intake Total 1545.0 1993.4 2711.1 980.7 Output Total 380 490 645 285 Balance 1165.0 1503.4 2066.1 695.7 Meds/Results Medications: Active Medications Generic Name Dose Route Start Last Admin Trade Name Freq PRN Reason Stop Dose Admin Enoxaparin Sodium 40 mg 01/23/25 09:00 01/24/25 09:45 Enoxaparin 40 Mg/0.4 Ml Syringe SUB-Q 40 mg DAILY NATHEN Administration Hydralazine HCl 10 mg 01/22/25 22:51 Hydralazine Hcl 20 Mg/Ml Vial IV PUSH Q8H PRN Blood Pressure - High Hydromorphone HCl 1 mg 01/22/25 16:24 01/25/25 04:41 Hydromorphone Hcl Inj (*Crx) 1 Mg/Ml Syr IV PUSH 1 mg Q2H PRN Administration Breakthrough Pain Rated 7-10 or NPO Hydromorphone HCl 0.5 mg 01/22/25 16:24 Hydromorphone Hcl Inj (*Crx) 1 Mg/Ml Syr IV PUSH Q2H PRN Breakthrough Pain Rated 4-6 or NPO Piperacillin Sod/Tazobactam 50 mls @ 100 mls/hr 01/22/25 21:00 01/25/25 03:46 Sod 3.375 gm/ Sodium Chloride IVPB Infused Q6H NATHEN Infusion Dextrose 1,000 mls @ 50 mls/hr 01/24/25 11:58 Dextrose 10% IV CONT .Q20H PRN if PN is interrupted Amino Acids/Electrolytes/Dextrose 1,000 mls @ 80 mls/hr 01/24/25 12:00 01/25/25 04:36 Clinimix E 4.25%/5% Solution IV CONT 80 mls/hr .[id number] NATHEN Administration Protocol Iron Sucrose 200 mg/ Iron 265 mls @ 176.667 mls/hr 01/24/25 14:00 01/24/25 16:58 Sucrose 100 mg/ Sodium IVPB 01/26/25 15:29 Infused Chloride Q24H NATHEN Infusion Fat Emulsion Intravenous 250 mls @ 20.833 mls/hr 01/24/25 14:00 01/24/25 16:57 Lipids 20% IVPB 20.83 mls/hr Q24H NATHEN Infusion Naloxone HCl 0.1 mg 01/22/25 16:24 Naloxone Hcl 0.4 Mg/Ml Vial IV PUSH Q2M PRN Opiate Reversal Ondansetron HCl 4 mg 01/22/25 16:24 Ondansetron Inj 4 Mg/2 Ml Vial IV PUSH Q4H PRN Nausea And Vomiting Pantoprazole Sodium 40 mg 01/22/25 21:00 01/24/25 21:23 Pantoprazole Sodium Iv 40 Mg Vial IV PUSH 40 mg Q12HR NATHEN Administration Radiology Results: ITS Impressions Chest X-Ray 01/22/25 11:32 IMPRESSION: 1: No acute pulmonary process identified. Abdomen/Pelvis CT 01/22/25 12:56 IMPRESSION: 1. Hollow viscus perforation with free air. Urgent surgical consultation required. 2. Site of perforation appears to be gastric ulcer. 3. Diffuse enterocolitis most likely Crohn's disease. Labs Labs: Laboratory Results - last 24 hr 01/24/25 01/24/25 01/24/25 12:13 13:31 17:52 WBC 18.3 H RBC 2.30 L Hgb 8.2 L Hct 25.4 L MCV 110.4 H MCH 35.7 H MCHC 32.3 RDW 13.6 Plt Count 455 H MPV 8.3 Immature Gran % (Auto) 1.3 H Neut % (Auto) 89.3 H Lymph % (Auto) 4.4 L [place] % (Auto) 4.4 Eos % (Auto) 0.4 Baso % (Auto) 0.2 Lymph # (Auto) 0.80 L [place] # (Auto) 0.8 H Eos # (Auto) 0.1 Baso # (Auto) 0.0 Abs Immat Gran (auto) 0.23 H Absolute Neuts (auto) 16.4 H Absolute Nucleated RBC 0.000 Band Neutrophils % Not Reportable Nucleated RBC % 0.0 Platelet Estimate Increased Hypochromasia 1+ Macrocytosis 1+ Schistocytes None seen APTT 63.1 H Sodium 130 L Potassium 3.3 L Chloride 100 Carbon Dioxide 21 L Anion Gap 9 BUN 18 H Creatinine 0.80 Estim Creat Clear Calc 67 Estimated GFR > 60 Glucose 72 POC Capillary Glucose 90 Calcium 7.8 L Phosphorus Magnesium 1.6 Transferrin 122 L Total Bilirubin 0.6 AST 40 H ALT 13 Alkaline Phosphatase 65 Total Protein 5.7 L Albumin 2.7 L Ur Random Sodium 6 01/24/25 01/25/25 01/25/25 23:51 04:43 06:38 WBC RBC Hgb Hct MCV MCH MCHC RDW Plt Count MPV Immature Gran % (Auto) Neut % (Auto) Lymph % (Auto) [place] % (Auto) Eos % (Auto) Baso % (Auto) Lymph # (Auto) [place] # (Auto) Eos # (Auto) Baso # (Auto) Abs Immat Gran (auto) Absolute Neuts (auto) Absolute Nucleated RBC Band Neutrophils % Nucleated RBC % Platelet Estimate Hypochromasia Macrocytosis Schistocytes APTT Sodium Potassium Chloride Carbon Dioxide Anion Gap BUN Creatinine Estim Creat Clear Calc Estimated GFR Glucose POC Capillary Glucose 93 128 H Calcium Phosphorus 2.1 L Magnesium Transferrin Total Bilirubin AST ALT Alkaline Phosphatase Total Protein Albumin Ur Random Sodium Quality VTE Prophylaxis VTE prophylaxis: mechanical ordered
[2025-01-25 09:23] LABS: Hematocrit 26.9 % (37.0-47.0); Hemoglobin 8.7 g/dL (12.0-15.0); Immature Granulocyte Percent A 0.5 % (0-0.5); Lymphocytes Absolute Auto 0.71 K/mm3 (0.9-3.2); Mean Corpuscular HGB Conc 32.3 g/dl (32-36); Mean Corpuscular Hemoglobin 36.0 pg (26-34); Mean Corpuscular Volume 111.2 fl (80-100); Nucleated Red Blood Cells Absolute Auto 0.000 K/mm3 (0.0-0.012); Nucleated Red Blood Cells Perc 0.0 % (0.0-0.2); Platelet Count Result 511 k/mm3 (150-375); Red Blood Count 2.42 M/mm3 (4.2-5.4); White Blood Count 20.6 K/mm3 (4.5-10.0)
[2025-01-25 09:24] LABS: Anion Gap 10 mmol/L (4-12); Blood Urea Nitrogen 14 mg/dL (7-17); Calcium 7.9 mg/dL (8.4-10.2); Carbon Dioxide 20 mmol/L (22-30); Chloride 99 mmol/L (98-107); Estimated CRCL calculation 80 ml/min; Estimated Glomerular Filt Rate > 60; Glucose 105 mg/dL (65-110); Potassium 3.2 mmol/L (3.4-5.0); Sodium 129 mmol/L (137-145)
[2025-01-25 09:40] LABS: Hypochromasia 1+; Macrocytosis 1+ (NORMAL); Schistocytes None Seen
[2025-01-25] MEDS: ENOXAPARIN 40 MG/0.4 ML SYRINGE SUB-Q (09:43)
[2025-01-25] MEDS: PANTOPRAZOLE SODIUM IV 40 MG VIAL IV PUSH ×2 (09:43→22:51)
[2025-01-25] MEDS: POTASSIUM CHLORIDE INJ 40 MEQ in SODIUM CHLORIDE 0.9% IV 500 ML 130 MEQ IVPB (11:41)
--- NOTE | 2025-01-25 11:57 | PM.PNGS ---
Progress Note: A&P Assessment and Plan (1) Perforated gastric ulcer: Qualifiers: Gastric ulcer chronicity: acute Qualified Code(s): K25.1 - Acute gastric ulcer with perforation Code(s): K25.5 - Chronic or unspecified gastric ulcer with perforation Status: Acute Assessment and Plan: Continue PPI and Zosyn On Zosyn, Fluconazole started yesterday per Hospitalist Continue PPN Will plan for UGI water soluble contrast on Sunday. (2) Tobacco dependence: Code(s): F17.200 - Nicotine dependence, unspecified, uncomplicated Status: Acute Subjective Subjective Date/Time Seen: 01/25/25 11:57 Interval history: No fevers. No flatus. Pain controlled. Exam GI: Inspection: non-distended, incision (intact with james. no redness or drainage) and other (TEJA serous) GI Palp: Yes Tenderness to palpation present (GI) (incisional and lower abdomen) Auscultation: Hypoactive bowel sounds present Objective Data Vital Signs Vital Signs: Vital Signs - 24 hr 01/24/25 12:00 01/24/25 12:00 01/24/25 12:00 Temperature 97.8 F Pulse Rate 94 96 Respiratory Rate 18 Blood Pressure 155/9 H Pulse Oximetry 100 Oxygen Delivery Room Air 01/24/25 14:00 01/24/25 15:38 01/24/25 15:56 Temperature 98.1 F Pulse Rate 107 H 94 Respiratory Rate 16 Blood Pressure 141/96 H Pulse Oximetry 100 Oxygen Delivery Room Air 01/24/25 16:00 01/24/25 18:00 01/24/25 20:00 Temperature Pulse Rate 107 H 96 95 Respiratory Rate Blood Pressure Pulse Oximetry Oxygen Delivery 01/24/25 20:00 01/24/25 20:00 01/24/25 21:26 Temperature 98.2 F Pulse Rate 101 H Respiratory Rate 16 Blood Pressure 142/98 H Pulse Oximetry 90 92 Oxygen Delivery Room Air Room Air 01/24/25 22:00 01/25/25 00:00 01/25/25 00:00 Temperature 98.4 F Pulse Rate 105 H 107 H Respiratory Rate 18 Blood Pressure 149/94 H Pulse Oximetry 99 Oxygen Delivery Room Air 01/25/25 00:00 01/25/25 02:00 01/25/25 04:00 Temperature 98.4 F Pulse Rate 113 H 112 H 100 Respiratory Rate 16 Blood Pressure 146/91 H Pulse Oximetry 98 Oxygen Delivery 01/25/25 04:00 01/25/25 04:00 01/25/25 06:00 Temperature Pulse Rate 106 H 97 Respiratory Rate Blood Pressure Pulse Oximetry Oxygen Delivery Room Air 01/25/25 07:58 01/25/25 08:00 01/25/25 11:54 Temperature 98.1 F 98.7 F Pulse Rate 106 H 117 H Respiratory Rate 20 18 Blood Pressure 137/99 H 145/98 H Pulse Oximetry 97 97 Oxygen Delivery Room Air Intake/Output Intake/Output: Intake & Output 01/22/25 01/23/25 01/24/25 01/25/25 23:59 23:59 23:59 23:59 Intake Total 1545.0 1993.4 2711.1 1278.3 Output Total 380 490 645 285 Balance 1165.0 1503.4 2066.1 993.3 Meds/Results Medications: Active Medications Generic Name Dose Route Start Last Admin Trade Name Freq PRN Reason Stop Dose Admin Enoxaparin Sodium 40 mg 01/23/25 09:00 01/25/25 09:43 Enoxaparin 40 Mg/0.4 Ml Syringe SUB-Q 40 mg DAILY NATHEN Administration Hydralazine HCl 10 mg 01/22/25 22:51 Hydralazine Hcl 20 Mg/Ml Vial IV PUSH Q8H PRN Blood Pressure - High Hydromorphone HCl 1 mg 01/22/25 16:24 01/25/25 09:42 Hydromorphone Hcl Inj (*Crx) 1 Mg/Ml Syr IV PUSH 1 mg Q2H PRN Administration Breakthrough Pain Rated 7-10 or NPO Hydromorphone HCl 0.5 mg 01/22/25 16:24 Hydromorphone Hcl Inj (*Crx) 1 Mg/Ml Syr IV PUSH Q2H PRN Breakthrough Pain Rated 4-6 or NPO Piperacillin Sod/Tazobactam 50 mls @ 100 mls/hr 01/22/25 21:00 01/25/25 11:43 Sod 3.375 gm/ Sodium Chloride IVPB Infused Q6H NATHEN Infusion Dextrose 1,000 mls @ 50 mls/hr 01/24/25 11:58 Dextrose 10% IV CONT .Q20H PRN if PN is interrupted Amino Acids/Electrolytes/Dextrose 1,000 mls @ 80 mls/hr 01/24/25 12:00 01/25/25 04:36 Clinimix E 4.25%/5% Solution IV CONT 80 mls/hr .[id number] NATHEN Administration Protocol Iron Sucrose 200 mg/ Iron 265 mls @ 176.667 mls/hr 01/24/25 14:00 01/24/25 16:58 Sucrose 100 mg/ Sodium IVPB 01/26/25 15:29 Infused Chloride Q24H NATHEN Infusion Fat Emulsion Intravenous 250 mls @ 20.833 mls/hr 01/24/25 14:00 01/25/25 08:56 Lipids 20% IVPB Infused Q24H NATHEN Infusion Potassium Chloride 40 meq/ 520 mls @ 130 mls/hr 01/25/25 10:00 01/25/25 11:41 Sodium Chloride IVPB 01/25/25 13:59 130 mls/hr ONCE ONE Administration Potassium Chloride 100 mls @ 50 mls/hr 01/25/25 14:00 Kcl 20 Meq/Sw 100 Ml IVPB 01/25/25 15:59 ONCE ONE Metronidazole 500 mg in 100 mls @ 100 mls/hr 01/25/25 13:00 Flagyl 500 Mg/Iso Soln 100 Ml IVPB Q8HR NATHEN Fluconazole/Dextrose 100 mg in 50 mls @ 50 mls/hr 01/25/25 12:00 Diflucan 100 Mg/Nacl 50 Ml IVPB Q24H NATHEN Naloxone HCl 0.1 mg 01/22/25 16:24 Naloxone Hcl 0.4 Mg/Ml Vial IV PUSH Q2M PRN Opiate Reversal Ondansetron HCl 4 mg 01/22/25 16:24 Ondansetron Inj 4 Mg/2 Ml Vial IV PUSH Q4H PRN Nausea And Vomiting Pantoprazole Sodium 40 mg 01/22/25 21:00 01/25/25 09:43 Pantoprazole Sodium Iv 40 Mg Vial IV PUSH 40 mg Q12HR NATHEN Administration Radiology Results: ITS Impressions Chest X-Ray 01/22/25 11:32 IMPRESSION: 1: No acute pulmonary process identified. Abdomen/Pelvis CT 01/22/25 12:56 IMPRESSION: 1. Hollow viscus perforation with free air. Urgent surgical consultation required. 2. Site of perforation appears to be gastric ulcer. 3. Diffuse enterocolitis most likely Crohn's disease. Labs Labs: Laboratory Results - last 24 hr 01/24/25 01/24/25 01/24/25 12:13 13:31 17:52 WBC 18.3 H RBC 2.30 L Hgb 8.2 L Hct 25.4 L MCV 110.4 H MCH 35.7 H MCHC 32.3 RDW 13.6 Plt Count 455 H MPV 8.3 Immature Gran % (Auto) 1.3 H Neut % (Auto) 89.3 H Lymph % (Auto) 4.4 L [place] % (Auto) 4.4 Eos % (Auto) 0.4 Baso % (Auto) 0.2 Lymph # (Auto) 0.80 L [place] # (Auto) 0.8 H Eos # (Auto) 0.1 Baso # (Auto) 0.0 Abs Immat Gran (auto) 0.23 H Absolute Neuts (auto) 16.4 H Absolute Nucleated RBC 0.000 Band Neutrophils % Not Reportable Nucleated RBC % 0.0 Platelet Estimate Increased Hypochromasia 1+ Macrocytosis 1+ Schistocytes None seen APTT 63.1 H Sodium 130 L Potassium 3.3 L Chloride 100 Carbon Dioxide 21 L Anion Gap 9 BUN 18 H Creatinine 0.80 Estim Creat Clear Calc 67 Estimated GFR > 60 Glucose 72 POC Capillary Glucose 90 Lactic Acid Calcium 7.8 L Phosphorus Magnesium 1.6 Transferrin 122 L Total Bilirubin 0.6 AST 40 H ALT 13 Alkaline Phosphatase 65 Total Protein 5.7 L Albumin 2.7 L Ur Random Sodium 6 01/24/25 01/25/25 01/25/25 23:51 04:40 04:43 WBC 20.6 H RBC 2.42 L Hgb 8.7 L Hct 26.9 L MCV 111.2 H MCH 36.0 H MCHC 32.3 RDW 13.4 Plt Count 511 H MPV 8.6 Immature Gran % (Auto) 0.5 Neut % (Auto) 90.2 H Lymph % (Auto) 3.5 L [place] % (Auto) 5.1 Eos % (Auto) 0.5 Baso % (Auto) 0.2 Lymph # (Auto) 0.71 L [place] # (Auto) 1.0 H Eos # (Auto) 0.1 Baso # (Auto) 0.0 Abs Immat Gran (auto) 0.11 H Absolute Neuts (auto) 18.6 H Absolute Nucleated RBC 0.000 Band Neutrophils % Not Reportable Nucleated RBC % 0.0 Platelet Estimate Slightly increased Hypochromasia 1+ Macrocytosis 1+ Schistocytes None seen APTT Sodium 129 L Potassium 3.2 L Chloride 99 Carbon Dioxide 20 L Anion Gap 10 BUN 14 Creatinine 0.66 L Estim Creat Clear Calc 80 Estimated GFR > 60 Glucose 105 POC Capillary Glucose 93 Lactic Acid Calcium 7.9 L Phosphorus 2.1 L Magnesium Transferrin Total Bilirubin AST ALT Alkaline Phosphatase Total Protein Albumin Ur Random Sodium 01/25/25 01/25/25 06:38 10:39 WBC RBC Hgb Hct MCV MCH MCHC RDW Plt Count MPV Immature Gran % (Auto) Neut % (Auto) Lymph % (Auto) [place] % (Auto) Eos % (Auto) Baso % (Auto) Lymph # (Auto) [place] # (Auto) Eos # (Auto) Baso # (Auto) Abs Immat Gran (auto) Absolute Neuts (auto) Absolute Nucleated RBC Band Neutrophils % Nucleated RBC % Platelet Estimate Hypochromasia Macrocytosis Schistocytes APTT Sodium Potassium Chloride Carbon Dioxide Anion Gap BUN Creatinine Estim Creat Clear Calc Estimated GFR Glucose POC Capillary Glucose 128 H Lactic Acid 0.7 Calcium Phosphorus Magnesium Transferrin Total Bilirubin AST ALT Alkaline Phosphatase Total Protein Albumin Ur Random Sodium
[2025-01-25] MEDS: FLUCONAZOLE 100 MG/NACL 50 ML 100 MG/50 ML BTL 50 MG IVPB (13:39)
[2025-01-25] MEDS: metroNIDAZOLE 500 MG/ISO 100ML 500 MG/100 ML BAG 100 MG IVPB ×2 (13:40→23:00)
[2025-01-25] MEDS: IRON SUCROSE COMPLEX 200 MG, IRON SUCROSE COMPLEX 100 MG in SODIUM CHLORIDE 0.9% IV 250 ML 176.67 MG IVPB (15:35)
[2025-01-25] MEDS: KCL 20 MEQ/SW 100 ML 50 MEQ IVPB (15:37)
[2025-01-25] MEDS: FAT EMULSIONS IV 20% 250 ML 20.83 ML IVPB (15:50)
[2025-01-26] VITALS (15 sets, daily range): BP systolic 134–157; BP diastolic 89–102; PULSE 65–134; RESP 14–22; TEMP 36.4–37; O2SAT 90–100
[2025-01-26] MEDS: HYDROmorphone HCL INJ (*CRX) 1 MG/ML SYR IV PUSH ×8 (01:12→21:33)
[2025-01-26] MEDS: PIPERACILLIN/TAZOBACTAM SOD 3.375 GM in SODIUM CHLORIDE 0.9% IV 50 ML 100 ML IVPB ×4 (02:42→20:59)
[2025-01-26 04:49] LABS: Hematocrit 26.5 % (37.0-47.0); Hemoglobin 8.4 g/dL (12.0-15.0); Immature Granulocyte Percent A 0.9 % (0-0.5); Lymphocytes Absolute Auto 0.95 K/mm3 (0.9-3.2); Mean Corpuscular HGB Conc 31.7 g/dl (32-36); Mean Corpuscular Hemoglobin 34.6 pg (26-34); Mean Corpuscular Volume 109.1 fl (80-100); Nucleated Red Blood Cells Absolute Auto 0.000 K/mm3 (0.0-0.012); Nucleated Red Blood Cells Perc 0.0 % (0.0-0.2); Platelet Count Result 456 k/mm3 (150-375); Red Blood Count 2.43 M/mm3 (4.2-5.4); White Blood Count 19.7 K/mm3 (4.5-10.0)
[2025-01-26 05:06] LABS: INR 1.3; Prothrombin Time 15.8 Seconds (11.1-14.7)
[2025-01-26 05:07] LABS: Partial Thromboplastin Time 51.4 Seconds (22.3-36.8)
[2025-01-26 05:20] LABS: Alanine Aminotransferase 11 U/L (6-35); Albumin Level 2.3 g/dL (3.5-5.1); Alkaline Phosphatase 76 U/L (38-126); Anion Gap 6 mmol/L (4-12); Aspartate Amino Transferase 24 U/L (14-36); Bilirubin,Total 0.3 mg/dL (0.2-1.3); Blood Urea Nitrogen 12 mg/dL (7-17); Calcium 8.1 mg/dL (8.4-10.2); Carbon Dioxide 20 mmol/L (22-30); Chloride 103 mmol/L (98-107); Estimated CRCL calculation 103 ml/min; Estimated Glomerular Filt Rate > 60; Glucose 119 mg/dL (65-110); Magnesium 1.9 mg/dL (1.6-2.3); Potassium 3.6 mmol/L (3.4-5.0); Sodium 129 mmol/L (137-145); Total Protein 5.1 g/dL (6.3-8.2)
[2025-01-26 05:28] LABS: Transferrin 89 mg/dL (206-381)
[2025-01-26] MEDS: metroNIDAZOLE 500 MG/ISO 100ML 500 MG/100 ML BAG 100 MG IVPB ×3 (05:38→21:36)
[2025-01-26] MEDS: AMINO ACIDS 4.25%/D5W/LYTES/CA 1,000 ML 80 ML IV CONT ×2 (05:38→18:58)
[2025-01-26] MEDS: PANTOPRAZOLE SODIUM IV 40 MG VIAL IV PUSH ×2 (08:08→20:59)
[2025-01-26] MEDS: ENOXAPARIN 40 MG/0.4 ML SYRINGE SUB-Q (08:08)
--- NOTE | 2025-01-26 08:50 | PC.NURSE ---
pt taken down for upper gi test
[2025-01-26] MEDS: POTASSIUM PHOS,M-BASIC-D-BASIC 15 MMOL in SODIUM CHLORIDE 0.9% IV 250 ML 63.75 MMOL IVPB (10:05)
--- NOTE | 2025-01-26 12:27 | PCNFU ---
Nutrition Follow-Up Complete: Inadequate oral intake related to altered GI function as evidenced by NPO, recent surgery Meet estimated nutrition needs when medically able - Progressing with PPN. COntinue same goal Goal: Pt current nutrition is NPO. PPN Clinmix 4.25/5 @ 80 ml/h. Nutrition recommendation: Advance diet to PO as medically able. Agree with current PPN rate and orders Last recorded weight is 67.2 kg. Bowel Motility: No BMs yet Labs Reviewed: Hgb 8.4, Hct 26.5, Alb 2.3, Na 129, Cre 0.5m Glu 119, PO4 1.8 Meds Noted: Zofran, protonix, K+ Skin: No skin issues Additional Notes:Pt with perforated gastric ulcer, started on PPN. UGI today. Will continue to monitor. Clinmix 4.25/5 with lipids @ 80 ml/h to provide 1153 kcal, 82 g protein, 2170 ml total volume. Meets about 58% EER, 100% protein needs. May need to switch to TPN/central line if parenteral nutrition is prolonged. Continue to monitor Monitoring orders, weights, labs, plan of care Follow up Sunday/Sunday
[2025-01-26] MEDS: FLUCONAZOLE 100 MG/NACL 50 ML 100 MG/50 ML BTL 50 MG IVPB (12:30)
--- NOTE | 2025-01-26 13:35 | P.PNGS_ITS ---
Progress Note: A&P Assessment and Plan (1) Perforated gastric ulcer: Qualifiers: Gastric ulcer chronicity: acute Qualified Code(s): K25.1 - Acute gastric ulcer with perforation Code(s): K25.5 - Chronic or unspecified gastric ulcer with perforation Status: Acute Assessment and Plan: UGI looks good today, will clamp NG and try sips of clears, will get CT given leukocytosis, OOB/IS Subjective Subjective Date/Time Seen: 01/26/25 13:35 Interval history: feels ok, incisional soreness Review of Systems Review of Systems: All systems reviewed & are unremarkable except as noted in HPI and below Exam Const: General: cooperative, comfortable and no acute distress Resp: Auscultation: diminished lung sounds Cardio: Rate: regular rate Rhythm: regular rhythm GI: Inspection: normal to inspection, distended and incision GI Palp: Yes abdominal tenderness and Yes Soft to palpation Other: TEJA c serous output Objective Data Vital Signs Vital Signs: Vital Signs - 24 hr 01/25/25 14:00 01/25/25 15:48 01/25/25 16:00 Temperature 37.1 C Pulse Rate 102 H 105 H Respiratory Rate 18 Blood Pressure 144/96 H Pulse Oximetry 97 Oxygen Delivery Room Air 01/25/25 16:00 01/25/25 18:00 01/25/25 20:00 Temperature 36.9 C Pulse Rate 105 H 112 H 102 H Respiratory Rate 18 Blood Pressure 155/110 H Pulse Oximetry 100 Oxygen Delivery 01/25/25 20:00 01/25/25 20:28 01/25/25 21:18 Temperature Pulse Rate 110 H 102 H Respiratory Rate 18 Blood Pressure 152/103 H Pulse Oximetry 100 Oxygen Delivery Room Air 01/25/25 22:00 01/26/25 00:00 01/26/25 00:00 Temperature 36.8 C Pulse Rate 96 104 H 108 H Respiratory Rate 14 Blood Pressure 157/99 H Pulse Oximetry 100 Oxygen Delivery 01/26/25 00:06 01/26/25 02:00 01/26/25 04:00 Temperature Pulse Rate 104 H 104 H 115 H Respiratory Rate 14 Blood Pressure Pulse Oximetry 100 Oxygen Delivery Room Air 01/26/25 04:00 01/26/25 04:00 01/26/25 06:00 Temperature 36.8 C Pulse Rate 105 H 105 H 100 Respiratory Rate 16 16 Blood Pressure 135/90 Pulse Oximetry 92 92 Oxygen Delivery Room Air 01/26/25 08:00 01/26/25 12:00 Temperature 36.4 C 37.0 C Pulse Rate 106 H 110 H Respiratory Rate 18 22 H Blood Pressure 143/94 H 147/102 H Pulse Oximetry 100 100 Oxygen Delivery Intake/Output Intake/Output: Intake & Output 01/23/25 01/24/25 01/25/25 01/26/25 23:59 23:59 23:59 23:59 Intake Total 1993.4 2711.1 3312.0 1790 Output Total 490 670 525 210 Balance 1503.4 2041.1 2787.0 1580 Meds/Results Medications: Active Medications Generic Name Dose Route Start Last Admin Trade Name Freq PRN Reason Stop Dose Admin Alprazolam 0.5 mg 01/26/25 11:33 Alprazolam (*Crx) 0.5 Mg Tablet PO TID PRN Anxiety Enoxaparin Sodium 40 mg 01/23/25 09:00 01/26/25 08:08 Enoxaparin 40 Mg/0.4 Ml Syringe SUB-Q 40 mg DAILY NATHEN Administration Hydralazine HCl 10 mg 01/22/25 22:51 Hydralazine Hcl 20 Mg/Ml Vial IV PUSH Q8H PRN Blood Pressure - High Hydromorphone HCl 1 mg 01/22/25 16:24 01/26/25 11:45 Hydromorphone Hcl Inj (*Crx) 1 Mg/Ml Syr IV PUSH 1 mg Q2H PRN Administration Breakthrough Pain Rated 7-10 or NPO Hydromorphone HCl 0.5 mg 01/22/25 16:24 Hydromorphone Hcl Inj (*Crx) 1 Mg/Ml Syr IV PUSH Q2H PRN Breakthrough Pain Rated 4-6 or NPO Piperacillin Sod/Tazobactam 50 mls @ 100 mls/hr 01/22/25 21:00 01/26/25 12:11 Sod 3.375 gm/ Sodium Chloride IVPB Infused Q6H NATHEN Infusion Dextrose 1,000 mls @ 50 mls/hr 01/24/25 11:58 Dextrose 10% IV CONT .Q20H PRN if PN is interrupted Amino Acids/Electrolytes/Dextrose 1,000 mls @ 80 mls/hr 01/24/25 12:00 01/26/25 05:38 Clinimix E 4.25%/5% Solution IV CONT 80 mls/hr .[id number] NATHEN Administration Protocol Iron Sucrose 200 mg/ Iron 265 mls @ 176.667 mls/hr 01/24/25 14:00 01/25/25 20:35 Sucrose 100 mg/ Sodium IVPB 01/26/25 15:29 Infused Chloride Q24H NATHEN Infusion Fat Emulsion Intravenous 250 mls @ 20.833 mls/hr 01/24/25 14:00 01/26/25 03:51 Lipids 20% IVPB Infused Q24H NATHEN Infusion Metronidazole 500 mg in 100 mls @ 100 mls/hr 01/25/25 13:00 01/26/25 06:38 Flagyl 500 Mg/Iso Soln 100 Ml IVPB Infused Q8HR NATHEN Infusion Fluconazole/Dextrose 100 mg in 50 mls @ 50 mls/hr 01/25/25 12:00 01/26/25 12:30 Diflucan 100 Mg/Nacl 50 Ml IVPB 50 mls/hr Q24H NATHEN Administration Naloxone HCl 0.1 mg 01/22/25 16:24 Naloxone Hcl 0.4 Mg/Ml Vial IV PUSH Q2M PRN Opiate Reversal Ondansetron HCl 4 mg 01/22/25 16:24 Ondansetron Inj 4 Mg/2 Ml Vial IV PUSH Q4H PRN Nausea And Vomiting Pantoprazole Sodium 40 mg 01/22/25 21:00 01/26/25 08:08 Pantoprazole Sodium Iv 40 Mg Vial IV PUSH 40 mg Q12HR NATHEN Administration Radiology Results: ITS Impressions Chest X-Ray 01/22/25 11:32 IMPRESSION: 1: No acute pulmonary process identified. Abdomen/Pelvis CT 01/22/25 12:56 IMPRESSION: 1. Hollow viscus perforation with free air. Urgent surgical consultation required. 2. Site of perforation appears to be gastric ulcer. 3. Diffuse enterocolitis most likely Crohn's disease. Upper GI Series 01/26/25 10:08 IMPRESSION: 1. No evident extraluminal leakage of contrast or obstruction post repair of a perforated gastric ulcer. Labs Labs: Laboratory Results - last 24 hr 01/25/25 01/26/25 01/26/25 19:02 00:03 04:17 WBC 19.7 H RBC 2.43 L Hgb 8.4 L Hct 26.5 L MCV 109.1 H MCH 34.6 H MCHC 31.7 L RDW 13.5 Plt Count 456 H MPV 8.6 Immature Gran % (Auto) 0.9 H Neut % (Auto) 82.5 H Lymph % (Auto) 4.8 L [place] % (Auto) 10.0 H Eos % (Auto) 1.4 Baso % (Auto) 0.4 Lymph # (Auto) 0.95 [place] # (Auto) 2.0 H Eos # (Auto) 0.3 Baso # (Auto) 0.1 Abs Immat Gran (auto) 0.17 H Absolute Neuts (auto) 16.2 H Absolute Nucleated RBC 0.000 Nucleated RBC % 0.0 PT 15.8 H D INR 1.3 APTT 51.4 H Sodium 129 L Potassium 3.6 Chloride 103 Carbon Dioxide 20 L Anion Gap 6 BUN 12 Creatinine 0.50 L Estim Creat Clear Calc 103 Estimated GFR > 60 Glucose 119 H POC Capillary Glucose 115 H 109 H Calcium 8.1 L Phosphorus 1.8 L Magnesium 1.9 Transferrin 89 L Total Bilirubin 0.3 AST 24 ALT 11 Alkaline Phosphatase 76 Total Protein 5.1 L Albumin 2.3 L
[2025-01-26] MEDS: IRON SUCROSE COMPLEX 200 MG, IRON SUCROSE COMPLEX 100 MG in SODIUM CHLORIDE 0.9% IV 250 ML 176.67 MG IVPB (16:46)
[2025-01-26] MEDS: FAT EMULSIONS IV 20% 250 ML 20.83 ML IVPB (17:37)
--- NOTE | 2025-01-26 18:13 | P.PNIM_ITS ---
Progress Note: A&P Assessment and Plan (1) Gastric perforation: Code(s): K25.5 - Chronic or unspecified gastric ulcer with perforation Status: Acute Assessment and Plan: on admission, CT A/P shows gastric perforation Surgery consulted,S/P Exploratory laparotomy on 01/22/2025 IV antibiotics de-escalated to only Zosyn IVF, IV Protonix b.i.d.,TEJA drain care NG tube to suction Continue PPN Upper GI series study with contrast on Sunday Dressing change after the surgeon evaluation (2) Hyponatremia: Code(s): E87.1 - Hypo-osmolality and hyponatremia Status: Acute Assessment and Plan: Hyponatremia seems chronic Sodium 129 which is stable Follow serum osmolar, urine osmolality and urine random sodium (3) Hypokalemia: Code(s): E87.6 - Hypokalemia Status: Acute Assessment and Plan: Resolved (4) Anemia: Code(s): D64.9 - Anemia, unspecified Status: Acute Assessment and Plan: Iron study shows iron 23, 194 and % transferrin saturation 12- There is a component of iron deficiency anemia and anemia of chronic disease Continue IV iron 300 mg a day for 3 days (5) Colitis: Code(s): K52.9 - Noninfective gastroenteritis and colitis, unspecified Status: Acute Assessment and Plan: Antibiotics as above Stool sample (6) Anxiety: Code(s): F41.9 - Anxiety disorder, unspecified Status: Acute Assessment and Plan: Currently holding home medications until okay by surgery (7) Hypertension: Code(s): I10 - Essential (primary) hypertension Status: Acute Assessment and Plan: Holding oral medications Hydralazine p.r.n. Plan Complains abdominal pain 8/10 sharp, throbbing constant pain without associated nausea and vomiting. She denies fever. No bowel movement. Upper GI series study for today but patient was not able to tolrate, surgery has ordered CT of abdomen which is negative, recommended to clamp the NG and may start sips of water, A leukocytosis trending down. blood culture no growth so far Check lactic acid is close to normal . Broaden antibiotics by adding Flagyl and antifungals. Up trending leukocytosis Add Flagyl and antifungal : Blood culture, check lactic acid Continue monitoring fever and vital signs Subjective Date/time seen: 01/26/25 18:13 Interval history: Complains abdominal pain 8/10 sharp, throbbing constant pain without associated nausea and vomiting. She denies fever. No bowel movement. Upper GI series study for today but patient was not able to tolrate, surgery has ordered CT of abdomen which is negative, recommended to clamp the NG and may start sips of karly er, A leukocytosis trending down. blood culture no growth so far Check lactic acid is close to normal . Broaden antibiotics by adding Flagyl and antifungals. Review of Systems Review of Systems: 12 systems were reviewed and are negativ e except for as per HPI. All systems reviewed & are unremarkable except as noted in HPI and below Exam Narrative: APPEARANCE: No acute distress, nontoxic, NG tube placed EYES: EOMI HEENT: Normocephalic, atraumatic, OMM RESPIRATORY: No respiratory distress Clear to auscultation bilaterally with no rhonchi wheezing or rales. CARDIOVASCULAR: RRR, S1 and S2 without murmurs rubs or gallops. ABDOMINAL: Abdomen tenderness to palpation, no guarding or peritonitis MSK: Normal range of motion NEURO: Awake and alert. Following commands, speech normal, no focal deficits SKIN:: Warm, dry. No rashes lesions or abrasions PSYCHIATRIC: Normal affect/mood Objective Data Vital Signs Vital Signs: Vital Signs - 24 hr 01/25/25 20:00 01/25/25 20:00 01/25/25 20:28 Temperature 36.9 C Pulse Rate 102 H 110 H 102 H Respiratory Rate 18 18 Blood Pressure 155/110 H Pulse Oximetry 100 100 Oxygen Delivery Room Air 01/25/25 21:18 01/25/25 22:00 01/26/25 00:00 Temperature 36.8 C Pulse Rate 96 104 H Respiratory Rate 14 Blood Pressure 152/103 H 157/99 H Pulse Oximetry 100 Oxygen Delivery 01/26/25 00:00 01/26/25 00:06 01/26/25 02:00 Temperature Pulse Rate 108 H 104 H 104 H Respiratory Rate 14 Blood Pressure Pulse Oximetry 100 Oxygen Delivery Room Air 01/26/25 04:00 01/26/25 04:00 01/26/25 04:00 Temperature 36.8 C Pulse Rate 115 H 105 H 105 H Respiratory Rate 16 16 Blood Pressure 135/90 Pulse Oximetry 92 92 Oxygen Delivery Room Air 01/26/25 06:00 01/26/25 08:00 01/26/25 08:00 Temperature 36.4 C Pulse Rate 100 106 H 107 H Respiratory Rate 18 Blood Pressure 143/94 H Pulse Oximetry 100 Oxygen Delivery 01/26/25 10:00 01/26/25 12:00 01/26/25 12:00 Temperature 37.0 C Pulse Rate 118 H 110 H Respiratory Rate 22 H Blood Pressure 147/102 H Pulse Oximetry 100 Oxygen Delivery Room Air 01/26/25 12:00 01/26/25 14:00 01/26/25 16:00 Temperature 37.0 C Pulse Rate 109 H 121 H 134 H Respiratory Rate 22 H Blood Pressure 134/100 H Pulse Oximetry 100 Oxygen Delivery 01/26/25 16:00 01/26/25 16:00 01/26/25 18:00 Temperature Pulse Rate 131 H 65 Respiratory Rate Blood Pressure Pulse Oximetry Oxygen Delivery Room Air Intake/Output Intake/Output: Intake & Output 01/23/25 01/24/25 01/25/25 01/26/25 23:59 23:59 23:59 23:59 Intake Total 1993.4 2711.1 3312.0 2245 Output Total 490 670 525 210 Balance 1503.4 2041.1 2787.0 2035 Meds/Results Medications: Active Medications Generic Name Dose Route Start Last Admin Trade Name Freq PRN Reason Stop Dose Admin Alprazolam 0.5 mg 01/26/25 11:33 Alprazolam (*Crx) 0.5 Mg Tablet PO TID PRN Anxiety Enoxaparin Sodium 40 mg 01/23/25 09:00 01/26/25 08:08 Enoxaparin 40 Mg/0.4 Ml Syringe SUB-Q 40 mg DAILY NATHEN Administration Hydralazine HCl 10 mg 01/22/25 22:51 Hydralazine Hcl 20 Mg/Ml Vial IV PUSH Q8H PRN Blood Pressure - High Hydromorphone HCl 1 mg 01/22/25 16:24 01/26/25 17:01 Hydromorphone Hcl Inj (*Crx) 1 Mg/Ml Syr IV PUSH 1 mg Q2H PRN Administration Breakthrough Pain Rated 7-10 or NPO Hydromorphone HCl 0.5 mg 01/22/25 16:24 Hydromorphone Hcl Inj (*Crx) 1 Mg/Ml Syr IV PUSH Q2H PRN Breakthrough Pain Rated 4-6 or NPO Piperacillin Sod/Tazobactam 50 mls @ 100 mls/hr 01/22/25 21:00 01/26/25 17:31 Sod 3.375 gm/ Sodium Chloride IVPB Infused Q6H NATHEN Infusion Dextrose 1,000 mls @ 50 mls/hr 01/24/25 11:58 Dextrose 10% IV CONT .Q20H PRN if PN is interrupted Amino Acids/Electrolytes/Dextrose 1,000 mls @ 80 mls/hr 01/24/25 12:00 01/26/25 05:38 Clinimix E 4.25%/5% Solution IV CONT 80 mls/hr .[id number] NATHEN Administration Protocol Fat Emulsion Intravenous 250 mls @ 20.833 mls/hr 01/24/25 14:00 01/26/25 17:37 Lipids 20% IVPB 20.83 mls/hr Q24H NATHEN Administration Metronidazole 500 mg in 100 mls @ 100 mls/hr 01/25/25 13:00 01/26/25 14:50 Flagyl 500 Mg/Iso Soln 100 Ml IVPB Infused Q8HR NATHEN Infusion Fluconazole/Dextrose 100 mg in 50 mls @ 50 mls/hr 01/25/25 12:00 01/26/25 13:30 Diflucan 100 Mg/Nacl 50 Ml IVPB Infused Q24H NATHEN Infusion Naloxone HCl 0.1 mg 01/22/25 16:24 Naloxone Hcl 0.4 Mg/Ml Vial IV PUSH Q2M PRN Opiate Reversal Ondansetron HCl 4 mg 01/22/25 16:24 Ondansetron Inj 4 Mg/2 Ml Vial IV PUSH Q4H PRN Nausea And Vomiting Pantoprazole Sodium 40 mg 01/22/25 21:00 01/26/25 08:08 Pantoprazole Sodium Iv 40 Mg Vial IV PUSH 40 mg Q12HR NATHEN Administration Radiology Results: ITS Impressions Chest X-Ray 01/22/25 11:32 IMPRESSION: 1: No acute pulmonary process identified. Upper GI Series 01/26/25 10:08 IMPRESSION: 1. No evident extraluminal leakage of contrast or obstruction post repair of a perforated gastric ulcer. Abdomen/Pelvis CT 01/26/25 14:32 IMPRESSION: 1. Wall thickening of the gastric antrum, consistent with peptic ulcer disease. 2. Moderate volume of ascites with peritoneal thickening and enhancement, likely an exudate. 3. Small pleural effusions. Labs Labs: Laboratory Results - last 24 hr 01/25/25 01/26/25 01/26/25 19:02 00:03 04:17 WBC 19.7 H RBC 2.43 L Hgb 8.4 L Hct 26.5 L MCV 109.1 H MCH 34.6 H MCHC 31.7 L RDW 13.5 Plt Count 456 H MPV 8.6 Immature Gran % (Auto) 0.9 H Neut % (Auto) 82.5 H Lymph % (Auto) 4.8 L [place] % (Auto) 10.0 H Eos % (Auto) 1.4 Baso % (Auto) 0.4 Lymph # (Auto) 0.95 [place] # (Auto) 2.0 H Eos # (Auto) 0.3 Baso # (Auto) 0.1 Abs Immat Gran (auto) 0.17 H Absolute Neuts (auto) 16.2 H Absolute Nucleated RBC 0.000 Nucleated RBC % 0.0 PT 15.8 H D INR 1.3 APTT 51.4 H Sodium 129 L Potassium 3.6 Chloride 103 Carbon Dioxide 20 L Anion Gap 6 BUN 12 Creatinine 0.50 L Estim Creat Clear Calc 103 Estimated GFR > 60 Glucose 119 H POC Capillary Glucose 115 H 109 H Calcium 8.1 L Phosphorus 1.8 L Magnesium 1.9 Transferrin 89 L Total Bilirubin 0.3 AST 24 ALT 11 Alkaline Phosphatase 76 Total Protein 5.1 L Albumin 2.3 L 01/26/25 12:02 WBC RBC Hgb Hct MCV MCH MCHC RDW Plt Count MPV Immature Gran % (Auto) Neut % (Auto) Lymph % (Auto) [place] % (Auto) Eos % (Auto) Baso % (Auto) Lymph # (Auto) [place] # (Auto) Eos # (Auto) Baso # (Auto) Abs Immat Gran (auto) Absolute Neuts (auto) Absolute Nucleated RBC Nucleated RBC % PT INR APTT Sodium Potassium Chloride Carbon Dioxide Anion Gap BUN Creatinine Estim Creat Clear Calc Estimated GFR Glucose POC Capillary Glucose 124 H Calcium Phosphorus Magnesium Transferrin Total Bilirubin AST ALT Alkaline Phosphatase Total Protein Albumin Quality VTE Prophylaxis VTE prophylaxis: mechanical ordered
[2025-01-26] MEDS: ALPRAZolam (*CRX) 0.5 MG TABLET PO (21:02)
[2025-01-27] VITALS (11 sets, daily range): BP systolic 117–135; BP diastolic 82–99; PULSE 99–134; RESP 16–20; TEMP 36.7–37; O2SAT 90–100
[2025-01-27] MEDS: HYDROmorphone HCL INJ (*CRX) 1 MG/ML SYR IV PUSH ×7 (01:33→21:09)
[2025-01-27] MEDS: PIPERACILLIN/TAZOBACTAM SOD 3.375 GM in SODIUM CHLORIDE 0.9% IV 50 ML 100 ML IVPB ×4 (03:08→20:58)
[2025-01-27] MEDS: metroNIDAZOLE 500 MG/ISO 100ML 500 MG/100 ML BAG 100 MG IVPB ×3 (05:20→21:09)
[2025-01-27 06:10] LABS: Hematocrit 25.4 % (37.0-47.0); Hemoglobin 8.1 g/dL (12.0-15.0); Immature Granulocyte Percent A 3.6 % (0-0.5); Lymphocytes Absolute Auto 1.09 K/mm3 (0.9-3.2); Mean Corpuscular HGB Conc 31.9 g/dl (32-36); Mean Corpuscular Hemoglobin 34.6 pg (26-34); Mean Corpuscular Volume 108.5 fl (80-100); Nucleated Red Blood Cells Absolute Auto 0.000 K/mm3 (0.0-0.012); Nucleated Red Blood Cells Perc 0.0 % (0.0-0.2); Platelet Count Result 393 k/mm3 (150-375); Red Blood Count 2.34 M/mm3 (4.2-5.4); White Blood Count 17.8 K/mm3 (4.5-10.0)
[2025-01-27 06:31] LABS: Hypochromasia 1+
[2025-01-27 06:32] LABS: Macrocytosis 1+ (NORMAL); Schistocytes None Seen
[2025-01-27 06:35] LABS: Alanine Aminotransferase 11 U/L (6-35); Albumin Level 2.3 g/dL (3.5-5.1); Alkaline Phosphatase 87 U/L (38-126); Anion Gap 5 mmol/L (4-12); Aspartate Amino Transferase 21 U/L (14-36); Bilirubin,Total 0.3 mg/dL (0.2-1.3); Blood Urea Nitrogen 11 mg/dL (7-17); Calcium 8.5 mg/dL (8.4-10.2); Carbon Dioxide 22 mmol/L (22-30); Chloride 103 mmol/L (98-107); Estimated CRCL calculation 109 ml/min; Estimated Glomerular Filt Rate > 60; Glucose 116 mg/dL (65-110); Magnesium 1.7 mg/dL (1.6-2.3); Potassium 3.7 mmol/L (3.4-5.0); Sodium 130 mmol/L (137-145); Total Protein 5.1 g/dL (6.3-8.2)
[2025-01-27] MEDS: PANTOPRAZOLE SODIUM IV 40 MG VIAL IV PUSH ×2 (08:12→20:58)
[2025-01-27] MEDS: ENOXAPARIN 40 MG/0.4 ML SYRINGE SUB-Q (08:12)
--- NOTE | 2025-01-27 09:58 | P.PNGS_ITS ---
Progress Note: A&P Assessment and Plan (1) Perforated gastric ulcer: Qualifiers: Gastric ulcer chronicity: acute Qualified Code(s): K25.1 - Acute gastric ulcer with perforation Code(s): K25.5 - Chronic or unspecified gastric ulcer with perforation Status: Acute Assessment and Plan: * POD[address] yesterday with findings of PUD and moderate ascites, but no organized abscess or other acute findings that would cause her leukocytosis. Continue current management. WBC trending down. * Tolerating clear liquids, may consider advancing to full liquids later today. Continue TPN until tolerating fulls. * Continue IV antibiotics and fluconazole * Continue PPI * Okay to resume home medications per Hospitalist service. She does have lower extremity swelling and is positive on I&Os. Her home furosemide dose has been held due to her NPO status since admission, will give her IV Lasix once today. * Patient can be downgraded out of IMU to med/surg from our standpoint if okay with the Hospitalist service. Plan I have discussed the patient's case and plan of care with Dr. Ellison. Subjective Subjective Date/Time Seen: 01/27/25 09:58 Post Op day: 5 (exploratory laparotomy, repair of perforated gastric ulcer with Jean patch, extensive intra-abdominal washout) Patient reports: bowel movement Interval history: Patient sitting in the chair this morning. She has had multiple BMs since yesterday. Nursing said she did well getting up this morning with activity. She is tolerating clear liquids, but only small amounts at a time. No nausea. She feels bloated and gets full quickly. She is complaining of swelling in her legs and shortness of breath with activity. She appears comfortable at the time of my exam. She denies chest pain or any other complaints. Review of Systems Review of Systems: All systems reviewed & are unremarkable except as noted in HPI and below Exam Const: General: comfortable and no acute distress Orientation/consciousness: patient oriented x3 Resp: Effort & Inspection: normal respiratory effort and not labored Auscultation: diminished lung sounds bilateral (equal bilaterally, clear in bilateral upper lobes) in the lower lung gallego Cardio: Rate: tachycardic Rhythm: regular rhythm GI: Inspection: non-distended, incision (dry and dressing intact) and other (TEJA drain with scant serous drainage) GI Palp: Yes Soft to palpation, Yes Tenderness to palpation present (GI) and No Guarding due to palpation present (GI) Auscultation: normal bowel sounds Rectal Exam: deferred Extrem: General: no calf tenderness and edema bilateral (bilateral lower extremity edema 2-3+ ) Objective Data Vital Signs Vital Signs: Vital Signs - 24 hr 01/26/25 10:00 01/26/25 12:00 01/26/25 12:00 Temperature 98.6 F Pulse Rate 118 H 110 H Respiratory Rate 22 H Blood Pressure 147/102 H Pulse Oximetry 100 Oxygen Delivery Room Air 01/26/25 12:00 01/26/25 14:00 01/26/25 16:00 Temperature 98.6 F Pulse Rate 109 H 121 H 134 H Respiratory Rate 22 H Blood Pressure 134/100 H Pulse Oximetry 100 Oxygen Delivery 01/26/25 16:00 01/26/25 16:00 01/26/25 18:00 Temperature Pulse Rate 131 H 65 Respiratory Rate Blood Pressure Pulse Oximetry Oxygen Delivery Room Air 01/26/25 19:56 01/26/25 20:00 01/26/25 20:00 Temperature 97.7 F Pulse Rate 114 H Respiratory Rate 22 H Blood Pressure 142/101 H 137/89 Pulse Oximetry 90 Oxygen Delivery Room Air 01/26/25 20:00 01/26/25 22:00 01/26/25 23:57 Temperature 97.6 F Pulse Rate 103 H 100 104 H Respiratory Rate 22 H Blood Pressure 135/96 H Pulse Oximetry 94 Oxygen Delivery 01/27/25 00:00 01/27/25 00:00 01/27/25 02:00 Temperature Pulse Rate 100 103 H Respiratory Rate Blood Pressure Pulse Oximetry Oxygen Delivery Room Air 01/27/25 04:00 01/27/25 04:00 01/27/25 04:00 Temperature 98.3 F Pulse Rate 109 H 113 H Respiratory Rate 18 Blood Pressure 135/99 H Pulse Oximetry 100 Oxygen Delivery Room Air 01/27/25 06:00 01/27/25 08:00 01/27/25 08:00 Temperature 98.1 F Pulse Rate 105 H 114 H Respiratory Rate 20 Blood Pressure 131/85 Pulse Oximetry 90 Oxygen Delivery Room Air Intake/Output Intake/Output: Intake & Output 01/24/25 01/25/25 01/26/25 01/27/25 23:59 23:59 23:59 23:59 Intake Total 2711.1 3312.0 3720 740 Output Total 670 525 510 315 Balance 2041.1 2787.0 3210 425 Meds/Results Medications: Active Medications Generic Name Dose Route Start Last Admin Trade Name Freq PRN Reason Stop Dose Admin Alprazolam 0.5 mg 01/26/25 11:33 01/26/25 21:02 Alprazolam (*Crx) 0.5 Mg Tablet PO 0.5 mg TID PRN Administration Anxiety Enoxaparin Sodium 40 mg 01/23/25 09:00 01/27/25 08:12 Enoxaparin 40 Mg/0.4 Ml Syringe SUB-Q 40 mg DAILY NATHEN Administration Hydralazine HCl 10 mg 01/22/25 22:51 Hydralazine Hcl 20 Mg/Ml Vial IV PUSH Q8H PRN Blood Pressure - High Hydromorphone HCl 1 mg 01/22/25 16:24 01/27/25 08:12 Hydromorphone Hcl Inj (*Crx) 1 Mg/Ml Syr IV PUSH 1 mg Q2H PRN Administration Breakthrough Pain Rated 7-10 or NPO Hydromorphone HCl 0.5 mg 01/22/25 16:24 Hydromorphone Hcl Inj (*Crx) 1 Mg/Ml Syr IV PUSH Q2H PRN Breakthrough Pain Rated 4-6 or NPO Piperacillin Sod/Tazobactam 50 mls @ 100 mls/hr 01/22/25 21:00 01/27/25 08:16 Sod 3.375 gm/ Sodium Chloride IVPB 100 mls/hr Q6H NATHEN Administration Dextrose 1,000 mls @ 50 mls/hr 01/24/25 11:58 Dextrose 10% IV CONT .Q20H PRN if PN is interrupted Amino Acids/Electrolytes/Dextrose 1,000 mls @ 80 mls/hr 01/24/25 12:00 01/26/25 18:58 Clinimix E 4.25%/5% Solution IV CONT 80 mls/hr .[id number] NATHEN Administration Protocol Fat Emulsion Intravenous 250 mls @ 20.833 mls/hr 01/24/25 14:00 01/27/25 05:38 Lipids 20% IVPB Infused Q24H NATHEN Infusion Metronidazole 500 mg in 100 mls @ 100 mls/hr 01/25/25 13:00 01/27/25 06:20 Flagyl 500 Mg/Iso Soln 100 Ml IVPB Infused Q8HR NATHEN Infusion Fluconazole/Dextrose 100 mg in 50 mls @ 50 mls/hr 01/25/25 12:00 01/26/25 13:30 Diflucan 100 Mg/Nacl 50 Ml IVPB Infused Q24H NATHEN Infusion Naloxone HCl 0.1 mg 01/22/25 16:24 Naloxone Hcl 0.4 Mg/Ml Vial IV PUSH Q2M PRN Opiate Reversal Ondansetron HCl 4 mg 01/22/25 16:24 Ondansetron Inj 4 Mg/2 Ml Vial IV PUSH Q4H PRN Nausea And Vomiting Pantoprazole Sodium 40 mg 01/22/25 21:00 01/27/25 08:12 Pantoprazole Sodium Iv 40 Mg Vial IV PUSH 40 mg Q12HR NATHEN Administration Radiology Results: ITS Impressions Chest X-Ray 01/22/25 11:32 IMPRESSION: 1: No acute pulmonary process identified. Upper GI Series 01/26/25 10:08 IMPRESSION: 1. No evident extraluminal leakage of contrast or obstruction post repair of a perforated gastric ulcer. Abdomen/Pelvis CT 01/26/25 14:32 IMPRESSION: 1. Wall thickening of the gastric antrum, consistent with peptic ulcer disease. 2. Moderate volume of ascites with peritoneal thickening and enhancement, likely an exudate. 3. Small pleural effusions. Labs Labs: Laboratory Results - last 24 hr 01/26/25 01/26/25 01/26/25 12:02 20:27 23:27 WBC RBC Hgb Hct MCV MCH MCHC RDW Plt Count MPV Immature Gran % (Auto) Neut % (Auto) Lymph % (Auto) [place] % (Auto) Eos % (Auto) Baso % (Auto) Lymph # (Auto) [place] # (Auto) Eos # (Auto) Baso # (Auto) Abs Immat Gran (auto) Absolute Neuts (auto) Absolute Nucleated RBC Band Neutrophils % Nucleated RBC % Platelet Estimate Hypochromasia Macrocytosis Schistocytes Sodium Potassium Chloride Carbon Dioxide Anion Gap BUN Creatinine Estim Creat Clear Calc Estimated GFR Glucose POC Capillary Glucose 124 H 130 H 123 H Calcium Phosphorus Magnesium Total Bilirubin AST ALT Alkaline Phosphatase Total Protein Albumin 01/27/25 01/27/25 03:38 06:03 WBC 17.8 H RBC 2.34 L Hgb 8.1 L Hct 25.4 L MCV 108.5 H MCH 34.6 H MCHC 31.9 L RDW 13.9 Plt Count 393 H MPV 8.7 Immature Gran % (Auto) 3.6 H Neut % (Auto) 74.8 H Lymph % (Auto) 6.1 L [place] % (Auto) 11.9 H Eos % (Auto) 3.1 Baso % (Auto) 0.5 Lymph # (Auto) 1.09 [place] # (Auto) 2.1 H Eos # (Auto) 0.6 H Baso # (Auto) 0.1 Abs Immat Gran (auto) 0.64 H Absolute Neuts (auto) 13.3 H Absolute Nucleated RBC 0.000 Band Neutrophils % Not Reportable Nucleated RBC % 0.0 Platelet Estimate Slightly increased Hypochromasia 1+ Macrocytosis 1+ Schistocytes None seen Sodium 130 L Potassium 3.7 Chloride 103 Carbon Dioxide 22 Anion Gap 5 BUN 11 Creatinine 0.47 L Estim Creat Clear Calc 109 Estimated GFR > 60 Glucose 116 H POC Capillary Glucose Calcium 8.5 Phosphorus 2.7 Magnesium 1.7 Total Bilirubin 0.3 AST 21 ALT 11 Alkaline Phosphatase 87 Total Protein 5.1 L Albumin 2.3 L
[2025-01-27] MEDS: METOPROLOL TARTRATE 12.5 MG TABLET PO ×2 (11:05→20:58)
[2025-01-27] MEDS: ALPRAZolam (*CRX) 0.5 MG TABLET PO ×3 (11:06→20:58)
[2025-01-27] MEDS: FUROSEMIDE INJ 40 MG/4 ML VIAL 20 MG IV PUSH (12:00)
--- NOTE | 2025-01-27 12:07 | PCNFU ---
Nutrition Follow-Up Complete: Inadequate oral intake related to altered GI function as evidenced by NPO, recent surgery Goal:Meet estimated nutrition needs when medically able Pt progressing towards goal, continue with same goal Pt current nutrition is Clear liquids, PPN running Clinimix E 4.25/5 @ 80ml/hr. Nutrition recommendation: continue to advance diet po and reduce PPN as intake increases Last recorded weight is 67.2 kg. Bowel Motility: +BM 01/27 Labs Reviewed: Hgb:8.1, HCt:25.4, NA:130, Cr: 0.47 Meds Noted: protonix, lovenox Skin: WNL Additional Notes: Pt continues on PPN at 80ml/hr, Clear liquids started and pt is tolerating, intake 25-75%. Recommend to advance to full liquids as tolerated and decrease PPN. Monitoring diet orders, weights, labs, plan of care Follow up every Sunday and Sunday
[2025-01-27] MEDS: FLUCONAZOLE 400 MG/NACL 200 ML 400 MG/200 ML BAG 100 MG IVPB (14:50)
[2025-01-27] MEDS: FAT EMULSIONS IV 20% 250 ML 20.83 ML IVPB (17:36)
[2025-01-27] MEDS: AMINO ACIDS 4.25%/D5W/LYTES/CA 1,000 ML 80 ML IV CONT (17:38)
--- NOTE | 2025-01-27 18:53 | P.PNIM_ITS ---
Progress Note: A&P Assessment and Plan (1) Gastric perforation: Code(s): K25.5 - Chronic or unspecified gastric ulcer with perforation Status: Acute Assessment and Plan: on admission, CT A/P shows gastric perforation Surgery consulted,S/P Exploratory laparotomy on 01/22/2025 IV antibiotics de-escalated to only Zosyn IVF, IV Protonix b.i.d.,TEJA drain care NG tube to suction Continue PPN Upper GI series study with contrast on Sunday Dressing change after the surgeon evaluation (2) Hyponatremia: Code(s): E87.1 - Hypo-osmolality and hyponatremia Status: Acute Assessment and Plan: Hyponatremia seems chronic Sodium 129 which is stable Follow serum osmolar, urine osmolality and urine random sodium (3) Hypokalemia: Code(s): E87.6 - Hypokalemia Status: Acute Assessment and Plan: Resolved (4) Anemia: Code(s): D64.9 - Anemia, unspecified Status: Acute Assessment and Plan: Iron study shows iron 23, 194 and % transferrin saturation 12- There is a component of iron deficiency anemia and anemia of chronic disease Continue IV iron 300 mg a day for 3 days (5) Colitis: Code(s): K52.9 - Noninfective gastroenteritis and colitis, unspecified Status: Acute Assessment and Plan: Antibiotics as above Stool sample (6) Anxiety: Code(s): F41.9 - Anxiety disorder, unspecified Status: Acute Assessment and Plan: Currently holding home medications until okay by surgery (7) Hypertension: Code(s): I10 - Essential (primary) hypertension Status: Acute Assessment and Plan: Holding oral medications Hydralazine p.r.n. Plan Complains abdominal pain 8/10 sharp, throbbing constant pain without associated nausea and vomiting. She denies fever. No bowel movement. Upper GI series study for today but patient was not able to tolerate, surgery has ordered CT of abdomen which is negative, recommended to clamp the NG and may start sips of water, A leukocytosis trending down. blood culture no growth so far Check lactic acid is close to normal . Broaden antibiotics by adding Flagyl and antifungals. patient stats feels better compared when she arrived, patient is now able to take po meds, will resume her home medication and monitor. Up trending leukocytosis Add Flagyl and antifungal : Blood culture, check lactic acid Continue monitoring fever and vital signs Subjective Date/time seen: 01/27/25 18:53 Interval history: Complains abdominal pain 8/10 sharp, throbbing constant pain without associated nausea and vomiting. She denies fever. No bowel movement. Upper GI series study for today but patient was not able to tolerate, surgery has ordered CT of abdomen which is negative, recommended to clamp the NG and may start sips of water, A leukocytosis trending down. blood culture no growth so far Check lactic acid is close to normal . Broaden antibiotics by adding Flagyl and antifungals. patient stats feels better compared when she arrived, patient is now able to take po meds, will resume her home medication and monitor. Review of Systems Review of Systems: 12 systems were reviewed and are negativ e except for as per HPI. Exam Narrative: APPEARANCE: No acute distress, nontoxic, NG tube placed EYES: EOMI HEENT: Normocephalic, atraumatic, OMM RESPIRATORY: No respiratory distress Clear to auscultation bilaterally with no rhonchi wheezing or rales. CARDIOVASCULAR: RRR, S1 and S2 without murmurs rubs or gallops. ABDOMINAL: Abdomen tenderness to palpation, no guarding or peritonitis MSK: Normal range of motion NEURO: Awake and alert. Following commands, speech normal, no focal deficits SKIN:: Warm, dry. No rashes lesions or abrasions PSYCHIATRIC: Normal affect/mood Objective Data Vital Signs Vital Signs: Vital Signs - 24 hr 01/26/25 19:56 01/26/25 20:00 01/26/25 20:00 Temperature 36.5 C Pulse Rate 114 H Respiratory Rate 22 H Blood Pressure 142/101 H 137/89 Pulse Oximetry 90 Oxygen Delivery Room Air 01/26/25 20:00 01/26/25 22:00 01/26/25 23:57 Temperature 36.4 C Pulse Rate 103 H 100 104 H Respiratory Rate 22 H Blood Pressure 135/96 H Pulse Oximetry 94 Oxygen Delivery 01/27/25 00:00 01/27/25 00:00 01/27/25 02:00 Temperature Pulse Rate 100 103 H Respiratory Rate Blood Pressure Pulse Oximetry Oxygen Delivery Room Air 01/27/25 04:00 01/27/25 04:00 01/27/25 04:00 Temperature 36.8 C Pulse Rate 109 H 113 H Respiratory Rate 18 Blood Pressure 135/99 H Pulse Oximetry 100 Oxygen Delivery Room Air 01/27/25 06:00 01/27/25 08:00 01/27/25 08:00 Temperature 36.7 C Pulse Rate 105 H 114 H Respiratory Rate 20 Blood Pressure 131/85 Pulse Oximetry 90 Oxygen Delivery Room Air 01/27/25 08:00 01/27/25 10:00 01/27/25 12:00 Temperature 36.9 C Pulse Rate 124 H 125 H 120 H Respiratory Rate 16 Blood Pressure 133/93 H Pulse Oximetry 100 Oxygen Delivery 01/27/25 12:00 01/27/25 13:59 01/27/25 16:00 Temperature 36.8 C Pulse Rate 105 H 99 100 Respiratory Rate 16 Blood Pressure 117/82 Pulse Oximetry 100 Oxygen Delivery 01/27/25 16:00 Temperature Pulse Rate 105 H Respiratory Rate Blood Pressure Pulse Oximetry Oxygen Delivery Intake/Output Intake/Output: Intake & Output 01/24/25 01/25/25 01/26/25 01/27/25 23:59 23:59 23:59 23:59 Intake Total 2711.1 3312.0 3720 2030 Output Total 670 525 510 315 Balance 2041.1 2787.0 3210 1715 Meds/Results Medications: Active Medications Generic Name Dose Route Start Last Admin Trade Name Freq PRN Reason Stop Dose Admin Alprazolam 0.5 mg 01/26/25 11:33 01/27/25 17:35 Alprazolam (*Crx) 0.5 Mg Tablet PO 0.5 mg TID PRN Administration Anxiety Enoxaparin Sodium 40 mg 01/23/25 09:00 01/27/25 08:12 Enoxaparin 40 Mg/0.4 Ml Syringe SUB-Q 40 mg DAILY NATHEN Administration Hydralazine HCl 10 mg 01/22/25 22:51 Hydralazine Hcl 20 Mg/Ml Vial IV PUSH Q8H PRN Blood Pressure - High Hydromorphone HCl 1 mg 01/22/25 16:24 01/27/25 17:35 Hydromorphone Hcl Inj (*Crx) 1 Mg/Ml Syr IV PUSH 1 mg Q2H PRN Administration Breakthrough Pain Rated 7-10 or NPO Hydromorphone HCl 0.5 mg 01/22/25 16:24 Hydromorphone Hcl Inj (*Crx) 1 Mg/Ml Syr IV PUSH Q2H PRN Breakthrough Pain Rated 4-6 or NPO Piperacillin Sod/Tazobactam 50 mls @ 100 mls/hr 01/22/25 21:00 01/27/25 14:57 Sod 3.375 gm/ Sodium Chloride IVPB 100 mls/hr Q6H NATHEN Administration Dextrose 1,000 mls @ 50 mls/hr 01/24/25 11:58 Dextrose 10% IV CONT .Q20H PRN if PN is interrupted Amino Acids/Electrolytes/Dextrose 1,000 mls @ 80 mls/hr 01/24/25 12:00 01/27/25 17:38 Clinimix E 4.25%/5% Solution IV CONT 80 mls/hr .[id number] NATHEN Administration Protocol Fat Emulsion Intravenous 250 mls @ 20.833 mls/hr 01/24/25 14:00 01/27/25 17:36 Lipids 20% IVPB 20.83 mls/hr Q24H NATHEN Administration Metronidazole 500 mg in 100 mls @ 100 mls/hr 01/25/25 13:00 01/27/25 14:49 Flagyl 500 Mg/Iso Soln 100 Ml IVPB 100 mls/hr Q8HR NATHEN Administration Fluconazole 400 mg in 200 mls @ 100 mls/hr 01/27/25 12:00 01/27/25 14:50 Diflucan 400 Mg/Nacl 200 Ml IVPB 100 mls/hr DAILY NATHEN Administration Metoprolol Tartrate 12.5 mg 01/27/25 10:35 01/27/25 11:05 Metoprolol Tartrate 12.5 Mg Tablet PO 12.5 mg Q12HR NATHEN Administration Naloxone HCl 0.1 mg 01/22/25 16:24 Naloxone Hcl 0.4 Mg/Ml Vial IV PUSH Q2M PRN Opiate Reversal Ondansetron HCl 4 mg 01/22/25 16:24 Ondansetron Inj 4 Mg/2 Ml Vial IV PUSH Q4H PRN Nausea And Vomiting Pantoprazole Sodium 40 mg 01/22/25 21:00 01/27/25 08:12 Pantoprazole Sodium Iv 40 Mg Vial IV PUSH 40 mg Q12HR NATHEN Administration Radiology Results: ITS Impressions Chest X-Ray 01/22/25 11:32 IMPRESSION: 1: No acute pulmonary process identified. Upper GI Series 01/26/25 10:08 IMPRESSION: 1. No evident extraluminal leakage of contrast or obstruction post repair of a perforated gastric ulcer. Abdomen/Pelvis CT 01/26/25 14:32 IMPRESSION: 1. Wall thickening of the gastric antrum, consistent with peptic ulcer disease. 2. Moderate volume of ascites with peritoneal thickening and enhancement, likely an exudate. 3. Small pleural effusions. Labs Labs: Laboratory Results - last 24 hr 01/26/25 01/26/25 01/27/25 20:27 23:27 03:38 WBC RBC Hgb Hct MCV MCH MCHC RDW Plt Count MPV Immature Gran % (Auto) Neut % (Auto) Lymph % (Auto) [place] % (Auto) Eos % (Auto) Baso % (Auto) Lymph # (Auto) [place] # (Auto) Eos # (Auto) Baso # (Auto) Abs Immat Gran (auto) Absolute Neuts (auto) Absolute Nucleated RBC Band Neutrophils % Nucleated RBC % Platelet Estimate Hypochromasia Macrocytosis Schistocytes Sodium Potassium Chloride Carbon Dioxide Anion Gap BUN Creatinine Estim Creat Clear Calc Estimated GFR Glucose POC Capillary Glucose 130 H 123 H Calcium Phosphorus 2.7 Magnesium Total Bilirubin AST ALT Alkaline Phosphatase Total Protein Albumin 01/27/25 01/27/25 06:03 11:41 WBC 17.8 H RBC 2.34 L Hgb 8.1 L Hct 25.4 L MCV 108.5 H MCH 34.6 H MCHC 31.9 L RDW 13.9 Plt Count 393 H MPV 8.7 Immature Gran % (Auto) 3.6 H Neut % (Auto) 74.8 H Lymph % (Auto) 6.1 L [place] % (Auto) 11.9 H Eos % (Auto) 3.1 Baso % (Auto) 0.5 Lymph # (Auto) 1.09 [place] # (Auto) 2.1 H Eos # (Auto) 0.6 H Baso # (Auto) 0.1 Abs Immat Gran (auto) 0.64 H Absolute Neuts (auto) 13.3 H Absolute Nucleated RBC 0.000 Band Neutrophils % Not Reportable Nucleated RBC % 0.0 Platelet Estimate Slightly increased Hypochromasia 1+ Macrocytosis 1+ Schistocytes None seen Sodium 130 L Potassium 3.7 Chloride 103 Carbon Dioxide 22 Anion Gap 5 BUN 11 Creatinine 0.47 L Estim Creat Clear Calc 109 Estimated GFR > 60 Glucose 116 H POC Capillary Glucose 97 Calcium 8.5 Phosphorus Magnesium 1.7 Total Bilirubin 0.3 AST 21 ALT 11 Alkaline Phosphatase 87 Total Protein 5.1 L Albumin 2.3 L Quality VTE Prophylaxis VTE prophylaxis: mechanical ordered
[2025-01-28] VITALS (9 sets, daily range): BP systolic 108–125; BP diastolic 74–97; PULSE 80–111; RESP 16–20; TEMP 36.6–36.9; O2SAT 97–100
[2025-01-28] MEDS: HYDROmorphone HCL INJ (*CRX) 1 MG/ML SYR IV PUSH ×3 (02:57→11:14)
[2025-01-28] MEDS: PIPERACILLIN/TAZOBACTAM SOD 3.375 GM in SODIUM CHLORIDE 0.9% IV 50 ML 100 ML IVPB ×4 (02:57→21:20)
[2025-01-28 04:23] LABS: Hematocrit 27.2 % (37.0-47.0); Hemoglobin 8.6 g/dL (12.0-15.0); Mean Corpuscular HGB Conc 31.6 g/dl (32-36); Mean Corpuscular Hemoglobin 34.7 pg (26-34); Mean Corpuscular Volume 109.7 fl (80-100); Platelet Count Result 429 k/mm3 (150-375); Red Blood Count 2.48 M/mm3 (4.2-5.4); White Blood Count 17.9 K/mm3 (4.5-10.0)
[2025-01-28 04:44] LABS: Anion Gap 7 mmol/L (4-12); Blood Urea Nitrogen 10 mg/dL (7-17); Calcium 8.4 mg/dL (8.4-10.2); Carbon Dioxide 20 mmol/L (22-30); Chloride 102 mmol/L (98-107); Estimated CRCL calculation 101 ml/min; Estimated Glomerular Filt Rate > 60; Glucose 118 mg/dL (65-110); Magnesium 1.5 mg/dL (1.6-2.3); Potassium 4.2 mmol/L (3.4-5.0); Sodium 129 mmol/L (137-145)
[2025-01-28] MEDS: ALPRAZolam (*CRX) 0.5 MG TABLET PO ×3 (06:05→21:26)
[2025-01-28] MEDS: metroNIDAZOLE 500 MG/ISO 100ML 500 MG/100 ML BAG 100 MG IVPB ×3 (06:05→21:14)
[2025-01-28 06:08] LABS: Osmolality, Serum 271 mOsmol/kg (275-295)
[2025-01-28] MEDS: AMINO ACIDS 4.25%/D5W/LYTES/CA 1,000 ML 80 ML IV CONT (06:09)
[2025-01-28] MEDS: METOPROLOL TARTRATE 12.5 MG TABLET PO ×2 (08:10→21:25)
[2025-01-28] MEDS: PANTOPRAZOLE SODIUM IV 40 MG VIAL IV PUSH ×2 (08:11→23:00)
[2025-01-28] MEDS: ENOXAPARIN 40 MG/0.4 ML SYRINGE SUB-Q (08:11)
[2025-01-28] MEDS: FLUCONAZOLE 400 MG/NACL 200 ML 400 MG/200 ML BAG 100 MG IVPB (08:14)
[2025-01-28] MEDS: FENOFIBRATE 145 MG TABLET PO (10:58)
[2025-01-28] MEDS: SIMVASTATIN 20 MG TABLET 40 MG PO (10:58)
[2025-01-28] MEDS: LOSARTAN POTASSIUM 50 MG TABLET PO (10:59)
[2025-01-28] MEDS: FAMOTIDINE 20 MG TABLET PO ×2 (10:59→21:26)
[2025-01-28] MEDS: FERROUS SULFATE 325 MG TABLET BY MOUTH ×2 (10:59→17:17)
[2025-01-28] MEDS: buPROPion HCL XL (24 HR) 150 MG TABCR PO (10:59)
[2025-01-28] MEDS: FUROSEMIDE 20 MG TABLET PO (10:59)
--- NOTE | 2025-01-28 12:36 | P.PNGS_ITS ---
Progress Note: A&P Assessment and Plan (1) Perforated gastric ulcer: Qualifiers: Gastric ulcer chronicity: acute Qualified Code(s): K25.1 - Acute gastric ulcer with perforation Code(s): K25.5 - Chronic or unspecified gastric ulcer with perforation Status: Acute Assessment and Plan: * POD6 and slowly improving. [place] [address] today. * Tolerating full liquids. Advance as tolerated. TPN stopped. * Continue IV antibiotics and fluconazole * Continue PPI * Home meds resumed. Oral pain medication options given. Encourage ambulation and OOB. * Patient can be downgraded out of IMU to med/surg from our standpoint if okay with the Hospitalist service. Plan I have discussed the patient's case and plan of care with Dr. Ellison. Subjective Subjective Date/Time Seen: 01/28/25 12:36 Post Op day: 6 (HD surgery laparotomy. Perforated gastric ulcer with Jean patch, extensive intra-abdominal washout) Patient reports: tolerating liquids well, bowel movement and afebrile Interval history: Patient complains of abdominal pain. sitting up in chair. Tolerated [place] [address]. Exam GI: Inspection: normal to inspection, non-distended, incision (james intact. No surrounding redness or signs of infection.) and other (TEJA drain with scant serous drainage) GI Palp: Yes Soft to palpation and Yes Tenderness to palpation present (GI) (tender around incision especially surrounding umbilicus) Auscultation: normal bowel sounds Rectal Exam: deferred Objective Data Vital Signs Vital Signs: Vital Signs - 24 hr 01/27/25 13:59 01/27/25 16:00 01/27/25 16:00 Temperature 98.2 F Pulse Rate 99 100 105 H Respiratory Rate 16 Blood Pressure 117/82 Pulse Oximetry 100 Oxygen Delivery 01/27/25 20:00 01/27/25 20:00 01/27/25 20:00 Temperature 98.6 F Pulse Rate 111 H 134 H Respiratory Rate 16 Blood Pressure 125/87 Pulse Oximetry 98 Oxygen Delivery Room Air 01/27/25 20:58 01/28/25 00:00 01/28/25 00:00 Temperature 98.5 F Pulse Rate 111 H 101 H 93 Respiratory Rate 16 Blood Pressure 123/81 Pulse Oximetry 98 Oxygen Delivery 01/28/25 04:00 01/28/25 04:00 01/28/25 08:00 Temperature 98.3 F 98.5 F Pulse Rate 105 H 108 H 109 H Respiratory Rate 16 18 Blood Pressure 118/78 125/89 Pulse Oximetry 98 100 Oxygen Delivery 01/28/25 08:00 01/28/25 08:10 Temperature Pulse Rate 110 H Respiratory Rate Blood Pressure Pulse Oximetry Oxygen Delivery Room Air Intake/Output Intake/Output: Intake & Output 01/25/25 01/26/25 01/27/25 01/28/25 23:59 23:59 23:59 23:59 Intake Total 3312.0 3720 2730 1300 Output Total 646 099 3913 500 Balance 2787.0 3210 1565 800 Meds/Results Medications: Active Medications Generic Name Dose Route Start Last Admin Trade Name Freq PRN Reason Stop Dose Admin Alprazolam 0.5 mg 01/26/25 11:33 01/28/25 11:04 Alprazolam (*Crx) 0.5 Mg Tablet PO 0.5 mg TID PRN Administration Anxiety Bupropion HCl 150 mg 01/28/25 09:00 01/28/25 10:59 Bupropion Hcl Xl (24 Hr) 150 Mg Tabcr PO 150 mg DAILY NATHEN Administration Buspirone HCl 30 mg 01/28/25 09:00 01/28/25 10:58 Buspirone Hcl 10 Mg Tablet PO 30 mg Q12HR NATHEN Administration Enoxaparin Sodium 40 mg 01/23/25 09:00 01/28/25 08:11 Enoxaparin 40 Mg/0.4 Ml Syringe SUB-Q 40 mg DAILY NATHEN Administration Famotidine 20 mg 01/28/25 09:00 01/28/25 10:59 Famotidine 20 Mg Tablet PO 20 mg Q12HR NATHEN Administration Fenofibrate 145 mg 01/28/25 09:00 01/28/25 10:58 Fenofibrate 145 Mg Tablet PO 145 mg QAM NATHEN Administration Ferrous Sulfate 325 mg 01/28/25 09:00 01/28/25 10:59 Ferrous Sulfate 325 Mg Tablet BY MOUTH 325 mg BIDWM NATHEN Administration Furosemide 20 mg 01/28/25 09:00 01/28/25 10:59 Furosemide 20 Mg Tablet PO 20 mg QAM NATHEN Administration Hydralazine HCl 10 mg 01/22/25 22:51 Hydralazine Hcl 20 Mg/Ml Vial IV PUSH Q8H PRN Blood Pressure - High Hydromorphone HCl 1 mg 01/22/25 16:24 01/28/25 11:14 Hydromorphone Hcl Inj (*Crx) 1 Mg/Ml Syr IV PUSH 1 mg Q2H PRN Administration Breakthrough Pain Rated 7-10 or NPO Hydromorphone HCl 0.5 mg 01/22/25 16:24 Hydromorphone Hcl Inj (*Crx) 1 Mg/Ml Syr IV PUSH Q2H PRN Breakthrough Pain Rated 4-6 or NPO Piperacillin Sod/Tazobactam 50 mls @ 100 mls/hr 01/22/25 21:00 01/28/25 08:12 Sod 3.375 gm/ Sodium Chloride IVPB 100 mls/hr Q6H NATHEN Administration Dextrose 1,000 mls @ 50 mls/hr 01/24/25 11:58 Dextrose 10% IV CONT .Q20H PRN if PN is interrupted Amino Acids/Electrolytes/Dextrose 1,000 mls @ 80 mls/hr 01/24/25 12:00 01/28/25 06:09 Clinimix E 4.25%/5% Solution IV CONT 80 mls/hr .[id number] NATHEN Administration Protocol Fat Emulsion Intravenous 250 mls @ 20.833 mls/hr 01/24/25 14:00 01/28/25 05 :37 Lipids 20% IVPB Infused Q24H NATHEN Infusion Metronidazole 500 mg in 100 mls @ 100 mls/hr 01/25/25 13:00 01/28/25 06:05 Flagyl 500 Mg/Iso Soln 100 Ml IVPB 100 mls/hr Q8HR NATHEN Administration Fluconazole 400 mg in 200 mls @ 100 mls/hr 01/27/25 12:00 01/28/25 08:14 Diflucan 400 Mg/Nacl 200 Ml IVPB 100 mls/hr DAILY NATHEN Administration Losartan Potassium 50 mg 01/28/25 09:00 01/28/25 10:59 Losartan Potassium 50 Mg Tablet PO 50 mg DAILY NATHEN Administration Metoprolol Tartrate 12.5 mg 01/27/25 10:35 01/28/25 08:10 Metoprolol Tartrate 12.5 Mg Tablet PO 12.5 mg Q12HR NATHEN Administration Naloxone HCl 0.1 mg 01/22/25 16:24 Naloxone Hcl 0.4 Mg/Ml Vial IV PUSH Q2M PRN Opiate Reversal Ondansetron HCl 4 mg 01/22/25 16:24 Ondansetron Inj 4 Mg/2 Ml Vial IV PUSH Q4H PRN Nausea And Vomiting Pantoprazole Sodium 40 mg 01/22/25 21:00 01/28/25 08:11 Pantoprazole Sodium Iv 40 Mg Vial IV PUSH 40 mg Q12HR NATHEN Administration Simvastatin 40 mg 01/28/25 09:00 01/28/25 10:58 Simvastatin 20 Mg Tablet PO 40 mg QAM NATHEN Administration Radiology Results: ITS Impressions Chest X-Ray 01/22/25 11:32 IMPRESSION: 1: No acute pulmonary process identified. Upper GI Series 01/26/25 10:08 IMPRESSION: 1. No evident extraluminal leakage of contrast or obstruction post repair of a perforated gastric ulcer. Abdomen/Pelvis CT 01/26/25 14:32 IMPRESSION: 1. Wall thickening of the gastric antrum, consistent with peptic ulcer disease. 2. Moderate volume of ascites with peritoneal thickening and enhancement, likely an exudate. 3. Small pleural effusions. Labs Labs: Laboratory Results - last 24 hr 01/24/25 01/27/25 01/28/25 12:13 18:52 00:10 WBC RBC Hgb Hct MCV MCH MCHC RDW Plt Count MPV Sodium Potassium Chloride Carbon Dioxide Anion Gap BUN Creatinine Estim Creat Clear Calc Estimated GFR Glucose POC Capillary Glucose 121 H 103 Serum Osmolality 271 L Calcium Phosphorus Magnesium 01/28/25 04:00 WBC 17.9 H RBC 2.48 L Hgb 8.6 L Hct 27.2 L MCV 109.7 H MCH 34.7 H MCHC 31.6 L RDW 14.2 Plt Count 429 H MPV 9.0 Sodium 129 L Potassium 4.2 Chloride 102 Carbon Dioxide 20 L Anion Gap 7 BUN 10 Creatinine 0.51 L Estim Creat Clear Calc 101 Estimated GFR > 60 Glucose 118 H POC Capillary Glucose Serum Osmolality Calcium 8.4 Phosphorus 3.4 Magnesium 1.5 L
[2025-01-28] MEDS: HYDROcodone/acetaminophen (*CRX) 10-325 MG TABLET 1 TAB PO ×2 (14:17→21:26)
[2025-01-28] MEDS: MAGNESIUM SULF 2 GM/WATER 50ML 2 GM/50 ML BAG IVPB (14:18)
[2025-01-28] MEDS: ACETAMINOPHEN 500 MG TABLET 1000 MG PO (17:17)
--- NOTE | 2025-01-28 18:38 | P.PNIM_ITS ---
Progress Note: A&P Assessment and Plan (1) Gastric perforation: Code(s): K25.5 - Chronic or unspecified gastric ulcer with perforation Status: Acute Assessment and Plan: on admission, CT A/P shows gastric perforation Surgery consulted,S/P Exploratory laparotomy on 01/22/2025 IV antibiotics de-escalated to only Zosyn IVF, IV Protonix b.i.d.,TEJA drain care NG tube to suction Continue PPN Upper GI series study with contrast on Sunday Dressing change after the surgeon evaluation (2) Hyponatremia: Code(s): E87.1 - Hypo-osmolality and hyponatremia Status: Acute Assessment and Plan: Hyponatremia seems chronic Sodium 129 which is stable Follow serum osmolar, urine osmolality and urine random sodium (3) Hypokalemia: Code(s): E87.6 - Hypokalemia Status: Acute Assessment and Plan: Resolved (4) Anemia: Code(s): D64.9 - Anemia, unspecified Status: Acute Assessment and Plan: Iron study shows iron 23, 194 and % transferrin saturation 12- There is a component of iron deficiency anemia and anemia of chronic disease Continue IV iron 300 mg a day for 3 days (5) Colitis: Code(s): K52.9 - Noninfective gastroenteritis and colitis, unspecified Status: Acute Assessment and Plan: Antibiotics as above Stool sample (6) Anxiety: Code(s): F41.9 - Anxiety disorder, unspecified Status: Acute Assessment and Plan: Currently holding home medications until okay by surgery (7) Hypertension: Code(s): I10 - Essential (primary) hypertension Status: Acute Assessment and Plan: Holding oral medications Hydralazine p.r.n. Plan Complains abdominal pain 8/10 sharp, throbbing constant pain without associated nausea and vomiting. She denies fever. No bowel movement. Upper GI series study for today but patient was not able to tolerate, surgery has ordered CT of abdomen which is negative, recommended to clamp the NG and may start sips of water, A leukocytosis trending down. blood culture no growth so far Check lactic acid is close to normal . Broaden antibiotics by adding Flagyl and antifungals. patient stats feels better compared when she arrived, patient is now able to take po meds, will resume her home medication, patient is tolerating liquids, and have BM, will monitor. Up trending leukocytosis Add Flagyl and antifungal : Blood culture, check lactic acid Continue monitoring fever and vital signs Subjective Date/time seen: 01/28/25 18:38 Interval history: Complains abdominal pain 8/10 sharp, throbbing constant pain without associated nausea and vomiting. She denies fever. No bowel movement. Upper GI series study for today but patient was not able to tolerate, surgery has ordered CT of abdomen which is negative, recommended to clamp the NG and may start sips of water, A leukocytosis trending down. blood culture no growth so far Check lactic acid is close to normal . Broaden antibiotics by adding Flagyl and antifungals. patient stats feels better compared when she arrived, patient is now able to take po meds, will resume her home medication, patient is tolerating liquids, and have BM, will monitor. Review of Systems Review of Systems: 12 systems were reviewed and are negativ e except for as per HPI. All systems reviewed & are unremarkable except as noted in HPI and below Exam Narrative: APPEARANCE: No acute distress, nontoxic, NG tube placed EYES: EOMI HEENT: Normocephalic, atraumatic, OMM RESPIRATORY: No respiratory distress Clear to auscultation bilaterally with no rhonchi wheezing or rales. CARDIOVASCULAR: RRR, S1 and S2 without murmurs rubs or gallops. ABDOMINAL: Abdomen tenderness to palpation, no guarding or peritonitis MSK: Normal range of motion NEURO: Awake and alert. Following commands, speech normal, no focal deficits SKIN:: Warm, dry. No rashes lesions or abrasions PSYCHIATRIC: Normal affect/mood Objective Data Vital Signs Vital Signs: Vital Signs - 24 hr 01/27/25 20:00 01/27/25 20:00 01/27/25 20:00 Temperature 37.0 C Pulse Rate 111 H 134 H Respiratory Rate 16 Blood Pressure 125/87 Pulse Oximetry 98 Oxygen Delivery Room Air 01/27/25 20:58 01/28/25 00:00 01/28/25 00:00 Temperature 36.9 C Pulse Rate 111 H 101 H 93 Respiratory Rate 16 Blood Pressure 123/81 Pulse Oximetry 98 Oxygen Delivery 01/28/25 04:00 01/28/25 04:00 01/28/25 08:00 Temperature 36.8 C 36.9 C Pulse Rate 105 H 108 H 109 H Respiratory Rate 16 18 Blood Pressure 118/78 125/89 Pulse Oximetry 98 100 Oxygen Delivery 01/28/25 08:00 01/28/25 08:00 01/28/25 08:10 Temperature Pulse Rate 108 H 110 H Respiratory Rate Blood Pressure Pulse Oximetry Oxygen Delivery Room Air 01/28/25 12:00 01/28/25 12:00 01/28/25 16:00 Temperature 36.9 C 36.6 C Pulse Rate 108 H 109 H 103 H Respiratory Rate 20 18 Blood Pressure 125/97 H 113/74 Pulse Oximetry 100 97 Oxygen Delivery 01/28/25 16:00 Temperature Pulse Rate 103 H Respiratory Rate Blood Pressure Pulse Oximetry Oxygen Delivery Intake/Output Intake/Output: Intake & Output 01/25/25 01/26/25 01/27/25 01/28/25 23:59 23:59 23:59 23:59 Intake Total 3312.0 3720 2730 1980 Output Total 794 279 7478 700 Balance 2787.0 3210 1565 1280 Meds/Results Medications: Active Medications Generic Name Dose Route Start Last Admin Trade Name Freq PRN Reason Stop Dose Admin Acetaminophen 1,000 mg 01/28/25 12:38 01/28/25 17:17 Acetaminophen 500 Mg Tablet PO 1,000 mg Q6H PRN Administration Mild Pain (1-3) or Fever Hydrocodone Bitart/Acetaminophen 1 tab 01/28/25 12:38 Hydrocodone/Acetaminophen (*Crx) 5-325 Mg Tablet PO Q4H PRN Pain Rated 4-6 Hydrocodone Bitart/Acetaminophen 1 tab 01/28/25 12:41 01/28/25 14:17 Hydrocodone/Acetaminophen (*Crx) 10-325 Mg Tablet PO 1 tab Q6H PRN Administration Pain Rated 7-10 Alprazolam 0.5 mg 01/26/25 11:33 01/28/25 11:04 Alprazolam (*Crx) 0.5 Mg Tablet PO 0.5 mg TID PRN Administration Anxiety Bupropion HCl 150 mg 01/28/25 09:00 01/28/25 10:59 Bupropion Hcl Xl (24 Hr) 150 Mg Tabcr PO 150 mg DAILY NATHEN Administration Buspirone HCl 30 mg 01/28/25 09:00 01/28/25 10:58 Buspirone Hcl 10 Mg Tablet PO 30 mg Q12HR NATHEN Administration Enoxaparin Sodium 40 mg 01/23/25 09:00 01/28/25 08:11 Enoxaparin 40 Mg/0.4 Ml Syringe SUB-Q 40 mg DAILY NATHEN Administration Famotidine 20 mg 01/28/25 09:00 01/28/25 10:59 Famotidine 20 Mg Tablet PO 20 mg Q12HR NATHEN Administration Fenofibrate 145 mg 01/28/25 09:00 01/28/25 10:58 Fenofibrate 145 Mg Tablet PO 145 mg QAM NATHEN Administration Ferrous Sulfate 325 mg 01/28/25 09:00 01/28/25 17:17 Ferrous Sulfate 325 Mg Tablet BY MOUTH 325 mg BIDWM NATHEN Administration Furosemide 20 mg 01/28/25 09:00 01/28/25 10:59 Furosemide 20 Mg Tablet PO 20 mg QAM NATHEN Administration Hydralazine HCl 10 mg 01/22/25 22:51 Hydralazine Hcl 20 Mg/Ml Vial IV PUSH Q8H PRN Blood Pressure - High Hydromorphone HCl 1 mg 01/22/25 16:24 01/28/25 11:14 Hydromorphone Hcl Inj (*Crx) 1 Mg/Ml Syr IV PUSH 1 mg Q2H PRN Administration Breakthrough Pain Rated 7-10 or NPO Piperacillin Sod/Tazobactam 50 mls @ 100 mls/hr 01/22/25 21:00 01/28/25 14:18 Sod 3.375 gm/ Sodium Chloride IVPB 100 mls/hr Q6H NATHEN Administration Dextrose 1,000 mls @ 50 mls/hr 01/24/25 11:58 Dextrose 10% IV CONT .Q20H PRN if PN is interrupted Fat Emulsion Intravenous 250 mls @ 20.833 mls/hr 01/24/25 14:00 01/28/25 17:20 Lipids 20% IVPB Not Given Q24H NATHEN Metronidazole 500 mg in 100 mls @ 100 mls/hr 01/25/25 13:00 01/28/25 14:18 Flagyl 500 Mg/Iso Soln 100 Ml IVPB 100 mls/hr Q8HR NATHEN Administration Fluconazole 400 mg in 200 mls @ 100 mls/hr 01/27/25 12:00 01/28/25 08:14 Diflucan 400 Mg/Nacl 200 Ml IVPB 100 mls/hr DAILY NATHEN Administration Losartan Potassium 50 mg 01/28/25 09:00 01/28/25 10:59 Losartan Potassium 50 Mg Tablet PO 50 mg DAILY NATHEN Administration Metoprolol Tartrate 12.5 mg 01/27/25 10:35 01/28/25 08:10 Metoprolol Tartrate 12.5 Mg Tablet PO 12.5 mg Q12HR NATHEN Administration Naloxone HCl 0.1 mg 01/22/25 16:24 Naloxone Hcl 0.4 Mg/Ml Vial IV PUSH Q2M PRN Opiate Reversal Ondansetron HCl 4 mg 01/22/25 16:24 Ondansetron Inj 4 Mg/2 Ml Vial IV PUSH Q4H PRN Nausea And Vomiting Pantoprazole Sodium 40 mg 01/22/25 21:00 01/28/25 08:11 Pantoprazole Sodium Iv 40 Mg Vial IV PUSH 40 mg Q12HR NATHEN Administration Simvastatin 40 mg 01/28/25 09:00 01/28/25 10:58 Simvastatin 20 Mg Tablet PO 40 mg QAM NATHEN Administration Radiology Results: ITS Impressions Chest X-Ray 01/22/25 11:32 IMPRESSION: 1: No acute pulmonary process identified. Upper GI Series 01/26/25 10:08 IMPRESSION: 1. No evident extraluminal leakage of contrast or obstruction post repair of a perforated gastric ulcer. Abdomen/Pelvis CT 01/26/25 14:32 IMPRESSION: 1. Wall thickening of the gastric antrum, consistent with peptic ulcer disease. 2. Moderate volume of ascites with peritoneal thickening and enhancement, likely an exudate. 3. Small pleural effusions. Labs Labs: Laboratory Results - last 24 hr 01/24/25 01/27/25 01/28/25 12:13 18:52 00:10 WBC RBC Hgb Hct MCV MCH MCHC RDW Plt Count MPV Sodium Potassium Chloride Carbon Dioxide Anion Gap BUN Creatinine Estim Creat Clear Calc Estimated GFR Glucose POC Capillary Glucose 121 H 103 Serum Osmolality 271 L Calcium Phosphorus Magnesium 01/28/25 04:00 WBC 17.9 H RBC 2.48 L Hgb 8.6 L Hct 27.2 L MCV 109.7 H MCH 34.7 H MCHC 31.6 L RDW 14.2 Plt Count 429 H MPV 9.0 Sodium 129 L Potassium 4.2 Chloride 102 Carbon Dioxide 20 L Anion Gap 7 BUN 10 Creatinine 0.51 L Estim Creat Clear Calc 101 Estimated GFR > 60 Glucose 118 H POC Capillary Glucose Serum Osmolality Calcium 8.4 Phosphorus 3.4 Magnesium 1.5 L Quality VTE Prophylaxis VTE prophylaxis: mechanical ordered
[2025-01-29] VITALS (10 sets, daily range): BP systolic 103–118; BP diastolic 57–79; PULSE 82–106; RESP 18; TEMP 36.5–36.6; O2SAT 96–100
[2025-01-29 03:20] LABS: Hematocrit 26.3 % (37.0-47.0); Hemoglobin 8.5 g/dL (12.0-15.0); Immature Granulocyte Percent A 5.7 % (0-0.5); Lymphocytes Absolute Auto 1.73 K/mm3 (0.9-3.2); Mean Corpuscular HGB Conc 32.3 g/dl (32-36); Mean Corpuscular Hemoglobin 34.7 pg (26-34); Mean Corpuscular Volume 107.3 fl (80-100); Nucleated Red Blood Cells Absolute Auto 0.000 K/mm3 (0.0-0.012); Nucleated Red Blood Cells Perc 0.0 % (0.0-0.2); Platelet Count Result 474 k/mm3 (150-375); Red Blood Count 2.45 M/mm3 (4.2-5.4); White Blood Count 17.9 K/mm3 (4.5-10.0)
[2025-01-29] MEDS: PIPERACILLIN/TAZOBACTAM SOD 3.375 GM in SODIUM CHLORIDE 0.9% IV 50 ML 100 ML IVPB ×4 (03:24→22:11)
[2025-01-29] MEDS: HYDROcodone/acetaminophen (*CRX) 5-325 MG TABLET 1 TAB PO ×2 (03:25→16:22)
[2025-01-29 03:28] LABS: Alanine Aminotransferase 11 U/L (6-35); Albumin Level 2.4 g/dL (3.5-5.1); Alkaline Phosphatase 130 U/L (38-126); Anion Gap 6 mmol/L (4-12); Aspartate Amino Transferase 24 U/L (14-36); Bilirubin,Total 0.4 mg/dL (0.2-1.3); Blood Urea Nitrogen 10 mg/dL (7-17); Calcium 8.7 mg/dL (8.4-10.2); Carbon Dioxide 22 mmol/L (22-30); Chloride 102 mmol/L (98-107); Estimated CRCL calculation 95 ml/min; Estimated Glomerular Filt Rate > 60; Glucose 98 mg/dL (65-110); Magnesium 1.8 mg/dL (1.6-2.3); Potassium 3.4 mmol/L (3.4-5.0); Sodium 130 mmol/L (137-145); Total Protein 5.3 g/dL (6.3-8.2)
[2025-01-29 03:46] LABS: Anisocytosis Occasional; Burr Cells Occasional; Hypochromasia 1+; Schistocytes None Seen; Target Cells Occasional
[2025-01-29 05:08] LABS: Osmolality, Urine 550 mOsmol/kg (.)
[2025-01-29] MEDS: metroNIDAZOLE 500 MG/ISO 100ML 500 MG/100 ML BAG 100 MG IVPB ×3 (05:47→22:12)
[2025-01-29] MEDS: FENOFIBRATE 145 MG TABLET PO (08:15)
[2025-01-29] MEDS: LOSARTAN POTASSIUM 50 MG TABLET PO (08:15)
[2025-01-29] MEDS: FUROSEMIDE 20 MG TABLET PO (08:15)
[2025-01-29] MEDS: FERROUS SULFATE 325 MG TABLET BY MOUTH ×2 (08:15→16:22)
[2025-01-29] MEDS: SIMVASTATIN 20 MG TABLET 40 MG PO (08:15)
[2025-01-29] MEDS: METOPROLOL TARTRATE 12.5 MG TABLET PO ×2 (08:15→22:11)
[2025-01-29] MEDS: buPROPion HCL XL (24 HR) 150 MG TABCR PO (08:16)
[2025-01-29] MEDS: FAMOTIDINE 20 MG TABLET PO ×2 (08:16→22:11)
[2025-01-29] MEDS: PANTOPRAZOLE SODIUM IV 40 MG VIAL IV PUSH ×2 (08:16→22:11)
[2025-01-29] MEDS: ENOXAPARIN 40 MG/0.4 ML SYRINGE SUB-Q (08:19)
[2025-01-29] MEDS: HYDROcodone/acetaminophen (*CRX) 10-325 MG TABLET 1 TAB PO ×2 (09:24→22:12)
[2025-01-29] MEDS: FLUCONAZOLE 400 MG/NACL 200 ML 400 MG/200 ML BAG 100 MG IVPB (09:25)
--- NOTE | 2025-01-29 11:39 | PC.NURSE ---
Went in patients room for hourly rounding. PTOT in room to get patient up to chair for lunch. Pt did not want to get up at this time. Patient was encouraged by both myself and PTOT to get up to chair. Pt stated that she was too tired at this time and would like to rest. Pt reminded that surgery told her that with her abdominal surgery she needs to get up and move to which patient is agreeable with at a later time today. I told patient that when she is ready to get up to the chair to let me know and i would assist her.
--- NOTE | 2025-01-29 13:08 | P.PNGS_ITS ---
Progress Note: A&P Assessment and Plan (1) Perforated gastric ulcer: Qualifiers: Gastric ulcer chronicity: acute Qualified Code(s): K25.1 - Acute gastric ulcer with perforation <RAJAN Stauffer Last Filed: 01/29/25 13:45> Code(s): K25.5 - Chronic or unspecified gastric ulcer with perforation <RAJAN Stauffer Last Filed: 01/29/25 13:45> Status: Acute <RJAAN Stauffer Last Filed: 01/29/25 13:45> Assessment and Plan: * POD6 and slowly improving. [place] [address] [place]. Will order Cdiff. * Tolerating full liquids. Advanced to soft diet. * Continue IV antibiotics and fluconazole. * Continue PPI * Home meds resumed. Oral pain medication options given. Encourage ambulation and OOB. * Patient can be downgraded out of IMU to med/surg from our standpoint if okay with the Hospitalist service. <Helen Moreno PA-C - Last Filed: 01/29/25 13:45> Assessment and Plan: I have discussed the patient's case and plan of care with Dr. Ellison. <Helen Moreno PA-C - Last Filed: 01/29/25 13:45> Subjective Subjective Date/Time Seen: 01/29/25 13:08 <Helen Moreno PA-C - Last Filed: 01/29/25 13:45> Post Op day: 7 (Exploratory laparotomy, repair of perforated gastric ulcer with Jean patch, extensive intra-abdominal washout) <RAJAN Stauffer Last Filed: 01/29/25 13:45> Patient reports: no new complaints and still having pain <RAJAN Stauffer Last Filed: 01/29/25 13:45> Interval history: Patient still complains of abdominal midline pain surrounding incisions. Tolerating full liquids well. <Helen Moreno PA-C - Last Filed: 01/29/25 13:45> Exam GI: Inspection: normal to inspection, non-distended, incision (james intact. No surrounding redness or signs of infection.) and other (TEJA drain with scant serous drainage) <RAJAN Stauffer Last Filed: 01/29/25 13:45> GI Palp: Yes Tenderness to palpation present (GI) (mid and lower abdomen) <RAJAN Stauffer Last Filed: 01/29/25 13:45> Auscultation: normal bowel sounds <RAJAN Stauffer Last Filed: 01/29/25 13:45> Rectal Exam: deferred <RAJAN Stauffer Last Filed: 01/29/25 13:45> Other: TEJA c serous output <RAJAN Stauffer Last Filed: 01/29/25 13:45> Objective Data Vital Signs Vital Signs: Vital Signs - 24 hr 01/28/25 16:00 01/28/25 16:00 01/28/25 20:00 Temperature 98 F Pulse Rate 103 H 103 H Respiratory Rate 18 Blood Pressure 113/74 Pulse Oximetry 97 Oxygen Delivery Room Air 01/28/25 20:00 01/28/25 21:25 01/28/25 23:44 Temperature 98 F Pulse Rate 111 H 110 H 80 Respiratory Rate 18 Blood Pressure 108/77 Pulse Oximetry 100 Oxygen Delivery 01/29/25 00:00 01/29/25 04:00 01/29/25 07:56 Temperature 97.8 F Pulse Rate 82 85 103 H Respiratory Rate 18 Blood Pressure 118/79 Pulse Oximetry 99 Oxygen Delivery 01/29/25 08:00 01/29/25 08:00 01/29/25 08:15 Temperature Pulse Rate 104 H 106 H Respiratory Rate Blood Pressure Pulse Oximetry Oxygen Delivery Room Air 01/29/25 11:21 01/29/25 11:37 01/29/25 12:00 Temperature Pulse Rate 86 Respiratory Rate Blood Pressure Pulse Oximetry Oxygen Delivery Room Air Room Air <RAJAN Stauffer Last Filed: 01/29/25 13:45> Intake/Output Intake/Output: Intake & Output 10/13/01/27/25 01/28/25 01/29/25 23:59 23:59 23:59 23:59 Intake Total 3720 2730 2640 400 Output Total 510 1165 1000 300 Balance 3210 1565 1640 100 <Helen Moreno PA-C - Last Filed: 01/29/25 13:45> Meds/Results Medications: Active Medications Generic Name Dose Route Start Last Admin Trade Name Freq PRN Reason Stop Dose Admin Acetaminophen 1,000 mg 01/28/25 12:38 01/28/25 17:17 Acetaminophen 500 Mg Tablet PO 1,000 mg Q6H PRN Administration Mild Pain (1-3) or Fever Hydrocodone Bitart/Acetaminophen 1 tab 01/28/25 12:38 01/29/25 03:25 Hydrocodone/Acetaminophen (*Crx) 5-325 Mg Tablet PO 1 tab Q4H PRN Administration Pain Rated 4-6 Hydrocodone Bitart/Acetaminophen 1 tab 01/28/25 12:41 01/29/25 09:24 Hydrocodone/Acetaminophen (*Crx) 10-325 Mg Tablet PO 1 tab Q6H PRN Administration Pain Rated 7-10 Alprazolam 0.5 mg 01/26/25 11:33 01/28/25 21:26 Alprazolam (*Crx) 0.5 Mg Tablet PO 0.5 mg TID PRN Administration Anxiety Bupropion HCl 150 mg 01/28/25 09:00 01/29/25 08:16 Bupropion Hcl Xl (24 Hr) 150 Mg Tabcr PO 150 mg DAILY NATHEN Administration Buspirone HCl 30 mg 01/28/25 09:00 01/29/25 08:16 Buspirone Hcl 10 Mg Tablet PO 30 mg Q12HR NATHEN Administration Enoxaparin Sodium 40 mg 01/23/25 09:00 01/29/25 08:19 Enoxaparin 40 Mg/0.4 Ml Syringe SUB-Q 40 mg DAILY NATHEN Administration Famotidine 20 mg 01/28/25 09:00 01/29/25 08:16 Famotidine 20 Mg Tablet PO 20 mg Q12HR NATHEN Administration Fenofibrate 145 mg 01/28/25 09:00 01/29/25 08:15 Fenofibrate 145 Mg Tablet PO 145 mg QAM NATHEN Administration Ferrous Sulfate 325 mg 01/28/25 09:00 01/29/25 08:15 Ferrous Sulfate 325 Mg Tablet BY MOUTH 325 mg BIDWM NATHEN Administration Furosemide 20 mg 01/28/25 09:00 01/29/25 08:15 Furosemide 20 Mg Tablet PO 20 mg QAM NATHEN Administration Hydralazine HCl 10 mg 01/22/25 22:51 Hydralazine Hcl 20 Mg/Ml Vial IV PUSH Q8H PRN Blood Pressure - High Hydromorphone HCl 1 mg 01/22/25 16:24 01/28/25 11:14 Hydromorphone Hcl Inj (*Crx) 1 Mg/Ml Syr IV PUSH 1 mg Q2H PRN Administration Breakthrough Pain Rated 7-10 or NPO Piperacillin Sod/Tazobactam 50 mls @ 100 mls/hr 01/22/25 21:00 01/29/25 08:19 Sod 3.375 gm/ Sodium Chloride IVPB 100 mls/hr Q6H NATHEN Administration Metronidazole 500 mg in 100 mls @ 100 mls/hr 01/25/25 13:00 01/29/25 05:47 Flagyl 500 Mg/Iso Soln 100 Ml IVPB 100 mls/hr Q8HR NATHEN Administration Fluconazole 400 mg in 200 mls @ 100 mls/hr 01/27/25 12:00 01/29/25 09:25 Diflucan 400 Mg/Nacl 200 Ml IVPB 100 mls/hr DAILY NATHEN Administration Losartan Potassium 50 mg 01/28/25 09:00 01/29/25 08:15 Losartan Potassium 50 Mg Tablet PO 50 mg DAILY NATHEN Administration Metoprolol Tartrate 12.5 mg 01/27/25 10:35 01/29/25 08:15 Metoprolol Tartrate 12.5 Mg Tablet PO 12.5 mg Q12HR NATHEN Administration Naloxone HCl 0.1 mg 01/22/25 16:24 Naloxone Hcl 0.4 Mg/Ml Vial IV PUSH Q2M PRN Opiate Reversal Ondansetron HCl 4 mg 01/22/25 16:24 Ondansetron Inj 4 Mg/2 Ml Vial IV PUSH Q4H PRN Nausea And Vomiting Pantoprazole Sodium 40 mg 01/22/25 21:00 01/29/25 08:16 Pantoprazole Sodium Iv 40 Mg Vial IV PUSH 40 mg Q12HR NATHEN Administration Simvastatin 40 mg 01/28/25 09:00 01/29/25 08:15 Simvastatin 20 Mg Tablet PO 40 mg QAM NATHEN Administration <Helen Moreno PA-C - Last Filed: 01/29/25 13:45> Radiology Results: ITS Impressions Chest X-Ray 01/22/25 11:32 IMPRESSION: 1: No acute pulmonary process identified. Upper GI Series 01/26/25 10:08 IMPRESSION: 1. No evident extraluminal leakage of contrast or obstruction post repair of a perforated gastric ulcer. Abdomen/Pelvis CT 01/26/25 14:32 IMPRESSION: 1. Wall thickening of the gastric antrum, consistent with peptic ulcer disease. 2. Moderate volume of ascites with peritoneal thickening and enhancement, likely an exudate. 3. Small pleural effusions. <Helen Moreno PA-C - Last Filed: 01/29/25 13:45> Labs Labs: Laboratory Results - last 24 hr 01/24/25 01/29/25 01/29/25 13:31 03:04 12:05 WBC 17.9 H RBC 2.45 L Hgb 8.5 L Hct 26.3 L MCV 107.3 H MCH 34.7 H MCHC 32.3 RDW 14.6 H Plt Count 474 H MPV 9.1 Immature Gran % (Auto) 5.7 H Neut % (Auto) 68.5 Lymph % (Auto) 9.7 L [place] % (Auto) 11.3 H Eos % (Auto) 4.3 Baso % (Auto) 0.5 Lymph # (Auto) 1.73 [place] # (Auto) 2.0 H Eos # (Auto) 0.8 H Baso # (Auto) 0.1 Abs Immat Gran (auto) 1.02 H Absolute Neuts (auto) 12.3 H Absolute Nucleated RBC 0.000 Band Neutrophils % Not Reportable Nucleated RBC % 0.0 Platelet Estimate Increased Hypochromasia 1+ Anisocytosis Occasional Target Cells Occasional [place] Cells Occasional Schistocytes None seen Sodium 130 L Potassium 3.4 Chloride 102 Carbon Dioxide 22 Anion Gap 6 BUN 10 Creatinine 0.55 L Estim Creat Clear Calc 95 Estimated GFR > 60 Glucose 98 POC Capillary Glucose 79 Calcium 8.7 Phosphorus 3.7 Magnesium 1.8 Total Bilirubin 0.4 AST 24 ALT 11 Alkaline Phosphatase 130 H Total Protein 5.3 L Albumin 2.4 L Urine Osmolality 550 <Helen Moreno PA-C - Last Filed: 01/29/25 13:45> Attestation Supervising Provider Attestation I, Cristiana Ellison MD, have provided a substantive portion of the care of this patient. I performed the history, exam and/or medical decision making for this encounter. abd - S, sl dist, mild TTP, incision C/D/I, TEJA c minimal serous output, labs reviewed, overall improved, still c diarrhea, will check CDiff Cristiana Ellison MD 01/29/25;13:35 <Cristiana Ellison MD - Last Filed: 01/29/25 13:36>
--- NOTE | 2025-01-29 16:49 | P.PNIM_ITS ---
Progress Note: A&P Assessment and Plan (1) Gastric perforation: Code(s): K25.5 - Chronic or unspecified gastric ulcer with perforation Status: Acute Assessment and Plan: on admission, CT A/P shows gastric perforation Surgery consulted,S/P Exploratory laparotomy on 01/22/2025 IV antibiotics de-escalated to only Zosyn IVF, IV Protonix b.i.d.,TEJA drain care NG tube to suction Continue PPN Upper GI series study with contrast on Sunday Dressing change after the surgeon evaluation (2) Hyponatremia: Code(s): E87.1 - Hypo-osmolality and hyponatremia Status: Acute Assessment and Plan: Hyponatremia seems chronic Sodium 129 which is stable Follow serum osmolar, urine osmolality and urine random sodium (3) Hypokalemia: Code(s): E87.6 - Hypokalemia Status: Acute Assessment and Plan: Resolved (4) Anemia: Code(s): D64.9 - Anemia, unspecified Status: Acute Assessment and Plan: Iron study shows iron 23, 194 and % transferrin saturation 12- There is a component of iron deficiency anemia and anemia of chronic disease Continue IV iron 300 mg a day for 3 days (5) Colitis: Code(s): K52.9 - Noninfective gastroenteritis and colitis, unspecified Status: Acute Assessment and Plan: Antibiotics as above Stool sample (6) Anxiety: Code(s): F41.9 - Anxiety disorder, unspecified Status: Acute Assessment and Plan: Currently holding home medications until okay by surgery (7) Hypertension: Code(s): I10 - Essential (primary) hypertension Status: Acute Assessment and Plan: Holding oral medications Hydralazine p.r.n. Plan Complains abdominal pain 8/10 sharp, throbbing constant pain without associated nausea and vomiting. She denies fever. No bowel movement. Upper GI series study for today but patient was not able to tolerate, surgery has ordered CT of abdomen which is negative, recommended to clamp the NG and may start sips of water, A leukocytosis trending down. blood culture no growth so far Check lactic acid is close to normal . Broaden antibiotics by adding Flagyl and antifungals. patient stats feels better compared when she arrived, patient is now able to take po meds, resumed her home medications, patient is tolerating liquids, and have BM, surgery has advanced her diet to soft, PT/OT will work with patient, patient will benefit going to [facility], will monitor. Up trending leukocytosis Add Flagyl and antifungal : Blood culture, check lactic acid Continue monitoring fever and vital signs Subjective Date/time seen: 01/29/25 16:49 Interval history: Complains abdominal pain 8/10 sharp, throbbing constant pain without associated nausea and vomiting. She denies fever. No bowel movement. Upper GI series study for today but patient was not able to tolerate, surgery has ordered CT of abdomen which is negative, recommended to clamp the NG and may start sips of water, A leukocytosis trending down. blood culture no growth so far Check lactic acid is close to normal . Broaden antibiotics by adding Flagyl and antifungals. patient stats feels better compared when she arrived, patient is now able to take po meds, resumed her home medications, patient is tolerating liquids, and have BM, surgery has advanced her diet to soft, PT/OT will work with patient, patient will benefit going to [facility], will monitor. Review of Systems Review of Systems: 12 systems were reviewed and are negativ e except for as per HPI. All systems reviewed & are unremarkable except as noted in HPI and below Exam Narrative: APPEARANCE: No acute distress, nontoxic, NG tube placed EYES: EOMI HEENT: Normocephalic, atraumatic RESPIRATORY: No respiratory distress; Clear to auscultation bilaterally with no rhonchi wheezing or rales CARDIOVASCULAR: RRR, S1 and S2 without murmurs rubs or gallops. ABDOMINAL: Abdomen tenderness to palpation, no guarding or peritonitis MSK: Normal range of motion bilateral lower extremity pitting edema noted. 2+ NEURO: Awake and alert. Following commands, speech normal, no focal deficits SKIN:: Warm, dry. No rashes lesions or abrasions PSYCHIATRIC: Normal affect/mood Objective Data Vital Signs Vital Signs: Vital Signs - 24 hr 01/28/25 20:00 01/28/25 20:00 01/28/25 21:25 Temperature Pulse Rate 111 H 110 H Respiratory Rate Blood Pressure Pulse Oximetry Oxygen Delivery Room Air 01/28/25 23:44 01/29/25 00:00 01/29/25 04:00 Temperature 36.6 C Pulse Rate 80 82 85 Respiratory Rate 18 Blood Pressure 108/77 Pulse Oximetry 100 Oxygen Delivery 01/29/25 07:56 01/29/25 08:00 01/29/25 08:00 Temperature 36.6 C Pulse Rate 103 H 104 H Respiratory Rate 18 Blood Pressure 118/79 Pulse Oximetry 99 Oxygen Delivery Room Air 01/29/25 08:15 01/29/25 11:21 01/29/25 11:37 Temperature Pulse Rate 106 H Respiratory Rate Blood Pressure Pulse Oximetry Oxygen Delivery Room Air Room Air 01/29/25 12:00 01/29/25 16:00 01/29/25 16:00 Temperature 36.6 C Pulse Rate 86 96 94 Respiratory Rate 18 Blood Pressure 103/57 L Pulse Oximetry 100 Oxygen Delivery Intake/Output Intake/Output: Intake & Output 01/26/25 01/27/25 01/28/25 01/29/25 23:59 23:59 23:59 23:59 Intake Total 3720 2730 2640 575 Output Total 510 1165 1000 300 Balance 3210 1565 1640 275 Meds/Results Medications: Active Medications Generic Name Dose Route Start Last Admin Trade Name Freq PRN Reason Stop Dose Admin Acetaminophen 1,000 mg 01/28/25 12:38 01/28/25 17:17 Acetaminophen 500 Mg Tablet PO 1,000 mg Q6H PRN Administration Mild Pain (1-3) or Fever Hydrocodone Bitart/Acetaminophen 1 tab 01/28/25 12:38 01/29/25 16:22 Hydrocodone/Acetaminophen (*Crx) 5-325 Mg Tablet PO 1 tab Q4H PRN Administration Pain Rated 4-6 Hydrocodone Bitart/Acetaminophen 1 tab 01/28/25 12:41 01/29/25 09:24 Hydrocodone/Acetaminophen (*Crx) 10-325 Mg Tablet PO 1 tab Q6H PRN Administration Pain Rated 7-10 Alprazolam 0.5 mg 01/26/25 11:33 01/28/25 21:26 Alprazolam (*Crx) 0.5 Mg Tablet PO 0.5 mg TID PRN Administration Anxiety Bupropion HCl 150 mg 01/28/25 09:00 01/29/25 08:16 Bupropion Hcl Xl (24 Hr) 150 Mg Tabcr PO 150 mg DAILY NATHEN Administration Buspirone HCl 30 mg 01/28/25 09:00 01/29/25 08:16 Buspirone Hcl 10 Mg Tablet PO 30 mg Q12HR NATHEN Administration Enoxaparin Sodium 40 mg 01/23/25 09:00 01/29/25 08:19 Enoxaparin 40 Mg/0.4 Ml Syringe SUB-Q 40 mg DAILY NATHEN Administration Famotidine 20 mg 01/28/25 09:00 01/29/25 08:16 Famotidine 20 Mg Tablet PO 20 mg Q12HR NATHEN Administration Fenofibrate 145 mg 01/28/25 09:00 01/29/25 08:15 Fenofibrate 145 Mg Tablet PO 145 mg QAM NATHEN Administration Ferrous Sulfate 325 mg 01/28/25 09:00 01/29/25 16:22 Ferrous Sulfate 325 Mg Tablet BY MOUTH 325 mg BIDWM NATHEN Administration Furosemide 20 mg 01/28/25 09:00 01/29/25 08:15 Furosemide 20 Mg Tablet PO 20 mg QAM NATHEN Administration Hydralazine HCl 10 mg 01/22/25 22:51 Hydralazine Hcl 20 Mg/Ml Vial IV PUSH Q8H PRN Blood Pressure - High Hydromorphone HCl 1 mg 01/22/25 16:24 01/28/25 11:14 Hydromorphone Hcl Inj (*Crx) 1 Mg/Ml Syr IV PUSH 1 mg Q2H PRN Administration Breakthrough Pain Rated 7-10 or NPO Piperacillin Sod/Tazobactam 50 mls @ 100 mls/hr 01/22/25 21:00 01/29/25 15:17 Sod 3.375 gm/ Sodium Chloride IVPB 100 mls/hr Q6H NATHEN Administration Metronidazole 500 mg in 100 mls @ 100 mls/hr 01/25/25 13:00 01/29/25 14:15 Flagyl 500 Mg/Iso Soln 100 Ml IVPB 100 mls/hr Q8HR NATHEN Administration Fluconazole 400 mg in 200 mls @ 100 mls/hr 01/27/25 12:00 01/29/25 09:25 Diflucan 400 Mg/Nacl 200 Ml IVPB 100 mls/hr DAILY NATHEN Administration Losartan Potassium 50 mg 01/28/25:00 01/29/25 08:15 Losartan Potassium 50 Mg Tablet PO 50 mg DAILY NATHEN Administration Metoprolol Tartrate 12.5 mg 01/27/25 10:35 01/29/25 08:15 Metoprolol Tartrate 12.5 Mg Tablet PO 12.5 mg Q12HR NATHEN Administration Naloxone HCl 0.1 mg 01/22/25 16:24 Naloxone Hcl 0.4 Mg/Ml Vial IV PUSH Q2M PRN Opiate Reversal Ondansetron HCl 4 mg 01/22/25 16:24 Ondansetron Inj 4 Mg/2 Ml Vial IV PUSH Q4H PRN Nausea And Vomiting Pantoprazole Sodium 40 mg 01/22/25 21:00 01/29/25 08:16 Pantoprazole Sodium Iv 40 Mg Vial IV PUSH 40 mg Q12HR NATHEN Administration Simvastatin 40 mg 01/28/25 09:00 01/29/25 08:15 Simvastatin 20 Mg Tablet PO 40 mg QAM NATHEN Administration Radiology Results: ITS Impressions Chest X-Ray 01/22/25 11:32 IMPRESSION: 1: No acute pulmonary process identified. Upper GI Series 01/26/25 10:08 IMPRESSION: 1. No evident extraluminal leakage of contrast or obstruction post repair of a perforated gastric ulcer. Abdomen/Pelvis CT 01/26/25 14:32 IMPRESSION: 1. Wall thickening of the gastric antrum, consistent with peptic ulcer disease. 2. Moderate volume of ascites with peritoneal thickening and enhancement, likely an exudate. 3. Small pleural effusions. Labs Labs: Laboratory Results - last 24 hr 01/24/25 01/29/25 01/29/25 13:31 03:04 12:05 WBC 17.9 H RBC 2.45 L Hgb 8.5 L Hct 26.3 L MCV 107.3 H MCH 34.7 H MCHC 32.3 RDW 14.6 H Plt Count 474 H MPV 9.1 Immature Gran % (Auto) 5.7 H Neut % (Auto) 68.5 Lymph % (Auto) 9.7 L [place] % (Auto) 11.3 H Eos % (Auto) 4.3 Baso % (Auto) 0.5 Lymph # (Auto) 1.73 [place] # (Auto) 2.0 H Eos # (Auto) 0.8 H Baso # (Auto) 0.1 Abs Immat Gran (auto) 1.02 H Absolute Neuts (auto) 12.3 H Absolute Nucleated RBC 0.000 Band Neutrophils % Not Reportable Nucleated RBC % 0.0 Platelet Estimate Increased Hypochromasia 1+ Anisocytosis Occasional Target Cells Occasional Krystin Cells Occasional Schistocytes None seen Sodium 130 L Potassium 3.4 Chloride 102 Carbon Dioxide 22 Anion Gap 6 BUN 10 Creatinine 0.55 L Estim Creat Clear Calc 95 Estimated GFR > 60 Glucose 98 POC Capillary Glucose 79 Calcium 8.7 Phosphorus 3.7 Magnesium 1.8 Total Bilirubin 0.4 AST 24 ALT 11 Alkaline Phosphatase 130 H Total Protein 5.3 L Albumin 2.4 L Urine Osmolality 550 01/29/25 15:47 WBC RBC Hgb Hct MCV MCH MCHC RDW Plt Count MPV Immature Gran % (Auto) Neut % (Auto) Lymph % (Auto) [place] % (Auto) Eos % (Auto) Baso % (Auto) Lymph # (Auto) [place] # (Auto) Eos # (Auto) Baso # (Auto) Abs Immat Gran (auto) Absolute Neuts (auto) Absolute Nucleated RBC Band Neutrophils % Nucleated RBC % Platelet Estimate Hypochromasia Anisocytosis Target Cells Turner Cells Schistocytes Sodium Potassium Chloride Carbon Dioxide Anion Gap BUN Creatinine Estim Creat Clear Calc Estimated GFR Glucose POC Capillary Glucose 98 Calcium Phosphorus Magnesium Total Bilirubin AST ALT Alkaline Phosphatase Total Protein Albumin Urine Osmolality Quality VTE Prophylaxis VTE prophylaxis: mechanical ordered
[2025-01-29] MEDS: ALPRAZolam (*CRX) 0.5 MG TABLET PO (22:12)
[2025-01-30] VITALS (10 sets, daily range): BP systolic 117–120; BP diastolic 74–87; PULSE 80–110; RESP 16–18; TEMP 36.3–36.6; O2SAT 99–100
[2025-01-30] MEDS: PIPERACILLIN/TAZOBACTAM SOD 3.375 GM in SODIUM CHLORIDE 0.9% IV 50 ML 100 ML IVPB ×2 (05:55→09:06)
[2025-01-30] MEDS: metroNIDAZOLE 500 MG/ISO 100ML 500 MG/100 ML BAG 100 MG IVPB (05:56)
[2025-01-30] MEDS: FERROUS SULFATE 325 MG TABLET BY MOUTH ×2 (08:44→17:25)
[2025-01-30] MEDS: FENOFIBRATE 145 MG TABLET PO (08:44)
[2025-01-30] MEDS: METOPROLOL TARTRATE 12.5 MG TABLET PO ×2 (08:44→21:52)
[2025-01-30] MEDS: buPROPion HCL XL (24 HR) 150 MG TABCR PO (08:45)
[2025-01-30] MEDS: FUROSEMIDE 20 MG TABLET PO (08:45)
[2025-01-30] MEDS: SIMVASTATIN 20 MG TABLET 40 MG PO (08:45)
[2025-01-30] MEDS: LOSARTAN POTASSIUM 50 MG TABLET PO (08:45)
[2025-01-30] MEDS: FAMOTIDINE 20 MG TABLET PO ×2 (08:45→21:52)
[2025-01-30] MEDS: ENOXAPARIN 40 MG/0.4 ML SYRINGE SUB-Q (08:46)
[2025-01-30] MEDS: PANTOPRAZOLE SODIUM IV 40 MG VIAL IV PUSH ×2 (08:46→21:53)
[2025-01-30] MEDS: FLUCONAZOLE 400 MG/NACL 200 ML 400 MG/200 ML BAG 100 MG IVPB (10:19)
[2025-01-30] MEDS: HYDROcodone/acetaminophen (*CRX) 10-325 MG TABLET 1 TAB PO (10:22)
--- NOTE | 2025-01-30 10:39 | PM.PNGS ---
Progress Note: A&P Assessment and Plan (1) Perforated gastric ulcer: Qualifiers: Gastric ulcer chronicity: acute Qualified Code(s): K25.1 - Acute gastric ulcer with perforation Code(s): K25.5 - Chronic or unspecified gastric ulcer with perforation Status: Acute Assessment and Plan: improving, encourage OOB/IS, po intake, cont abx for now, hopefully home soon Subjective Subjective Date/Time Seen: 01/30/25 10:39 Interval history: feels better overall, still c incisional soreness Review of Systems Review of Systems: All systems reviewed & are unremarkable except as noted in HPI and below Exam Const: General: cooperative, comfortable and no acute distress Resp: Auscultation: clear to auscultation bilaterally Cardio: Rate: regular rate Rhythm: regular rhythm GI: Inspection: normal to inspection, non-distended and incision GI Palp: Yes abdominal tenderness and Yes Soft to palpation Other: incision C/D/I, TEJA c minimal serous drainage Objective Data Vital Signs Vital Signs: Vital Signs - 24 hr 01/29/25 11:21 01/29/25 11:37 01/29/25 12:00 Temperature Pulse Rate 86 Respiratory Rate Blood Pressure Pulse Oximetry Oxygen Delivery Room Air Room Air 01/29/25 16:00 01/29/25 16:00 01/29/25 20:00 Temperature 36.6 C Pulse Rate 96 94 Respiratory Rate 18 Blood Pressure 103/57 L Pulse Oximetry 100 Oxygen Delivery Room Air 01/29/25 20:00 01/29/25 20:25 01/29/25 22:11 Temperature 36.5 C Pulse Rate 99 98 99 Respiratory Rate 18 Blood Pressure 108/74 Pulse Oximetry 96 Oxygen Delivery 01/30/25 00:00 01/30/25 04:00 01/30/25 07:45 Temperature 36.6 C Pulse Rate 80 88 96 Respiratory Rate 18 Blood Pressure 118/79 Pulse Oximetry 99 Oxygen Delivery 01/30/25 08:44 Temperature Pulse Rate 106 H Respiratory Rate Blood Pressure Pulse Oximetry Oxygen Delivery Intake/Output Intake/Output: Intake & Output 01/27/25 01/28/25 01/29/25 01/30/25 23:59 23:59 23:59 23:59 Intake Total 2730 2640 1100 410 Output Total 1165 1000 550 Balance 1565 1640 550 410 Meds/Results Medications: Active Medications Generic Name Dose Route Start Last Admin Trade Name Freq PRN Reason Stop Dose Admin Acetaminophen 1,000 mg 01/28/25 12:38 01/28/25 17:17 Acetaminophen 500 Mg Tablet PO 1,000 mg Q6H PRN Administration Mild Pain (1-3) or Fever Hydrocodone Bitart/Acetaminophen 1 tab 01/28/25 12:38 01/29/25 16:22 Hydrocodone/Acetaminophen (*Crx) 5-325 Mg Tablet PO 1 tab Q4H PRN Administration Pain Rated 4-6 Hydrocodone Bitart/Acetaminophen 1 tab 01/28/25 12:41 01/30/25 10:22 Hydrocodone/Acetaminophen (*Crx) 10-325 Mg Tablet PO 1 tab Q6H PRN Administration Pain Rated 7-10 Alprazolam 0.5 mg 01/26/25 11:33 01/29/25 22:12 Alprazolam (*Crx) 0.5 Mg Tablet PO 0.5 mg TID PRN Administration Anxiety Bupropion HCl 150 mg 01/28/25 09:00 01/30/25 08:45 Bupropion Hcl Xl (24 Hr) 150 Mg Tabcr PO 150 mg DAILY NATHEN Administration Buspirone HCl 30 mg 01/28/25 09:00 01/30/25 08:58 Buspirone Hcl 10 Mg Tablet PO 30 mg Q12HR NATHEN Administration Enoxaparin Sodium 40 mg 01/23/25 09:00 01/30/25 08:46 Enoxaparin 40 Mg/0.4 Ml Syringe SUB-Q 40 mg DAILY NATHEN Administration Famotidine 20 mg 01/28/25 09:00 01/30/25 08:45 Famotidine 20 Mg Tablet PO 20 mg Q12HR NATHEN Administration Fenofibrate 145 mg 01/28/25 09:00 01/30/25 08:44 Fenofibrate 145 Mg Tablet PO 145 mg QAM NATHEN Administration Ferrous Sulfate 325 mg 01/28/25 09:00 01/30/25 08:44 Ferrous Sulfate 325 Mg Tablet BY MOUTH 325 mg BIDWM NATHEN Administration Furosemide 20 mg 01/28/25 09:00 01/30/25 08:45 Furosemide 20 Mg Tablet PO 20 mg QAM NATHEN Administration Hydralazine HCl 10 mg 01/22/25 22:51 Hydralazine Hcl 20 Mg/Ml Vial IV PUSH Q8H PRN Blood Pressure - High Hydromorphone HCl 1 mg 01/22/25 16:24 01/28/25 11:14 Hydromorphone Hcl Inj (*Crx) 1 Mg/Ml Syr IV PUSH 1 mg Q2H PRN Administration Breakthrough Pain Rated 7-10 or NPO Piperacillin Sod/Tazobactam 50 mls @ 100 mls/hr 01/22/25 21:00 01/30/25 09:06 Sod 3.375 gm/ Sodium Chloride IVPB 100 mls/hr Q6H NATHEN Administration Metronidazole 500 mg in 100 mls @ 100 mls/hr 01/25/25 13:00 01/30/25 05:56 Flagyl 500 Mg/Iso Soln 100 Ml IVPB 100 mls/hr Q8HR NATHEN Administration Fluconazole 400 mg in 200 mls @ 100 mls/hr 01/27/25 12:00 01/30/25 10:19 Diflucan 400 Mg/Nacl 200 Ml IVPB 100 mls/hr DAILY NATHEN Administration Losartan Potassium 50 mg 01/28/25 09:00 01/30/25 08:45 Losartan Potassium 50 Mg Tablet PO 50 mg DAILY NATHEN Administration Metoprolol Tartrate 12.5 mg 01/27/25 10:35 01/30/25 08:44 Metoprolol Tartrate 12.5 Mg Tablet PO 12.5 mg Q12HR NATHEN Administration Naloxone HCl 0.1 mg 01/22/25 16:24 Naloxone Hcl 0.4 Mg/Ml Vial IV PUSH Q2M PRN Opiate Reversal Ondansetron HCl 4 mg 01/22/25 16:24 Ondansetron Inj 4 Mg/2 Ml Vial IV PUSH Q4H PRN Nausea And Vomiting Pantoprazole Sodium 40 mg 01/22/25 21:00 01/30/25 08:46 Pantoprazole Sodium Iv 40 Mg Vial IV PUSH 40 mg Q12HR NATHEN Administration Simvastatin 40 mg 01/28/25 09:00 01/30/25 08:45 Simvastatin 20 Mg Tablet PO 40 mg QAM NATHEN Administration Radiology Results: ITS Impressions Chest X-Ray 01/22/25 11:32 IMPRESSION: 1: No acute pulmonary process identified. Upper GI Series 01/26/25 10:08 IMPRESSION: 1. No evident extraluminal leakage of contrast or obstruction post repair of a perforated gastric ulcer. Abdomen/Pelvis CT 01/26/25 14:32 IMPRESSION: 1. Wall thickening of the gastric antrum, consistent with peptic ulcer disease. 2. Moderate volume of ascites with peritoneal thickening and enhancement, likely an exudate. 3. Small pleural effusions. Labs Labs: Laboratory Results - last 24 hr 01/29/25 01/29/25 01/29/25 12:05 15:47 20:31 POC Capillary Glucose 79 98 104 Phosphorus 01/30/25 01/30/25 04:04 07:18 POC Capillary Glucose 81 Phosphorus 3.7
--- NOTE | 2025-01-30 10:47 | PCNFU ---
Nutrition Follow-Up Complete: Inadequate oral intake related to altered GI function as evidenced by NPO, recent surgery Meet estimated nutrition needs when medically able - Goal is being with PO diet. Continue same goal Goal: Pt current nutrition is Low fiber diet. Nutrition recommendation: No new recommendations. Continue current nutrition care plan and advance diet as medically able Last recorded weight is 70.5 kg. Bowel Motility: +1 BM 01/30 Labs Reviewed: No labs reported today Meds Noted: Zofran, lovenox, protonix, Lasix Skin: No skin issues Additional Notes: Eating 15-50% on soft diet. Advance diet as medically able. Agree with orders. Monitoring orders, weights, labs, plan of care Follow up in 3 days
[2025-01-30 10:50] LABS: Toxigenic C. Diff POSITIVE (NEGATIVE)
[2025-01-30 11:28] LABS: CDiff Toxin A&B Ag Negative (Negative); Clostridium Difficile GDH Ag Positive (Negative)
--- NOTE | 2025-01-30 11:33 | P.PNIM_ITS ---
Progress Note: A&P Assessment and Plan (1) Gastric perforation: Code(s): K25.5 - Chronic or unspecified gastric ulcer with perforation Status: Acute Assessment and Plan: on admission, CT A/P shows gastric perforation Surgery consulted,S/P Exploratory laparotomy on 01/22/2025 IV antibiotics de-escalated to only Zosyn IVF, IV Protonix b.i.d.,TEJA drain care NG tube to suction Continue PPN Upper GI series study with contrast 01/26/2025 with no evident extraluminal leakage of contrast or obstruction post repair of the perforated gastric ulcer. Repeat CT abdomen pelvis 01/26/2025 with wall thickening of the gastric antrum consistent with peptic ulcer disease with moderate volume of ascites with peritoneal thickening and enhancement small pleural effusions. Dressing change after the surgeon evaluation (2) Hyponatremia: Code(s): E87.1 - Hypo-osmolality and hyponatremia Status: Acute Assessment and Plan: Hyponatremia seems chronic Follow serum osmolar, urine osmolality and urine random sodium (3) Hypokalemia: Code(s): E87.6 - Hypokalemia Status: Acute Assessment and Plan: Replace and monitor (4) Anemia: Code(s): D64.9 - Anemia, unspecified Status: Acute Assessment and Plan: Iron study shows iron 23, 194 and % transferrin saturation 12- There is a component of iron deficiency anemia and anemia of chronic disease Continue IV iron 300 mg a day for 3 days (5) Colitis: Code(s): K52.9 - Noninfective gastroenteritis and colitis, unspecified Status: Acute Assessment and Plan: Antibiotics as above Stool sample C diff came back positive will start vancomycin oral (6) Anxiety: Code(s): F41.9 - Anxiety disorder, unspecified Status: Acute Assessment and Plan: Currently holding home medications until okay by surgery (7) Hypertension: Code(s): I10 - Essential (primary) hypertension Status: Acute Assessment and Plan: Holding oral medications Hydralazine p.r.n. Plan Lower extremity edema will give a dose of Lasix. X1. Increase Lasix oral to 40 mg daily DVT prophylaxis Lovenox Leukocytosis persistent CT abdomen unremarkable. Currently on Zosyn Flagyl and antifungal. Seems ID has been consulted. If okay with surgery discontinue all IV antibiotics and continue only oral vancomycin Subjective Date/time seen: 01/30/25 11:33 Interval history: Chart reviewed. Discussed with nursing staff. Leukocytosis persist. Eating some. As also work with therapy. Telemetry reviewed. Intermittent tachycardia noted which is related to her exertion. Abdomen is sore no nausea or vomiting. Review of Systems Review of Systems: All systems reviewed & are unremarkable except as noted in HPI and below Exam Narrative: APPEARANCE: No acute distress, nontoxic, NG tube placed EYES: EOMI HEENT: Normocephalic, atraumatic RESPIRATORY: No respiratory distress; Clear to auscultation bilaterally with no rhonchi wheezing or rales CARDIOVASCULAR: RRR, S1 and S2 without murmurs rubs or gallops. ABDOMINAL: Abdomen tenderness to palpation, no guarding or peritonitis MSK: Normal range of motion bilateral lower extremity pitting edema noted. 2+ NEURO: Awake and alert. Following commands, speech normal, no focal deficits SKIN:: Warm, dry. No rashes lesions or abrasions PSYCHIATRIC: Normal affect/mood Objective Data Vital Signs Vital Signs: Vital Signs - 24 hr 01/29/25 11:37 01/29/25 12:00 01/29/25 16:00 Temperature 97.8 F Pulse Rate 86 96 Respiratory Rate 18 Blood Pressure 103/57 L Pulse Oximetry 100 Oxygen Delivery Room Air 01/29/25 16:00 01/29/25 20:00 01/29/25 20:00 Temperature Pulse Rate 94 99 Respiratory Rate Blood Pressure Pulse Oximetry Oxygen Delivery Room Air 01/29/25 20:25 01/29/25 22:11 01/30/25 00:00 Temperature 97.7 F Pulse Rate 98 99 80 Respiratory Rate 18 Blood Pressure 108/74 Pulse Oximetry 96 Oxygen Delivery 01/30/25 04:00 01/30/25 07:45 01/30/25 08:44 Temperature 97.8 F Pulse Rate 88 96 106 H Respiratory Rate 18 Blood Pressure 118/79 Pulse Oximetry 99 Oxygen Delivery Intake/Output Intake/Output: Intake & Output 01/27/25 01/28/25 01/29/25 01/30/25 23:59 23:59 23:59 23:59 Intake Total 2730 2640 1100 410 Output Total 1165 1000 550 Balance 1565 1640 550 410 Meds/Results Medications: Active Medications Generic Name Dose Route Start Last Admin Trade Name Freq PRN Reason Stop Dose Admin Acetaminophen 1,000 mg 01/28/25 12:38 01/28/25 17:17 Acetaminophen 500 Mg Tablet PO 1,000 mg Q6H PRN Administration Mild Pain (1-3) or Fever Hydrocodone Bitart/Acetaminophen 1 tab 01/28/25 12:38 01/29/25 16:22 Hydrocodone/Acetaminophen (*Crx) 5-325 Mg Tablet PO 1 tab Q4H PRN Administration Pain Rated 4-6 Hydrocodone Bitart/Acetaminophen 1 tab 01/28/25 12:41 01/30/25 10:22 Hydrocodone/Acetaminophen (*Crx) 10-325 Mg Tablet PO 1 tab Q6H PRN Administration Pain Rated 7-10 Alprazolam 0.5 mg 01/26/25 11:33 01/29/25 22:12 Alprazolam (*Crx) 0.5 Mg Tablet PO 0.5 mg TID PRN Administration Anxiety Bupropion HCl 150 mg 01/28/25 09:00 01/30/25 08:45 Bupropion Hcl Xl (24 Hr) 150 Mg Tabcr PO 150 mg DAILY NATHEN Administration Buspirone HCl 30 mg 01/28/25 09:00 01/30/25 08:58 Buspirone Hcl 10 Mg Tablet PO 30 mg Q12HR NATHEN Administration Enoxaparin Sodium 40 mg 01/23/25 09:00 01/30/25 08:46 Enoxaparin 40 Mg/0.4 Ml Syringe SUB-Q 40 mg DAILY NATHEN Administration Famotidine 20 mg 01/28/25 09:00 01/30/25 08:45 Famotidine 20 Mg Tablet PO 20 mg Q12HR NATHEN Administration Fenofibrate 145 mg 01/28/25 09:00 01/30/25 08:44 Fenofibrate 145 Mg Tablet PO 145 mg QAM NATHEN Administration Ferrous Sulfate 325 mg 01/28/25 09:00 01/30/25 08:44 Ferrous Sulfate 325 Mg Tablet BY MOUTH 325 mg BIDWM NATHEN Administration Furosemide 20 mg 01/28/25 09:00 01/30/25 08:45 Furosemide 20 Mg Tablet PO 20 mg QAM NATHEN Administration Hydralazine HCl 10 mg 01/22/25 22:51 Hydralazine Hcl 20 Mg/Ml Vial IV PUSH Q8H PRN Blood Pressure - High Hydromorphone HCl 1 mg 01/22/25 16:24 01/28/25 11:14 Hydromorphone Hcl Inj (*Crx) 1 Mg/Ml Syr IV PUSH 1 mg Q2H PRN Administration Breakthrough Pain Rated 7-10 or NPO Piperacillin Sod/Tazobactam 50 mls @ 100 mls/hr 01/22/25 21:00 01/30/25 09:06 Sod 3.375 gm/ Sodium Chloride IVPB 100 mls/hr Q6H NATHEN Administration Metronidazole 500 mg in 100 mls @ 100 mls/hr 01/25/25 13:00 01/30/25 05:56 Flagyl 500 Mg/Iso Soln 100 Ml IVPB 100 mls/hr Q8HR NATHEN Administration Fluconazole 400 mg in 200 mls @ 100 mls/hr 01/27/25 12:00 01/30/25 10:19 Diflucan 400 Mg/Nacl 200 Ml IVPB 100 mls/hr DAILY NATHEN Administration Losartan Potassium 50 mg 01/28/25 09:00 01/30/25 08:45 Losartan Potassium 50 Mg Tablet PO 50 mg DAILY NATHEN Administration Metoprolol Tartrate 12.5 mg 01/27/25 10:35 01/30/25 08:44 Metoprolol Tartrate 12.5 Mg Tablet PO 12.5 mg Q12HR NATHEN Administration Naloxone HCl 0.1 mg 01/22/25 16:24 Naloxone Hcl 0.4 Mg/Ml Vial IV PUSH Q2M PRN Opiate Reversal Ondansetron HCl 4 mg 01/22/25 16:24 Ondansetron Inj 4 Mg/2 Ml Vial IV PUSH Q4H PRN Nausea And Vomiting Pantoprazole Sodium 40 mg 01/22/25 21:00 01/30/25 08:46 Pantoprazole Sodium Iv 40 Mg Vial IV PUSH 40 mg Q12HR NATHEN Administration Simvastatin 40 mg 01/28/25 09:00 01/30/25 08:45 Simvastatin 20 Mg Tablet PO 40 mg QAM NATHEN Administration Radiology Results: ITS Impressions Chest X-Ray 01/22/25 11:32 IMPRESSION: 1: No acute pulmonary process identified. Upper GI Series 01/26/25 10:08 IMPRESSION: 1. No evident extraluminal leakage of contrast or obstruction post repair of a perforated gastric ulcer. Abdomen/Pelvis CT 01/26/25 14:32 IMPRESSION: 1. Wall thickening of the gastric antrum, consistent with peptic ulcer disease. 2. Moderate volume of ascites with peritoneal thickening and enhancement, likely an exudate. 3. Small pleural effusions. Labs Labs: Laboratory Results - last 24 hr 01/29/25 01/29/25 01/29/25 12:05 15:47 20:31 POC Capillary Glucose 79 98 104 Phosphorus C. difficile (PCR) C. difficile Ag & Toxin C. difficile GDH Ag 01/30/25 01/30/25 01/30/25 04:04 07:18 08:40 POC Capillary Glucose 81 Phosphorus 3.7 C. difficile (PCR) Positive A* C. difficile Ag & Toxin Negative C. difficile GDH Ag Positive A
[2025-01-30 12:06] LABS: Hematocrit 25.7 % (37.0-47.0); Hemoglobin 7.8 g/dL (12.0-15.0); Immature Granulocyte Percent A 2.9 % (0-0.5); Lymphocytes Absolute Auto 1.67 K/mm3 (0.9-3.2); Mean Corpuscular HGB Conc 30.4 g/dl (32-36); Mean Corpuscular Hemoglobin 34.7 pg (26-34); Mean Corpuscular Volume 114.2 fl (80-100); Nucleated Red Blood Cells Absolute Auto 0.000 K/mm3 (0.0-0.012); Nucleated Red Blood Cells Perc 0.0 % (0.0-0.2); Platelet Count Result 480 k/mm3 (150-375); Red Blood Count 2.25 M/mm3 (4.2-5.4); White Blood Count 17.0 K/mm3 (4.5-10.0)
[2025-01-30 12:11] LABS: Alanine Aminotransferase 9 U/L (6-35); Albumin Level 2.3 g/dL (3.5-5.1); Alkaline Phosphatase 128 U/L (38-126); Anion Gap 11 mmol/L (4-12); Aspartate Amino Transferase 26 U/L (14-36); Bilirubin,Total 0.3 mg/dL (0.2-1.3); Blood Urea Nitrogen 8 mg/dL (7-17); Calcium 8.5 mg/dL (8.4-10.2); Carbon Dioxide 17 mmol/L (22-30); Chloride 105 mmol/L (98-107); Estimated CRCL calculation 88 ml/min; Estimated Glomerular Filt Rate > 60; Glucose 62 mg/dL (65-110); Magnesium 1.6 mg/dL (1.6-2.3); Potassium 3.5 mmol/L (3.4-5.0); Sodium 133 mmol/L (137-145); Total Protein 5.2 g/dL (6.3-8.2)
[2025-01-30 12:25] LABS: Burr Cells 1+; Macrocytosis 1+ (NORMAL); Schistocytes None Seen
--- NOTE | 2025-01-30 13:18 | PCOTNOTE ---
Attempted to see Patient at this time. Patient having a venous Doppler of her LE's at this time Will check back at a later time.
[2025-01-30] MEDS: FUROSEMIDE INJ 40 MG/4 ML VIAL IV PUSH (14:12)
[2025-01-30] MEDS: VANCOMYCIN HCL 125 MG ORAL CAPSULE PO ×2 (14:13→21:53)
--- NOTE | 2025-01-30 15:49 | WPDIDCN ---
Assessment and Plan Assessment and plan (1) Perforated gastric ulcer: Qualifiers: Gastric ulcer chronicity: acute Qualified Code(s): K25.1 - Acute gastric ulcer with perforation Code(s): K25.5 - Chronic or unspecified gastric ulcer with perforation Status: Acute Assessment and Plan: ASSESSMENT: 1. gastric ulcer perforation s/p ex-lap, repair with vargas patch, washout on 01/22. 2. C. diff positive but formed stools RECOMMENDATIONS: -simplify abx to augmentin through 02/05 and vanco po bid through 02/13 -if pt gets diarrhea, would increase the po vanco to QID and complete 14 days on the QID regimen d/w pharmacy staff Pt was seen via telemedicine with audio/visual interface.Pt was in [facility] while I was in my [place] office. Pt consented to telemedicine. HPI Data of Consult Date/Time: 01/30/25 15:49 Requesting Physician: Cristiana Ellison MD Primary Care Provider: Sarkis Hernandez, Consult Narrative Reason for consult: abx mgmt Narrative: Vero Nguyen is a 59 year old female who presented to ED with gastric perforation. Pt underwent ex lap with repair, vargas patch and wash out on 01/22. Pt on zosyn, flagyl, fluconazole. C. diff + but had 2 formed stools today and 1 yesterday. ID consulted for abx mgmt. [facility] Past Medical History Medical History Tobacco dependence Dyslipidemia Post-menopause Depression Anxiety Hypertension Surgical History Surgical History History of open reduction and internal fixation (ORIF) procedure Repair left hip fracture. History of hysterectomy Family History Family History Father Hypertension Cerebrovascular accident Family history of coronary artery disease Mother Hypertension Other Arthritis Heart disease Social History Social History Social History: Surrogate medical decision maker: Cyril Nguyen, son. Code status: Full code. Smoking packs per day: 0.25 Smoking cigarettes per day: 5.0 Years smoked: 20 Smoking pack-years: 5.00 Smoking status: Current every day smoker Tobacco type: cigarettes Second hand tobacco smoke exposure: No Additional smoking assessment comments: 1-2 a day Alcohol intake: current Drinks per week: 4 Alcohol use details: Occasional Substance use: never Substance use type: does not use Do You Feel Safe in your Home?: Yes Lack of Transportation: No Lack of Food: Never True Current Housing: I Have Housing Concerned About Future Housing: No Difficulty Paying Gas/Electric Bills: No Difficulty Paying for Meds: No Currently Unemployed: No Education: High School Diploma/GED Difficulty w/ Childcare or Family Care: No Spiritual care concerns: No Meds Home Medications and Allergies Home Medications ?Medication ?Instructions ?Recorded ?Confirmed ?Type naproxen 500 mg tablet,delayed 500 mg PO BID PRN pain #14 tabs 05/05/19 01/22/25 Rx release (EC-Naproxen) fenofibrate 160 mg PO DAILY 05/09/19 01/22/25 History furosemide 20 mg PO DAILY 05/09/19 01/22/25 History simvastatin 40 mg PO DAILY 05/09/19 01/22/25 History buspirone 30 mg tablet 30 mg PO .q12hr 01/01/24 01/22/25 History cyclobenzaprine 10 mg tablet 10 mg PO .q12hr 01/01/24 01/22/25 History famotidine 20 mg tablet 20 mg PO .q12hr 01/01/24 01/22/25 History ferrous sulfate 325 mg (65 mg 650 mg PO DAILY 01/01/24 01/22/25 History iron) tablet losartan 50 mg tablet 50 mg PO DAILY 01/01/24 01/22/25 History bupropion HCl 150 mg 24 hr tablet, 150 mg PO DAILY 01/02/24 01/22/25 History extended release sennosides 8.6 mg-docusate sodium 1 tab PO HS #30 tabs 01/03/24 01/22/25 Rx 50 mg tablet (Senokot-S) Allergies Allergy/AdvReac Type Severity Reaction Status Date / Time Penicillins Allergy Unknown Hives Verified 01/22/25 15:17 clindamycin Allergy Hives Verified 01/22/25 15:17 Sulfa (Sulfonamide Allergy Hives Verified 01/22/25 15:17 Antibiotics) Vital Signs Vital Signs - 24 hr 01/29/25 16:00 01/29/25 16:00 01/29/25 20:00 Temperature 97.8 F Pulse Rate 96 94 Respiratory Rate 18 Blood Pressure 103/57 L Pulse Oximetry 100 Oxygen Delivery Room Air 01/29/25 20:00 01/29/25 20:25 01/29/25 22:11 Temperature 97.7 F Pulse Rate 99 98 99 Respiratory Rate 18 Blood Pressure 108/74 Pulse Oximetry 96 Oxygen Delivery 01/30/25 00:00 01/30/25 04:00 01/30/25 07:45 Temperature 97.8 F Pulse Rate 80 88 96 Respiratory Rate 18 Blood Pressure 118/79 Pulse Oximetry 99 Oxygen Delivery 01/30/25 08:00 01/30/25 08:44 01/30/25 12:00 Temperature Pulse Rate 110 H 106 H 90 Respiratory Rate Blood Pressure Pulse Oximetry Oxygen Delivery 01/30/25 14:14 Temperature Pulse Rate Respiratory Rate Blood Pressure 120/87 Pulse Oximetry Oxygen Delivery Exam Narrative: on room air, NAD, up in chair, non-toxic abd incision without erythema or drainage Results Labs 01/30/25 04:04 01/30/25 04:04 Labs: Short CBC 01/30/25 Range/Units 04:04 WBC 17.0 H (4.5-10.0) K/mm3 Hgb 7.8 L (12.0-15.0) g/dL Hct 25.7 L (37.0-47.0) % Plt Count 480 H (150-375) k/mm3 BMP 01/30/25 04:04 Sodium 133 L Potassium 3.5 Chloride 105 Carbon Dioxide 17 L BUN 8 Creatinine 0.60 L Glucose 62 L Calcium 8.5 Liver Function 01/30/25 Range/Units 04:04 Total Bilirubin 0.3 (0.2-1.3) mg/dL AST 26 (14-36) U/L ALT 9 (6-35) U/L Alkaline Phosphatase 128 H (38-126) U/L Albumin 2.3 L (3.5-5.1) g/dL
--- NOTE | 2025-01-30 22:04 | PC.NURSE ---
pt was given her night time meds and when handed the medicine cup pt asked what did you do to these I assured her that she watched me open the meds in the room with her an the medicine did not leave my or her sight since being opened. Pt took the pills pt said if you did anything to these ill find out and youll be in trouble this RN reminded the pt that nothing had been done to her medication
--- NOTE | 2025-01-30 23:57 | ADMGEN ---
This patient, Vero Nguyen, was admitted to [facility] Surg Room 329-01. Arrived at 2230. Patient oriented to hospital policies and general routines including ID bracelet, bed and alarms, visiting hours, pain management, procedures, bathroom and other care routines, personal items, smoking policy, room service/diet, and visiting hours. Information on how to activate the Rapid Response Team has been discussed. Patient is encouraged to report perceived risks to care and to ask questions if they do not understand what they are told or what they should do.
--- NOTE | 2025-01-31 06:25 | PC.NURSE ---
Upon assessment, Pt A&Ox2-3. Able to answer questions appropriately, but appears to display paranoia behaviors, increased anxiety, and tearful at times. Pt states that she wants to go home, asking if staff is safe, and if she has done anything wrong. Pt redirected PRN. Educated on staff routine/rounds, current doctors orders, medications ordered, and hospital orientation. Denies any pain/discomfort. Pt was able to calm down and agreed to wait for physician orders r/t discharge. Spoke with Pt son Cyril who stated that pt has texted him during the night displaying paranoia behavior and that this is out of character for her. Pt currently resting in bed with HOB elevated watching television, Call light and personal belongings within reach.
[2025-01-31 07:02] VITALS: BP 136/89; RESP 18; TEMP 36.1; O2SAT 98
[2025-01-31 07:40] LABS: Hematocrit 25.8 % (37.0-47.0); Hemoglobin 8.4 g/dL (12.0-15.0); Immature Granulocyte Percent A 2.6 % (0-0.5); Lymphocytes Absolute Auto 1.49 K/mm3 (0.9-3.2); Mean Corpuscular HGB Conc 32.6 g/dl (32-36); Mean Corpuscular Hemoglobin 34.7 pg (26-34); Mean Corpuscular Volume 106.6 fl (80-100); Nucleated Red Blood Cells Absolute Auto 0.000 K/mm3 (0.0-0.012); Nucleated Red Blood Cells Perc 0.0 % (0.0-0.2); Platelet Count Result 619 k/mm3 (150-375); Red Blood Count 2.42 M/mm3 (4.2-5.4); White Blood Count 18.7 K/mm3 (4.5-10.0)
[2025-01-31 07:59] LABS: Alanine Aminotransferase 9 U/L (6-35); Albumin Level 2.6 g/dL (3.5-5.1); Alkaline Phosphatase 133 U/L (38-126); Anion Gap 12 mmol/L (4-12); Aspartate Amino Transferase 25 U/L (14-36); Bilirubin,Total 0.5 mg/dL (0.2-1.3); Blood Urea Nitrogen 8 mg/dL (7-17); Calcium 8.9 mg/dL (8.4-10.2); Carbon Dioxide 19 mmol/L (22-30); Chloride 103 mmol/L (98-107); Estimated CRCL calculation 88 ml/min; Estimated Glomerular Filt Rate > 60; Glucose 100 mg/dL (65-110); Magnesium 1.4 mg/dL (1.6-2.3); Potassium 3.4 mmol/L (3.4-5.0); Sodium 134 mmol/L (137-145); Total Protein 5.8 g/dL (6.3-8.2)
[2025-01-31 08:08] LABS: Hypochromasia Occasional; Schistocytes None Seen
[2025-01-31 08:09] LABS: Macrocytosis Occasional (NORMAL)
[2025-01-31] MEDS: FUROSEMIDE 40 MG TABLET PO (09:22)
[2025-01-31] MEDS: PANTOPRAZOLE SODIUM IV 40 MG VIAL IV PUSH ×2 (09:22→20:20)
[2025-01-31] MEDS: LOSARTAN POTASSIUM 50 MG TABLET PO (09:22)
[2025-01-31] MEDS: SIMVASTATIN 20 MG TABLET 40 MG PO (09:22)
[2025-01-31] MEDS: FERROUS SULFATE 325 MG TABLET BY MOUTH ×2 (09:22→17:19)
[2025-01-31] MEDS: METOPROLOL TARTRATE 12.5 MG TABLET PO ×2 (09:23→20:18)
[2025-01-31] MEDS: ALPRAZolam (*CRX) 0.5 MG TABLET PO ×2 (09:23→21:15)
[2025-01-31] MEDS: FAMOTIDINE 20 MG TABLET PO ×2 (09:23→20:20)
[2025-01-31] MEDS: FENOFIBRATE 145 MG TABLET PO (09:23)
[2025-01-31] MEDS: ENOXAPARIN 40 MG/0.4 ML SYRINGE SUB-Q (09:23)
[2025-01-31] MEDS: buPROPion HCL XL (24 HR) 150 MG TABCR PO (09:23)
[2025-01-31] MEDS: VANCOMYCIN HCL 125 MG ORAL CAPSULE PO ×2 (09:24→20:19)
[2025-01-31] MEDS: ACETAMINOPHEN 500 MG TABLET 1000 MG PO ×2 (09:57→21:15)
[2025-01-31 10:29] LABS: Ammonia < 9 umol/L (9-30)
--- NOTE | 2025-01-31 10:35 | P.PNGS_ITS ---
Progress Note: A&P Assessment and Plan (1) Perforated gastric ulcer: Qualifiers: Gastric ulcer chronicity: acute Qualified Code(s): K25.1 - Acute gastric ulcer with perforation Code(s): K25.5 - Chronic or unspecified gastric ulcer with perforation Status: Acute Assessment and Plan: doing well overall, continue routine postoperative care, drain removed yesterday, continue to encourage p.o. and out of bed (2) Clostridium difficile colitis: Code(s): A04.72 - Enterocolitis due to Clostridium difficile, not specified as recurrent Status: Acute Assessment and Plan: appreciate ID recommendations, continue antibiotics Subjective Subjective Date/Time Seen: 01/31/25 10:35 Interval history: feels better overall, complains of extreme fatigue Review of Systems Review of Systems: All systems reviewed & are unremarkable except as noted in HPI and below Exam Const: General: cooperative, comfortable and no acute distress Resp: Auscultation: clear to auscultation bilaterally Cardio: Rate: regular rate Rhythm: regular rhythm GI: Inspection: normal to inspection, non-distended and incision GI Palp: No abdominal tenderness and Yes Soft to palpation Objective Data Vital Signs Vital Signs: Vital Signs - 24 hr 01/30/25 12:00 01/30/25 14:14 01/30/25 16:00 Temperature 36.6 C Pulse Rate 90 86 Respiratory Rate 16 Blood Pressure 120/87 117/81 Pulse Oximetry 100 Oxygen Delivery 01/30/25 21:52 01/30/25 22:35 01/31/25 00:08 Temperature 36.3 C L Pulse Rate 108 H 102 H Respiratory Rate 18 Blood Pressure 119/74 Pulse Oximetry 100 Oxygen Delivery Room Air 01/31/25 07:02 Temperature 36.1 C L Pulse Rate Respiratory Rate 18 Blood Pressure 136/89 Pulse Oximetry 98 Oxygen Delivery Intake/Output Intake/Output: Intake & Output 01/28/25 01/29/25 01/30/25 01/31/25 23:59 23:59 23:59 23:59 Intake Total 2640 1100 900 550 Output Total 1000 550 400 Balance 1640 550 500 550 Meds/Results Medications: Active Medications Generic Name Dose Route Start Last Admin Trade Name Freq PRN Reason Stop Dose Admin Acetaminophen 1,000 mg 01/28/25 12:38 01/31/25 09:57 Acetaminophen 500 Mg Tablet PO 1,000 mg Q6H PRN Administration Mild Pain (1-3) or Fever Hydrocodone Bitart/Acetaminophen 1 tab 01/28/25 12:38 01/29/25 16:22 Hydrocodone/Acetaminophen (*Crx) 5-325 Mg Tablet PO 1 tab Q4H PRN Administration Pain Rated 4-6 Hydrocodone Bitart/Acetaminophen 1 tab 01/28/25 12:41 01/30/25 10:22 Hydrocodone/Acetaminophen (*Crx) 10-325 Mg Tablet PO 1 tab Q6H PRN Administration Pain Rated 7-10 Alprazolam 0.5 mg 01/26/25 11:33 01/31/25 09:23 Alprazolam (*Crx) 0.5 Mg Tablet PO 0.5 mg TID PRN Administration Anxiety Amoxicillin/Clavulanate Potassium 1 tablet 01/30/25 14:30 01/31/25 09:22 Amoxicillin/Clavulanate K 875-125 Mg Tab PO 02/05/25 21:01 1 tablet Q12HR NATHEN Administration Bupropion HCl 150 mg 01/28/25 09:00 01/31/25 09:23 Bupropion Hcl Xl (24 Hr) 150 Mg Tabcr PO 150 mg DAILY NATHEN Administration Buspirone HCl 30 mg 01/28/25 09:00 01/31/25 09:23 Buspirone Hcl 10 Mg Tablet PO 30 mg Q12HR NATHEN Administration Enoxaparin Sodium 40 mg 01/23/25 09:00 01/31/25 09:23 Enoxaparin 40 Mg/0.4 Ml Syringe SUB-Q 40 mg DAILY NATHEN Administration Famotidine 20 mg 01/28/25 09:00 01/31/25 09:23 Famotidine 20 Mg Tablet PO 20 mg Q12HR NATHEN Administration Fenofibrate 145 mg 01/28/25 09:00 01/31/25 09:23 Fenofibrate 145 Mg Tablet PO 145 mg QAM NATHEN Administration Ferrous Sulfate 325 mg 01/28/25 09:00 01/31/25 09:22 Ferrous Sulfate 325 Mg Tablet BY MOUTH 325 mg BIDWM NATHEN Administration Furosemide 40 mg 01/31/25 09:00 01/31/25 09:22 Furosemide 40 Mg Tablet PO 40 mg QAM NATHEN Administration Hydralazine HCl 10 mg 01/22/25 22:51 Hydralazine Hcl 20 Mg/Ml Vial IV PUSH Q8H PRN Blood Pressure - High Hydromorphone HCl 1 mg 01/22/25 16:24 01/28/25 11:14 Hydromorphone Hcl Inj (*Crx) 1 Mg/Ml Syr IV PUSH 1 mg Q2H PRN Administration Breakthrough Pain Rated 7-10 or NPO Losartan Potassium 50 mg 01/28/25 09:00 01/31/25 09:22 Losartan Potassium 50 Mg Tablet PO 50 mg DAILY NATHEN Administration Metoprolol Tartrate 12.5 mg 01/27/25 10:35 01/31/25 09:23 Metoprolol Tartrate 12.5 Mg Tablet PO 12.5 mg Q12HR NATHEN Administration Naloxone HCl 0.1 mg 01/22/25 16:24 Naloxone Hcl 0.4 Mg/Ml Vial IV PUSH Q2M PRN Opiate Reversal Ondansetron HCl 4 mg 01/22/25 16:24 Ondansetron Inj 4 Mg/2 Ml Vial IV PUSH Q4H PRN Nausea And Vomiting Pantoprazole Sodium 40 mg 01/22/25 21:00 01/31/25 09:22 Pantoprazole Sodium Iv 40 Mg Vial IV PUSH 40 mg Q12HR NATHEN Administration Simvastatin 40 mg 01/28/25 09:00 01/31/25 09:22 Simvastatin 20 Mg Tablet PO 40 mg QAM NATHEN Administration Vancomycin HCl 125 mg 01/30/25 14:10 01/31/25 09:24 Vancomycin Hcl 125 Mg Oral Capsule PO 02/13/25 14:09 125 mg Q12HR NATHEN Administration Radiology Results: ITS Impressions Chest X-Ray 01/22/25 11:32 IMPRESSION: 1: No acute pulmonary process identified. Upper GI Series 01/26/25 10:08 IMPRESSION: 1. No evident extraluminal leakage of contrast or obstruction post repair of a perforated gastric ulcer. Abdomen/Pelvis CT 01/26/25 14:32 IMPRESSION: 1. Wall thickening of the gastric antrum, consistent with peptic ulcer disease. 2. Moderate volume of ascites with peritoneal thickening and enhancement, likely an exudate. 3. Small pleural effusions. Venous Doppler Study 01/30/25 13:59 IMPRESSION: 1. No DVT either leg. Labs Labs: Laboratory Results - last 24 hr 01/30/25 01/30/25 01/31/25 04:04 08:40 06:44 WBC 17.0 H 18.7 H RBC 2.25 L 2.42 L Hgb 7.8 L 8.4 L Hct 25.7 L 25.8 L MCV 114.2 H D 106.6 H D MCH 34.7 H 34.7 H MCHC 30.4 L 32.6 RDW 15.1 H 14.7 H Plt Count 480 H 619 H MPV 9.6 9.4 Immature Gran % (Auto) 2.9 H 2.6 H Neut % (Auto) 74.2 H 80.9 H Lymph % (Auto) 9.8 L 8.0 L [place] % (Auto) 8.7 H 7.3 Eos % (Auto) 3.9 0.8 Baso % (Auto) 0.5 0.4 Lymph # (Auto) 1.67 1.49 [place] # (Auto) 1.5 H 1.4 H Eos # (Auto) 0.7 H 0.2 Baso # (Auto) 0.1 0.1 Abs Immat Gran (auto) 0.49 H 0.49 H Absolute Neuts (auto) 12.6 H 15.1 H Absolute Nucleated RBC 0.000 0.000 Band Neutrophils % Not Reportable Not Reportable Nucleated RBC % 0.0 0.0 Platelet Estimate Increased Increased Hypochromasia Occasional Macrocytosis 1+ Occasional [place] Cells 1+ Schistocytes None seen None seen Sodium 133 L 134 L Potassium 3.5 3.4 Chloride 105 103 Carbon Dioxide 17 L 19 L Anion Gap 11 12 BUN 8 8 Creatinine 0.60 L 0.60 L Estim Creat Clear Calc 88 88 Estimated GFR > 60 > 60 Glucose 62 L 100 Calcium 8.5 8.9 Phosphorus 3.6 Magnesium 1.6 1.4 L Total Bilirubin 0.3 0.5 AST 26 25 ALT 9 9 Alkaline Phosphatase 128 H 133 H Ammonia Total Protein 5.2 L 5.8 L Albumin 2.3 L 2.6 L C. difficile (PCR) Positive A* C. difficile Ag & Toxin Negative C. difficile GDH Ag Positive A 01/31/25 10:15 WBC RBC Hgb Hct MCV MCH MCHC RDW Plt Count MPV Immature Gran % (Auto) Neut % (Auto) Lymph % (Auto) [place] % (Auto) Eos % (Auto) Baso % (Auto) Lymph # (Auto) [place] # (Auto) Eos # (Auto) Baso # (Auto) Abs Immat Gran (auto) Absolute Neuts (auto) Absolute Nucleated RBC Band Neutrophils % Nucleated RBC % Platelet Estimate Hypochromasia Macrocytosis [place] Cells Schistocytes Sodium Potassium Chloride Carbon Dioxide Anion Gap BUN Creatinine Estim Creat Clear Calc Estimated GFR Glucose Calcium Phosphorus Magnesium Total Bilirubin AST ALT Alkaline Phosphatase Ammonia < 9 L Total Protein Albumin C. difficile (PCR) C. difficile Ag & Toxin C. difficile [facility] Ag
--- NOTE | 2025-01-31 10:52 | PC.NURSE ---
Pt very agitated and confused this morning stated she's not having a baby, needs to leave demanding to see the doctor. Pt changed from hospital gown into street clothes. Phone call placed to boyfriend and son to come sit with pt. Pt's son, Cyril came and is here with pt. call also placed to Dr. Naranjo and he came and talked to patient. When this nurse came back into the room patient was compliant with staying and took morning medications.
--- NOTE | 2025-01-31 13:12 | P.PNIM_ITS ---
Progress Note: A&P Assessment and Plan (1) Gastric perforation: Code(s): K25.5 - Chronic or unspecified gastric ulcer with perforation Status: Acute Assessment and Plan: on admission, CT A/P shows gastric perforation Surgery consulted,S/P Exploratory laparotomy on 01/22/2025 IV antibiotics de-escalated to only Zosyn IVF, IV Protonix b.i.d.,TEJA drain care NG tube to suction Continue PPN Upper GI series study with contrast 01/26/2025 with no evident extraluminal leakage of contrast or obstruction post repair of the perforated gastric ulcer. Repeat CT abdomen pelvis 01/26/2025 with wall thickening of the gastric antrum consistent with peptic ulcer disease with moderate volume of ascites with peritoneal thickening and enhancement small pleural effusions. Dressing change after the surgeon evaluation ID consulted antibiotics in switched to Augmentin (2) Hyponatremia: Code(s): E87.1 - Hypo-osmolality and hyponatremia Status: Acute Assessment and Plan: Hyponatremia seems chronic Follow serum osmolar, urine osmolality and urine random sodium (3) Hypokalemia: Code(s): E87.6 - Hypokalemia Status: Acute Assessment and Plan: Replace and monitor (4) Anemia: Code(s): D64.9 - Anemia, unspecified Status: Acute Assessment and Plan: Iron study shows iron 23, 194 and % transferrin saturation 12- There is a component of iron deficiency anemia and anemia of chronic disease Continue IV iron 300 mg a day for 3 days (5) Colitis: Code(s): K52.9 - Noninfective gastroenteritis and colitis, unspecified Status: Acute Assessment and Plan: Antibiotics as above Stool sample C diff came back positive Started on oral vancomycin Id board (6) Anxiety: Code(s): F41.9 - Anxiety disorder, unspecified Status: Acute Assessment and Plan: On buspirone (7) Hypertension: Code(s): I10 - Essential (primary) hypertension Status: Acute Assessment and Plan: Holding oral medications Hydralazine p.r.n. Plan Lower extremity edema received a dose of Lasix x1 01/30/2025. Increase Lasix oral to 40 mg daily leg swelling improved DVT prophylaxis Lovenox Leukocytosis persistent CT abdomen unremarkable. Currently on Zosyn Flagyl and antifungal. Seems ID has been consulted. If okay with surgery discontinue all IV antibiotics and continue only oral vancomycin. Id has switched to Augmentin and oral vancomycin continued. Trend leukocytosis Confusion likely delirium. Will get CT 8 ammonia level checked. Will continue to monitor. Subjective Date/time seen: 01/31/25 13:12 Interval history: Patient confused overnight. Was adamant at going home. Discussed with the patient and the family. No weakness. Leg swelling has improved. Abdomen is sore. Bowel movement has become more formed. Review of Systems Review of Systems: All systems reviewed & are unremarkable except as noted in HPI and below Exam Narrative: APPEARANCE: No acute distress, nontoxic, NG tube placed EYES: EOMI HEENT: Normocephalic, atraumatic RESPIRATORY: No respiratory distress; Clear to auscultation bilaterally with no rhonchi wheezing or rales CARDIOVASCULAR: RRR, S1 and S2 without murmurs rubs or gallops. ABDOMINAL: Abdomen tenderness to palpation, no guarding or peritonitis MSK: Normal range of motion bilateral lower extremity pitting edema noted. 2+ NEURO: Awake and alert. Following commands, speech normal, no focal deficits SKIN:: Warm, dry. No rashes lesions or abrasions PSYCHIATRIC: Normal affect/mood Objective Data Vital Signs Vital Signs: Vital Signs - 24 hr 01/30/25 14:14 01/30/25 16:00 01/30/25 21:52 Temperature 97.8 F Pulse Rate 86 108 H Respiratory Rate 16 Blood Pressure 120/87 117/81 Pulse Oximetry 100 Oxygen Delivery 01/30/25 22:35 01/31/25 00:08 01/31/25 07:02 Temperature 97.4 F L 97 F L Pulse Rate 102 H Respiratory Rate 18 18 Blood Pressure 119/74 136/89 Pulse Oximetry 100 98 Oxygen Delivery Room Air Intake/Output Intake/Output: Intake & Output 01/28/25 01/29/25 01/30/25 01/31/25 23:59 23:59 23:59 23:59 Intake Total 2640 1100 900 550 Output Total 1000 550 400 Balance 1640 550 500 550 Meds/Results Medications: Active Medications Generic Name Dose Route Start Last Admin Trade Name Freq PRN Reason Stop Dose Admin Acetaminophen 1,000 mg 01/28/25 12:38 01/31/25 09:57 Acetaminophen 500 Mg Tablet PO 1,000 mg Q6H PRN Administration Mild Pain (1-3) or Fever Hydrocodone Bitart/Acetaminophen 1 tab 01/28/25 12:38 01/29/25 16:22 Hydrocodone/Acetaminophen (*Crx) 5-325 Mg Tablet PO 1 tab Q4H PRN Administration Pain Rated 4-6 Hydrocodone Bitart/Acetaminophen 1 tab 01/28/25 12:41 01/30/25 10:22 Hydrocodone/Acetaminophen (*Crx) 10-325 Mg Tablet PO 1 tab Q6H PRN Administration Pain Rated 7-10 Alprazolam 0.5 mg 01/26/25 11:33 01/31/25 09:23 Alprazolam (*Crx) 0.5 Mg Tablet PO 0.5 mg TID PRN Administration Anxiety Amoxicillin/Clavulanate Potassium 1 tablet 01/30/25 14:30 01/31/25 09:22 Amoxicillin/Clavulanate K 875-125 Mg Tab PO 02/05/25 21:01 1 tablet Q12HR NATHEN Administration Bupropion HCl 150 mg 01/28/25 09:00 01/31/25 09:23 Bupropion Hcl Xl (24 Hr) 150 Mg Tabcr PO 150 mg DAILY NATHEN Administration Buspirone HCl 30 mg 01/28/25 09:00 01/31/25 09:23 Buspirone Hcl 10 Mg Tablet PO 30 mg Q12HR NATHEN Administration Enoxaparin Sodium 40 mg 01/23/25 09:00 01/31/25 09:23 Enoxaparin 40 Mg/0.4 Ml Syringe SUB-Q 40 mg DAILY NATHEN Administration Famotidine 20 mg 01/28/25 09:00 01/31/25 09:23 Famotidine 20 Mg Tablet PO 20 mg Q12HR NATHEN Administration Fenofibrate 145 mg 01/28/25 09:00 01/31/25 09:23 Fenofibrate 145 Mg Tablet PO 145 mg QAM NATHEN Administration Ferrous Sulfate 325 mg 01/28/25 09:00 01/31/25 09:22 Ferrous Sulfate 325 Mg Tablet BY MOUTH 325 mg BIDWM NATHEN Administration Furosemide 40 mg 01/31/25 09:00 01/31/25 09:22 Furosemide 40 Mg Tablet PO 40 mg QAM NATHEN Administration Hydralazine HCl 10 mg 01/22/25 22:51 Hydralazine Hcl 20 Mg/Ml Vial IV PUSH Q8H PRN Blood Pressure - High Hydromorphone HCl 1 mg 01/22/25 16:24 01/28/25 11:14 Hydromorphone Hcl Inj (*Crx) 1 Mg/Ml Syr IV PUSH 1 mg Q2H PRN Administration Breakthrough Pain Rated 7-10 or NPO Losartan Potassium 50 mg 01/28/25 09:00 01/31/25 09:22 Losartan Potassium 50 Mg Tablet PO 50 mg DAILY NATHEN Administration Metoprolol Tartrate 12.5 mg 01/27/25 10:35 01/31/25 09:23 Metoprolol Tartrate 12.5 Mg Tablet PO 12.5 mg Q12HR NATHEN Administration Naloxone HCl 0.1 mg 01/22/25 16:24 Naloxone Hcl 0.4 Mg/Ml Vial IV PUSH Q2M PRN Opiate Reversal Ondansetron HCl 4 mg 01/22/25 16:24 Ondansetron Inj 4 Mg/2 Ml Vial IV PUSH Q4H PRN Nausea And Vomiting Pantoprazole Sodium 40 mg 01/22/25 21:00 01/31/25 09:22 Pantoprazole Sodium Iv 40 Mg Vial IV PUSH 40 mg Q12HR NATHEN Administration Simvastatin 40 mg 01/28/25 09:00 01/31/25 09:22 Simvastatin 20 Mg Tablet PO 40 mg QAM NATHEN Administration Vancomycin HCl 125 mg 01/30/25 14:10 01/31/25 09:24 Vancomycin Hcl 125 Mg Oral Capsule PO 02/13/25 14:09 125 mg Q12HR NATEHN Administration Radiology Results: ITS Impressions Chest X-Ray 01/22/25 11:32 IMPRESSION: 1: No acute pulmonary process identified. Upper GI Series 01/26/25 10:08 IMPRESSION: 1. No evident extraluminal leakage of contrast or obstruction post repair of a perforated gastric ulcer. Abdomen/Pelvis CT 01/26/25 14:32 IMPRESSION: 1. Wall thickening of the gastric antrum, consistent with peptic ulcer disease. 2. Moderate volume of ascites with peritoneal thickening and enhancement, likely an exudate. 3. Small pleural effusions. Venous Doppler Study 01/30/25 13:59 IMPRESSION: 1. No DVT either leg. Head CT 01/31/25 11:50 IMPRESSION: 1. Normal brain. Labs Labs: Laboratory Results - last 24 hr 01/31/25 01/31/25 06:44 10:15 WBC 18.7 H RBC 2.42 L Hgb 8.4 L Hct 25.8 L MCV 106.6 H D MCH 34.7 H MCHC 32.6 RDW 14.7 H Plt Count 619 H MPV 9.4 Immature Gran % (Auto) 2.6 H Neut % (Auto) 80.9 H Lymph % (Auto) 8.0 L [place] % (Auto) 7.3 Eos % (Auto) 0.8 Baso % (Auto) 0.4 Lymph # (Auto) 1.49 [place] # (Auto) 1.4 H Eos # (Auto) 0.2 Baso # (Auto) 0.1 Abs Immat Gran (auto) 0.49 H Absolute Neuts (auto) 15.1 H Absolute Nucleated RBC 0.000 Band Neutrophils % Not Reportable Nucleated RBC % 0.0 Platelet Estimate Increased Hypochromasia Occasional Macrocytosis Occasional Schistocytes None seen Sodium 134 L Potassium 3.4 Chloride 103 Carbon Dioxide 19 L Anion Gap 12 BUN 8 Creatinine 0.60 L Estim Creat Clear Calc 88 Estimated GFR > 60 Glucose 100 Calcium 8.9 Phosphorus 3.6 Magnesium 1.4 L Total Bilirubin 0.5 AST 25 ALT 9 Alkaline Phosphatase 133 H Ammonia < 9 L Total Protein 5.8 L Albumin 2.6 L
[2025-01-31 14:11] LABS: Add Urine Microscopic? NO; Appearance Urine Clear (Clear); Glucose Urine UA Negative (Negative); Leukocyte Esterase Ur Negative LEU/UL (Negative); Nitrate Urine Negative (Negative); Specific Grav Ur 1.006 (1.001-1.035)
[2025-01-31 15:14] VITALS: BP 124/84; PULSE 91; RESP 17; TEMP 36.3; O2SAT 100
[2025-01-31 20:18] VITALS: PULSE 90
[2025-01-31 20:54] VITALS: BP 136/85; PULSE 81; RESP 16; TEMP 37.2; O2SAT 100
[2025-02-01 05:06] VITALS: BP 135/85; PULSE 98; RESP 20; TEMP 36.4; O2SAT 100
[2025-02-01 06:18] LABS: Hematocrit 24.4 % (37.0-47.0); Hemoglobin 7.8 g/dL (12.0-15.0); Immature Granulocyte Percent A 2.0 % (0-0.5); Lymphocytes Absolute Auto 1.26 K/mm3 (0.9-3.2); Mean Corpuscular HGB Conc 32.0 g/dl (32-36); Mean Corpuscular Hemoglobin 34.2 pg (26-34); Mean Corpuscular Volume 107.0 fl (80-100); Nucleated Red Blood Cells Absolute Auto 0.000 K/mm3 (0.0-0.012); Nucleated Red Blood Cells Perc 0.0 % (0.0-0.2); Platelet Count Result 578 k/mm3 (150-375); Red Blood Count 2.28 M/mm3 (4.2-5.4); White Blood Count 15.4 K/mm3 (4.5-10.0)
[2025-02-01 06:34] LABS: Alanine Aminotransferase 7 U/L (6-35); Albumin Level 2.4 g/dL (3.5-5.1); Alkaline Phosphatase 105 U/L (38-126); Anion Gap 9 mmol/L (4-12); Aspartate Amino Transferase 28 U/L (14-36); Bilirubin,Total 0.4 mg/dL (0.2-1.3); Blood Urea Nitrogen 7 mg/dL (7-17); Calcium 8.3 mg/dL (8.4-10.2); Carbon Dioxide 21 mmol/L (22-30); Chloride 104 mmol/L (98-107); Estimated CRCL calculation 89 ml/min; Estimated Glomerular Filt Rate > 60; Glucose 81 mg/dL (65-110); Magnesium 1.5 mg/dL (1.6-2.3); Potassium 3.1 mmol/L (3.4-5.0); Sodium 134 mmol/L (137-145); Total Protein 5.4 g/dL (6.3-8.2)
[2025-02-01 06:59] LABS: Hypochromasia 1+; Macrocytosis 1+ (NORMAL); Schistocytes None Seen
[2025-02-01] MEDS: PANTOPRAZOLE SODIUM IV 40 MG VIAL IV PUSH (09:02)
[2025-02-01] MEDS: buPROPion HCL XL (24 HR) 150 MG TABCR PO (09:03)
[2025-02-01] MEDS: FERROUS SULFATE 325 MG TABLET BY MOUTH (09:03)
[2025-02-01] MEDS: SIMVASTATIN 20 MG TABLET 40 MG PO (09:03)
[2025-02-01] MEDS: FAMOTIDINE 20 MG TABLET PO (09:03)
[2025-02-01] MEDS: VANCOMYCIN HCL 125 MG ORAL CAPSULE PO (09:03)
[2025-02-01] MEDS: FENOFIBRATE 145 MG TABLET PO (09:03)
[2025-02-01] MEDS: METOPROLOL TARTRATE 12.5 MG TABLET PO (09:03)
[2025-02-01] MEDS: ENOXAPARIN 40 MG/0.4 ML SYRINGE SUB-Q (09:04)
[2025-02-01] MEDS: FUROSEMIDE 40 MG TABLET PO (09:04)
[2025-02-01] MEDS: LOSARTAN POTASSIUM 50 MG TABLET PO (09:04)
[2025-02-01] MEDS: ALPRAZolam (*CRX) 0.5 MG TABLET PO (09:23)
[2025-02-01] MEDS: MAGNESIUM SULF 2 GM/WATER 50ML 2 GM/50 ML BAG IVPB (09:23)
[2025-02-01] MEDS: POTASSIUM CHLORIDE 20 MEQ ER TABLET 40 MEQ PO (09:23)
--- NOTE | 2025-02-01 09:33 | P.DS_ITS ---
DS: Admitting Diagnosis Discharge Date 02/01/2025 Admitting Diagnosis perforated viscus DS: Discharge Diagnosis Discharge Diagnosis (1) Perforated gastric ulcer: Qualifiers: Gastric ulcer chronicity: acute Qualified Code(s): K25.1 - Acute gastric ulcer with perforation Code(s): K25.5 - Chronic or unspecified gastric ulcer with perforation Status: Acute Assessment and Plan: status post exploratory laparotomy and repair of perforated gastric ulcer with Jean patch, home with routine postoperative care, PPI, p.o. analgesia, follow- up in 1 week for staple removal (2) Clostridium difficile colitis: Code(s): A04.72 - Enterocolitis due to Clostridium difficile, not specified as recurrent Status: Acute Assessment and Plan: diarrhea is much improved, leukocytosis largely resolved, continue p.o. antibiotics per ID recommendations DS: Summary Hospital Course Reason for hospitalization: perforated viscus Hospital Course: The patient is a 59-year-old female presenting to the hospital with perforated viscus. She was taken emergently to the operating room on 01/22 and exploratory laparotomy with repair of gastric ulcer was performed. Please see full operative report for details of that procedure. Postoperatively, the patient did well and was transferred to the IMU. Over the next few days, she continued to have NG tube decompression and IV antibiotics. On postoperative day 4 the patient underwent upper GI study and CT scan showing no further leak. Her NG tube was then subsequently clamped and removed. The patient did have a leukocytosis and complained of diarrhea. Subsequent stool sample was positive for C diff colitis. The patient was treated appropriately as per ID recommendations. Slowly we were able to advance her diet and she was having normal bowel function. Her leukocytosis gradually resolved. The patient was up and out of bed without issue. At this time she will be discharged home with continued antibiotics per ID recommendations. She will also be sent home with PPI and p.o. analgesia. She will follow-up with me in 1 week for staple removal. Status at Discharge Functional status at discharge: independent ambulation Overall status at discharge: patient is progressing back to baseline Time Spent with Patient Time attestation: Total time spent providing and/or coordinating discharge services: Time spent: Less than 30 minutes Exam Const: General: cooperative, comfortable and no acute distress Resp: Auscultation: clear to auscultation bilaterally Cardio: Rate: regular rate Rhythm: regular rhythm GI: Inspection: normal to inspection and incision GI Palp: No abdominal tenderness and Yes Soft to palpation DS: Data Data Completed and Pending Labs on day of discharge: Labs from last 24 hours 02/01/25 01/31/25 01/31/25 05:29 14:00 10:15 WBC 15.4 H RBC 2.28 L Hgb 7.8 L Hct 24.4 L MCV 107.0 H MCH 34.2 H MCHC 32.0 RDW 14.9 H Plt Count 578 H MPV 9.7 Immature Gran % (Auto) 2.0 H Neut % (Auto) 79.7 H Lymph % (Auto) 8.2 L [place] % (Auto) 8.5 Eos % (Auto) 1.2 Baso % (Auto) 0.4 Lymph # (Auto) 1.26 [place] # (Auto) 1.3 H Eos # (Auto) 0.2 Baso # (Auto) 0.1 Abs Immat Gran (auto) 0.31 H Absolute Neuts (auto) 12.3 H Absolute Nucleated RBC 0.000 Band Neutrophils % Not Reportable Nucleated RBC % 0.0 Platelet Estimate Increased Hypochromasia 1+ Macrocytosis 1+ Schistocytes None seen Sodium 134 L Potassium 3.1 L Chloride 104 Carbon Dioxide 21 L Anion Gap 9 BUN 7 Creatinine 0.59 L Estim Creat Clear Calc 89 Estimated GFR > 60 Glucose 81 Calcium 8.3 L Magnesium 1.5 L Total Bilirubin 0.4 AST 28 ALT 7 Alkaline Phosphatase 105 Ammonia < 9 L Total Protein 5.4 L Albumin 2.4 L Urine Color Yellow Urine Appearance Clear Urine pH 7.0 Ur Specific [place] 1.006 Urine Protein Negative Urine Glucose (UA) Negative Urine Ketones Negative Ur Blood (Man) Negative Urine Nitrate Negative Urine Bilirubin Negative Urine Urobilinogen 0.2 Leukocyte Esterase Rfl Negative Preliminary micro results at discharge 01/25/25 10:29 Blood Culture - Preliminary Blood 01/25/25 10:39 Blood Culture - Preliminary Blood Discharge Plan Discharge Attending physician on discharge: Cristiana Ellison Consulting providers: Diana Altamirano; Cristiana Ellison; Esther Arnold Discharging Clinician: Cristiana Ellison Anticipated Discharge Date/Time: 02/01/25 11:00 Patient Disposition: Home Activity: may shower and no straining Diet: as tolerated Wound Care Instructions: incision open to air Discharge Instructions: ok to shower over incision with soap and water Patient Instructions: Antibiotic Form, How to Stop Smoking (DC) Patient Language: Green[place]ic Stand Alone Forms: General Discharge Information Follow-up/Referrals: Cristiana Ellison MD [Physician, General Surgery] - 1 Week David,MD Sarkis [Primary Care Provider, Unknown] Discharge Medications: New hydrocodone-acetaminophen 5-325 mg tablet 1 tablet PO Q6H PRN (Reason: pain) Qty: 20 0RF pantoprazole [Protonix] 40 mg tablet,delayed release (DR/EC) 40 mg PO HS 28 Days Qty: 28 0RF vancomycin 250 mg capsule 250 mg PO BID Qty: 20 0RF amoxicillin-pot clavulanate 875-125 mg tablet 1 tablet PO Q12H Qty: 10 0RF Continued simvastatin 40 mg PO DAILY fenofibrate 160 mg PO DAILY furosemide 20 mg PO DAILY naproxen [EC-Naproxen] 500 mg tablet,delayed release (DR/EC) 500 mg PO BID PRN (Reason: pain) Qty: 14 0RF losartan 50 mg tablet 50 mg PO DAILY cyclobenzaprine 10 mg tablet 10 mg PO .q12hr famotidine 20 mg tablet 20 mg PO .q12hr buspirone 30 mg tablet 30 mg PO .q12hr ferrous sulfate 325 mg (65 mg iron) tablet 650 mg PO DAILY bupropion HCl 150 mg tablet extended release 24 hr 150 mg PO DAILY sennosides-docusate sodium [Senokot-S] 8.6-50 mg Tablet 1 tab PO HS Qty: 30 0RF Date of admission: 01/22/25 16:24 Primary Care Provider: David,Sarkis Admitting Provider: Cristiana Ellison Attending physician on admission: Cristiana Ellison Condition: Serious
--- NOTE | 2025-02-01 11:34 | PC.NURSE ---
Pt has d/c orders, call placed to [facility], he stated that he could not pick her up today and was not ready for her. Call placed to Cyril, pt's son, stated that he will fish bait picker pt and be home with her. Pt A&Ox4 with some confusion states to feel okay going home and is eager to go. Son will be here at 1pm to pick pt up for d/c.
--- NOTE | 2025-02-01 12:01 | P.PNIM_ITS ---
Progress Note: A&P Assessment and Plan (1) Gastric perforation: Code(s): K25.5 - Chronic or unspecified gastric ulcer with perforation Status: Acute Assessment and Plan: on admission, CT A/P shows gastric perforation Surgery consulted,S/P Exploratory laparotomy on 01/22/2025 IV antibiotics de-escalated to only Zosyn IVF, IV Protonix b.i.d.,TEJA drain care NG tube to suction Continue PPN Upper GI series study with contrast 01/26/2025 with no evident extraluminal leakage of contrast or obstruction post repair of the perforated gastric ulcer. Repeat CT abdomen pelvis 01/26/2025 with wall thickening of the gastric antrum consistent with peptic ulcer disease with moderate volume of ascites with peritoneal thickening and enhancement small pleural effusions. Dressing change after the surgeon evaluation ID consulted antibiotics in switched to Augmentin Leukocytosis improving (2) Hyponatremia: Code(s): E87.1 - Hypo-osmolality and hyponatremia Status: Acute Assessment and Plan: Hyponatremia seems chronic Follow serum osmolar, urine osmolality and urine random sodium (3) Hypokalemia: Code(s): E87.6 - Hypokalemia Status: Acute Assessment and Plan: Replace and monitor (4) Anemia: Code(s): D64.9 - Anemia, unspecified Status: Acute Assessment and Plan: Iron study shows iron 23, 194 and % transferrin saturation 12- There is a component of iron deficiency anemia and anemia of chronic disease Continue IV iron 300 mg a day for 3 days (5) Colitis: Code(s): K52.9 - Noninfective gastroenteritis and colitis, unspecified Status: Acute Assessment and Plan: Antibiotics as above Stool sample C diff came back positive Started on oral vancomycin Id board Diarrhea resolved Finished vancomycin course (6) Anxiety: Code(s): F41.9 - Anxiety disorder, unspecified Status: Acute Assessment and Plan: On buspirone (7) Hypertension: Code(s): I10 - Essential (primary) hypertension Status: Acute Assessment and Plan: Holding oral medications Hydralazine p.r.n. Plan Lower extremity edema received a dose of Lasix x1 01/30/2025. Increase Lasix oral to 40 mg daily leg swelling improved DVT prophylaxis Lovenox Leukocytosis persistent CT abdomen unremarkable. Currently on Zosyn Flagyl and antifungal. Seems ID has been consulted. If okay with surgery discontinue all IV antibiotics and continue only oral vancomycin. Id has switched to Augmentin and oral vancomycin continued. Trend leukocytosis Confusion likely delirium. CT head negative. Ammonia neck normal. Likely delirium. Improving Subjective Date/time seen: 02/01/25 12:01 Interval history: Confusion has improved. Leg swelling still persists but improved. Diarrhea has resolved. Labs reviewed. Review of Systems Review of Systems: All systems reviewed & are unremarkable except as noted in HPI and below Exam Narrative: APPEARANCE: No acute distress, nontoxic, EYES: EOMI HEENT: Normocephalic, atraumatic RESPIRATORY: No respiratory distress; Clear to auscultation bilaterally with no rhonchi wheezing or rales CARDIOVASCULAR: RRR, S1 and S2 without murmurs rubs or gallops. ABDOMINAL: Abdomen tenderness to palpation, no guarding or peritonitis MSK: Normal range of motion bilateral lower extremity pitting edema noted. 2+ NEURO: Awake and alert. Following commands, speech normal, no focal deficits SKIN:: Warm, dry. No rashes lesions or abrasions PSYCHIATRIC: Normal affect/mood Objective Data Vital Signs Vital Signs: Vital Signs - 24 hr 01/31/25 15:14 01/31/25 20:00 01/31/25 20:18 Temperature 97.4 F L Pulse Rate 91 90 Respiratory Rate 17 Blood Pressure 124/84 Pulse Oximetry 100 Oxygen Delivery Room Air 01/31/25 20:54 02/01/25 05:06 02/01/25 08:00 Temperature 99 F 97.6 F Pulse Rate 81 98 Respiratory Rate 16 20 Blood Pressure 136/85 135/85 Pulse Oximetry 100 100 Oxygen Delivery Room Air Intake/Output Intake/Output: Intake & Output 01/29/25 01/30/25 01/31/25 02/01/25 23:59 23:59 23:59 23:59 Intake Total 8313 253 3118 168 Output Total 550 400 400 600 Balance 550 500 768 -432 Meds/Results Medications: Active Medications Generic Name Dose Route Start Last Admin Trade Name Freq PRN Reason Stop Dose Admin Acetaminophen 1,000 mg 01/28/25 12:38 01/31/25 21:15 Acetaminophen 500 Mg Tablet PO 1,000 mg Q6H PRN Administration Mild Pain (1-3) or Fever Hydrocodone Bitart/Acetaminophen 1 tab 01/28/25 12:38 01/29/25 16:22 Hydrocodone/Acetaminophen (*Crx) 5-325 Mg Tablet PO 1 tab Q4H PRN Administration Pain Rated 4-6 Hydrocodone Bitart/Acetaminophen 1 tab 01/28/25 12:41 01/30/25 10:22 Hydrocodone/Acetaminophen (*Crx) 10-325 Mg Tablet PO 1 tab Q6H PRN Administration Pain Rated 7-10 Alprazolam 0.5 mg 01/26/25 11:33 02/01/25 09:23 Alprazolam (*Crx) 0.5 Mg Tablet PO 0.5 mg TID PRN Administration Anxiety Amoxicillin/Clavulanate Potassium 1 tablet 01/30/25 14:30 02/01/25 09:03 Amoxicillin/Clavulanate K 875-125 Mg Tab PO 02/05/25 21:01 1 tablet Q12HR NATHEN Administration Bupropion HCl 150 mg 01/28/25 09:00 02/01/25 09:03 Bupropion Hcl Xl (24 Hr) 150 Mg Tabcr PO 150 mg DAILY NATHEN Administration Buspirone HCl 30 mg 01/28/25 09:00 02/01/25 09:03 Buspirone Hcl 10 Mg Tablet PO 30 mg Q12HR NATHEN Administration Enoxaparin Sodium 40 mg 01/23/25 09:00 02/01/25 09:04 Enoxaparin 40 Mg/0.4 Ml Syringe SUB-Q 40 mg DAILY NATHEN Administration Famotidine 20 mg 01/28/25 09:00 02/01/25 09:03 Famotidine 20 Mg Tablet PO 20 mg Q12HR NATHEN Administration Fenofibrate 145 mg 01/28/25 09:00 02/01/25 09:03 Fenofibrate 145 Mg Tablet PO 145 mg QAM NATHEN Administration Ferrous Sulfate 325 mg 01/28/25 09:00 02/01/25 09:03 Ferrous Sulfate 325 Mg Tablet BY MOUTH 325 mg BIDWM NATHEN Administration Furosemide 40 mg 01/31/25 09:00 02/01/25 09:04 Furosemide 40 Mg Tablet PO 40 mg QAM NATHEN Administration Hydralazine HCl 10 mg 01/22/25 22:51 Hydralazine Hcl 20 Mg/Ml Vial IV PUSH Q8H PRN Blood Pressure - High Hydromorphone HCl 1 mg 01/22/25 16:24 01/28/25 11:14 Hydromorphone Hcl Inj (*Crx) 1 Mg/Ml Syr IV PUSH 1 mg Q2H PRN Administration Breakthrough Pain Rated 7-10 or NPO Losartan Potassium 50 mg 01/28/25 09:00 02/01/25 09:04 Losartan Potassium 50 Mg Tablet PO 50 mg DAILY NATHEN Administration Metoprolol Tartrate 12.5 mg 01/27/25 10:35 02/01/25 09:03 Metoprolol Tartrate 12.5 Mg Tablet PO 12.5 mg Q12HR NATHEN Administration Miscellaneous Information 1 each 02/01/25 00:01 02/01/25 03:44 Please Renew Dilaudid_. Per [employer] Procedure, It Will Discontinue If Not Renewed XX 03/03/25 00:00 Not Given CLARIFY NATHEN Naloxone HCl 0.1 mg 01/22/25 16:24 Naloxone Hcl 0.4 Mg/Ml Vial IV PUSH Q2M PRN Opiate Reversal Ondansetron HCl 4 mg 01/22/25 16:24 Ondansetron Inj 4 Mg/2 Ml Vial IV PUSH Q4H PRN Nausea And Vomiting Pantoprazole Sodium 40 mg 01/22/25 21:00 02/01/25 09:02 Pantoprazole Sodium Iv 40 Mg Vial IV PUSH 40 mg Q12HR NATHEN Administration Simvastatin 40 mg 01/28/25 09:00 02/01/25 09:03 Simvastatin 20 Mg Tablet PO 40 mg QAM NATHEN Administration Vancomycin HCl 125 mg 01/30/25 14:10 02/01/25 09:03 Vancomycin Hcl 125 Mg Oral Capsule PO 02/13/25 14:09 125 mg Q12HR NATHEN Administration Radiology Results: ITS Impressions Chest X-Ray 01/22/25 11:32 IMPRESSION: 1: No acute pulmonary process identified. Upper GI Series 01/26/25 10:08 IMPRESSION: 1. No evident extraluminal leakage of contrast or obstruction post repair of a perforated gastric ulcer. Abdomen/Pelvis CT 01/26/25 14:32 IMPRESSION: 1. Wall thickening of the gastric antrum, consistent with peptic ulcer disease. 2. Moderate volume of ascites with peritoneal thickening and enhancement, likely an exudate. 3. Small pleural effusions. Venous Doppler Study 01/30/25 13:59 IMPRESSION: 1. No DVT either leg. Head CT 01/31/25 11:50 IMPRESSION: 1. Normal brain. Labs Labs: Laboratory Results - last 24 hr 01/31/25 02/01/25 14:00 05:29 WBC 15.4 H RBC 2.28 L Hgb 7.8 L Hct 24.4 L MCV 107.0 H MCH 34.2 H MCHC 32.0 RDW 14.9 H Plt Count 578 H MPV 9.7 Immature Gran % (Auto) 2.0 H Neut % (Auto) 79.7 H Lymph % (Auto) 8.2 L [place] % (Auto) 8.5 Eos % (Auto) 1.2 Baso % (Auto) 0.4 Lymph # (Auto) 1.26 [place] # (Auto) 1.3 H Eos # (Auto) 0.2 Baso # (Auto) 0.1 Abs Immat Gran (auto) 0.31 H Absolute Neuts (auto) 12.3 H Absolute Nucleated RBC 0.000 Band Neutrophils % Not Reportable Nucleated RBC % 0.0 Platelet Estimate Increased Hypochromasia 1+ Macrocytosis 1+ Schistocytes None seen Sodium 134 L Potassium 3.1 L Chloride 104 Carbon Dioxide 21 L Anion Gap 9 BUN 7 Creatinine 0.59 L Estim Creat Clear Calc 89 Estimated GFR > 60 Glucose 81 Calcium 8.3 L Magnesium 1.5 L Total Bilirubin 0.4 AST 28 ALT 7 Alkaline Phosphatase 105 Total Protein 5.4 L Albumin 2.4 L Urine Color Yellow Urine Appearance Clear Urine pH 7.0 Ur Specific [place] 1.006 Urine Protein Negative Urine Glucose (UA) Negative Urine Ketones Negative Ur Blood (Man) Negative Urine Nitrate Negative Urine Bilirubin Negative Urine Urobilinogen 0.2 Leukocyte Esterase Rfl Negative
== END 2025-02-01 13:00 | disposition home or self-care (01) | DRG 222 ==
LOC: ANHED 13:31 → ANHSURGERY 14:00 → ANHIMU 17:48 → ANH3MEDSUR 01-30 23:57
PROVIDERS: Emergency Medicine; Internal Medicine; Nurse Practitioner Family; Nurse Practitioner Gerontology; Student in an Organized Health Care Education/Training Program; Admitting Provider Surgery; Emergency Provider Student in an Organized Health Care Education/Training Program; PCP Family Medicine; Visit Provider Surgery
PROC: 0DQ70ZZ Repair Stomach, Pylorus, Open Approach (ICD-10-PCS; CPT 49000; principal; 2025-01-22 14:30)
DX: K25.1 Acute gastric ulcer with perforation (principal); A04.72 Enterocolitis due to Clostridium difficile, not specified as recurrent; I10 Essential (primary) hypertension; E78.5 Hyperlipidemia, unspecified; F41.9 Anxiety disorder, unspecified; F17.210 Nicotine dependence, cigarettes, uncomplicated; F32.A Depression, unspecified; Z88.0 Allergy status to penicillin; E87.1 Hypo-osmolality and hyponatremia; E87.6 Hypokalemia; Z20.822 Contact with and (suspected) exposure to COVID-19; D50.9 Iron deficiency anemia, unspecified
CPT/HCPCS: 36415; 70450; 71046; 74177; 74240; 80048; 80053; 81003; 82140; 82607; 82728; 82746; 82948; 83540; 83550; 83605; 83690; 83735; 83930; 83935; 84100; 84300; 84443; 84466; 84484; 85025; 85027; 85610; 85730; 87040; 87324; 87449; 87493; 87637; 93005; 93970; 96361; 96365; 96375; 97110; 97162; 97166; 97530; 97535; 99285; A9270; J0330; J0696; J1100; J1171; J1450; J1650; J1756; J1836; J1938; J2003; J2250; J2270; J2405; J2470; J2543; J2704; J3010; J3475; J3480; J7030; J7040; J7050; J7120; Q9967